=== PATIENT | female | born 1995 | race Caucasian/White ===

== ENCOUNTER 2019-09-10 17:13 | Outpatient (CLI) | payer OTHER, SELFPAY ==
--- NOTE | ~2019-09-10 | CT_ITS ---
EXAMINATION: CT sinus wo con DATE: 09/10/2019 19:05 INDICATION: Congestion. Chronic sinusitis. TECHNIQUE: Computed tomography (CT) of the paranasal sinuses was performed without contrast. Iterativ e reconstruction technique was employed. Exam dose: 277.13 mGy-cm total exam DLP. COMPARISON: None FINDINGS: There is rightward bowing of the nasal septum. The nasal turbinates are prominent, particularly the left inferior nasal turbinate, but otherwise but relatively symmetric in size. There is intralamellar cell of both middle nasal turbinates, more prom inent on the right. The ostiomeatal units are patent bilaterally. There is mild focal soft tissue thickening of some ethmoid air cells on the left. Otherwise the paran pam sinuses are normally developed and aerated, without soft tissue polyp or mucous retention cysts or air-fluid level. There is patchy opacification of the majority of predominantly lower left mastoid air cells. The righ t mastoid air cells are normally developed and aerated. Middle and inner ear apparatus appear unremar kable. IMPRESSION: Rightward bowing of nasal septum Interlamellar cell of both middle nasal turbinates Mild focal soft tissue thickening of the left ethmoid air cells Mild patchy opacification of predominately lower left mastoid air cells Reviewed, dictated and finalized at [facility]. Reviewed, dictated and finalized at [facility]. [facility] [employer]
== END 2019-09-10 17:14 | disposition home or self-care (01) ==
LOC: ANHIMG 17:22
PROVIDERS: PCP Family Medicine; Visit Provider Otolaryngology
DX: J32.9 Chronic sinusitis, unspecified (principal); J34.2 Deviated nasal septum
CPT/HCPCS: 70486

== ENCOUNTER 2020-07-05 17:32 | Emergency (ER) | payer OTHER, SELFPAY ==
[2020-07-05 17:52] VITALS: BP 126/76; PULSE 88; RESP 20; TEMP 36.4; O2SAT 100
--- NOTE | 2020-07-05 17:53 | ED.FEMALEGU ---
HPI - Female Genitourinary General Chief complaint: Urogenital-Female Stated complaint: uti Time Seen by Provider: 07/05/20 17:53 Source: patient and RN notes reviewed Mode of arrival: ambulatory Limitations: no limitations History of Present Illness HPI Narrative: 25 year old female who presents to [facility] with 3 day duration of urinary tract infection symptoms of burning with initially pressure in the perineal area on with symptoms of burning with urination,urgency and frequency, nausea, and pressure with urination starting Tuesday and continuing today. Patient states that she had 99.6F temperature last night with no fevers noted today. Patient denies any vaginal discharge or any itching. MD elicited complaint: dysuria and UTI Onset (ago): day(s) (3) Location of symptoms: perineum and urethra Severity: moderate Severity scale (1-10): 4 Vaginal discharge: none Vaginal bleeding: none Urinary symptoms: Dysuria and Urgency Exacerbating factors: urination Relieving factors: none Associated symptoms: fever (low grade of 99.6F) and nausea Treatment prior to arrival: none Sexual activity: Yes Patient : No Date of Last Menstrual Period: 06/05/20 Related Data Home Medications Medication Instructions Recorded Confirmed aripiprazole 15 mg DAILY 07/05/20 07/05/20 bupropion HCl 300 mg PO DAILY 07/05/20 07/05/20 norgestimate-ethinyl estradiol 1 tablet DAILY 07/05/20 07/05/20 [Sprintec (28)] sertraline 100 mg DAILY 07/05/20 07/05/20 Allergies Allergy/AdvReac Type Severity Reaction Status Date / Time erythromycin base Allergy Unknown hives Verified 04/07/16 09:05 Review of Systems Review of Systems: Narrative: CONSTITUTIONAL: reports 99.6F fever last night with chills, or sweats. EYES: Denies visual changes, redness, or discharge. ENT: Denies rhinorrhea, congestion, sore throat, or otalgia. CARDIOVASCULAR: Denies chest pain, palpitations, or edema. RESPIRATORY: Denies cough or dyspnea. GASTROINTESTINAL: Denies abdominal pain,positive for nausea, denies vomiting, or diarrhea. GENITOURINARY: Positive for dysuria or hematuria and perineal pressure. SKIN: Denies rash or itching. MUSCULOSKELETAL: Denies back pain, joint pain, or myalgia. NEUROLOGIC: Denies headache, numbness, or weakness. PSYCHIATRIC: Positive history of anxiety or depression. All systems reviewed & are unremarkable except as noted in HPI and below PMFSH Past Medical History Medical History (Updated 07/05/20 @ 18:22 by Aletha Jean Baptiste NP) Anxiety with depression Asthma OCD (obsessive compulsive disorder) Surgical History Surgical History (Updated 07/05/20 @ 18:22 by Aletha Jean Baptiste NP) Hx of tonsillectomy Family History Family History Other Diabetes mellitus Family history of allergic disorder Family history of cardiovascular disease Hypertension Social History Social History (Updated 07/05/20 @ 18:23 by Aletha Jean Baptiste NP) Smoking status: Never smoker Alcohol intake: current Substance use: never Living arrangements: with family Gender identity (if verbalized by the patient): Female Comments At time of signature, agree with nursing past medical, surgical, social and family history. There is no relevant family history pertinent to the presenting complaint Exam Narrative: Exam Narrative: GENERAL: Well-appearing, well-nourished, and in no acute distress. HEAD: Normocephalic, atraumatic. EYES: PERRLA and EOMI. ENT: Nares clear, no rhinorrhea or epistaxis. Mucous membranes moist. NECK: Supple.no lymphadenopathy CHEST: Clear to auscultation. No respiratory distress.SAO2 100% on room air. HEART: Regular rate and rhythm. No murmur heard. Normal peripheral pulses. ABDOMEN: Soft, nontender, nondistended, normal active bowel sounds.denies any constipation history. States burning with urination and pressure in perineal region, denies any abdominal pain or C
[2020-07-05 17:57] VITALS: BP 126/76; PULSE 88; RESP 20; TEMP 36.4; O2SAT 100
== END 2020-07-05 18:08 | disposition home or self-care (01) ==
PROVIDERS: Emergency Provider Registered Nurse; PCP Physician Assistant
DX: N39.0 Urinary tract infection, site not specified (principal); J45.909 Unspecified asthma, uncomplicated; F41.9 Anxiety disorder, unspecified; F32.9 Major depressive disorder, single episode, unspecified; F42.9 Obsessive-compulsive disorder, unspecified
CPT/HCPCS: 81003; 87086; 87088; 99213; G0463

== ENCOUNTER 2021-05-11 15:28 | Emergency (ER) | payer OTHER, SELFPAY ==
[2021-05-11 15:48] VITALS: BP 129/85; PULSE 99; RESP 18; TEMP 36.4; O2SAT 98
--- NOTE | 2021-05-11 15:51 | ED.URI ---
HPI - URI/Sore Throat General Chief Complaint: Upper Respiratory Infection Stated Complaint: Sore Throat,Headache,Fatigue,Congestion Time Seen by Provider: 05/11/21 16:10 Source: patient and RN notes reviewed Mode of arrival: ambulatory Limitations: no limitations History of Present Illness HPI Narrative: 26-year-old female presents concern for sore throat, headache, body aches, fatigue, general malaise. Reports symptoms started on Tuesday. Reports she has been vaccinated for Covid, she also had a negative strep test last week. 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 Reports she has been taking DayQuil with mild relief that wears off. She denies cough, shortness of breath, nausea, vomiting, diarrhea, loss of taste and smell. MD elicited complaint: sore throat Related Data Home Medications Medication Instructions Recorded Confirmed aripiprazole 15 mg DAILY 07/05/20 07/05/20 bupropion HCl 300 mg PO DAILY 07/05/20 07/05/20 norgestimate-ethinyl estradiol 1 tablet DAILY 07/05/20 07/05/20 [Sprintec (28)] sertraline 100 mg DAILY 07/05/20 07/05/20 Allergies Allergy/AdvReac Type Severity Reaction Status Date / Time erythromycin base Allergy Unknown hives Verified 04/07/16 09:05 Review of Systems Review of Systems: CONSTITUTIONAL: Reports malaise. Denies chills, sweats, or fever. EYES: Denies visual changes, redness, or discharge. ENT: Reports rhinorrhea, congestion, sore throat. Denies sinus pain, otalgia CARDIOVASCULAR: Denies chest pain, palpitations, or edema. RESPIRATORY: Denies cough or dyspnea. GASTROINTESTINAL: Denies abdominal pain, nausea, vomiting, diarrhea SKIN: Denies rash or itching. MUSCULOSKELETAL: Reports myalgia. NEUROLOGIC: Denies headache. All systems reviewed & are unremarkable except as noted in HPI and below PMFSH Past Medical History Medical History (Updated 05/11/21 @ 16:33 by Geeta Redmond NP) Anxiety with depression Asthma OCD (obsessive compulsive disorder) Surgical History Surgical History (Updated 07/05/20 @ 18:22 by Aletha Jean Baptiste NP) Hx of tonsillectomy Family History Family History Other Diabetes mellitus Family history of allergic disorder Family history of cardiovascular disease Hypertension Social History Social History (Updated 07/05/20 @ 18:23 by Aletha Jean Baptiste NP) Smoking status: Never smoker Alcohol intake: current Substance use: never Gender identity (if verbalized by the patient): Female Comments At time of signature, agree with nursing past medical, surgical, social and family history. There is no relevant family history pertinent to the presenting complaint Exam Narrative: GENERAL: Well-appearing, well-nourished, and in no acute distress. HEAD: Normocephalic EYES: PERRLA, conjunctivae clear ENT: Nares clear, clear discharge. Mucous membranes moist. TM pearly croft with sharp light reflex bilaterally; no tragal tenderness. Oropharynx not erythematous without lesions. Tonsils not enlarged and without exudate, no drooling, no hoarseness, no trismus, uvula midline. NECK: Supple. No lymphadenopathy CHEST: Clear to auscultation, breath sounds equal. No wheezing, rhonchi, rales, or stridor. No respiratory distress, speaks in full sentences. HEART: Regular rate and rhythm. No murmur heard. SKIN: Warm, dry, no rash. NEURO: Alert and oriented x3. PSYCH: Normal mood and affect Course Course Emergency Course: Patient is aware of diagnosis, understands and agrees to treatment plan. Anticipatory guidance given. Patient agrees to follow-up as directed and is aware of reasons to seek care at the emergency department. Portions of this record may have been created with voice recognition software Vital Signs Vital signs: Vital Signs Temperature 97.5 F L 05/11/21 15:48 Pulse Rate 99 05/11/21 15:48 Respiratory Rate 18 05/11/21 15:48 Blood Pressure 129/85 05/11/21 15:48 P
[2021-05-12 19:14] LABS: SARS-CoV-2 RNA PCR Negative
== END 2021-05-11 16:42 | disposition home or self-care (01) ==
PROVIDERS: Emergency Provider Nurse Practitioner; PCP Physician Assistant
DX: B34.9 Viral infection, unspecified (principal); Z20.822 Contact with and (suspected) exposure to COVID-19; J45.909 Unspecified asthma, uncomplicated; F41.9 Anxiety disorder, unspecified; F42.9 Obsessive-compulsive disorder, unspecified
CPT/HCPCS: 87081; 87426; 87804; 87880; 99213; C9803; G0463; U0003; U0005

== ENCOUNTER 2021-06-22 14:43 | Emergency (ER) | payer OTHER, SELFPAY ==
--- NOTE | 2021-06-22 15:03 | ED.FEMALEGU ---
HPI - Female Genitourinary General Chief complaint: Urogenital-Female Stated complaint: UTI Time Seen by Provider: 06/22/21 15:03 Source: patient, RN notes reviewed and old records reviewed Mode of arrival: ambulatory Limitations: no limitations History of Present Illness HPI Narrative: 26-year-old female presents to the [facility] with complaints of nausea, abnormal smell to her urine. Also complains of right lower quadrant pain wrapping around to her right flank area. No treatment prior to arrival. Has had nausea without vomiting. MD elicited complaint: UTI Related Data Home Medications Medication Instructions Recorded Confirmed bupropion HCl 300 mg PO DAILY 07/05/20 06/22/21 norgestimate-ethinyl estradiol 1 tablet DAILY 07/05/20 06/22/21 [Sprintec (28)] sertraline 100 mg DAILY 07/05/20 06/22/21 lamotrigine 100 mg PO DAILY 06/22/21 06/22/21 Allergies Allergy/AdvReac Type Severity Reaction Status Date / Time erythromycin base Allergy Mild hives Verified 06/22/21 15:05 Review of Systems Review of Systems: All systems reviewed & are unremarkable except as noted in HPI and below Constitutional: Constitutional: Reports no additional constitutional complaints Eyes: Eyes: Reports no additional eye complaints ENT: Reports system reviewed and no additional complaints, except as documented Cardiovascular: Cardiovascular: Reports no additional cardiovascular complaints Respiratory: Respiratory: Reports no additional respiratory complaints Gastrointestinal: Gastrointestinal: Reports abdominal pain and Reports nausea Genitourinary: Genitourinary: Reports as per HPI and Reports dysuria Musculoskeletal: Musculoskeletal: Reports no additional musculoskeletal complaints Integumentary/Breasts: Skin/Breast: Reports system reviewed and no additional complaints, except as docu Neurologic: Reports system reviewed and no additional complaints, except as documented Psychiatric: Psychiatric: Reports no additional psychiatric complaints Allergic/Immunologic: Allergic/Immunologic: Reports no additional allergic/immunologic complaints PMFSH Past Medical History Medical History Anxiety with depression Asthma OCD (obsessive compulsive disorder) Surgical History Surgical History Hx of tonsillectomy Family History Family History Other Diabetes mellitus Family history of allergic disorder Family history of cardiovascular disease Hypertension Social History Social History Smoking status: Never smoker Alcohol intake: current Substance use: never Gender identity (if verbalized by the patient): Female Comments At the time of my signature, I reviewed and agree with the nursing past medical, surgical, social, and family history. There is no relevant family history pertinent to the patient complaint. Exam Const: General: healthy appearing, no acute distress and alert Nutritional Appearance: well nourished and obese Orientation/consciousness: patient oriented x3 Limitations: no limitations HENMT: Head: normal to inspection Eyes: Conjunctivae: conjunctivae normal Pupils: Equal, round and reactive pupils present Neck: Neck: normal visual inspection, no lymphadenopathy and no meningeal signs Chest: Chest palpation & inspection: normal inspection of the chest Resp: Effort & Inspection: normal respiratory effort Cardio: Rate: regular rate GI: GI Palp: Yes Soft to palpation, Yes Tenderness to palpation present (GI) (Right lower, suprapubic) and Yes Rebound tenderness present (Suprapubic, right lower quadrant) Auscultation: normal bowel sounds : General: Yes no CVA tenderness Back/Spine/Pelvis: Back: no CVA tenderness Skin: General skin exam: normal color Rashes: no rashes Wounds: no wounds Neuro:
[2021-06-22 15:06] VITALS: BP 118/62; PULSE 100; RESP 18; TEMP 36.4; O2SAT 100
[2021-06-22 15:08] VITALS: BP 118/62; PULSE 100; RESP 18; TEMP 36.4; O2SAT 100
== END 2021-06-22 15:40 | disposition short-term general hospital (02) ==
PROVIDERS: Emergency Provider Nurse Practitioner; PCP Physician Assistant
DX: R10.31 Right lower quadrant pain (principal); J45.909 Unspecified asthma, uncomplicated; F41.9 Anxiety disorder, unspecified; F32.9 Major depressive disorder, single episode, unspecified; F42.9 Obsessive-compulsive disorder, unspecified
CPT/HCPCS: 81003; 99212; G0463

== ENCOUNTER 2021-06-22 15:57 | Emergency (ER) | payer OTHER, SELFPAY ==
--- NOTE | ~2021-06-22 | CT_ITS ---
EXAMINATION: CT abdomen pelvis wo con DATE: 06/22/2021 20:06 INDICATION: Right lower quadrant abdominal pain TECHNIQUE: Computed tomography (CT) of the abdomen and pelvis was performed without intravenous contr ast. Automated exposure control and iterative reconstruction technique were employed. The dose-length product was 1568.19 mGy-cm. COMPARISON: 10/17/2015 FINDINGS: Lung bases are clear. Heart size is normal. No pericardial or pleural effusion. Liver, gallbladder, s pleen, pancreas and bilateral adrenal glands are normal. 2 mm stones at the upper pole of the left ki dney and lower pole of the right kidney. Bilateral kidneys and ureters are otherwise unremarkable wit h no ureteral stones or hydronephrosis. Bowels including the appendix are normal. Bladder, uterus and bilateral adnexa are unremarkable. A few phleboliths in the pelvis. No free intraperitoneal gas or f luid. No pathologically enlarged abdominal or pelvic lymphadenopathy. Schmorl's node along the superi or endplate of L1. IMPRESSION: 1. Bilateral nonobstructing nephrolithiasis. 2. Normal appendix. No acute intra-abdominal/pelvic process. Reviewed, dictated and finalized at [facility]
[2021-06-22 16:31] VITALS: BP 132/82; PULSE 100; RESP 16; TEMP 36.1; O2SAT 100
[2021-06-22 16:51] LABS: Basophils Absolute Auto 0.1 K/mm3 (0.0-0.1); Basophils Percent Auto 0.4 % (0.2-1.2); Eosinophils Absolute Auto 0.2 K/mm3 (0-0.3); Eosinophils Percent Auto 1.4 % (0-4.4); Hematocrit 42.2 % (37.0-47.0); Hemoglobin 14.7 g/dL (12.0-15.0); Immature Granulocyte Absolute 0.06 K/mm3 (0.00-0.031); Immature Granulocyte Percent A 0.4 % (0-0.5); Lymphocytes Absolute Auto 3.13 K/mm3 (0.9-3.2); Lymphocytes Percent Auto 22.6 % (18.3-44.2); Mean Corpuscular HGB Conc 34.8 g/dl (32-36); Mean Corpuscular Hemoglobin 30.9 pg (26-34); Mean Corpuscular Volume 88.7 fl (80-100); Mean Platelet Volume 9.4 fl (7.4-10.4); Monocytes Absolute Auto 0.9 K/mm3 (0.1-0.6); Monocytes Percent Auto 6.7 % (2.6-8.5); Neutrophils Absolute Auto 9.5 K/mm3 (1.3-6.7); Neutrophils Percent Auto 68.5 % (45.5-73.1); Platelet Count Result 420 k/mm3 (150-375); Red Blood Count 4.76 M/mm3 (4.2-5.4); White Blood Count 13.8 K/mm3 (4.5-10.0)
[2021-06-22 17:02] LABS: Potassium 4.2 mmol/L (3.4-5.0)
[2021-06-22 17:09] LABS: Alanine Aminotransferase 24 U/L (4-35); Albumin Level 4.3 g/dL (3.5-5.1); Alkaline Phosphatase 88 U/L (38-126); Anion Gap 7 mmol/L (8-16); Aspartate Amino Transferase 25 U/L (14-36); Bilirubin,Total 1.1 mg/dL (0.2-1.3); Blood Urea Nitrogen 13 mg/dL (7-17); Calcium 9.6 mg/dL (8.4-10.2); Carbon Dioxide 25 mmol/L (22-30); Chloride 104 mmol/L (98-107); Estimated CRCL calculation 112 ml/min; Estimated Glomerular Filt Rate > 60; Glucose 93 mg/dL (65-110); Lipase 61 U/L (23-300); Sodium 136 mmol/L (137-145)
[2021-06-22 17:19] LABS: Add Urine Microscopic? YES; Appearance Urine Cloudy (Clear); Bacteria Urine Trace /hpf; Bilirubin Urine Negative (Negative); Blood Urine Negative (Negative); Color Urine Yellow (Yellow); Glucose Urine UA Negative (Negative); Ketones Urine Negative (Negative); Leukocyte Esterase Ur Negative LEU/UL (Negative); Mucus Urine Rare /lpf; Nitrate Urine Negative (Negative); Protein Urine Negative (Negative); RBC Urine 0-2 /hpf (0-2); Specific Grav Ur 1.013 (1.001-1.035); Squamous Epithelial Cell Urine Moderate /hpf (Few); Urobilinogen Urine Negative mg/dL (<2.0); WBC Urine 0-3 /hpf
[2021-06-22 19:06] VITALS: BP 128/78; PULSE 90; RESP 16; TEMP 36.9; O2SAT 97
[2021-06-22 21:49] VITALS: BP 119/85; PULSE 88; RESP 18; TEMP 37.1; O2SAT 100
--- NOTE | 2021-06-22 21:49 | ED.ABDPAIN ---
HPI - Abdominal Pain General Chief Complaint: Abdominal Pain Stated Complaint: RLQ pain with nausea, R/O appy Time Seen by Provider: 06/22/21 21:14 Source: patient Mode of arrival: ambulatory Limitations: no limitations History of Present Illness HPI narrative: Patient is a 26-year-old female complaining of abdominal pain, right lower quadrant, 6 out of 10, sharp accompanied by left flank pain that started 4 days ago. Patient states that she was at an urgent care earlier today and was told to go to the emergency room to get a CAT scan to rule out appendicitis. Related Data Home Medications Medication Instructions Recorded Confirmed bupropion HCl 300 mg PO DAILY 07/05/20 06/22/21 norgestimate-ethinyl estradiol 1 tablet DAILY 07/05/20 06/22/21 [Sprintec (28)] sertraline 100 mg DAILY 07/05/20 06/22/21 lamotrigine 100 mg PO DAILY 06/22/21 06/22/21 Allergies Allergy/AdvReac Type Severity Reaction Status Date / Time erythromycin base Allergy Mild hives Verified 06/22/21 21:54 Review of Systems Review of Systems: All systems reviewed & are unremarkable except as noted in HPI and below Constitutional: Constitutional: Denies body ache(s), Denies chills, Denies excessive sweating, Denies fatigue, Denies fever(s), Denies headache(s), Denies lethargy, Denies malaise, Denies weakness and Denies weight loss Eyes: Eyes: Denies blurry vision, Denies change in vision and Denies loss of vision ENT: Denies dizziness, Denies ear discharge, Denies headache(s), Denies lip swelling, Denies epistaxis, Denies nasal congestion, Denies neck pain, Denies throat swelling and Denies tongue swelling Cardiovascular: Cardiovascular: Denies chest pain, Denies chest pain at rest, Denies chest pain with activity, Denies diaphoresis, Denies rapid heart rate, Denies edema, Denies irregular heart rhythm, Denies lightheadedness, Denies palpitations, Denies dyspnea and Denies dyspnea on exertion Respiratory: Respiratory: Denies chest congestion, Denies cough, Denies hemoptysis, Denies dyspnea and Denies dyspnea on exertion Gastrointestinal: Gastrointestinal: Denies melena, Denies hematochezia, Denies diarrhea, Denies nausea, Denies vomiting and Denies hematemesis Musculoskeletal: Musculoskeletal: Denies abnormal gait, Denies deformity, Denies joint swelling, Denies limited range of motion, Denies neck pain and Denies numbness Neurologic: Denies Abnormal speech present, Denies abnormal gait, Denies confusion, Denies dizziness, Denies headache(s), Denies focal weakness, Denies loss of vision, Denies numbness, Denies Other visual disturbances, Denies Sensory deficit (Neuro) and Denies weakness Psychiatric: Psychiatric: Denies confusion, Denies depression, Denies auditory hallucinations, Denies homicidal ideation and Denies suicidal ideation Endocrine: Endocrine: Denies cold intolerance, Denies excessive sweating, Denies fatigue, Denies heat intolerance and Denies palpitations Hematologic/Lymphatic: Hematologic/Lymphatic: Denies easy bleeding and Denies easy bruising Allergic/Immunologic: Allergic/Immunologic: Denies lip swelling, Denies throat swelling and Denies tongue swelling PMFSH Past Medical History Medical History Anxiety with depression Asthma OCD (obsessive compulsive disorder) Surgical History Surgical History Hx of tonsillectomy Family History Family History Other Diabetes mellitus Family history of allergic disorder Family history of cardiovascular disease Hypertension Social History Social History Smoking status: Never smoker Alcohol intake: current Substance use: never Gender identity (if verbalized by the patient): Female Exam Const: General: cooperative, healthy appearing, comfortable, no acute d
[2021-06-22 23:02] VITALS: BP 126/81; PULSE 92; RESP 18; O2SAT 100
== END 2021-06-22 23:05 | disposition home or self-care (01) ==
PROVIDERS: Emergency Medicine; Emergency Provider Emergency Medicine; PCP Physician Assistant
DX: N20.0 Calculus of kidney (principal); R10.31 Right lower quadrant pain; F41.8 Other specified anxiety disorders; J45.909 Unspecified asthma, uncomplicated; F42.9 Obsessive-compulsive disorder, unspecified
CPT/HCPCS: 36415; 74176; 80053; 81001; 81003; 81025; 83690; 85025; 99284

== ENCOUNTER 2021-07-07 12:07 | Emergency (ER) | payer OTHER, SELFPAY ==
[2021-07-07 12:17] VITALS: BP 111/60; PULSE 94; RESP 20; TEMP 36.6; O2SAT 99
--- NOTE | 2021-07-07 12:17 | ED.LOWEXIN ---
HPI - Extremity Injury (Lower) General Chief Complaint: Extremity Injury, Lower Stated Complaint: Glass Rt Foot Source: patient and RN notes reviewed Limitations: no limitations History of Present Illness HPI Narrative: The patient, previously healthy with immunizations UTD, presents with foot foreign body. Patient states she was walking barefoot in the garage and this morning noted the onset of glass foreign body sensation in her heel -recalling she had broken [place] item there in the past. She went to work and walked on it; symptoms and request removal. No bleeding, redness, discharge; symptoms are mild worse with ambulation Related Data Home Medications Medication Instructions Recorded Confirmed bupropion HCl 300 mg PO DAILY 07/05/20 06/22/21 norgestimate-ethinyl estradiol 1 tablet DAILY 07/05/20 06/22/21 [Sprintec (28)] sertraline 100 mg DAILY 07/05/20 06/22/21 lamotrigine 100 mg PO DAILY 06/22/21 06/22/21 Allergies Allergy/AdvReac Type Severity Reaction Status Date / Time erythromycin base Allergy Mild hives Verified 06/22/21 21:54 Review of Systems Review of Systems: General/Constitutional: No weight loss,fever Eyes: N0: Redness,discharge Ears/Nose/Throat: No: Epistaxis,ear discharge Respiratory: Denies: Hemoptysis Gastrointestinal: No Vomiting, Bleeding-rectal Skin: No Lumps, eruption Neurologic: No Focal Weakness,Sz Hematologic: Denies: Petechiae/Purpura Psychiatric: No: Suicida ideationl All Other Systems: Reviewed and Negative [facility] Past Medical History Medical History Anxiety with depression Asthma OCD (obsessive compulsive disorder) Surgical History Surgical History Hx of tonsillectomy Family History Family History Other Diabetes mellitus Family history of allergic disorder Family history of cardiovascular disease Hypertension Social History Social History Smoking status: Never smoker Alcohol intake: current Substance use: never Gender identity (if verbalized by the patient): Female Exam Narrative: General Appearance: Well appearing, Conjunctiva clear Ears: External ear normal, Auditory canal normal Nose: Normal nose, Nares clear Mouth/Throat: Normal appearing, Normal lips,Neck: Supple Respiratory: Airway patent, No respiratory distress Musculoskeletal-foot: Normal strength , Tenderness heel, no swelling Skin: Small punctate with FB sensation on the heel otherwise warm, Dry, Normal color Neurological: A&O x3, Normal affect Course Vital Signs Vital signs: Vital Signs Temperature 97.9 F 07/07/21 12:17 Pulse Rate 94 07/07/21 12:17 Respiratory Rate 20 07/07/21 12:17 Blood Pressure 111/60 07/07/21 12:17 Pulse Oximetry 99 07/07/21 12:17 Temperature 97.9 F 07/07/21 12:17 Pulse Rate 94 07/07/21 12:17 Respiratory Rate 20 07/07/21 12:17 Blood Pressure 111/60 07/07/21 12:17 Pulse Oximetry 99 07/07/21 12:17 Procedures Foreign Body Removal Foreign Body #1: Foreign Body Removal Date: 07/07/21 Site: foot Description of foreign body: other (Glass) Sedation/Analgesia: other (Topic EMLA) Technique: manual removal, removal with forceps and incision made to facilitate removal Confirmed by:: direct visualization Complications: none Post-procedure exam: awake, alert Discharge Plan Discharge Clinical Impression: Foreign body in foot Qualifiers: Encounter type: initial encounter Laterality: left Qualified Code(s): S90.852A - Superficial foreign body, left foot, initial encounter Patient Disposition: Home, Self-Care Condition: Stable Instructions: Puncture Wound (ED) Prescriptions: New mupirocin 2 % ointment 1 applic TOPICAL TID Qty:
[2021-07-07] MEDS: LIDOCAINE/PRILOCAINE CREAM 2.5-2.5% TUBE 1 EACH TOPICAL (12:40)
== END 2021-07-07 14:10 | disposition home or self-care (01) ==
PROVIDERS: Emergency Provider Emergency Medicine; PCP Physician Assistant
DX: S90.852A Superficial foreign body, left foot, initial encounter (principal); W25.XXXA Contact with sharp glass, initial encounter; W45.8XXA Other foreign body or object entering through skin, initial encounter
CPT/HCPCS: 10120; 99213; G0463

== ENCOUNTER 2021-11-12 10:34 | Emergency (ER) | payer OTHER, SELFPAY ==
[2021-11-12 10:48] VITALS: BP 123/85; PULSE 91; RESP 18; TEMP 36; O2SAT 100
--- NOTE | 2021-11-12 10:50 | ED.URI ---
HPI - URI/Sore Throat General Chief Complaint: Upper Respiratory Infection Stated Complaint: fatigue,sorethroat Time Seen by Provider: 11/12/21 10:50 Source: patient Mode of arrival: ambulatory Limitations: no limitations History of Present Illness HPI Narrative: 26-year-old female with complaint of sore throat, fatigue, headaches, generalized weakness, swollen lymph nodes to bilateral armpits For 2 months. Has been seen at 2 urgent care visits and had negative strep and mono test. Did see her PCP who gave her an antibiotic but it did not change any of her symptoms. States she has taken antibiotics twice with no change to symptoms. Called her PCP today for appointment and was not able to see her. Patient thinks that she needs further testing for her symptoms. All systems reviewed and negative except as noted above. Related Data Home Medications Medication Instructions Recorded Confirmed bupropion HCl 300 mg PO DAILY 07/05/20 11/12/21 sertraline 100 mg DAILY 07/05/20 11/12/21 lamotrigine 100 mg PO DAILY 06/22/21 11/12/21 norethindrone ac-eth estradiol 1 tablet PO DAILY 11/12/21 11/12/21 [Microgestin 08/27 (21)] Allergies Allergy/AdvReac Type Severity Reaction Status Date / Time erythromycin base Allergy Mild hives Verified 11/12/21 11:01 Review of Systems Review of Systems: CONSTITUTIONAL: Denies fever, chills, or sweats. EYES: Denies visual changes, redness, or discharge. ENT: Denies rhinorrhea, congestion. Reports sore throat, lymph node swelling. CARDIOVASCULAR: Denies chest pain, palpitations, or edema. RESPIRATORY: Denies cough or dyspnea. GASTROINTESTINAL: Denies abdominal pain, nausea, vomiting, or diarrhea. GENITOURINARY: Denies dysuria or hematuria. SKIN: Denies rash or itching. MUSCULOSKELETAL: Denies back pain, joint pain, or myalgia. NEUROLOGIC: Denies headache, numbness, or weakness. PSYCHIATRIC: Denies anxiety or depression. All other systems reviewed are negative, except as documented in HPI. [facility] Past Medical History Medical History Anxiety with depression Asthma OCD (obsessive compulsive disorder) Surgical History Surgical History Hx of tonsillectomy Family History Family History Other Diabetes mellitus Family history of allergic disorder Family history of cardiovascular disease Hypertension Social History Social History Smoking status: Never smoker Alcohol intake: current Substance use: never Gender identity (if verbalized by the patient): Female Comments At time of signature, agree with nursing past medical, surgical, social and family history. There is no relevant family history pertinent to the presenting complaint. Exam Narrative: GENERAL: This is a well-nourished, well-developed patient, in no apparent distress. HEAD: normocephalic, atraumatic. EYES: PERRL. Sclera clear/white. Vision is grossly intact. EARS: External ears normal NOSE: External nose normal with no obvious nasal discharge, nares without redness, no rhinorrhea. THROAT: Mucous membranes moist, posterior pharynx clear. NECK: Neck supple, non-tender without lymphadenopathy, masses or thyromegaly. CARDIOVASCULAR: Regular rate and rhythm without murmurs, gallops, or rubs. RESPIRATORY: Clear to auscultation. Breath sounds equal bilaterally. No wheezes, rales, or rhonchi. SKIN: warm, Dry, intact with no suspicious lesions or rash, good texture and turgor. NEURO: awake, alert, and oriented to person, place and time. There were no obvious focal neurologic abnormalities. EXTREMITIES: Normal range of motion to all extremities. BACK: Nontender without deformity. No CVA tenderness. Course Course Level of Care: Express Care Visit Vital Signs Vital signs: Vital Signs Temperature
== END 2021-11-12 11:22 | disposition home or self-care (01) ==
PROVIDERS: Emergency Provider Nurse Practitioner Family; PCP Physician Assistant
DX: J02.9 Acute pharyngitis, unspecified (principal); R59.1 Generalized enlarged lymph nodes; J45.909 Unspecified asthma, uncomplicated; F41.9 Anxiety disorder, unspecified; F32.A Depression, unspecified; F42.9 Obsessive-compulsive disorder, unspecified
CPT/HCPCS: 99211; G0463

== ENCOUNTER → 2022-06-15 15:20 | Outpatient (CLI) | payer OTHER, SELFPAY ==
--- NOTE | ~2022-06-15 | XR_ITS ---
EXAMINATION: XR abdomen/kub 1V INDICATION: Gross hematuria TECHNIQUE: Supine views of the abdomen were obtained on 2 radiographs. COMPARISON: CT from today FINDINGS: A 3 mm stone is seen in the upper pole of the left kidney. The punctate right kidney stone described on CT is not definitely identified. The bowel gas pattern is normal. There are phleboliths of the pelvis. IMPRESSION: 1. Left nephrolithiasis. Reviewed, dictated and finalized at location B. K MAN IMPRESSION: 1. Left nephrolithiasis.
--- NOTE | ~2022-06-15 | CT_ITS ---
EXAMINATION: CT abdomen pelvis wo/w con DATE: 06/15/2022 16:16 INDICATION: Gross hematuria TECHNIQUE: Computed tomography (CT) of the abdomen and pelvis was performed without intravenous contr ast. CT of the abdomen and pelvis was then performed with a total of 130 mL Omnipaque 350 intravenous contrast using a double-bolus technique for simultaneous opacification of the renal parenchyma and r enal collecting system. The dose-length product (DLP) was 2453.97 mGy-cm. Automated exposure control and iterative reconstruction technique were employed. COMPARISON: 06/22/2021 FINDINGS: The lung bases are clear. The heart size is normal. The liver, spleen, pancreas, and adrena l glands are normal. The gallbladder is decompressed but normal in appearance. There is a 4 mm nonobs tructing stone of the left kidney upper pole. There is a 2 mm nonobstructing stone of the right mid k idney. No stones are present in the ureters or bladder. There is no hydronephrosis or hydroureter. No suspicious renal or urothelial lesion is identified. No pathologically enlarged abdominal or pelvic lymph nodes are identified. There is no free intraperitoneal gas or evidence of bowel obstruction. Th ere is mild lumbar spondylosis. IMPRESSION: 1. Bilateral nonobstructing nephrolithiasis. No CT correlate for the patient's symptoms. Reviewed, dictated and finalized at location B. RO[employer]
[2022-06-15 15:57] LABS: Estimated Glomerular Filt Rate > 60
== END ==
PROVIDERS: PCP Urology; Visit Provider Urology
DX: R31.0 Gross hematuria (principal); N20.0 Calculus of kidney
CPT/HCPCS: 74018; 74178; Q9967

== ENCOUNTER 2022-06-30 13:15 | Emergency (ER) | payer OTHER, SELFPAY ==
[2022-06-30 13:25] VITALS: BP 120/77; PULSE 87; RESP 18; TEMP 35.8; O2SAT 98
--- NOTE | 2022-06-30 13:54 | ED.URI ---
HPI - URI/Sore Throat General Chief Complaint: Upper Respiratory Infection Stated Complaint: sore throat, headache, body ache, fatigue Time Seen by Provider: 06/30/22 13:54 Source: patient Mode of arrival: ambulatory Limitations: no limitations History of Present Illness HPI Narrative: A 27-year-old female presents with complaint of fatigue, nasal congestion, body aches, decreased appetite, headache, sore throat starting this morning. 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 Denies chest pain and shortness of breath. No nausea vomiting diarrhea. Did not get flu vaccine. All systems reviewed and negative except as noted above. Related Data Home Medications Medication Instructions Recorded Confirmed bupropion HCl 300 mg 24 hr tablet, 300 mg PO DAILY 07/05/20 06/30/22 extended release sertraline 100 mg tablet 100 mg DAILY 07/05/20 06/30/22 lamotrigine 100 mg tablet 100 mg PO DAILY 06/22/21 06/30/22 Allergies Allergy/AdvReac Type Severity Reaction Status Date / Time erythromycin base AdvReac Mild hives Verified 06/30/22 13:21 Review of Systems Review of Systems: CONSTITUTIONAL: Denies fever, chills, or sweats. Reports fatigue. EYES: Denies visual changes, redness, or discharge. ENT: Reports rhinorrhea, congestion, sore throat. Denies otalgia. CARDIOVASCULAR: Denies chest pain, palpitations, or edema. RESPIRATORY: Denies cough or dyspnea. GASTROINTESTINAL: Denies abdominal pain, nausea, vomiting, or diarrhea. GENITOURINARY: Denies dysuria or hematuria. SKIN: Denies rash or itching. MUSCULOSKELETAL: Denies back pain, joint pain. Reports myalgia. NEUROLOGIC: Denies headache, numbness, or weakness. PSYCHIATRIC: Denies anxiety or depression. All other systems reviewed are negative, except as documented in HPI. [facility] Past Medical History Medical History Anxiety with depression Asthma OCD (obsessive compulsive disorder) Surgical History Surgical History Hx of tonsillectomy Family History Family History Other Diabetes mellitus Family history of allergic disorder Family history of cardiovascular disease Hypertension Social History Social History Smoking status: Never smoker Alcohol intake: current Substance use: never Gender identity (if verbalized by the patient): Female Comments At time of signature, agree with nursing past medical, surgical, social and family history. There is no relevant family history pertinent to the presenting complaint. Exam Narrative: GENERAL: This is a well-nourished, well-developed patient, in no apparent distress. HEAD: normocephalic, atraumatic. EYES: PERRL. Sclera clear/white. Vision is grossly intact. EARS: External ears normal, auditory canals clear and without drainage, TMs normal without perforation. Hearing grossly intact. NOSE: External nose normal with clear nasal drainage, erythema tenderness. THROAT: Mucous membranes moist, posterior pharynx clear. NECK: Neck supple, non-tender without lymphadenopathy, masses or thyromegaly. CARDIOVASCULAR: Regular rate and rhythm without murmurs, gallops, or rubs. RESPIRATORY: Clear to auscultation. Breath sounds equal bilaterally. No wheezes, rales, or rhonchi. SKIN: warm, Dry, intact with no suspicious lesions or rash, good texture and turgor. NEURO: awake, alert, and oriented to person, place and time. There were no obvious focal neurologic abnormalities. EXTREMITIES: No joint tenderness, effusion, or edema noted. Course Course Level of Care: Express Care Visit Vital Signs Vital signs: Vital Signs Temperature 35.8 C L 06/30/22 13:25 Pulse Rate 87 06/30/22 13:25 Respiratory Rate 18 06/30/22 13:25 Blood Pressure 120/77 06/30/22 13:25 Pulse Oximetry 98 06/30
== END 2022-06-30 14:00 | disposition home or self-care (01) ==
PROVIDERS: Emergency Provider Nurse Practitioner Family
DX: B34.9 Viral infection, unspecified (principal); J45.909 Unspecified asthma, uncomplicated; F41.8 Other specified anxiety disorders; F42.9 Obsessive-compulsive disorder, unspecified
CPT/HCPCS: 87804; 99212; G0463

== ENCOUNTER 2022-08-31 15:04 | Emergency (ER) | payer OTHER, SELFPAY ==
[2022-08-31 15:23] VITALS: BP 122/76; PULSE 111; RESP 20; TEMP 36.2; O2SAT 100
--- NOTE | 2022-08-31 15:46 | ED.GENADULT ---
HPI - General Adult General Chief complaint: Extremity Injury, Lower Stated complaint: toe pain Time Seen by Provider: 08/31/22 15:47 Source: patient, RN notes reviewed and old records reviewed Mode of arrival: ambulatory Limitations: no limitations History of Present Illness HPI narrative: 27-year-old female who presents to Express Care with complaints swelling pain to the nail bed the right 2nd toe which she noted Tuesday morning. Patient denies any known injury to the foot or toe just woke up with toe swollen and painful on Tuesday morning. Patient has redness and swelling around nail bed of right 2nd toe and painful to palpation, no drainage noted increased pain with ambulation. Patient reports that she has been taking Ibuprofen for her discomfort. MD complaint: right 2nd toe paronchyia Onset (ago): day(s) (4) Location: lower extremity (right 2nd toe) Severity: severe Severity scale (1-10): 7 Exacerbating factors: other (walking) Treatments prior to arrival: NSAID Related Data Home Medications Medication Instructions Recorded Confirmed bupropion HCl 300 mg 24 hr tablet, 300 mg PO DAILY 07/05/20 08/31/22 extended release lamotrigine 100 mg tablet 100 mg PO DAILY 06/22/21 08/31/22 aripiprazole 15 mg tablet 15 mg PO DAILY 08/31/22 08/31/22 duloxetine 30 mg capsule,delayed 30 mg PO DAILY 08/31/22 08/31/22 release Allergies Allergy/AdvReac Type Severity Reaction Status Date / Time erythromycin base AdvReac Mild hives Verified 08/31/22 15:43 Review of Systems Review of Systems: CONSTITUTIONAL: Denies fever, chills, or sweats. CARDIOVASCULAR: Denies chest pain, palpitations, or edema. RESPIRATORY: Denies cough or dyspnea. GASTROINTESTINAL: Denies abdominal pain, nausea, vomiting SKIN: Reports redness and swelling to right 2nd toe around nail bed. Denies purulent drainage, vesicles,or pain beyond proportion MUSCULOSKELETAL: Denies myalgia. NEUROLOGIC: Denies headache, numbness All systems reviewed & are unremarkable except as noted in HPI and below PMFSH Past Medical History Medical History Anxiety with depression Asthma OCD (obsessive compulsive disorder) Surgical History Surgical History Hx of tonsillectomy Family History Family History Other Diabetes mellitus Family history of allergic disorder Family history of cardiovascular disease Hypertension Social History Social History Smoking status: Never smoker Alcohol intake: current Substance use: never Living arrangements: with family Gender identity (if verbalized by the patient): Female Comments At time of signature, agree with nursing past medical, surgical, social and family history. There is no relevant family history pertinent to the presenting complaint Exam Narrative: GENERAL: Well-appearing, well-nourished, and in no acute distress. HEAD: Normocephalic, atraumatic. EYES: PERRLA and EOMI. ENT: Nares clear, no rhinorrhea or epistaxis. Mucous membranes moist.TM's normal with good light reflex, throat pink with no lesions, no tonsils present. NECK: Supple.no lymphadenopathy CHEST: Clear to auscultation. No respiratory distress.SAO2 100% on room air. HEART: Regular rate and rhythm. No murmur heard. Normal peripheral pulses. ABDOMEN: Soft, nontender, nondistended, normal active bowel sounds. EXTREMITIES: Normal range of motion. No edema. SKIN: Warm, dry. Erythema, induration, tenderness, warmth with pain to right 2nd toe around nail bed, increased pain with palpation, no drainage noted. NEURO: No focal deficits. Alert and oriented x3. Course Course Emergency Course: Patient is aware of diagnosis, understands and agrees to treatment plan. Anticipatory guidance given. Patient agrees to follow-up as directed and
== END 2022-08-31 16:15 | disposition home or self-care (01) ==
PROVIDERS: Emergency Provider Registered Nurse; PCP Family Medicine
DX: L03.031 Cellulitis of right toe (principal); J44.9 Chronic obstructive pulmonary disease, unspecified; F41.9 Anxiety disorder, unspecified; F32.A Depression, unspecified
CPT/HCPCS: 10060; 99213; G0463

== ENCOUNTER 2023-02-22 19:13 | Emergency (ER) | payer OTHER, SELFPAY ==
--- NOTE | ~2023-02-22 | XR_ITS ---
EXAM: XR foot RT min 3V DATE: 02/22/2023 19:30 HISTORY: rt foot pain X's 1month over 4th metatarsal/no trauma . COMPARISON: None available. FINDINGS: Normal mineralization. No fracture or dislocation. No lytic or blastic lesion. Joint space s are maintained. Plantar enthesopathy. No erosion or periosteal change. Soft tissues within normal l imits. IMPRESSION: No acute osseous finding in the right foot. Reviewed, dictated and finalized at location K.
[2023-02-22 19:21] VITALS: BP 127/79; PULSE 96; RESP 18; TEMP 36.8; O2SAT 100
[2023-02-22 19:23] VITALS: BP 127/79; PULSE 96; RESP 18; TEMP 36.8; O2SAT 100
--- NOTE | 2023-02-22 19:39 | ED.EXTPRO ---
HPI - Extremity Problem General Chief complaint: Extremity Problem,Nontraumatic Stated complaint: Rt Foot Pain Time Seen by Provider: 02/22/23 19:25 Source: patient Mode of arrival: ambulatory Limitations: no limitations History of Present Illness HPI Narrative: 28-year-old female presents with complaint of pain to dorsal aspect right foot for 1 month. Denies injury. States at the time that right foot pain started she had recently started trying to exercise with a new walking routine. States she only walked a few times before pain started. Patient ambulatory without limp wearing flip-flops. Has not seen her primary care physician for this problem. Not taking any [id number] medications to treat her pain. Patient requesting x-ray. All systems reviewed and negative except as noted above. Related Data Home Medications Medication Instructions Recorded Confirmed bupropion HCl 300 mg 24 hr tablet, 300 mg PO DAILY 07/05/20 02/22/23 extended release lamotrigine 100 mg tablet 100 mg PO DAILY 02/22/23 02/22/23 lurasidone 20 mg tablet 20 mg PO DAILY 02/22/23 02/22/23 Allergies Allergy/AdvReac Type Severity Reaction Status Date / Time erythromycin base AdvReac Mild hives Verified 02/22/23 19:14 Review of Systems Review of Systems: CONSTITUTIONAL: Denies fever, chills, or sweats. EYES: Denies visual changes, redness, or discharge. ENT: Denies rhinorrhea, congestion, sore throat, or otalgia. CARDIOVASCULAR: Denies chest pain, palpitations, or edema. RESPIRATORY: Denies cough or dyspnea. GASTROINTESTINAL: Denies abdominal pain, nausea, vomiting, or diarrhea. GENITOURINARY: Denies dysuria or hematuria. SKIN: Denies rash or itching. MUSCULOSKELETAL: Denies back pain, joint pain, or myalgia. Reports pain to dorsal aspect right foot. NEUROLOGIC: Denies headache, numbness, or weakness. PSYCHIATRIC: Denies anxiety or depression. All other systems reviewed are negative, except as documented in HPI. [facility] Past Medical History Medical History Anxiety with depression Asthma OCD (obsessive compulsive disorder) Surgical History Surgical History Hx of tonsillectomy Family History Family History Other Diabetes mellitus Family history of allergic disorder Family history of cardiovascular disease Hypertension Social History Social History Smoking status: Never smoker Alcohol intake: current Substance use: never Living arrangements: with family Gender identity (if verbalized by the patient): Female Comments At time of signature, agree with nursing past medical, surgical, social and family history. There is no relevant family history pertinent to the presenting complaint. Exam Narrative: GENERAL: This is a well-nourished, well-developed patient, in no apparent distress. HEAD: normocephalic, atraumatic. EYES: PERRL. Sclera clear/white. Vision is grossly intact. EARS: External ears normal NOSE: External nose normal NECK: Neck supple, non-tender without lymphadenopathy, masses or thyromegaly. CARDIOVASCULAR: Regular rate and rhythm without murmurs, gallops, or rubs. RESPIRATORY: Clear to auscultation. Breath sounds equal bilaterally. No wheezes, rales, or rhonchi. SKIN: warm, Dry, intact with no suspicious lesions or rash, good texture and turgor. NEURO: awake, alert, and oriented to person, place and time. There were no obvious focal neurologic abnormalities. EXTREMITIES: No joint tenderness, effusion, or edema noted. Tenderness on palpation to proximal aspect of right 4th metatarsal. No swelling or deformity noted. Normal range of motion. Course Course Level of Care: Express Care Visit Vital Signs Vital signs: Vital Signs Temperature 36.8 C 02/22/23
== END 2023-02-22 19:42 | disposition home or self-care (01) ==
PROVIDERS: Emergency Provider Nurse Practitioner Family; PCP Family Medicine
DX: M77.8 Other enthesopathies, not elsewhere classified (principal); J45.909 Unspecified asthma, uncomplicated; F41.9 Anxiety disorder, unspecified; F32.A Depression, unspecified
CPT/HCPCS: 73630; 99213; G0463

== ENCOUNTER 2023-05-16 14:52 | Outpatient (CLI) | payer OTHER, SELFPAY ==
[2023-05-16 15:46] LABS: Basophils Absolute Auto 0.1 K/mm3 (0.0-0.1); Basophils Percent Auto 0.6 % (0.2-1.2); Eosinophils Absolute Auto 0.4 K/mm3 (0-0.3); Eosinophils Percent Auto 3.2 % (0-4.4); Hematocrit 42.3 % (37.0-47.0); Hemoglobin 14.7 g/dL (12.0-15.0); Immature Granulocyte Absolute 0.17 K/mm3 (0.00-0.031); Immature Granulocyte Percent A 1.3 % (0-0.5); Lymphocytes Absolute Auto 2.72 K/mm3 (0.9-3.2); Lymphocytes Percent Auto 21.3 % (18.3-44.2); Mean Corpuscular HGB Conc 34.8 g/dl (32-36); Mean Corpuscular Hemoglobin 31.2 pg (26-34); Mean Corpuscular Volume 89.8 fl (80-100); Mean Platelet Volume 9.3 fl (7.4-10.4); Monocytes Absolute Auto 0.8 K/mm3 (0.1-0.6); Monocytes Percent Auto 6.3 % (2.6-8.5); Neutrophils Absolute Auto 8.6 K/mm3 (1.3-6.7); Neutrophils Percent Auto 67.3 % (45.5-73.1); Platelet Count Result 354 k/mm3 (150-375); Red Blood Count 4.71 M/mm3 (4.2-5.4); Red Cell Distribution Width 12.9 % (11.5-14.5); White Blood Count 12.8 K/mm3 (4.5-10.0)
[2023-05-16 16:03] LABS: Alanine Aminotransferase 33 U/L (6-35); Albumin Level 4.4 g/dL (3.5-5.1); Alkaline Phosphatase 85 U/L (38-126); Anion Gap 11 mmol/L (8-16); Aspartate Amino Transferase 30 U/L (14-36); Blood Urea Nitrogen 11 mg/dL (7-17); Calcium 9.1 mg/dL (8.4-10.2); Carbon Dioxide 18 mmol/L (22-30); Chloride 105 mmol/L (98-107); Estimated Glomerular Filt Rate > 60; Glucose 95 mg/dL (65-110); Potassium 3.8 mmol/L (3.4-5.0); Sodium 134 mmol/L (137-145)
[2023-05-16 17:22] LABS: Hepatitis B Surface Antigen Negative (Negative)
[2023-05-16 17:32] LABS: Rubella IgG Antibody > 110.0 IU/ML
[2023-05-16 17:55] LABS: HIV 1/2 Ab P24 Ag Result Negative (Negative)
[2023-05-17 13:24] LABS: Rapid Plasma Reagin Non-Reactive (NonReactive)
[2023-05-20 17:43] LABS: CMV IgG Antibody <0.60 U/mL (<0.60)
[2023-05-24 15:28] LABS: CF Result POSITIVE (NEGATIVE)
[2023-05-26 17:03] LABS: SMA 2.0 RISK VARIANT NOT DETECTED
[2023-06-03 15:29] LABS: SMA Results Received Yes
== END 2023-05-16 14:53 | disposition home or self-care (01) ==
LOC: ANHLAB 14:53
PROVIDERS: PCP Family Medicine; Visit Provider Obstetrics & Gynecology
DX: N91.2 Amenorrhea, unspecified (principal); N18.9 Chronic kidney disease, unspecified
CPT/HCPCS: 36415; 80053; 81220; 81329; 84702; 85025; 86592; 86644; 86703; 86747; 86762; 86787; 86850; 86900; 86901; 87086; 87340; G0432

== ENCOUNTER 2023-06-01 12:24 | Outpatient (CLI) | payer OTHER, SELFPAY | END 2023-06-01 12:25 | disposition home or self-care (01) | LOC: ANHLAB 12:26 | PROVIDERS: PCP Family Medicine; Visit Provider Obstetrics & Gynecology | DX: R30.9 Painful micturition, unspecified (principal) | CPT/HCPCS: 87086; 87088 ==

== ENCOUNTER 2023-06-04 12:24 | Outpatient (NON) | payer OTHER, SELFPAY ==
[2023-06-04 13:17] LABS: Total Volume 24 Hour Urine 2600 ml
[2023-06-04 13:20] LABS: Specific Gravity Ur 1.015
[2023-06-04 13:26] LABS: Creatinine 24 Hour Urine 1.9 gm/24 (0.8-1.8); Creatinine Urine 74.9 mg/dL; Total Protein Urine 24 Hr 312 mg/24hr (28-141); Total Protein Urine Random 12 mg/dL
== END 2023-06-04 12:25 | disposition home or self-care (01) ==
LOC: ANHLAB 12:25
PROVIDERS: PCP Family Medicine; Visit Provider Obstetrics & Gynecology
DX: N18.9 Chronic kidney disease, unspecified (principal)
CPT/HCPCS: 81050; 82570; 84156

== ENCOUNTER 2023-08-24 16:06 | Outpatient (CLI) | payer OTHER, SELFPAY ==
[2023-08-24 16:40] LABS: Appearance Urine Clear (Clear); Bilirubin Urine Negative (Negative); Blood Urine Negative (Negative); Color Urine Yellow (Yellow); Glucose Urine UA Negative (Negative); Ketones Urine Trace mg/dL (Negative); Leukocyte Esterase Ur Negative LEU/UL (NEGATIVE); Nitrate Urine Negative (Negative); Protein Urine Negative (Negative); Specific Grav Ur 1.025 (1.001-1.035)
[2023-08-24 16:42] LABS: Add Urine Microscopic? NO
== END 2023-08-24 16:07 | disposition home or self-care (01) ==
PROVIDERS: PCP Family Medicine
DX: N18.9 Chronic kidney disease, unspecified (principal)
CPT/HCPCS: 81003; 87086; 87088

== ENCOUNTER 2023-09-01 14:52 | Observation (INO) | payer OTHER, SELFPAY ==
[2023-09-01] VITALS (10 sets, daily range): BP systolic 104–124; BP diastolic 61–77; PULSE 87–106; BMI 43.2
--- NOTE | 2023-09-01 15:56 | LDADM ---
This patient, Radhika Beck, was admitted to [facility] on 09/01/23 at 14:52. Patient/family oriented to hospital policies and general routines including ID bracelet, bed and alarms, visiting hours, pain management, procedures, bathroom and other care routines, personal items, smoking policy, room service/diet and guest tray routines, infant security routines, and visiting hours. Patient/Family are encouraged to report perceived risks to care and to ask questions if they do not understand what they are told or what they should do. See OBIX for further documentation.
[2023-09-01 16:10] LABS: Alanine Aminotransferase 43 U/L (6-35); Albumin Level 3.8 g/dL (3.5-5.1); Alkaline Phosphatase 81 U/L (38-126); Anion Gap 10 mmol/L (8-16); Aspartate Amino Transferase 30 U/L (14-36); Bilirubin,Total 0.4 mg/dL (0.2-1.3); Blood Urea Nitrogen 9 mg/dL (7-17); Calcium 9.3 mg/dL (8.4-10.2); Carbon Dioxide 18 mmol/L (22-30); Chloride 106 mmol/L (98-107); Estimated Glomerular Filt Rate > 60; Glucose 106 mg/dL (65-110); Sodium 134 mmol/L (137-145)
[2023-09-01 16:18] LABS: Basophils Absolute Auto 0.1 K/mm3 (0.0-0.1); Basophils Percent Auto 0.3 % (0.2-1.2); Eosinophils Absolute Auto 0.2 K/mm3 (0-0.3); Eosinophils Percent Auto 1.3 % (0-4.4); Hematocrit 36.1 % (37.0-47.0); Hemoglobin 12.1 g/dL (12.0-15.0); Immature Granulocyte Absolute 0.18 K/mm3 (0.00-0.031); Immature Granulocyte Percent A 1.2 % (0-0.5); Lymphocytes Absolute Auto 2.59 K/mm3 (0.9-3.2); Lymphocytes Percent Auto 17.1 % (18.3-44.2); Mean Corpuscular HGB Conc 33.5 g/dl (32-36); Mean Corpuscular Hemoglobin 29.8 pg (26-34); Mean Corpuscular Volume 88.9 fl (80-100); Mean Platelet Volume 9.8 fl (7.4-10.4); Monocytes Percent Auto 6.5 % (2.6-8.5); Neutrophils Absolute Auto 11.2 K/mm3 (1.3-6.7); Neutrophils Percent Auto 73.6 % (45.5-73.1); Platelet Count Result 347 k/mm3 (150-375); Red Blood Count 4.06 M/mm3 (4.2-5.4); Red Cell Distribution Width 13.5 % (11.5-14.5); White Blood Count 15.2 K/mm3 (4.5-10.0)
--- NOTE | 2023-09-01 17:48 | PC.NURSE ---
[id number] Ramirez. reported FHR 140-150 per Doppler, reported patients, sigh and symptoms. Labs, Bp. Dr Ramirez ok with discharging pt.
--- NOTE | 2023-09-01 17:54 | PC.NURSE ---
1500 FHR 140-150 per Doppler
--- NOTE | 2023-09-05 11:40 | PM.OBTRLD ---
OB - Triage/Final Diagnosis Visit Information Reason for evaluation: decreased movement Comments/Additional reasons for admission: I have assessed the risk for this patient, Radhika Beck, and determined that she would benefit from observation care. Evaluation Laboratory results: Laboratory Tests 09/01/23 09/01/23 15:42 16:10 WBC 15.2 H RBC 4.06 L Hgb 12.1 Hct 36.1 L MCV 88.9 MCH 29.8 MCHC 33.5 RDW 13.5 Plt Count 347 MPV 9.8 Immature Gran % (Auto) 1.2 H Neut % (Auto) 73.6 H Lymph % (Auto) 17.1 L [place] % (Auto) 6.5 Eos % (Auto) 1.3 Baso % (Auto) 0.3 Lymph # (Auto) 2.59 [place] # (Auto) 1.0 H Eos # (Auto) 0.2 Baso # (Auto) 0.1 Abs Immat Gran (auto) 0.18 H Absolute Neuts (auto) 11.2 H Absolute Nucleated RBC 0.0 Nucleated RBC % 0.0 Sodium 134 L Potassium 4.0 Chloride 106 Carbon Dioxide 18 L Anion Gap 10 BUN 9 Creatinine 0.70 Estim Creat Clear Calc Not Reportable Estimated GFR > 60 Glucose 106 Calcium 9.3 Total Bilirubin 0.4 AST 30 ALT 43 H Alkaline Phosphatase 81 Total Protein 7.0 Albumin 3.8
== END 2023-09-01 17:10 | disposition home or self-care (01) ==
PROVIDERS: Admitting Provider Obstetrics & Gynecology; PCP Family Medicine; Visit Provider Obstetrics & Gynecology
DX: O36.8120 Decreased fetal movements, second trimester, not applicable or unspecified (principal); Z3A.21 21 weeks gestation of pregnancy
CPT/HCPCS: 36415; 80053; 85025; G0378; G0379

== ENCOUNTER 2023-10-17 14:45 | Outpatient (CLI) | payer OTHER, SELFPAY ==
[2023-10-17 15:42] LABS: Total Volume 24 Hour Urine 1100 ml
[2023-10-17 15:46] LABS: Creatinine 24 Hour Urine 1.4 gm/24 (0.8-1.8); Creatinine Urine 128.5 mg/dL; Total Protein Urine 24 Hr 143 mg/24hr (28-141); Total Protein Urine Random 13 mg/dL
[2023-10-17 16:57] LABS: Basophils Absolute Auto 0.1 K/mm3 (0.0-0.1); Basophils Percent Auto 0.4 % (0.2-1.2); Eosinophils Absolute Auto 0.2 K/mm3 (0-0.3); Eosinophils Percent Auto 1.2 % (0-4.4); Hematocrit 37.8 % (37.0-47.0); Hemoglobin 12.9 g/dL (12.0-15.0); Immature Granulocyte Absolute 0.14 K/mm3 (0.00-0.031); Lymphocytes Absolute Auto 2.37 K/mm3 (0.9-3.2); Lymphocytes Percent Auto 16.9 % (18.3-44.2); Mean Corpuscular HGB Conc 34.1 g/dl (32-36); Mean Corpuscular Hemoglobin 30.4 pg (26-34); Mean Corpuscular Volume 89.2 fl (80-100); Mean Platelet Volume 10.1 fl (7.4-10.4); Monocytes Absolute Auto 0.9 K/mm3 (0.1-0.6); Monocytes Percent Auto 6.1 % (2.6-8.5); Neutrophils Absolute Auto 10.4 K/mm3 (1.3-6.7); Neutrophils Percent Auto 74.4 % (45.5-73.1); Platelet Count Result 340 k/mm3 (150-375); Red Blood Count 4.24 M/mm3 (4.2-5.4); Red Cell Distribution Width 13.7 % (11.5-14.5)
[2023-10-17 17:05] LABS: Glucose 1 Hour PP 50gm Dose 124 mg/dL
[2023-10-17 17:06] LABS: Alanine Aminotransferase 42 U/L (6-35); Albumin Level 3.6 g/dL (3.5-5.1); Alkaline Phosphatase 101 U/L (38-126); Anion Gap 7 mmol/L (8-16); Aspartate Amino Transferase 31 U/L (14-36); Bilirubin,Total 0.5 mg/dL (0.2-1.3); Blood Urea Nitrogen 8 mg/dL (7-17); Calcium 9.3 mg/dL (8.4-10.2); Carbon Dioxide 20 mmol/L (22-30); Chloride 108 mmol/L (98-107); Estimated Glomerular Filt Rate > 60; Glucose 124 mg/dL (65-110); Potassium 3.9 mmol/L (3.4-5.0); Sodium 135 mmol/L (137-145)
[2023-10-17 17:47] LABS: HIV 1/2 Ab P24 Ag Result Negative (Negative)
== END 2023-10-17 14:46 | disposition home or self-care (01) ==
PROVIDERS: Student in an Organized Health Care Education/Training Program; PCP Family Medicine; Referring Provider Obstetrics & Gynecology
DX: N18.9 Chronic kidney disease, unspecified (principal); Z34.90 Encounter for supervision of normal pregnancy, unspecified, unspecified trimester; Z3A.00 Weeks of gestation of pregnancy not specified
CPT/HCPCS: 36415; 80053; 81050; 82570; 82947; 84156; 85025; 86703; 86747; G0432

== ENCOUNTER 2023-10-28 14:15 | Observation (INO) | payer OTHER, SELFPAY ==
[2023-10-28 15:00] VITALS: BP 114/60; PULSE 97
[2023-10-28 15:10] LABS: Appearance Urine Clear (Clear); Bacteria Urine 1+ /hpf; Bilirubin Urine Negative (Negative); Blood Urine Negative (Negative); Color Urine Yellow (Yellow); Glucose Urine UA Negative (Negative); Ketones Urine Negative (Negative); Leukocyte Esterase Ur Trace LEU/UL (Negative); Nitrate Urine Negative (Negative); Non Pathogenic Casts 0-2; Protein Urine Negative (Negative); RBC Urine 0-2 /hpf (0-2); Specific Grav Ur 1.017 (1.001-1.035); Squamous Epithelial Cell Urine Few /hpf (Few); Urobilinogen Urine 0.2 mg/dL (<2.0)
[2023-10-28 15:23] LABS: Add Urine Microscopic? YES
[2023-10-28 15:57] VITALS: BMI 44.2
--- NOTE | 2023-10-31 08:14 | P.PNOB_ITS ---
OB - Triage/Final Diagnosis Visit Information Reason for evaluation: threatened labor Comments/Additional reasons for admission: I have assessed the risk for this patient, Radhika Beck, and determined that she would benefit from observation care. Evaluation Laboratory results: Laboratory Tests 10/28/23 14:53 Urine Color Yellow Urine Appearance Clear Urine pH 6.0 Ur Specific Jeremiah 1.017 Urine Protein Negative Urine Glucose (UA) Negative Urine Ketones Negative Ur Blood (Man) Negative Urine Nitrate Negative Urine Bilirubin Negative Urine Urobilinogen 0.2 Leukocyte Esterase Rfl Trace H Urine RBC 0-2 Urine WBC 6-10 H Ur Squamous Epith Cells Few Urine Bacteria 1+ H Urine Casts 0-2
== END 2023-10-28 15:50 | disposition home or self-care (01) ==
PROVIDERS: Admitting Provider Obstetrics & Gynecology; PCP Family Medicine; Visit Provider Obstetrics & Gynecology
DX: O47.03 False labor before 37 completed weeks of gestation, third trimester (principal); Z3A.29 29 weeks gestation of pregnancy
CPT/HCPCS: 87086; G0378; G0379

== ENCOUNTER 2023-11-01 13:29 | Observation (INO) | payer OTHER, SELFPAY ==
[2023-11-01 13:47] VITALS: BP 121/76; PULSE 101; PULSE 107; O2SAT 97
[2023-11-01 13:48] VITALS: BMI 44.2
--- NOTE | 2023-11-01 13:48 | OBADM ---
This patient, Radhika Beck, admitted to the OB room OB 113 for observation due to being headbutted in the abdomen at her work. Patient/family oriented to hospital policies and general routines including ID bracelet, bed and alarms, visiting hours, pain management, procedures, bathroom and other care routines, personal items, smoking policy, room service/diet, and visiting hours. Patient/Family are encouraged to report perceived risks to care and to ask questions if they do not understand what they are told or what they should do.
[2023-11-01 13:52] VITALS: PULSE 102; O2SAT 98
--- NOTE | 2023-11-01 14:28 | PC.NURSE ---
Called and spoke with Dr. Ramirez. Informed of strip and complaints. MD gave discharge orders. Would like patient to call or return if cramping worsens, may take extra strength tylenol.
--- NOTE | 2023-11-02 09:43 | PM.OBTRLD ---
OB - Triage/Final Diagnosis Visit Information Reason for evaluation: threatened labor Comments/Additional reasons for admission: I have assessed the risk for this patient, Radhika Beck, and determined that she would benefit from observation care. Evaluation Vital signs: Vital Signs - 24 hr 11/01/23 13:48 11/01/23 13:47 11/01/23 13:52 Pulse Rate 101 H Blood Pressure 121/76 Pulse Oximetry 97 98 Oxygen Delivery Room Air
== END 2023-11-01 14:48 | disposition home or self-care (01) ==
PROVIDERS: Admitting Provider Obstetrics & Gynecology; PCP Family Medicine; Visit Provider Obstetrics & Gynecology
DX: O47.03 False labor before 37 completed weeks of gestation, third trimester (principal); Z3A.29 29 weeks gestation of pregnancy
CPT/HCPCS: 59025; G0378; G0379

== ENCOUNTER 2023-11-21 15:06 | Outpatient (CLI) | payer OTHER, SELFPAY ==
[2023-11-21 15:37] LABS: Alanine Aminotransferase 92 U/L (6-35); Albumin Level 3.6 g/dL (3.5-5.1); Alkaline Phosphatase 115 U/L (38-126); Anion Gap 8 mmol/L (4-12); Aspartate Amino Transferase 55 U/L (14-36); Bilirubin,Total 0.6 mg/dL (0.2-1.3); Blood Urea Nitrogen 8 mg/dL (7-17); Calcium 9.3 mg/dL (8.4-10.2); Carbon Dioxide 19 mmol/L (22-30); Chloride 107 mmol/L (98-107); Estimated Glomerular Filt Rate > 60; Glucose 105 mg/dL (65-110); Sodium 134 mmol/L (137-145)
== END 2023-11-21 15:07 | disposition home or self-care (01) ==
LOC: ANHLAB 15:08
PROVIDERS: PCP Family Medicine
DX: N28.9 Disorder of kidney and ureter, unspecified (principal)
CPT/HCPCS: 36415; 80053

== ENCOUNTER 2023-11-30 15:58 | Outpatient (CLI) | payer OTHER, SELFPAY ==
[2023-11-30 16:36] LABS: Basophils Absolute Auto 0.1 K/mm3 (0.0-0.1); Basophils Percent Auto 0.4 % (0.2-1.2); Eosinophils Absolute Auto 0.2 K/mm3 (0-0.3); Eosinophils Percent Auto 1.3 % (0-4.4); Hematocrit 37.8 % (37.0-47.0); Hemoglobin 12.7 g/dL (12.0-15.0); Immature Granulocyte Percent A 0.8 % (0-0.5); Lymphocytes Absolute Auto 2.44 K/mm3 (0.9-3.2); Lymphocytes Percent Auto 18.8 % (18.3-44.2); Mean Corpuscular HGB Conc 33.6 g/dl (32-36); Mean Corpuscular Volume 89.4 fl (80-100); Mean Platelet Volume 10.5 fl (7.4-10.4); Monocytes Absolute Auto 0.9 K/mm3 (0.1-0.6); Monocytes Percent Auto 7.1 % (2.6-8.5); Neutrophils Absolute Auto 9.3 K/mm3 (1.3-6.7); Neutrophils Percent Auto 71.6 % (45.5-73.1); Platelet Count Result 313 k/mm3 (150-375); Red Blood Count 4.23 M/mm3 (4.2-5.4); Red Cell Distribution Width 13.7 % (11.5-14.5)
[2023-11-30 16:48] LABS: Alanine Aminotransferase 114 U/L (6-35); Albumin Level 3.8 g/dL (3.5-5.1); Alkaline Phosphatase 146 U/L (38-126); Anion Gap 10 mmol/L (4-12); Aspartate Amino Transferase 62 U/L (14-36); Bilirubin,Total 0.6 mg/dL (0.2-1.3); Blood Urea Nitrogen 10 mg/dL (7-17); Calcium 9.7 mg/dL (8.4-10.2); Carbon Dioxide 18 mmol/L (22-30); Chloride 108 mmol/L (98-107); Estimated Glomerular Filt Rate > 60; Glucose 116 mg/dL (65-110); Potassium 3.9 mmol/L (3.4-5.0); Sodium 136 mmol/L (137-145)
[2023-11-30 17:44] LABS: Free T4 Free Thyroxine 0.71 ng/mL (0.78-2.19)
[2023-11-30 18:58] LABS: Hepatitis C Virus Antibody Negative (Negative)
[2023-12-02 05:04] LABS: Hepatitis A Antibody Total REACTIVE (NON-REACTIVE)
[2023-12-07 18:33] LABS: Chenodeoxycholic Acid 0.6 umol/L (< OR = 3.9); Cholic Acid 1.2 umol/L (< OR = 2.8); Deoxycholic Acid <0.5 umol/L (< OR = 2.3); Total Bile Acids 1.8 umol/L (< OR = 8.3)
== END 2023-11-30 15:59 | disposition home or self-care (01) ==
PROVIDERS: PCP Family Medicine; Referring Provider Obstetrics & Gynecology
DX: N28.9 Disorder of kidney and ureter, unspecified (principal); R74.8 Abnormal levels of other serum enzymes; Z20.828 Contact with and (suspected) exposure to other viral communicable diseases
CPT/HCPCS: 36415; 80053; 82542; 84439; 84443; 85025; 86708; 86747; 86803

== ENCOUNTER 2023-12-02 13:16 | Observation (INO) | payer OTHER, SELFPAY ==
--- NOTE | ~2023-12-02 | US_ITS ---
EXAMINATION: US right upper quadrant DATE: 12/02/2023 14:50 INDICATION: Right upper quadrant abdominal pain. TECHNIQUE: Multiple grayscale and Doppler ultrasound images of the abdomen were obtained. COMPARISON: CT abdomen and pelvis 06/15/2022 FINDINGS: The pancreas is obscured by bowel gas. The liver is normal without focal lesion. There is n ormal flow in main portal vein. The gallbladder is distended and contains sludge. No visible gallston es. No gallbladder wall thickening. There is no sonographic Sommer's sign. The common duct is normal and measures 4 mm. IMPRESSION: 1. Gallbladder sludge. Gallbladder distention may be secondary to fasting. No gallbladder wall thicke bret or sonographic Sommer sign to suggest acute cholecystitis. Reviewed, dictated and finalized at location A. IMPRESSION: 1. Gallbladder sludge. Gallbladder distention may be secondary to fasting. No g allbladder wall thickening or sonographic Sommer sign to suggest acute cholecys titis.
[2023-12-02 13:35] VITALS: BP 114/69; PULSE 93
[2023-12-02 13:45] VITALS: BP 115/74; PULSE 95
[2023-12-02 14:00] VITALS: BP 104/70; PULSE 92
[2023-12-02 14:15] VITALS: BP 110/69; PULSE 89
[2023-12-02 14:16] LABS: Basophils Absolute Auto 0.1 K/mm3 (0.0-0.1); Basophils Percent Auto 0.4 % (0.2-1.2); Eosinophils Absolute Auto 0.1 K/mm3 (0-0.3); Eosinophils Percent Auto 1.1 % (0-4.4); Hemoglobin 12.1 g/dL (12.0-15.0); Immature Granulocyte Absolute 0.11 K/mm3 (0.00-0.031); Immature Granulocyte Percent A 0.9 % (0-0.5); Lymphocytes Absolute Auto 2.13 K/mm3 (0.9-3.2); Lymphocytes Percent Auto 17.6 % (18.3-44.2); Mean Corpuscular HGB Conc 33.6 g/dl (32-36); Mean Corpuscular Volume 89.1 fl (80-100); Mean Platelet Volume 10.5 fl (7.4-10.4); Monocytes Absolute Auto 0.8 K/mm3 (0.1-0.6); Monocytes Percent Auto 6.5 % (2.6-8.5); Neutrophils Absolute Auto 8.9 K/mm3 (1.3-6.7); Neutrophils Percent Auto 73.5 % (45.5-73.1); Platelet Count Result 297 k/mm3 (150-375); Red Blood Count 4.04 M/mm3 (4.2-5.4); Red Cell Distribution Width 13.9 % (11.5-14.5); White Blood Count 12.1 K/mm3 (4.5-10.0)
[2023-12-02 14:17] LABS: Appearance Urine Clear (Clear); Bilirubin Urine Negative (Negative); Blood Urine Negative (Negative); Color Urine Yellow (Yellow); Glucose Urine UA Negative (Negative); Ketones Urine Negative (Negative); Leukocyte Esterase Ur Negative LEU/UL (Negative); Nitrate Urine Negative (Negative); Protein Urine Negative (Negative); Specific Grav Ur 1.014 (1.001-1.035); Urobilinogen Urine 0.2 mg/dL (<2.0)
[2023-12-02 14:22] LABS: Creatinine Urine 78.9 mg/dL; Total Protein Urine Random 17 mg/dL; Ur Ttl Prot Creatinine Ratio 0.22 mg/mg (0-0.20)
[2023-12-02 14:27] LABS: Add Urine Microscopic? NO
[2023-12-02 14:30] VITALS: BP 100/66; PULSE 86
[2023-12-02 14:30] LABS: Uric Acid 5.6 mg/dL (2.5-7.5)
[2023-12-02 14:31] LABS: Alanine Aminotransferase 110 U/L (6-35); Albumin Level 3.6 g/dL (3.5-5.1); Alkaline Phosphatase 149 U/L (38-126); Anion Gap 8 mmol/L (4-12); Aspartate Amino Transferase 67 U/L (14-36); Bilirubin,Total 0.7 mg/dL (0.2-1.3); Blood Urea Nitrogen 8 mg/dL (7-17); Calcium 9.9 mg/dL (8.4-10.2); Carbon Dioxide 16 mmol/L (22-30); Chloride 110 mmol/L (98-107); Estimated Glomerular Filt Rate > 60; Glucose 117 mg/dL (65-110); Potassium 3.9 mmol/L (3.4-5.0); Sodium 134 mmol/L (137-145)
[2023-12-02 14:41] VITALS: BP 114/69; PULSE 93
--- NOTE | 2023-12-02 14:45 | OBADM ---
This patient, Radhika Beck, admitted to the OB room [facility] for observation. Patient/family oriented to hospital policies and general routines including ID bracelet, bed and alarms, visiting hours, pain management, procedures, bathroom and other care routines, personal items, smoking policy, room service/diet, and visiting hours. Patient/Family are encouraged to report perceived risks to care and to ask questions if they do not understand what they are told or what they should do.
[2023-12-02] MEDS: oxyCODONE HCL (*CRX) 5 MG TAB IR PO (15:31)
[2023-12-02] MEDS: FAMOTIDINE 20 MG TABLET PO (15:32)
--- NOTE | 2023-12-02 15:33 | PC.NURSE ---
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 Patient states this pain has been happening for about a week now but today has been the worst pain, patient took Tylenol at home an hour ago, OB aware of this. OB aware that patient consults with M with elevated BMI, and stage 2 kidney disease. OB aware that patient had her labs drawn 11/29 by [facility] due to being exposed to fifth disease. OB aware of those labs results that showed elevated liver enzymes and Positive Hepatitis B. Orders to get a right upper quad ultrasound as well as labs and report back results. 1503: RN phoned Hailee Mathur to report lab and ultrasound results. OB stated she will come by the department in a couple minutes to talk with the patient. 1515: OB at bedside discussing pain control with patient as well as diet restrictions due to elevated liver enzymes. OB ordered to give patient ordered pain medication as well as Pepcid. Orders to reassess pain in 30 mins to an hour and discharge patient home if pain decreases.
--- NOTE | 2023-12-05 08:45 | P.PNOB_ITS ---
OB - Triage/Final Diagnosis Visit Information Date of evaluation: 12/02/23 Reason for evaluation: threatened labor and other (abdominal pain) Comments/Additional reasons for admission: I have assessed the risk for this patient, Radhika Beck, and determine d that she would benefit from observation care. Evaluation Laboratory results: Laboratory Tests 12/02/23 13:44 WBC 12.1 H RBC 4.04 L Hgb 12.1 Hct 36.0 L MCV 89.1 MCH 30.0 MCHC 33.6 RDW 13.9 Plt Count 297 MPV 10.5 H Immature Gran % (Auto) 0.9 H Neut % (Auto) 73.5 H Lymph % (Auto) 17.6 L [place] % (Auto) 6.5 Eos % (Auto) 1.1 Baso % (Auto) 0.4 Lymph # (Auto) 2.13 [place] # (Auto) 0.8 H Eos # (Auto) 0.1 Baso # (Auto) 0.1 Abs Immat Gran (auto) 0.11 H Absolute Neuts (auto) 8.9 H Absolute Nucleated RBC 0.000 Nucleated RBC % 0.0 Sodium 134 L Potassium 3.9 Chloride 110 H Carbon Dioxide 16 L Anion Gap 8 BUN 8 Creatinine 0.80 Estim Creat Clear Calc Not Reportable Estimated GFR > 60 Glucose 117 H Uric Acid 5.6 Calcium 9.9 Total Bilirubin 0.7 AST 67 H ALT 110 H Alkaline Phosphatase 149 H Total Protein 7.0 Albumin 3.6 Urine Color Yellow Urine Appearance Clear Urine pH 6.0 Ur Specific [place] 1.014 Urine Protein Negative Urine Glucose (UA) Negative Urine Ketones Negative Ur Blood (Man) Negative Urine Nitrate Negative Urine Bilirubin Negative Urine Urobilinogen 0.2 Leukocyte Esterase Rfl Negative U Random Total Protein 17 Urine Creatinine 78.9 Protein/Creat Ratio 2 0.22 H
== END 2023-12-02 16:46 | disposition home or self-care (01) ==
PROVIDERS: Admitting Provider Obstetrics & Gynecology; PCP Family Medicine; Visit Provider Student in an Organized Health Care Education/Training Program
DX: O47.03 False labor before 37 completed weeks of gestation, third trimester (principal); O26.893 Other specified pregnancy related conditions, third trimester; R10.9 Unspecified abdominal pain; Z3A.34 34 weeks gestation of pregnancy
CPT/HCPCS: 36415; 59025; 76705; 80053; 81003; 82570; 84156; 84550; 85025; A9270; G0378; G0379

== ENCOUNTER 2023-12-05 13:20 | Outpatient (CLI) | payer OTHER, SELFPAY ==
[2023-12-05 14:40] LABS: Total Protein Urine Random 20 mg/dL
[2023-12-05 14:43] LABS: Total Protein Urine 24 Hr 320 mg/24hr (28-141); Total Volume 24 Hour Urine 1600 ml
== END 2023-12-05 13:21 | disposition home or self-care (01) ==
LOC: ANHLAB 13:21
PROVIDERS: PCP Family Medicine; Visit Provider Obstetrics & Gynecology
DX: Z34.90 Encounter for supervision of normal pregnancy, unspecified, unspecified trimester (principal); Z3A.00 Weeks of gestation of pregnancy not specified
CPT/HCPCS: 81050; 84156

== ENCOUNTER 2023-12-05 15:23 | Observation (INO) | payer OTHER, SELFPAY ==
[2023-12-05 15:41] VITALS: BP 132/71; PULSE 105
[2023-12-05 15:46] VITALS: BP 114/72; PULSE 108
[2023-12-05 15:54] VITALS: BMI 44.9
--- NOTE | 2023-12-05 15:56 | LDADM ---
This patient, Radhika Beck, was admitted to OB Post 117 on 12/05/23 at 15:23. Plans for labor, pain management and were discussed with patient. Patient/family oriented to hospital policies and general routines including ID bracelet, bed and alarms, visiting hours, pain management, procedures, bathroom and other care routines, personal items, smoking policy, room service/diet and guest tray routines, infant security routines, and visiting hours. Patient/Family are encouraged to report perceived risks to care and to ask questions if they do not understand what they are told or what they should do. See OBIX for further documentation.
[2023-12-05 15:57] LABS: Basophils Absolute Auto 0.1 K/mm3 (0.0-0.1); Basophils Percent Auto 0.4 % (0.2-1.2); Eosinophils Absolute Auto 0.1 K/mm3 (0-0.3); Eosinophils Percent Auto 0.9 % (0-4.4); Hematocrit 37.7 % (37.0-47.0); Hemoglobin 12.7 g/dL (12.0-15.0); Immature Granulocyte Percent A 0.7 % (0-0.5); Lymphocytes Absolute Auto 2.36 K/mm3 (0.9-3.2); Lymphocytes Percent Auto 16.8 % (18.3-44.2); Mean Corpuscular HGB Conc 33.7 g/dl (32-36); Mean Corpuscular Hemoglobin 29.9 pg (26-34); Mean Corpuscular Volume 88.7 fl (80-100); Mean Platelet Volume 10.3 fl (7.4-10.4); Monocytes Percent Auto 7.1 % (2.6-8.5); Neutrophils Absolute Auto 10.4 K/mm3 (1.3-6.7); Neutrophils Percent Auto 74.1 % (45.5-73.1); Platelet Count Result 305 k/mm3 (150-375); Red Blood Count 4.25 M/mm3 (4.2-5.4); White Blood Count 14.1 K/mm3 (4.5-10.0)
[2023-12-05 16:00] VITALS: BP 119/72; PULSE 99
[2023-12-05 16:00] LABS: Appearance Urine Cloudy (Clear); Bacteria Urine 3+ /hpf; Bilirubin Urine 1+ (Negative); Blood Urine Negative (Negative); Color Urine Dark Yellow (Yellow); Glucose Urine UA Negative (Negative); Ketones Urine Trace mg/dL (Negative); Leukocyte Esterase Ur Trace LEU/UL (Negative); Nitrate Urine Negative (Negative); Non Pathogenic Casts 0-2; Protein Urine Trace mg/dL (Negative); RBC Urine 0-2 /hpf (0-2); Specific Grav Ur 1.024 (1.001-1.035); Squamous Epithelial Cell Urine Few /hpf (Few); pH Urine 6.5 (5.0-9.0)
[2023-12-05 16:05] LABS: Alanine Aminotransferase 122 U/L (6-35); Albumin Level 3.7 g/dL (3.5-5.1); Alkaline Phosphatase 157 U/L (38-126); Anion Gap 8 mmol/L (4-12); Aspartate Amino Transferase 74 U/L (14-36); Bilirubin,Total 0.6 mg/dL (0.2-1.3); Blood Urea Nitrogen 8 mg/dL (7-17); Calcium 9.2 mg/dL (8.4-10.2); Carbon Dioxide 17 mmol/L (22-30); Chloride 109 mmol/L (98-107); Estimated CRCL calculation 141 ml/min; Estimated Glomerular Filt Rate > 60; Glucose 128 mg/dL (65-110); Potassium 3.9 mmol/L (3.4-5.0); Sodium 134 mmol/L (137-145); Uric Acid 5.6 mg/dL (2.5-7.5)
[2023-12-05 16:06] LABS: Creatinine Urine 202.1 mg/dL; Total Protein Urine Random 14 mg/dL; Ur Ttl Prot Creatinine Ratio 0.07 mg/mg (0-0.20)
[2023-12-05 16:15] VITALS: BP 120/71; PULSE 102
[2023-12-05 16:20] LABS: Add Urine Microscopic? YES
--- NOTE | 2023-12-05 16:54 | PC.NURSE ---
1523: Patient presents to L&D unit stating [facility] sent her over to be evaluated for HELLP syndrome due to elevated liver enzymes in office and right upper quadrant pain as well as toby in office. Called Dr. Momin at 1527 to obtain orders. Verbal orders received for NST, PIH labs, serial BPs. 1619: RN reviewed patient's chart from previous L&D visit on 12/02/23. Patient was seen for same complaints and was found to have elevated liver enzymes due to having Hepatitis A. Patient was found to be very dehydrated today and given water to orally hydrate. Patient states her abdominal pain is intermittent and she has taken 500mg Tylenol this morning for the pain. Called Dr. Momin and reviewed [facility] lab results, category I tracing, notified of intermittent abdominal pain that is the same as the pain the patient was seen for on Friday 12/01. Notified MD of Hepatitis A results from 12/01. MD notified RN that she spoke with [facility] office regarding all of patient's lab results. Patient is to be seen in Dr. Ramirez's office tomorrow 12/05. Verbal orders received to discharge patient with education to eat a low fat diet and use warm baths and intermittent heating pad this evening for pain control. Patient may take a dose of Tylenol but should not take multiple doses due to elevated liver enzymes. Patient educated to call collections agent line tonight if all of these methods do not alleviate pain. Patient agrees with plan of care and has no questions at this time.
[2023-12-05 17:10] VITALS: BP 119/72; PULSE 99
--- NOTE | 2023-12-06 11:45 | PM.OBTRLD ---
OB - Triage/Final Diagnosis Visit Information Comments/Additional reasons for admission: I have assessed the risk for this patient, Radhika Beck, and determined that she would benefit from observation care. Evaluation Laboratory results: Laboratory Tests 12/05/23 15:43 WBC 14.1 H RBC 4.25 Hgb 12.7 Hct 37.7 MCV 88.7 MCH 29.9 MCHC 33.7 RDW 14.0 Plt Count 305 MPV 10.3 Immature Gran % (Auto) 0.7 H Neut % (Auto) 74.1 H Lymph % (Auto) 16.8 L [place] % (Auto) 7.1 Eos % (Auto) 0.9 Baso % (Auto) 0.4 Lymph # (Auto) 2.36 [place] # (Auto) 1.0 H Eos # (Auto) 0.1 Baso # (Auto) 0.1 Abs Immat Gran (auto) 0.10 H Absolute Neuts (auto) 10.4 H Absolute Nucleated RBC 0.000 Nucleated RBC % 0.0 Sodium 134 L Potassium 3.9 Chloride 109 H Carbon Dioxide 17 L Anion Gap 8 BUN 8 Creatinine 0.80 Estim Creat Clear Calc 141 Estimated GFR > 60 Glucose 128 H Uric Acid 5.6 Calcium 9.2 Total Bilirubin 0.6 AST 74 H ALT 122 H Alkaline Phosphatase 157 H Total Protein 7.0 Albumin 3.7 Urine Color Dark yellow Urine Appearance Cloudy H Urine pH 6.5 Ur Specific [place] 1.024 Urine Protein Trace Urine Glucose (UA) Negative Urine Ketones Trace H Ur Blood (Man) Negative Urine Nitrate Negative Urine Bilirubin 1+ H Urine Urobilinogen 1.0 Leukocyte Esterase Rfl Trace H Urine RBC 0-2 Urine WBC 6-10 H Ur Squamous Epith Cells Few Urine Bacteria 3+ H Urine Casts 0-2 U Random Total Protein 14 Urine Creatinine 202.1 Protein/Creat Ratio 2 0.07 Vital signs: Vital Signs - 24 hr 12/05/23 15:54 12/05/23 15:41 12/05/23 15:46 Pulse Rate 105 H 108 H Blood Pressure 132/71 114/72 Blood Pressure [Left Arm] Oxygen Delivery Room Air 12/05/23 16:00 12/05/23 16:15 12/05/23 17:10 Pulse Rate 99 102 H 99 Blood Pressure 119/72 120/71 Blood Pressure [Left Arm] 119/72 Oxygen Delivery Final Diagnosis (1) Abdominal pain affecting : Code(s): O26.899 - Other specified related conditions, unspecified trimester; R10.9 - Unspecified abdominal pain Status: Acute
== END 2023-12-05 16:52 | disposition home or self-care (01) ==
PROVIDERS: Admitting Provider Obstetrics & Gynecology; PCP Family Medicine; Visit Provider Obstetrics & Gynecology
DX: O26.893 Other specified pregnancy related conditions, third trimester (principal); R10.9 Unspecified abdominal pain; Z3A.34 34 weeks gestation of pregnancy
CPT/HCPCS: 36415; 59025; 80053; 81001; 81050; 82570; 84156; 84550; 85025; 87086; 87088; G0378; G0379

== ENCOUNTER 2023-12-12 18:28 | Outpatient (CLI) | payer OTHER, SELFPAY ==
[2023-12-12] VITALS (34 sets, daily range): BP systolic 115–120; BP diastolic 74–80; PULSE 82–105; TEMP 35.9; O2SAT 96–100; BMI 45.3
--- NOTE | 2023-12-12 18:28 | PC.NURSE ---
Pt arrives to unit with elevated blood pressures at home, nausea, migraine, and visual disturbances.
[2023-12-12 19:11] LABS: Basophils Absolute Auto 0.1 K/mm3 (0.0-0.1); Basophils Percent Auto 0.4 % (0.2-1.2); Eosinophils Absolute Auto 0.1 K/mm3 (0-0.3); Eosinophils Percent Auto 0.8 % (0-4.4); Hematocrit 37.8 % (37.0-47.0); Immature Granulocyte Percent A 0.7 % (0-0.5); Lymphocytes Absolute Auto 2.38 K/mm3 (0.9-3.2); Lymphocytes Percent Auto 17.8 % (18.3-44.2); Mean Corpuscular HGB Conc 34.4 g/dl (32-36); Mean Corpuscular Hemoglobin 30.4 pg (26-34); Mean Corpuscular Volume 88.5 fl (80-100); Mean Platelet Volume 10.7 fl (7.4-10.4); Monocytes Absolute Auto 0.8 K/mm3 (0.1-0.6); Monocytes Percent Auto 6.3 % (2.6-8.5); Neutrophils Absolute Auto 9.9 K/mm3 (1.3-6.7); Platelet Count Result 312 k/mm3 (150-375); Red Blood Count 4.27 M/mm3 (4.2-5.4); Red Cell Distribution Width 13.9 % (11.5-14.5); White Blood Count 13.4 K/mm3 (4.5-10.0)
[2023-12-12 19:17] LABS: Alanine Aminotransferase 72 U/L (6-35); Albumin Level 3.7 g/dL (3.5-5.1); Alkaline Phosphatase 153 U/L (38-126); Anion Gap 6 mmol/L (4-12); Aspartate Amino Transferase 46 U/L (14-36); Bilirubin,Total 0.6 mg/dL (0.2-1.3); Blood Urea Nitrogen 7 mg/dL (7-17); Calcium 9.6 mg/dL (8.4-10.2); Carbon Dioxide 22 mmol/L (22-30); Chloride 108 mmol/L (98-107); Estimated CRCL calculation 142 ml/min; Estimated Glomerular Filt Rate > 60; Glucose 129 mg/dL (65-110); Potassium 4.2 mmol/L (3.4-5.0); Sodium 136 mmol/L (137-145); Uric Acid 6.3 mg/dL (2.5-7.5)
[2023-12-12 19:19] LABS: Appearance Urine Clear (Clear); Bilirubin Urine Negative (Negative); Blood Urine Negative (Negative); Color Urine Yellow (Yellow); Glucose Urine UA Negative (Negative); Ketones Urine Negative (Negative); Leukocyte Esterase Ur Negative LEU/UL (Negative); Nitrate Urine Negative (Negative); Protein Urine Negative (Negative); Specific Grav Ur 1.009 (1.001-1.035); Urobilinogen Urine 0.2 mg/dL (<2.0); pH Urine 7.5 (5.0-9.0)
[2023-12-12 19:31] LABS: Creatinine Urine 61.4 mg/dL; Total Protein Urine Random 15 mg/dL; Ur Ttl Prot Creatinine Ratio 0.24 mg/mg (0-0.20)
[2023-12-12 19:33] LABS: Add Urine Microscopic? NO
--- NOTE | 2023-12-12 19:38 | PCDIET ---
Called Dr. Momin, update on pt, elevated blood pressures at home, nausea, migraine, visual disturbances, right upper quadrant pain, tracing, vital signs, and labs. Orders received to administer oxycodone 2.5 mg and monitor one hour and call with update after hour.
[2023-12-12] MEDS: oxyCODONE HCL (*CRX) 5 MG TAB IR 2.5 MG PO (20:05)
--- NOTE | 2023-12-12 21:06 | PC.NURSE ---
Called Dr. Momin, update on migraine 4 out of 10. Orders received to discharge pt with instructions to keep next scheduled appointment, when to return to the unit, and review blood pressure precautions. Dr. Momin to send oxycodone prescription to pharmacy.
--- NOTE | 2023-12-12 21:24 | PC.NURSE ---
Pt discharged with instructions to keep next scheduled appointment, when to return to the unit, and prescription sent to pharmacy, pt verbalizes understanding, no questions at this time.
== END 2023-12-12 21:24 | disposition home or self-care (01) ==
LOC: ANHOBOP 18:33 → ANHOBPP 18:34
PROVIDERS: Obstetrics & Gynecology; PCP Family Medicine; Visit Provider Obstetrics & Gynecology
DX: O26.899 Other specified pregnancy related conditions, unspecified trimester (principal); R10.9 Unspecified abdominal pain; O13.9 Gestational [pregnancy-induced] hypertension without significant proteinuria, unspecified trimester; Z3A.00 Weeks of gestation of pregnancy not specified
CPT/HCPCS: 36415; 59025; 80053; 81003; 82570; 84156; 84550; 85025; 99199; A9270

== ENCOUNTER 2023-12-22 09:27 | Outpatient (RCR) | payer OTHER, SELFPAY ==
[2023-12-15 16:17] LABS: Basophils Percent Auto 0.3 % (0.2-1.2); Eosinophils Absolute Auto 0.2 K/mm3 (0-0.3); Eosinophils Percent Auto 1.4 % (0-4.4); Hemoglobin 12.5 g/dL (12.0-15.0); Immature Granulocyte Percent A 0.8 % (0-0.5); Lymphocytes Percent Auto 19.8 % (18.3-44.2); Mean Corpuscular HGB Conc 33.8 g/dl (32-36); Mean Corpuscular Hemoglobin 30.1 pg (26-34); Mean Corpuscular Volume 89.2 fl (80-100); Mean Platelet Volume 10.8 fl (7.4-10.4); Monocytes Absolute Auto 0.8 K/mm3 (0.1-0.6); Monocytes Percent Auto 6.4 % (2.6-8.5); Neutrophils Absolute Auto 8.6 K/mm3 (1.3-6.7); Neutrophils Percent Auto 71.3 % (45.5-73.1); Platelet Count Result 292 k/mm3 (150-375); Red Blood Count 4.15 M/mm3 (4.2-5.4); Red Cell Distribution Width 13.6 % (11.5-14.5); White Blood Count 12.1 K/mm3 (4.5-10.0)
[2023-12-15 16:27] LABS: Alanine Aminotransferase 53 U/L (6-35); Albumin Level 3.5 g/dL (3.5-5.1); Alkaline Phosphatase 152 U/L (38-126); Anion Gap 8 mmol/L (4-12); Aspartate Amino Transferase 38 U/L (14-36); Bilirubin,Total 0.5 mg/dL (0.2-1.3); Blood Urea Nitrogen 11 mg/dL (7-17); Carbon Dioxide 17 mmol/L (22-30); Chloride 108 mmol/L (98-107); Estimated Glomerular Filt Rate > 60; Glucose 119 mg/dL (65-110); Potassium 4.1 mmol/L (3.4-5.0); Sodium 133 mmol/L (137-145)
[2023-12-15 16:29] LABS: Creatinine Urine 205.8 mg/dL; Total Protein Urine Random 9 mg/dL; Ur Ttl Prot Creatinine Ratio 0.04 mg/mg (0-0.20)
[2023-12-15 17:01] VITALS: BP 112/74; PULSE 88
[2023-12-16 16:47] LABS: Basophils Percent Auto 0.2 % (0.2-1.2); Eosinophils Absolute Auto 0.1 K/mm3 (0-0.3); Eosinophils Percent Auto 0.8 % (0-4.4); Hematocrit 32.5 % (37.0-47.0); Hemoglobin 10.7 g/dL (12.0-15.0); Immature Granulocyte Absolute 0.04 K/mm3 (0.00-0.031); Immature Granulocyte Percent A 0.4 % (0-0.5); Lymphocytes Absolute Auto 2.34 K/mm3 (0.9-3.2); Lymphocytes Percent Auto 24.5 % (18.3-44.2); Mean Corpuscular HGB Conc 32.9 g/dl (32-36); Mean Corpuscular Hemoglobin 29.6 pg (26-34); Mean Corpuscular Volume 89.8 fl (80-100); Monocytes Absolute Auto 0.7 K/mm3 (0.1-0.6); Monocytes Percent Auto 7.6 % (2.6-8.5); Neutrophils Absolute Auto 6.3 K/mm3 (1.3-6.7); Neutrophils Percent Auto 66.5 % (45.5-73.1); Platelet Count Result 373 k/mm3 (150-375); Red Blood Count 3.62 M/mm3 (4.2-5.4); Red Cell Distribution Width 13.7 % (11.5-14.5); White Blood Count 9.6 K/mm3 (4.5-10.0)
[2023-12-16 16:52] LABS: Creatinine Urine 50.2 mg/dL; Total Protein Urine Random 17 mg/dL; Ur Ttl Prot Creatinine Ratio 0.34 mg/mg (0-0.20)
[2023-12-16 16:59] LABS: Alanine Aminotransferase 65 U/L (6-35); Albumin Level 3.3 g/dL (3.5-5.1); Alkaline Phosphatase 141 U/L (38-126); Anion Gap 5 mmol/L (4-12); Aspartate Amino Transferase 40 U/L (14-36); Bilirubin,Total 0.3 mg/dL (0.2-1.3); Blood Urea Nitrogen 5 mg/dL (7-17); Carbon Dioxide 22 mmol/L (22-30); Chloride 109 mmol/L (98-107); Estimated Glomerular Filt Rate > 60; Glucose 98 mg/dL (65-110); Potassium 3.6 mmol/L (3.4-5.0); Sodium 136 mmol/L (137-145)
[2023-12-16 17:00] LABS: Appearance Urine Cloudy (Clear); Bacteria Urine 2+ /hpf; Bilirubin Urine Negative (Negative); Blood Urine Negative (Negative); Color Urine Yellow (Yellow); Glucose Urine UA Trace mg/dL (Negative); Ketones Urine Negative (Negative); Leukocyte Esterase Ur 3+ LEU/UL (Negative); Nitrate Urine Negative (Negative); Non Pathogenic Casts 0-2; Protein Urine Negative (Negative); RBC Urine 0-2 /hpf (0-2); Specific Grav Ur 1.009 (1.001-1.035); Squamous Epithelial Cell Urine Many /hpf (Few); Urobilinogen Urine 0.2 mg/dL (<2.0); WBC Urine 51-100 /hpf (0-3); pH Urine 7.5 (5.0-9.0)
[2023-12-16 17:01] LABS: Add Urine Microscopic? YES
--- NOTE | ~2023-12-22 | US_ITS ---
EXAMINATION: US OB follow up DATE: 12/22/2023 11:49 INDICATION: Gestational hypertension. Assess growth. TECHNIQUE: Real-time ultrasound of the pelvis was performed. The interpreting radiologist was not pre sent for the study. COMPARISON: None. FINDINGS: There is a single living fetus in vertex presentation. The placenta is posterior. Placenta does not appear low-lying although the cervix is not clearly visualized. heart rate is 141 beats per min [place] (bpm). The amniotic fluid index is 12.9 cm, which is normal (5th%-95%: 7.5-3 4.4 cm at 37 weeks estimated gestational age). The following biometric data were obtained: BPD: 9.0 cm -> 36 weeks 4 days Head circumference: 33.0 cm -> 37 weeks 4 days Abdominal circumference: 34.4 cm -> 38 weeks 2 days Femur length: 7 cm -> .337 weeks 4 days These measurements are concordant. Head circumference to abdominal circumference ratio: 0.96 (normal range 0.91-1.05). Estimated weight: 3317 g (+/-) 498 g or 7 lbs. 5 oz. (+/-) 1 lbs. 2 oz. IMPRESSION: 1. Single living fetus in vertex presentation with heart rate of 141 bpm. 2. Gestational age by ultrasound of 37 weeks 4 day(s) +/- 2 week(s) 4 day(s) with ultrasound estimate d date of delivery (JORDAN) of 01/08/2024. Estimated weight is 75th percentile by Hadlock criteria w hen 01/11/2024 is used as the JORDAN. Please correlate with clinical information or earlier ultrasounds fo r most accurate JORDAN. 3. Normal amniotic fluid index of 12.9 cm. Reviewed, dictated and finalized at location A. IMPRESSION: 1. Single living fetus in vertex presentation with heart rate of 141 bpm. 2. Gestational age by ultrasound of 37 weeks 4 day(s) +/- 2 week(s) 4 day(s) wi th ultrasound estimated date of delivery (JORDAN) of 01/08/2024. Estimated fede ght is 75th percentile by Hadlock criteria when 01/11/2024 is used as the JORDAN. Pl ease correlate with clinical information or earlier ultrasounds for most accura te JORDAN. 3. Normal amniotic fluid index of 12.9 cm.
[2023-12-22 10:26] LABS: Basophils Percent Auto 0.3 % (0.2-1.2); Eosinophils Absolute Auto 0.2 K/mm3 (0-0.3); Eosinophils Percent Auto 1.5 % (0-4.4); Hematocrit 39.2 % (37.0-47.0); Hemoglobin 13.3 g/dL (12.0-15.0); Immature Granulocyte Absolute 0.07 K/mm3 (0.00-0.031); Immature Granulocyte Percent A 0.6 % (0-0.5); Lymphocytes Absolute Auto 2.19 K/mm3 (0.9-3.2); Lymphocytes Percent Auto 17.7 % (18.3-44.2); Mean Corpuscular HGB Conc 33.9 g/dl (32-36); Mean Corpuscular Hemoglobin 30.1 pg (26-34); Mean Corpuscular Volume 88.7 fl (80-100); Mean Platelet Volume 11.1 fl (7.4-10.4); Monocytes Absolute Auto 0.8 K/mm3 (0.1-0.6); Monocytes Percent Auto 6.2 % (2.6-8.5); Neutrophils Absolute Auto 9.1 K/mm3 (1.3-6.7); Neutrophils Percent Auto 73.7 % (45.5-73.1); Platelet Count Result 300 k/mm3 (150-375); Red Blood Count 4.42 M/mm3 (4.2-5.4); Red Cell Distribution Width 14.1 % (11.5-14.5); White Blood Count 12.4 K/mm3 (4.5-10.0)
[2023-12-22 10:33] LABS: Appearance Urine Cloudy (Clear); Bacteria Urine 4+ /hpf; Bilirubin Urine Negative (Negative); Blood Urine Negative (Negative); Color Urine Yellow (Yellow); Glucose Urine UA Negative (Negative); Ketones Urine Negative (Negative); Leukocyte Esterase Ur 1+ LEU/UL (Negative); Nitrate Urine Negative (Negative); Non Pathogenic Casts 0-2; Protein Urine Negative (Negative); RBC Urine 0-2 /hpf (0-2); Specific Grav Ur 1.016 (1.001-1.035); Squamous Epithelial Cell Urine Few /hpf (Few); pH Urine 6.5 (5.0-9.0)
[2023-12-22 10:37] LABS: Add Urine Microscopic? YES
[2023-12-22 10:43] VITALS: BP 123/85; PULSE 95
[2023-12-22 10:53] LABS: Alanine Aminotransferase 49 U/L (6-35); Albumin Level 3.9 g/dL (3.5-5.1); Alkaline Phosphatase 150 U/L (38-126); Anion Gap 12 mmol/L (4-12); Aspartate Amino Transferase 44 U/L (14-36); Bilirubin,Total 0.6 mg/dL (0.2-1.3); Blood Urea Nitrogen 11 mg/dL (7-17); Calcium 9.2 mg/dL (8.4-10.2); Carbon Dioxide 12 mmol/L (22-30); Chloride 110 mmol/L (98-107); Estimated Glomerular Filt Rate > 60; Glucose 139 mg/dL (65-110); Potassium 4.1 mmol/L (3.4-5.0); Sodium 134 mmol/L (137-145); Uric Acid 6.6 mg/dL (2.5-7.5)
[2023-12-22 11:05] LABS: Creatinine Urine 117.2 mg/dL; Total Protein Urine Random 22 mg/dL; Ur Ttl Prot Creatinine Ratio 0.19 mg/mg (0-0.20)
== END 2024-01-23 08:20 | disposition home or self-care (01) ==
LOC: ANHOBOP 09:27
PROVIDERS: PCP Family Medicine; Visit Provider Obstetrics & Gynecology
DX: O09.93 Supervision of high risk pregnancy, unspecified, third trimester (principal); O13.3 Gestational [pregnancy-induced] hypertension without significant proteinuria, third trimester; N18.9 Chronic kidney disease, unspecified; Z3A.36 36 weeks gestation of pregnancy
CPT/HCPCS: 36415; 59025; 76816; 80053; 81001; 82570; 84156; 84550; 85025; 87086; 87088

== ENCOUNTER 2023-12-27 06:09 | Inpatient (IN) | payer OTHER, SELFPAY ==
[2023-12-27] VITALS (94 sets, daily range): BP systolic 67–196; BP diastolic 27–178; PULSE 74–160; RESP 16–21; TEMP 36.1–36.6; O2SAT 95–100; BMI 45.8
--- NOTE | 2023-12-27 06:48 | LDADM ---
This patient, Radhika Beck, was admitted to Labor/Delivery/Recovery 107 on 12/27/23 at 06:09. Plans for labor, pain management and were discussed with patient. Patient/family oriented to hospital policies and general routines including ID bracelet, bed and alarms, visiting hours, pain management, procedures, bathroom and other care routines, personal items, smoking policy, room service/diet and guest tray routines, infant security routines, and visiting hours. Patient/Family are encouraged to report perceived risks to care and to ask questions if they do not understand what they are told or what they should do. See OBIX for further documentation.
[2023-12-27 07:00] LABS: Basophils Absolute Auto 0.1 K/mm3 (0.0-0.1); Basophils Percent Auto 0.5 % (0.2-1.2); Eosinophils Absolute Auto 0.2 K/mm3 (0-0.3); Eosinophils Percent Auto 1.6 % (0-4.4); Hematocrit 38.7 % (37.0-47.0); Hemoglobin 13.2 g/dL (12.0-15.0); Immature Granulocyte Absolute 0.08 K/mm3 (0.00-0.031); Immature Granulocyte Percent A 0.6 % (0-0.5); Lymphocytes Percent Auto 19.4 % (18.3-44.2); Mean Corpuscular HGB Conc 34.1 g/dl (32-36); Mean Corpuscular Hemoglobin 30.6 pg (26-34); Mean Corpuscular Volume 89.8 fl (80-100); Mean Platelet Volume 10.7 fl (7.4-10.4); Monocytes Absolute Auto 0.8 K/mm3 (0.1-0.6); Monocytes Percent Auto 5.9 % (2.6-8.5); Neutrophils Absolute Auto 9.3 K/mm3 (1.3-6.7); Platelet Count Result 302 k/mm3 (150-375); Red Blood Count 4.31 M/mm3 (4.2-5.4); Red Cell Distribution Width 14.1 % (11.5-14.5); White Blood Count 12.9 K/mm3 (4.5-10.0)
[2023-12-27 07:10] LABS: Alanine Aminotransferase 33 U/L (6-35); Albumin Level 3.6 g/dL (3.5-5.1); Alkaline Phosphatase 148 U/L (38-126); Anion Gap 8 mmol/L (4-12); Aspartate Amino Transferase 31 U/L (14-36); Bilirubin,Total 0.6 mg/dL (0.2-1.3); Blood Urea Nitrogen 13 mg/dL (7-17); Calcium 9.2 mg/dL (8.4-10.2); Carbon Dioxide 17 mmol/L (22-30); Chloride 109 mmol/L (98-107); Estimated CRCL calculation 143 ml/min; Estimated Glomerular Filt Rate > 60; Glucose 129 mg/dL (65-110); Potassium 3.9 mmol/L (3.4-5.0); Sodium 134 mmol/L (137-145); Uric Acid 6.7 mg/dL (2.5-7.5)
[2023-12-27] MEDS: OXYTOCIN 30 UNITS/NS 500 ML 30 UNITS/500 ML BAG 6 UNITS IV CONT (07:19)
[2023-12-27] MEDS: LACTATED RINGERS 1,000 ML 125 ML IV CONT ×2 (07:20→11:42)
--- NOTE | 2023-12-27 10:38 | WPDANESEPP ---
Anes - Eval Pre Procedure Procedure: Labor Epidural Date/Time: 12/27/23 10:38 Surgeon: James Preop Diagnosis: Labor Pain Pre Op Diagnosis: IOL Patient Data Age: 28 Gender: F Height: 1.78 m Weight: 145 kg Last Vital Signs Temp 36.4 C 12/27/23 10:10 Pulse 99 12/27/23 09:16 BP 128/49 L 12/27/23 09:16 O2 Del Method Room Air 12/27/23 06:45 Allergies Allergy/AdvReac Type Severity Reaction Status Date / Time erythromycin base AdvReac Mild hives Verified 12/20/23 17:32 Home Medications Medication Instructions Recorded Confirmed Type bupropion HCl 300 mg 24 hr tablet, 300 mg PO DAILY 07/05/20 12/20/23 History extended release lamotrigine 100 mg tablet 100 mg PO DAILY 02/22/23 12/20/23 History sertraline 150 mg capsule 150 mg PO DAILY 02/28/23 12/20/23 History lurasidone 20 mg tablet 40 mg PO DAILY 06/24/23 12/20/23 History magnesium 200 mg tablet 250 mg PO DAILY 06/24/23 12/20/23 History vits no.126-ferrous fum 1 tablet PO DAILY 06/24/23 12/20/23 History 28 mg iron-folic acid 800 mcg tablet (Classic ) pyridoxine (vitamin B6) 200 mg 200 mg PO DAILY 06/24/23 12/20/23 History tablet aspirin 81 mg tablet,delayed 162 mg PO DAILY 09/13/23 12/20/23 History release (Adult Low Dose Aspirin) oxycodone 5 mg tablet 2.5 mg PO Q4H PRN pain #9 tabs 12/12/23 12/20/23 Rx nitrofurantoin 100 mg PO Q12H 7 days #14 caps 12/23/23 Rx monohydrate/macrocrystals 100 mg capsule (Macrobid) Laboratory Tests 12/27/23 12/27/23 06:20 06:20 WBC 12.9 H K/mm3 (4.5-10.0) RBC 4.31 M/mm3 (4.2-5.4) Hgb 13.2 g/dL (12.0-15.0) Hct 38.7 % (37.0-47.0) MCV 89.8 fl (80-100) MCH 30.6 pg (26-34) MCHC 34.1 g/dl (32-36) RDW 14.1 % (11.5-14.5) Plt Count 302 k/mm3 (150-375) MPV 10.7 H fl (7.4-10.4) Immature Gran % (Auto) 0.6 H % (0-0.5) Neut % (Auto) 72.0 % (45.5-73.1) Lymph % (Auto) 19.4 % (18.3-44.2) [place] % (Auto) 5.9 % (2.6-8.5) Eos % (Auto) 1.6 % (0-4.4) Baso % (Auto) 0.5 % (0.2-1.2) Lymph # (Auto) 2.50 K/mm3 (0.9-3.2) [place] # (Auto) 0.8 H K/mm3 (0.1-0.6) Eos # (Auto) 0.2 K/mm3 (0-0.3) Baso # (Auto) 0.1 K/mm3 (0.0-0.1) Abs Immat Gran (auto) 0.08 H K/mm3 (0.00-0.031) Absolute Neuts (auto) 9.3 H K/mm3 (1.3-6.7) Absolute Nucleated RBC 0.000 K/mm3 (0.0-0.012) Nucleated RBC % 0.0 % (0.0-0.2) Sodium 134 L mmol/L (137-145) Potassium 3.9 mmol/L (3.4-5.0) Chloride 109 H mmol/L (98-107) Carbon Dioxide 17 L mmol/L (22-30) Anion Gap 8 mmol/L (4-12) BUN 13 mg/dL (7-17) Creatinine 0.80 mg/dL (0.7-1.0) Estim Creat Clear Calc 143 ml/min Estimated GFR > 60 (59 - ) Glucose 129 H mg/dL (65-110) Uric Acid Cancelled 6.7 mg/dL (2.5-7.5) Calcium 9.2 mg/dL (8.4-10.2) Total Bilirubin 0.6 mg/dL (0.2-1.3) AST 31 U/L (14-36) ALT 33 U/L (6-35) Alkaline Phosphatase 148 H U/L (38-126) Total Protein 7.0 g/dL (6.3-8.2) Albumin 3.6 g/dL (3.5-5.1) RPR Pending Blood Type B Positive Antibody Screen Negative : gestational age (, JORDAN 01/11/24) Patient hx anesthesia problems: none Family hx anesthesia problems: none Results Review: All pre-operative results and documents have been reviewed as part of the pre-operative evaluation. 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
[2023-12-27 13:43] LABS: Rapid Plasma Reagin Non-Reactive (NonReactive)
[2023-12-27] MEDS: DINOPROSTONE 10 MG VAG INSERT VAGINAL (15:40)
[2023-12-27] MEDS: MAGNESIUM HYDROXIDE SUSP 30 ML UDC PO (18:25)
[2023-12-27] MEDS: HYDROcodone/acetaminophen (*CRX) 5-325 MG TABLET 1 TAB (18:28)
[2023-12-27] MEDS: ONDANSETRON INJ 4 MG/2 ML VIAL IV PUSH (21:08)
--- NOTE | 2023-12-27 21:26 | PM.IMHP ---
H&P: HPI History of Present Illness Date/Time: 12/27/23 21:26 28-year-old 1 female presents at 38 weeks gestation for induction of labor. She has chronic kidney disease which has been stable throughout the , though she has had mildly, persistent elevated transaminase levels and gallbladder with sludge but no evidence of cholecystitis. care otherwise has been without abnormality, and she has been comanaged with MFM. During her induction patient is been extremely uncomfortable with contractions, cervical change has been minimal from her 1cm admission exam. Also over the past period of time monitor strip as decrease in variability, without decelerations, therefore this was discussed and decision was made to proceed with delivery. 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 OCD (obsessive compulsive disorder) Surgical History Surgical History H/O eye surgery (~1997) History of gynecological procedure (01/09/20) mirena iud removal (unable to removed done in OR on 01/24/2020 History of gynecological procedure (02/05/15) mirena iud insertion Hx of tonsillectomy (~08/2012) [place] teeth removed Family History Family History Grandparent Heart disease paternal grandfather Hypertension paternal grandfather Diabetes mellitus Paternal Grandfather Other Family history of allergic disorder Family history of cardiovascular disease Social History Social History Smoking status: Never smoker Alcohol intake: never Substance use: never Substance use type: does not use Do You Feel Safe in your Home?: Yes Lack of Transportation: No Lack of Food: Never True Current Housing: I Have Housing Concerned About Future Housing: No Difficulty Paying Gas/Electric Bills: No Difficulty Paying for Meds: No Currently Unemployed: No Education: Master's Degree or Higher Difficulty w/ Childcare or Family Care: No Living arrangements: with family Additional living arrangements comments: 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/Education: 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 Gender identity (if verbalized by the patient): Female Sexual Orientation (if Verbalized by the Patient): Straight or Heterosexual Spiritual care concerns: No Meds Home Medications and Allergies Home Medications Medication Instructions Recorded Confirmed Type bupropion HCl 300 mg 24 hr tablet, 300 mg PO DAILY 07/05/20 12/20/23 History extended release lamotrigine 100 mg tablet 100 mg PO DAILY 02/22/23 12/20/23 History sertraline 150 mg capsule 150 mg PO DAILY 02/28/23 12/20/23 History lurasidone 20 mg tablet 40 mg PO DAILY 06/24/23 12/20/23 History magnesium 200 mg tablet 250 mg PO DAILY 06/24/23 12/20/23 History vits no.126-ferrous fum 1 tablet PO DAILY 06/24/23 12/20/23 History 28 mg iron-folic acid 800 mcg tablet (Classic ) pyridoxine (vitamin B6) 200 mg 200 mg PO DAILY 06/24/23 12/20/23 History tablet aspirin 81 mg tablet,delayed 162 mg PO DAILY 09/13/23 12/20/23 History release (Adult Low Dose Aspirin) oxycodone 5 mg tablet 2.5 mg PO Q4H PRN pain #9 tabs 12/12/23 12/20/23 Rx nitrofurantoin 100 mg PO Q12H 7 days #14 caps 12/23/23 Rx monohydrate/macrocrystals 100 mg capsule (Macrobid) Allergies Allergy/AdvReac Type Severity Reaction Status Date / Time erythromycin base AdvReac Mild hives Verified 12/20/23 17:32 Vital Signs Dee Dee
--- NOTE | 2023-12-27 21:33 | WPDHPUPDATE1 ---
History and Physical Update Update Date/Time: 12/27/23 21:33 History and Physical has been reviewed, including an updated exam of the patient. There are NO changes in the patient's condition. Risks, benefits, and alternatives have been discussed and questions answered. Patient agrees to proceed with procedure.
--- NOTE | 2023-12-27 22:22 | P.PNAN_ITS ---
Anes - Eval Final PreProcedure Day of Procedure 12/27/23 22:22 Patient weight: morbidly obese Heart: regular rate and rhythm Lungs: clear to auscultation Airway: Mallampati scale class II Neurological: alert and oriented ASA classification: III Emergent: yes Anesthetic plan: proceed Anesthesia type and monitoring: regional (use existing epid for c/s) epidural and standard monitoring Other findings: exam per CD Results Review: All pre-operative results and documents have been reviewed as part of the pre- operative evaluation. Informed Consent: The patient's anesthetic plan and its attendant risks and benefits were discussed with the patient/family/POA. Questions were solicited and answers provided to the satisfaction of the patient/family/POA.
--- NOTE | 2023-12-27 22:41 | W.PM.OBCSD ---
OB - Delivery Note Procedure Delivery date: 12/27/23 Pre-op diagnosis: Arrest of Dilation and Non-Reassuring Status Post-op Diagnosis: Same Procedure Performed: Primary Primary branch: low cervical, transverse Surgeon: Long Ramirez MD Anesthesia type: Epidural Description of Procedure/Findings: Patient prepped and draped in the usual this procedure. Pfannenstiel incision was made and carried down the fascia. Fascial incision was extended the length the skin incision and superiorly and inferiorly dissected away for rectus muscles. Peritoneum was readily entered were developed. Uterus scored in low transverse manner extended bilaterally the length lower segment. Vertex was delivered, suctioned nasal oropharynx rest baby was cord clamped cut placenta removed manually. Baby was passed off the operative field. Uterus was exteriorized cleared of membranes and clots and approximated using 0 Vicryl suture running interlocking manner with good approximation hemostasis noted. Correction this was 0 Monocryl. Uterus was turned the abdomen gutters cleared her C was things fluid and clots in the uterine incision was again inspected noted to be hemostatic. 0 Vicryl was then used to approximate the fascial incision from the left edge midline and there for the right edge the midline with good approximation noted. Subcutaneous tissue was approximated using 0 plain suture and wisam were then used to approximate skin edges. Patient was sent to recovery room in stable condition. Specimen: Yes ( Placenta) Estimated Blood Loss: 775 Drains: Yes ( [place]) Pathology: Yes Complications: No immediate complications Condition: Stable Disposition: PACU Baby Weeks of gestation at delivery: 38 Infant gender: Male Weight (pounds): 8 Weight (ounces): 1 presentation: vertex Placenta delivery description: Manual Removal Cord Vessel Description: 3 Vessels score one minute: 9 score five minutes: 9
[2023-12-27] MEDS: OXYTOCIN 30 UNITS/NS 500 ML 30 UNITS/500 ML BAG 125 UNITS IV CONT (23:39)
[2023-12-28] VITALS (22 sets, daily range): BP systolic 107–124; BP diastolic 50–79; PULSE 91–107; RESP 14–20; TEMP 36.1–37.2; O2SAT 97–99
[2023-12-28] MEDS: MORPHINE SULFATE INJ (*CRX) 10 MG/ML AMP 3 MG IV PUSH (00:17)
[2023-12-28] MEDS: DEXTROSE 5%/0.45% SOD CHL 1,000 ML 125 ML IV CONT (01:30)
[2023-12-28] MEDS: ACETAMINOPHEN 325 MG TABLET 650 MG PO ×3 (02:08→16:41)
[2023-12-28] MEDS: KETOROLAC 15 MG/ML VIAL (*BKC) IV PUSH ×3 (02:08→16:40)
[2023-12-28 05:42] LABS: Basophils Absolute Auto 0.1 K/mm3 (0.0-0.1); Basophils Percent Auto 0.3 % (0.2-1.2); Eosinophils Absolute Auto 0.1 K/mm3 (0-0.3); Eosinophils Percent Auto 0.4 % (0-4.4); Hematocrit 31.6 % (37.0-47.0); Hemoglobin 10.5 g/dL (12.0-15.0); Immature Granulocyte Absolute 0.11 K/mm3 (0.00-0.031); Immature Granulocyte Percent A 0.6 % (0-0.5); Lymphocytes Absolute Auto 1.87 K/mm3 (0.9-3.2); Lymphocytes Percent Auto 10.3 % (18.3-44.2); Mean Corpuscular HGB Conc 33.2 g/dl (32-36); Mean Corpuscular Hemoglobin 30.2 pg (26-34); Mean Corpuscular Volume 90.8 fl (80-100); Monocytes Absolute Auto 1.3 K/mm3 (0.1-0.6); Monocytes Percent Auto 7.1 % (2.6-8.5); Neutrophils Absolute Auto 14.7 K/mm3 (1.3-6.7); Neutrophils Percent Auto 81.3 % (45.5-73.1); Platelet Count Result 255 k/mm3 (150-375); Red Blood Count 3.48 M/mm3 (4.2-5.4); Red Cell Distribution Width 13.8 % (11.5-14.5); White Blood Count 18.1 K/mm3 (4.5-10.0)
[2023-12-28 05:56] LABS: Alanine Aminotransferase 27 U/L (6-35); Alkaline Phosphatase 121 U/L (38-126); Anion Gap 3 mmol/L (4-12); Aspartate Amino Transferase 39 U/L (14-36); Bilirubin,Total 0.8 mg/dL (0.2-1.3); Blood Urea Nitrogen 13 mg/dL (7-17); Calcium 8.5 mg/dL (8.4-10.2); Carbon Dioxide 20 mmol/L (22-30); Chloride 109 mmol/L (98-107); Estimated CRCL calculation 128 ml/min; Estimated Glomerular Filt Rate > 60; Glucose 115 mg/dL (65-110); Potassium 4.6 mmol/L (3.4-5.0); Sodium 132 mmol/L (137-145)
--- NOTE | 2023-12-28 07:18 | WPDANLDPN2 ---
Anes-Prog Note L&D Date/Time: 12/28/23 07:18 Comfortable throughout: labor and section Neuraxial method: epidural Epidural/Spinal procedure site: clean & non-tender Neuro status: Neuro function grossly intact. Cardiovascular status: normal Respiratory status: normal Airway patency: baseline Mental status: baseline Post-Op hydration status: normal Vital Signs: Last Vital Signs Temp 37.2 C 12/28/23 02:20 Pulse 102 H 12/28/23 02:20 Resp 20 12/28/23 02:20 BP 118/79 12/28/23 02:20 Pulse Ox 98 12/28/23 02:20 O2 Del Method Room Air 12/28/23 00:45 Pain score (VAS): 2/10 I/O: Intake & Output 12/27/23 12/27/23 12/28/23 15:59 23:59 07:59 Intake Total 545.8 600 Output Total 755 50 Balance 545.8 -755 550 Post-procedural complaints: none Patient feedback: Patient satisfied with anesthetic care.
--- NOTE | 2023-12-28 07:19 | WPDANLDNPN2 ---
Anes-Prog Note L&D-Neuraxial Date/Time: 12/28/23 07:19 Neuraxial medications: epidural PF morphine Opiod-related complaints: none Patient feedback: Patient satisfied with post-operative pain management.
--- NOTE | 2023-12-28 09:00 | PC.NURSE ---
Breast pump provided due to ineffective feeding. Instructions given on cleaning, care, usage, that there should be no pain, pumping schedule for milk production, collection, and storage of human milk. Patient was assessed for correct placement, flange size, to pump for comfort and nipple stretching/stimulation for adequate milk production every 3 hours.?Mother voiced understanding of the education shared along with mom/baby guide.
[2023-12-28] MEDS: HYDROcodone/acetaminophen (*CRX) 5-325 MG TABLET 1 TAB PO (10:07)
[2023-12-28] MEDS: DOCUSATE SODIUM 100 MG CAPSULE PO ×2 (10:08→16:41)
[2023-12-28] MEDS: SIMETHICONE 80 MG TAB.CHEW PO ×3 (10:08→19:25)
[2023-12-28] MEDS: MULTIVIT/MIN/PREN/FOL AC/IRON TABLET 1 TAB PO (10:08)
[2023-12-28] MEDS: SERTRALINE HCL 50 MG TABLET 150 MG PO (10:09)
[2023-12-28] MEDS: lamoTRIgine 100 MG TABLET PO (10:10)
[2023-12-28] MEDS: buPROPion HCL XL (24 HR) 150 MG TABCR 300 MG PO (10:10)
--- NOTE | 2023-12-28 16:13 | PC.NURSE ---
Addendum entered by Joann Donovan RN 12/28/23 16:20: Demonstrated paced bottle feeding for supplementation. Initially, infant was attempted to latch at the left breast after visualizing feeding cues. doesn't latch when placed at the breast. At times cries and pushes against the breast. Reset was done placing infant [id number] upright on mother's chest/breast. Once feeding cues were visualized, then there was one latch for a few sucks. No maintaining latch. stopped sucking and assessment found the nipple at the lips. We move towards pumping assessment and paced bottle feeding. Inpatient name written on the communication board. Mother voiced understanding of information and will call if there is a request for assistance. Original Note: [id number] Breast pump provided prior to this meeting due to ineffective . Instructions given on cleaning, that there should be no pain, pumping schedule for milk production, collection, and storage of human milk. Patient was assessed for correct placement, flange size (21mm), to pump for comfort and nipple stretching/stimulation for adequate milk production every 3 hours (8 times in 24 hours) 1-2 times at night. Mother is encouraged to record the pumping schedule on the feeding sheet.?Mother voiced understanding of the education shared along with mom/baby guide and the pump measurement, flange fit handout for additional resource information. Reported to the Primary RN.
[2023-12-29] MEDS: ACETAMINOPHEN 325 MG TABLET 650 MG PO ×3 (00:26→15:31)
[2023-12-29] MEDS: HYDROcodone/acetaminophen (*CRX) 5-325 MG TABLET 1 TAB PO ×3 (00:26→20:00)
[2023-12-29] MEDS: IBUPROFEN 600 MG TABLET PO ×3 (00:26→15:31)
[2023-12-29 00:30] VITALS: BP 125/76; PULSE 120; RESP 22; TEMP 37.3; O2SAT 99
[2023-12-29] MEDS: ZOLPIDEM TARTRATE (*CRX) 5 MG TABLET PO (00:59)
--- NOTE | 2023-12-29 01:29 | PC.NURSE ---
0030-pt crying, shaking, anxious states I need a break! I am hurting1 Medications were administered to pt at 2330. This nurse assess pts incision, assessed vs which were wnl. Pt wanting to sleep, infant taken to nursery. Ambien given to pt to aid with sleep. attempted to scan bracelet with two different computer however scanners were down on both. 0130 pt is sleeping in room in no apparent distress. Will continue to monitor.
--- NOTE | 2023-12-29 05:11 | PC.NURSE ---
Yelling hear at nurses station coming from pts sylvia, this nurse went to check on pt, pt in restroom on toilet FOB outside of door. pt was yelling at FOB, when I asked if there was a problem pt said no . Pt stating she is still in pain, pain med offered however pt declined at this time.
[2023-12-29] MEDS: MULTIVIT/MIN/PREN/FOL AC/IRON TABLET 1 TAB PO (06:56)
[2023-12-29] MEDS: DOCUSATE SODIUM 100 MG CAPSULE PO ×2 (06:57→17:10)
[2023-12-29] MEDS: SIMETHICONE 80 MG TAB.CHEW PO ×2 (06:57→15:31)
[2023-12-29 07:15] VITALS: BP 118/78; PULSE 99; RESP 16; TEMP 36.7; O2SAT 98
[2023-12-29] MEDS: SERTRALINE HCL 50 MG TABLET 150 MG PO (08:31)
[2023-12-29] MEDS: buPROPion HCL XL (24 HR) 150 MG TABCR 300 MG PO (08:32)
[2023-12-29] MEDS: lamoTRIgine 100 MG TABLET PO (08:32)
--- NOTE | 2023-12-29 14:08 | PC.NURSE ---
[id number] Purposefully rounded to assess for plan and possible changes. Mother shared she attempts to latch her infant with no success, then pumps to protect the milk supply and is supplementing with bottled formula. Resources provided for inpatient and outpatient services with the feeding sheet, mom/baby guide and name remains on the communication board. Mother voiced understanding of information and will call if there is a request for assistance.
--- NOTE | 2023-12-29 14:09 | PM.OBPNVD ---
OB - PN: Subj Subjective Date/time seen: 12/29/23 14:09 S: Diet, ambulation tolerated. Still with significant discomfort though overall doing well. O: VSS afebrile Abdomen: Positive bowel sounds soft no guarding or rebound. Incision: Dressing in place, dry. Labs: Noted A: Post operative/ day 2. P: Continue routine care. Likely home tomorrow. OB - PN: Obj Data Labs 12/28/23 05:37 12/28/23 05:37 OB - PN A/P Time Spent With Patient Time: Total time spent is greater than 50% in coordination of care (as documented) at patient's floor/unit and/or counseling patient:
[2023-12-29 20:00] VITALS: BP 103/52; PULSE 94; RESP 18; TEMP 36.8; O2SAT 100
[2023-12-30] MEDS: IBUPROFEN 600 MG TABLET PO ×2 (04:10→12:06)
[2023-12-30] MEDS: ACETAMINOPHEN 325 MG TABLET 650 MG PO ×2 (04:10→12:06)
[2023-12-30] MEDS: DOCUSATE SODIUM 100 MG CAPSULE PO (07:56)
[2023-12-30] MEDS: SERTRALINE HCL 50 MG TABLET 150 MG PO (07:56)
[2023-12-30] MEDS: buPROPion HCL XL (24 HR) 150 MG TABCR 300 MG PO (07:56)
[2023-12-30] MEDS: SIMETHICONE 80 MG TAB.CHEW PO ×2 (07:56→12:06)
[2023-12-30] MEDS: MULTIVIT/MIN/PREN/FOL AC/IRON TABLET 1 TAB PO (07:56)
[2023-12-30 08:55] VITALS: BP 133/71; PULSE 101; RESP 18; TEMP 36.8; O2SAT 99
--- NOTE | 2023-12-30 10:31 | PC.NURSE ---
[id number] Purposefully rounded to assess for services. Parents are on the couch with father of baby holding infant and mother smiling and relaxed. parent shared that latched better yesterday, was bottle fed in the nursery through the night with no pumping and this morning latched for 1-2 minutes two different times with no request for assistance, then parents bottle fed their infant. parent acknowledges education about calling for assistance, waking infant with massage touch, paced bottle feeding and consistency with effective milk removal. Discussed the difference between effective and non-effective with swallows. Father of baby shared infant latches to the nipple, holds it in the mouth and stops sucking, then is bottle fed. parent shared she is trying to pump, yet is not consistent with it yet. Reminded how to protect the milk supply is she chooses to breastfeed or bottle EBM. Parents are feeding appropriately for growth of infant and understands stimulating to eat if needed. Infant has had appropriate feedings in the last 24 hours meets the outcomes for weight, output, blood sugar and jaundice at this time. Reinforced understanding of milk production, transition of milk, signs of adequate intake, transition of stool, prevention/relief of engorgement, plugged ducts, mastitis, responsive watching for feeding cues, the different methods of stimulating infant to breastfeed 1-3 hours after the start of the last feeding, community resources with inpatient/outpatient services, and when to call a provider using the resource of the feeding sheet along with the mom and baby guide. Parents voiced understanding of the information shared, is confident to continue feeding their infant at home, denies any additional assistance or education at this time and parents encouraged to call for assistance with latching before they go home. Reported to the Primary RN.
--- NOTE | 2023-12-30 11:39 | PC.NURSE ---
[id number] Consult requested from the parents to assist with . is fully clothed and swaddled in the bassinet. Demonstrated to parents how to wake , check the diaper and stimulate for wakefulness and burps. Placed infant upright [id number] on parents chest/breast. Once infant demonstrated feeding cues, then infant was brought to the right breast using football positioning. Demonstrated to parents how to support breast with the teacup hold and U-hold, roll and stretch nipples and mother demonstrated understanding of hand expression after technique reviewed. Encouraged gentle touch as mother shared she had been squeezing too hard . Mother is able to express human milk in moderate drops. Encouraged pumping consistently to protect the milk supply at least 8 times in 24 hours or if infant doesn't latch and maintain. RN LC assisted parent with latching infant effectively to the right for 5 minutes, then the left, however; infant maintained the latch longer on the left for a total of 20 minutes. Instructed patients on how to listen and watch for swallowing. Paced bottle feeding demonstrated, instructions with a handout and discussion. Infant has had adequate feedings in the last 24 hours, however; most were completed by staff during the night. meets the outcomes for weight, output, blood sugar and jaundice at this time. Reinforced understanding of milk production, transition of milk, signs of adequate intake, transition of stool, prevention/relief of engorgement, plugged ducts, mastitis, responsive watching for feeding cues, the different methods of stimulating to breastfeed 1-3 hours after the start of the last feeding, community resources, outpatient services and when to call a provider using the resource of the feeding sheet along with the mom and baby guide. Mother voiced understanding of the information shared, is confident to continue feeding her at home, when to call for concerns and supplementing with formula until full milk is in and infant is with all the outcomes met. 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 Visiting family walked into the room and the consult was ended. Reported to the Primary RN that had latched, paced bottle fed and parents recommended to supplement until is meeting markers for weight, output, content, no jaundice fully .
--- NOTE | 2023-12-30 12:33 | PM.OBDSVD ---
DS: Admitting Diagnosis Discharge Date December 30, 2023 Admitting Diagnosis DS: Discharge Diagnosis Discharge Diagnosis (1) , delivered: Code(s): O80 - Encounter for full-term uncomplicated delivery Status: Acute OB - DS: Summary OB Procedures : None OB Procedures Intrapartum: OB Procedures: : None Peripartum Data Procedures: Procedures Operation Date: 12/27/23 21:20 Actual Procedure Side Surgeon p Section Not Applicable Long Ramirez MD Time Spent with Patient Time attestation: Total time spent providing and/or coordinating discharge services: DS: Data Data Completed and Pending Completed studies during hospitalization: Pending at discharge 12/27/23 22:48 Surgical [PTH] Routine Discharge Plan Discharge Discharging Clinician: Long Ramirez Patient Disposition: Home, Self-Care Activity: no straining, follow weight bearing status and pelvic rest Diet: as tolerated Patient Instructions: Antibiotic Form Stand Alone Forms: General Discharge Information Follow-up/Referrals: Long Ramirez MD [Physician] - 3 Weeks Discharge Medications: New hydrocodone-acetaminophen 5-325 mg Tablet 1 tablet PO Q3H PRN (Reason: Breakthrough Pain Rated 4-6) Qty: 20 0RF ibuprofen 600 mg Tablet 600 mg PO Q6H Qty: 30 0RF Continued bupropion HCl 300 mg tablet extended release 24 hr 300 mg PO DAILY lamotrigine 100 mg tablet 100 mg PO DAILY lurasidone 20 mg tablet 40 mg PO DAILY magnesium 200 mg tablet 250 mg PO DAILY Classic 28 mg iron- 800 mcg tablet 1 tablet PO DAILY pyridoxine (vitamin B6) 200 mg tablet 200 mg PO DAILY sertraline 150 mg capsule 150 mg PO DAILY nitrofurantoin monohyd/m-cryst [Macrobid] 100 mg capsule 100 mg PO Q12H 7 Days Qty: 14 0RF Rx Instructions: must administer with a meal/food Discontinued aspirin [Adult Low Dose Aspirin] 81 mg tablet,delayed release (DR/EC) 162 mg PO DAILY oxycodone 5 mg tablet 2.5 mg PO Q4H PRN (Reason: pain) Qty: 9 0RF Date of admission: 12/27/23 06:09 Primary Care Provider: Hyacinth,Alfredo Reina Admitting Provider: Long Ramirez Attending physician on admission: Long Ramirez Condition: Stable
[2023-12-30] MEDS: TETANUS,DIPHTHERIA,AC PERTUSSIS ADULT (0.5 ML) BOOSTRIX IM (13:14)
[2024-01-02 09:31] VITALS: BP 141/83; PULSE 99; RESP 18; TEMP 36.8; O2SAT 99
== END 2023-12-30 14:00 | disposition home or self-care (01) | DRG 788 ==
LOC: ANHLDR 06:12 → ANHOB2 12-28 01:06
PROVIDERS: Admitting Provider Obstetrics & Gynecology; PCP Family Medicine; Visit Provider Obstetrics & Gynecology
PROC: 10D00Z1 Extraction of Products of Conception, Low, Open Approach (ICD-10-PCS; CPT 59514; principal; 2023-12-27 21:20)
DX: O99.892 Other specified diseases and conditions complicating childbirth (principal); Z37.0 Single live birth; Z3A.37 37 weeks gestation of pregnancy; N18.9 Chronic kidney disease, unspecified; R74.01 Elevation of levels of liver transaminase levels; O99.62 Diseases of the digestive system complicating childbirth; K82.8 Other specified diseases of gallbladder; O36.8330 Maternal care for abnormalities of the fetal heart rate or rhythm, third trimester, not applicable or unspecified; O62.1 Secondary uterine inertia
CPT/HCPCS: 36415; 80053; 84550; 85025; 86592; 86850; 86900; 86901; 88307; 90715; A9270; J1885; J2270; J2274; J2405; J2590; J2795; J3010; J7120

== ENCOUNTER 2024-01-11 15:28 | Outpatient (CLI) | payer OTHER, SELFPAY ==
[2024-01-11 15:58] LABS: Basophils Absolute Auto 0.1 K/mm3 (0.0-0.1); Basophils Percent Auto 0.7 % (0.2-1.2); Eosinophils Absolute Auto 0.3 K/mm3 (0-0.3); Hematocrit 34.8 % (37.0-47.0); Hemoglobin 11.6 g/dL (12.0-15.0); Immature Granulocyte Absolute 0.06 K/mm3 (0.00-0.031); Immature Granulocyte Percent A 0.4 % (0-0.5); Lymphocytes Absolute Auto 1.99 K/mm3 (0.9-3.2); Mean Corpuscular HGB Conc 33.3 g/dl (32-36); Mean Corpuscular Hemoglobin 29.5 pg (26-34); Mean Corpuscular Volume 88.5 fl (80-100); Mean Platelet Volume 9.5 fl (7.4-10.4); Monocytes Absolute Auto 0.8 K/mm3 (0.1-0.6); Monocytes Percent Auto 5.6 % (2.6-8.5); Neutrophils Percent Auto 77.3 % (45.5-73.1); Platelet Count Result 474 k/mm3 (150-375); Red Blood Count 3.93 M/mm3 (4.2-5.4); Red Cell Distribution Width 12.8 % (11.5-14.5); White Blood Count 14.2 K/mm3 (4.5-10.0)
== END 2024-01-11 15:29 | disposition home or self-care (01) ==
LOC: ANHLAB 15:29
PROVIDERS: PCP Family Medicine; Visit Provider Obstetrics & Gynecology
DX: N93.9 Abnormal uterine and vaginal bleeding, unspecified (principal)
CPT/HCPCS: 36415; 85025

== ENCOUNTER 2024-01-12 12:52 | Outpatient (CLI) | payer OTHER, SELFPAY ==
--- NOTE | ~2024-01-12 | US_ITS ---
EXAMINATION: US pelvic complete w TV DATE: 01/12/2024 13:21 INDICATION: Abnormal uterine bleeding. Postoperative hemorrhage. Comparison:No prior studies for comparison. TECHNIQUE: Multiple transabdominal and endovaginal sonographic images of the pelvis performed. FINDINGS: The uterus measures 12.7 x 6.7 x 8.6 cm. There is a hypoechoic area along the anterior aspe ct of the uterus, likely corresponding to section location. The endometrial complex measures 11 mm. The right ovary is not visualized. The left ovary is unremarkable measuring 3.4 x 1.7 x 3.4 cm. There is no free fluid in the pelvis. There are no abnormal masses seen on either side. IMPRESSION: 1. Enlarged uterus consistent with post gravid state. Hypoechoic area noted along the anterior aspect of the uterus, consistent with section scar. Reviewed, dictated and finalized at location B. IMPRESSION: 1. Enlarged uterus consistent with post gravid state. Hypoechoic area noted luciano ng the anterior aspect of the uterus, consistent with section scar.
== END 2024-01-12 12:53 ==
LOC: MICIMG 12:52
PROVIDERS: PCP Obstetrics & Gynecology; Visit Provider Obstetrics & Gynecology
DX: N93.9 Abnormal uterine and vaginal bleeding, unspecified (principal)
CPT/HCPCS: 76830; 76856

== ENCOUNTER 2024-02-23 12:57 | Outpatient (CLI) | payer OTHER, SELFPAY ==
[2024-02-23 13:12] LABS: Basophils Absolute Auto 0.1 K/mm3 (0.0-0.1); Basophils Percent Auto 0.8 % (0.2-1.2); Eosinophils Absolute Auto 0.3 K/mm3 (0-0.3); Eosinophils Percent Auto 2.4 % (0-4.4); Hematocrit 38.9 % (37.0-47.0); Hemoglobin 12.3 g/dL (12.0-15.0); Immature Granulocyte Absolute 0.05 K/mm3 (0.00-0.031); Immature Granulocyte Percent A 0.4 % (0-0.5); Lymphocytes Absolute Auto 2.44 K/mm3 (0.9-3.2); Lymphocytes Percent Auto 21.7 % (18.3-44.2); Mean Corpuscular HGB Conc 31.6 g/dl (32-36); Mean Corpuscular Volume 85.5 fl (80-100); Mean Platelet Volume 9.6 fl (7.4-10.4); Monocytes Absolute Auto 0.7 K/mm3 (0.1-0.6); Neutrophils Absolute Auto 7.7 K/mm3 (1.3-6.7); Neutrophils Percent Auto 68.7 % (45.5-73.1); Platelet Count Result 388 k/mm3 (150-375); Red Blood Count 4.55 M/mm3 (4.2-5.4); Red Cell Distribution Width 12.9 % (11.5-14.5); White Blood Count 11.3 K/mm3 (4.5-10.0)
[2024-02-23 13:31] LABS: Alanine Aminotransferase 18 U/L (6-35); Albumin Level 4.6 g/dL (3.5-5.1); Alkaline Phosphatase 89 U/L (38-126); Anion Gap 12 mmol/L (4-12); Aspartate Amino Transferase 24 U/L (14-36); Bilirubin,Total 0.9 mg/dL (0.2-1.3); Blood Urea Nitrogen 17 mg/dL (7-17); Calcium 9.4 mg/dL (8.4-10.2); Carbon Dioxide 23 mmol/L (22-30); Chloride 103 mmol/L (98-107); Estimated Glomerular Filt Rate > 60; Glucose 106 mg/dL (65-110); Potassium 4.1 mmol/L (3.4-5.0); Sodium 138 mmol/L (137-145)
== END 2024-02-23 12:58 | disposition home or self-care (01) ==
LOC: ANHLAB 12:59
PROVIDERS: PCP Family Medicine; Visit Provider Obstetrics & Gynecology
DX: N61.0 Mastitis without abscess (principal)
CPT/HCPCS: 36415; 80053; 85025

== ENCOUNTER 2024-05-05 10:11 | Emergency (ER) | payer OTHER, SELFPAY ==
--- NOTE | 2024-05-05 10:14 | ED.URI ---
HPI - URI/Sore Throat General Chief Complaint: Upper Respiratory Infection Stated Complaint: Sore Throat Time Seen by Provider: 05/05/24 10:20 Source: patient, RN notes reviewed and old records reviewed Mode of arrival: ambulatory Limitations: no limitations History of Present Illness HPI Narrative: 29-year-old female presents to the [facility] with complaints of a sore throat Patient states she started with URI symptoms on Tuesday, 3 days ago. Symptoms got worse with fatigue, reporting a fever of 100.5 Has tried sble-[id number]-[id number] cold medicine. Verbalized Concerned for strep throat. Onset (ago): day(s) (3) Related Data Home Medications Medication Instructions Recorded Confirmed bupropion HCl 300 mg 24 hr tablet, 300 mg PO DAILY 07/05/20 05/05/24 extended release lamotrigine 100 mg tablet 100 mg PO DAILY 02/22/23 05/05/24 sertraline 150 mg capsule 150 mg PO DAILY 02/28/23 05/05/24 lurasidone 20 mg tablet 40 mg PO DAILY 06/24/23 05/05/24 Allergies Allergy/AdvReac Type Severity Reaction Status Date / Time vancomycin Allergy Intermediate Redness of Verified 05/05/24 10:20 Skin erythromycin base Allergy Mild hives Verified 05/05/24 10:20 Review of Systems Review of Systems: All systems reviewed & are unremarkable except as noted in HPI and below Constitutional: Constitutional: Reports as per HPI, Reports body ache(s), Reports fatigue and Reports fever(s) Eyes: Eyes: Reports no additional eye complaints ENT: Reports as per HPI and Reports sore throat Cardiovascular: Cardiovascular: Reports no additional cardiovascular complaints, Denies chest pain and Denies dyspnea Respiratory: Respiratory: Reports no additional respiratory complaints, Denies chest congestion, Denies cough and Denies dyspnea Gastrointestinal: Gastrointestinal: Reports no additional gastrointestinal complaints, Denies abdominal pain, Denies nausea and Denies vomiting Musculoskeletal: Musculoskeletal: Reports no additional musculoskeletal complaints Integumentary/Breasts: Skin/Breast: Reports system reviewed and no additional complaints, except as docu Neurologic: Reports system reviewed and no additional complaints, except as documented Psychiatric: Psychiatric: Reports no additional psychiatric complaints Allergic/Immunologic: Allergic/Immunologic: Reports no additional allergic/immunologic complaints PMFSH Past Medical History Medical History Anxiety with depression Asthma Chronic kidney disease stage 2 Depression Sunil-Danlos and osteogenesis imperfecta syndrome hypermoble OCD (obsessive compulsive disorder) Surgical History Surgical History Delivery by section (12/27/23) primary c/s Arrest of Dilation and Non-Reassuring Status H/O eye surgery (~1997) History of gynecological procedure (01/09/20) mirena iud removal (unable to removed done in OR on 01/24/2020 History of gynecological procedure (02/05/15) mirena iud insertion Hx of tonsillectomy (~08/2012) [place] teeth removed Family History Family History Grandparent Heart disease paternal grandfather Hypertension paternal grandfather Diabetes mellitus Paternal Grandfather Other Family history of allergic disorder Family history of cardiovascular disease Social History Social History Smoking status: Never smoker Second hand tobacco smoke exposure: No Alcohol intake: never Substance use: never Substance use type: does not use Do You Feel Safe in your Home?: Yes Lack of Transportation: No Lack of Food: Never True Current Housing: I Have Housing Concerned About Future Housing: No Difficulty Paying Gas/Electric Bills: No Difficulty Paying for Meds: No Currently Unemployed: No
[2024-05-05 10:20] VITALS: BP 125/70; PULSE 90; RESP 18; TEMP 37; O2SAT 99
[2024-05-05 10:21] VITALS: BP 125/70; PULSE 90; RESP 18; TEMP 37; O2SAT 99
[2024-05-07 14:28] LABS: EDSTREPNEGPOS1 Positive (Negative)
== END 2024-05-05 10:36 | disposition home or self-care (01) ==
PROVIDERS: Emergency Provider Nurse Practitioner; PCP Family Medicine
DX: J02.0 Streptococcal pharyngitis (principal); J45.909 Unspecified asthma, uncomplicated; N18.2 Chronic kidney disease, stage 2 (mild); F41.8 Other specified anxiety disorders; Q79.60 Ehlers-Danlos syndrome, unspecified; F42.9 Obsessive-compulsive disorder, unspecified
CPT/HCPCS: 87880; 99213; G0463

== ENCOUNTER 2024-10-23 16:03 | Emergency (ER) | payer OTHER, SELFPAY ==
--- NOTE | 2024-10-23 16:09 | ED_ITS ---
HPI - URI/Sore Throat General Chief Complaint: Upper Respiratory Infection Stated Complaint: Sore throat Time Seen by Provider: 10/23/24 16:10 Source: patient Mode of arrival: ambulatory Limitations: no limitations History of Present Illness HPI Narrative: Radhika is a 29-year-old female patient presenting to the clinic today with complaints of sore throat x1 day. She reports symptoms started yesterday. States the pain is worse with swallowing. Denies any known fever however she was 100.4? F in the clinic today. Denies any other URI symptoms. MD elicited complaint: sore throat Related Data Home Medications ?Medication ?Instructions ?Recorded ?Confirmed ?Last Taken ?Type bupropion HCl 300 mg 24 hr tablet, 300 mg PO DAILY 07/05/20 07/25/24 1 Day Ago History extended release ~12/18/23 lamotrigine 100 mg tablet 100 mg PO DAILY 02/22/23 07/25/24 1 Day Ago History ~12/18/23 sertraline 150 mg capsule 150 mg PO DAILY 02/28/23 07/25/24 1 Day Ago History ~12/18/23 lurasidone 20 mg tablet 40 mg PO DAILY 06/24/23 07/25/24 1 Day Ago History ~12/18/23 Allergies Allergy/AdvReac Type Severity Reaction Status Date / Time vancomycin Allergy Intermediate Redness of Verified 10/23/24 16:21 Skin erythromycin base Allergy Mild hives Verified 10/23/24 16:21 Review of Systems Review of Systems: Pertinent positives per HPI. Patient denies any fever, chills, rash, headache, visual changes, dizziness, cough, shortness of breath, chest pain, palpitations, nausea, vomiting, diarrhea, constipation, abdominal pain, or any urinary issues. 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 2 Asthma OCD (obsessive compulsive disorder) Anxiety with depression Surgical History Surgical History Delivery by section (12/27/23) primary c/s Arrest of Dilation and Non-Reassuring Status H/O eye surgery (~1997) History of gynecological procedure (02/05/15) mirena iud insertion History of gynecological procedure (01/09/20) mirena iud removal (unable to removed done in OR on 01/24/2020 [place] teeth removed Hx of tonsillectomy (~08/2012) Family History Family History Grandparent Heart disease paternal grandfather Hypertension paternal grandfather Diabetes mellitus Paternal Grandfather Other Family history of allergic disorder Family history of cardiovascular disease Social History Social History Smoking status: Never smoker Second hand tobacco smoke exposure: No Alcohol intake: never Substance use: never Substance use type: does not use Do You Feel Safe in your Home?: Yes Lack of Transportation: No Lack of Food: Never True Current Housing: I Have Housing Concerned About Future Housing: No Difficulty Paying Gas/Electric Bills: No Difficulty Paying for Meds: No Currently Unemployed: No Education: Master's Degree or Higher Difficulty w/ Childcare or Family Care: No Living arrangements: with family Additional living arrangements comments: 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 There is no relevant family history pertinent to the patient complaint. Exam Narrative: General: Well-developed, morbidly obese, in no apparent distress Head: Normocephalic, atraumatic Eyes: Pupils equally round and reactive to light bilaterally, EOM intact, sclera and conjunctive clear, no discharge, lids normal Ears: TMs intact and clear, ear canals clear, no drainage, grossly hearing normal. Nose: Nares patent, no discharge, no inflammation, no sinus tenderness. Mouth: Oral pharynx red without lesions or masses, good dentition, MMM. Tonsils surgically absent Neck: Supple, trachea midline, no enlargement of anterior or posterior cervical nodes, no thyroid masses or goiter palpable. Cardio: Regular rate and rhythm, s1 and s2 normal, no murmur appreciated. Resp: Clear to auscultation bilaterally, no rhonchi, rales, wheezing or rubs Course Course Emergency Course: Portions of this record may have been created with voice recognition software. Level of Care: Express Care Visit Vital Signs Vital signs: Vital signs reviewed MDM - URI/Sore Throat MDM Narrative Medical decision making narrative: At the time of visit patient is resting comfortably on the exam table. Patient appears to be nontoxic. Labs: Strep test was performed and positive in the clinic today. Plan: I suspect patient has strep pharyngitis. Prescription for amoxicillin was sent to the pharmacy. Patient is also requesting for fluconazole as she does get yeast infections when taking antibiotics. Supportive measures were discussed with the patient and they voiced understanding discharge instructions and agrees to treatment plan. Return precautions reviewed Differential Diagnosis Differential diagnosis: Likely upper respiratory infection, otitis media, sinusitis, viral infection, bronchitis, influenza, pharyngitis and other (COVID) Discharge Plan Discharge Clinical Impression: Acute streptococcal pharyngitis Patient Disposition: Home, Self-Care Condition: Stable Instructions: Antibiotic Form, Strep Throat (ED) Additional Instructions: Strep test was positive in the clinic today Take prescription medications only as prescribed-amoxicillin Change her toothbrush in 24 hours after initiation of the antibiotics Increase fluids and stay well hydrated Tylenol/motrin for pain/fever Flonase and OTC antihistamines as directed Vicks vapor rub to open sinuses Sinus rinses for congestion Cepacol spray, cough drops, throat lozenges, warm tea with honey/lemon, gargle salt water to soothe throat BRAT diet for diarrhea Clear liquids x 24 hours then advance as tolerated for nausea/vomiting Go to the ED if you develop a worsening in your condition- high fever not controlled by Tylenol or Motrin, dehydration, weakness, lethargy, shortness of breath, or chest pain. Follow up with your PCP in 3-5 days if symptoms persist. Patient Language: Estonian Prescriptions: New fluconazole 150 mg tablet 150 mg PO ONCE Qty: 2 0RF Rx Instructions: as a single dose. May repeat in 72 hours if needed. amoxicillin 875 mg tablet 875 mg PO Q12H 10 Days Qty: 20 0RF No Action bupropion HCl 300 mg tablet extended release 24 hr 300 mg PO DAILY lamotrigine 100 mg tablet 100 mg PO DAILY lurasidone 20 mg tablet 40 mg PO DAILY nystatin-triamcinolone 100,000-0.1 unit/gram-% ointment 1 applic topical BID Qty: 30 1RF sertraline 150 mg capsule 150 mg PO DAILY norethindrone (contraceptive) 0.35 mg tablet 0.35 mg PO DAILY Qty: 84 3RF fluconazole 150 mg tablet 150 mg PO DAILY Qty: 3 0RF Rx Instructions: take 1 dose every 48 hours for a total of 3 doses Follow-up/Referrals: Hyacinth,Alfredo Reina MD [Primary Care Provider] - Stand Alone Forms: Work/School Release IP Time of Disposition: 16:24 Quality NIHSS Nursing Documentation ED NIHSS nursing documentation: reviewed/agree
[2024-10-23 16:15] VITALS: BP 123/77; PULSE 87; RESP 17; TEMP 38; O2SAT 99
[2024-10-23 16:28] LABS: EDSTREPNEGPOS1 Positive (Negative)
--- OUTSIDE RECORDS SUMMARY | 2024-10-23 17:51 | XMS_ITS ---
Author Organization [facility] [place] Address [address] [place] [address] Care Team Providers Care [employer] Professional [employer] Name Role Phone Alfredo Claros MD Primary Care Provider Fred Pimentel Unavailable [phone] Allergies Allergen (clinical drug ingredient) Drug/Non Drug Allergy documented on EMR Reaction Allergy Type Onset Date Status erythromycin Erythromycin Base Unknown Drug Allergy 2023 Active vancomycin Vancomycin Unknown Drug Allergy Activ e Results Component Value Reference Range Notes UDT Reviewed date:10/10/2024 05:09:13 PM Interpretation: Performing Lab: Notes/Report: THC N 0 - 50 ng/ml Cocaine N 0 - 300 ng/ml Amphetamine N 0 - 1000 ng/ml Buprenorphine (BUP) N 0 - 10 ng/ml Secobarbital (Bar) N 0 - 300 ng/ml Oxazepam (BZO) N 0 - 300 ng/ml 9-devvfisvrm-8,0-crannrzh-5,3-diphenylpyrrolidine (JORDAN P) N 0 - 300 ng/ml Methamphetamine (MET) N 0 - 1000 ng/ml Methylenedioxymethamphetamine (MDMA) N 0 - 500 ng/ml Morphine (MOP 300/PIA1428) N 0 - 300 ng/ml Methadone (MTD) N 0 - 300 ng/ml Phencyclidine (PCP) N 0 - 25 ng/ml Nortriptyline (TCA) N 0 - 1000 ng/ml Oxycodone N 0 - 300 ng/ml x N 0 - 300 ng/ml REASON FOR VISIT f/u, Depression screening positive, UDT Visit, UDT done Medications Medication SIG (Take, Route, Frequency, Duration) Notes Start Date End Date Status Sertraline HCl 100 MG 2 tablet every morning Oral Once a day for 90 days rx on 10/10/24 Active LORazepam 0.5 MG 1 tablet Orally Once a day for 30 days As needed cancel previous rx on lorazepam 10/10/2024 Active Baby Aspirin 12/22/2023 Unknow n Sertraline HCl 100 MG Oral 12/22/2023 Unknown predniSONE 20 MG Oral 12/22/2023 Un known Lurasidone HCl 60 MG 1 tablet in the evening with food Orally Once a day for 90 days Active Lurasidone HCl 60 MG 1 tablet in the evening with food Orally Once a day for 90 days rx on 10/10/24 Active buPROPion HCl ER (XL) 300 MG 1 tablet in the morning Orally Once a day for 90 days total dose of 450 mg daily rx on 10/10/24 Active buPROPion HCl ER (XL) 150 MG 1 tablet in the morning Orally Once a day for 90 days total dose of 450 mg po qam rx on 10/10/24 Active lamoTRIgine 100 mg 1 tablet oral once a day for 90 days rx on 10/10/24 Active Social History Tobacco Use: Social History Observation Description Date Details (start date - stop date) Never Smoker NA - NA Sex Assigned At : Social History Observation Description Sex Assigned At Female Tobacco Control (Standard) Question Answer Notes Tobacco use: Nonsmoker Vital Signs Blood pressure systolic 113 mm Hg 10/11/19 25 Blood pressure diastolic 81 mm Hg 025 Heart Rate 91 /min 10/10/2024 Height 70.00 in 10/10/2024 Weight 295 lbs 10/10/2024 BMI 42.32 kg/m2 10/10/2024 Height-cm 177.80 cm 10/10/2024 Weight-kg 133.81 kg 10/10/2024 Encounters Encounter [facility] Date [facility] [address] [address] 10/10/2024 Fred Angulo Major depressive disorder, recurrent, in remission, unspecified F33.40 ; Obsessive-compulsive disorder, unspecified F42.9 and CORNELIO (generalized anxiety disorder) F41.1 Assessments Encounter Date Diagnosis (ICD Code) Assessment Notes Treatment Notes Treatment Clinical Notes Section Notes 10/10/2024 Major depressive disorder, recurrent, in remission, unspecified (ICD-10 - F33.40) 10/10/2024 Obsessive-compul sive disorder, unspecified (ICD-10 - F42.9) 10/10/2024 CORNELIO (generalized anxiety disorder) (ICD-10 - F41.1) 10/10/2024 Other Depression - Assessment: Patient reports overall improvement in depressive symptoms. - Plan: - Continue current medications: Sertraline 200 mg, Latuda 60 mg, Bupropion 450 mg, and Lamotrigine 100 mg. - Encourage patient to maintain a healthy lifestyle, including regular exercise and a balanced diet to support weight loss efforts. Anxiety - Assessment: Patient reports a decrease in anxiety symptoms, with occasional moments of anxiety. - Plan: - Continue current medication: Lorazepam 0.5 mg as needed. - Encourage patient to practice relaxation techniques and stress management strategies. Sleep disturbance - Assessment: Patient reports sleep disturbances due to the baby's sleep regression and ear infections, leading to tiredness and grumpiness. - Plan: - Encourage patient to establish a consistent sleep schedule and bedtime routine for the baby. - Monitor the baby's progress after receiving tubes for ear infections. Medication refills - Assessment: Patient requires medication refills. - Plan: - Refill Lamotrigine, Sertraline, and Bupropion through [facility]. - Refill Lorazepam at [facility]. Follow-up - Plan: - Schedule a follow-up appointment in 3 months to monitor the patient's progress and adjust medications as needed. - Encourage the patient to contact the clinic if there are any concerns or changes in symptoms before the next appointment. Plan Of Treatment Medication Medication Name Sig Start Date Stop Date Notes Sertraline HCl 100 MG 2 tablet every morning Oral Once a day for 90 days rx on 10/10/24 LORazepam 0.5 MG 1 tablet Orally Once a day for 30 days 10/10/2024 cancel previous rx o n lorazepam Lurasidone HCl 60 MG 1 tablet in the evening with food Orally Once a day for 90 days rx on 10/10/24 buPROPion HCl ER (XL) 300 MG 1 tablet in the morning Orally Once a day for 90 days rx on 10/10/24 buPROPion HCl ER (XL) 150 MG 1 tablet in the morning Orally Once a day for 90 days rx on 10/10/24 lamoTRIgine 100 mg 1 tablet oral once a day for 90 days rx on 10/10/24 Next Appt Details Follow Up: 3 Months, Reason: Provider Name:Fred Mcmillanam , 01/04/2025 01:00:00 PM, [address], [facility] [address], [place], [address], Progress Notes * CHARLIE HOLLINGSWORTH OB:1995 (29 yo F)Acc No.[id number]:10/10/2024 Patient: CHARLIE KINGSTON PADMINI Provider: Lupe ANGULO MD :1995 A ge:29 Y S ex:Female Date:10/10/2024 Address:[address] [place], [place] [id number] Pcp:Alfredo Claros MD Subjective: * Chief Complaints: * F /uDepression screening positiveUDT VisitUDT done * HPI: D epression Screening: The note is transcribed using speech recognition software. It is a reflection of a visit with the patient. It might have some inaccuracy, including medication names and transcribing errors, though efforts have been made to correct them. Chief Complaint: Overall improvement in mental health The patient reports overall improvement in her mental health. She states her depression has been 'pretty good' and her anxiety has improved compared to before, though she still experiences occasional anxious moments. Mental Health: The patient feels very grumpy, attributing this to fatigue from caring for her 9-month-old son. She reports some difficulty focusing at work due to exhaustion but feels she has been managing adequately. Family Situation: The patient's 9-month-old son is experiencing sleep regression and has had multiple ear infections, necessitating tubes. This has disrupted her sleep, contributing to her fatigue. She is working on improving her son's sleep habits and reports some progress over the past week. 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 Self-Care: The patient is working on exercising and improving her diet to lose weight. Medications: The patient continues to take her prescribed medications, including: - Zoloft 200 mg - Latuda 60 mg - Bupropion 450 mg - Lamotrigine 100 mg - Lorazepam 0.5 mg as needed She reports no longer taking lorazepam daily, only using it as needed, and has requested a refill. CORNELIO-7 (2018 Edition) F eeling nervous, anxious, or on edge S everal days N ot being able to stop or control worrying?Several days W orrying too much about different things S ever T rouble relaxing S ever B eing so restless that it is hard to sit still N ot at all B ecoming easily annoyed or irritable N early every day F eeling afraid as if something awful might happen N ot at all T otal CORNELIO-7 Score 7 I f you checked any problems, how difficult have they made it for you to do your work, take care of things at home, or get along with other people? N ot difficult at all I nterpretation of Total ( 5 to 9) Mild [place]-Suicide Severity Rating Scale: Suicide Risk (CSRS-screener) i n the past one month Have you wished you were or wished you could go to sleep and not wake up? N o i n the past one month Have you actually had any thoughts of killing yourself? N o H ave you ever done anything, started to do anything, or prepared to do anything to end your life? N o D epression screening: PHQ-9 L ittle interest or pleasure in doing things?Several days F eeling down, depressed, or hopeless N ot at all T rouble falling or staying asleep, or sleeping too much N ot at all F eeling tired or having little energy N early every day P oor appetite or overeating N ot at all F eeling bad about yourself or that you are a failure, or have let yourself or your family down S everal days T rouble concentrating on things, such as reading the newspaper or watching television M ore than half the days M oving or speaking so slowly that other people could have noticed; or the opposite, being so fidgety or restless that you have been moving around a lot more than usual N ot at all T houghts that you would be better off or of hurting yourself in some way N ot at all T otal Score 7 I nterpretation M ild Depression Intervention D epression Screening Findings P tej Aceves ollow-Up for Depression M ental health treatment assessment, Patient follow-up to return when and if necessary S uicide Risk Assessment Performed 0 10/10/2024 A dditional Evaluation for Depression P sychiatric interview and evaluation N lance of the standardized tool used for adult depression screening: P atient Health Questionnaire (PHQ-9) H istory of Presenting Problem: Pt was seen today and Urine drug screen was done. * ROS: P erformance Met: N ormal blood pressure reading documented, follow-up not required ( G8783). * Medical History: * Surgical History: * Hospitalization/Major Diagno stic Procedure: * Social History: T obacco Use: T obacco Control (Standard) T obacco use: N onsmoker M igrated Social History: M igrated Social History: Alcohol Intake: None 11/11/2023,Tobacco Years: Never smoker 11/11/2023. M iscellaneous: A dvance Care Planning A re you your own decision-maker Y es D o you have Power of [employer] for Health or Medical? N o * Medications: T akinglamoTRIgine 100 mg Tablet TAKE 1 TABLET DAILY Sertraline HCl 100 MG Tablet 2 tablet every morning Oral Once a day LORazepam 0.5 MG Tablet 1 tablet Orally Once a day buPROPion HCl ER (XL) 300 MG Tablet Extended Release 24 Hour 1 tablet in the morning Orally Once a day total dose of 450 mg dailyLurasidone HCl 60 MG Tablet 1 tablet in the evening with food Orally Once a day buPROPion HCl ER (XL) 150 MG Tablet Extended Release 24 Hour 1 tablet in the morning Orally Once a day total dose of 450 mg po qamTaking lamoTRIgine 100 mg Tablet TAKE 1 TABLET DAILY Taking Sertraline HCl 100 MG Tablet 2 tablet every morning Oral Once a day Taking LORazepam 0.5 MG Tablet 1 tablet Orally Once a day Taking buPROPion HCl ER (XL) 300 MG Tablet Extended Release 24 Hour 1 tablet in the morning Orally Once a day total dose of 450 mg dailyTaking Lurasidone HCl 60 MG Tablet 1 tablet in the evening with food Orally Once a day Taking buPROPion HCl ER (XL) 150 MG Tablet Extended Release 24 Hour 1 tablet in the morning Orally Once a day total dose of 450 mg po qamUnknownBaby Aspirin Sertraline HCl 100 MG Tablet Oral predniSONE 20 MG Tablet Oral Medication List reviewed and reconciled with the patientUnknown Baby Aspirin Unknown Sertraline HCl 100 MG Tablet Oral Unknown predniSONE 20 MG Tablet Oral Medication List reviewed and reconciled with the patient * Allergies: E rythromycin Base: Allergy - Onset Date 12/22/2023Vancomycinno[Allergies Verified] Objective: * Vitals: B P:113/81mm Hg, HR:91/min, Wt:295lbs, Wt-k.81 kg, Ht: 70.00 in, Ht-cm: 177.80 cm, BMI:42.32Index, Body Surface Area: 2.57. * Examination: G eneral Examination: M ental Status Examination: Patient reports feeling grumpy attributed to fatigue from childcare, specifically due to their child's sleep regression. Patient states depression is controlled and anxiety has improved, experiencing occasional moments of anxiety. Patient appears to be coping with current stressors related to childcare and work, noting tiredness affects work focus. Vital Signs: review the notes for vitals Additional Observations: Child has had multiple ear infections, requiring tubes, contributing to sleep issues. Patient is working on exercise and diet for weight loss. Assessment: * Assessment: 1. M ajor depressive disorder, recurrent, in remission, unspecified - F33.40 (Primary) ? 2 . O bsessive-compulsive disorder, unspecified - F42.9 3 . G AD (generalized anxiety disorder) - F41.1 Plan: * Treatment: 2. G AD (generalized anxiety disorder) Refill LORazepam Tablet, 0.5 MG, 1 tablet, Orally, Once a day As needed, 30 days, 30 Tablet, Refills 0, Notes to Pharmacist: cancel previous rx on lorazepam. 3. O thers Clinical Notes: Depression - Assessment: Patient reports overall improvement in depressive symptoms. - Plan: - Continue current medications: Sertraline 200 mg, Latuda 60 mg, Bupropion 450 mg, and Lamotrigine 100 mg. - Encourage patient to maintain a healthy lifestyle, including regular exercise and a balanced diet to support weight loss efforts. Anxiety - Assessment: Patient reports a decrease in anxiety symptoms, with occasional moments of anxiety. - Plan: - Continue current medication: Lorazepam 0.5 mg as needed. - Encourage patient to practice relaxation techniques and stress management strategies. Sleep disturbance - Assessment: Patient reports sleep disturbances due to the baby's sleep regression and ear infections, leading to tiredness and grumpiness. - Plan: - Encourage patient to establish a consistent sleep schedule and bedtime routine for the baby. - Monitor the baby's progress after receiving tubes for ear infections. Medication refills - Assessment: Patient requires medication refills. - Plan: - Refill Lamotrigine, Sertraline, and Bupropion through [facility]. - Refill Lorazepam at [facility]. Follow-up - Plan: - Schedule a follow-up appointment in 3 months to monitor the patient's progress and adjust medications as needed. - Encourage the patient to contact the clinic if there are any concerns or changes in symptoms before the next appointment. * Labs: * L ab: UDT (Collection Date & Time - 10/10/2024) Value Reference Range T HC N 0 - 50 ng/ml * C ocaine N 0 - 300 ng/ml * A mphetamine N 0 - 1000 ng/ml * B uprenorphine (BUP) N 0 - 10 ng/ml * S ecobarbital (Bar) N 0 - 300 ng/ml * O xazepam (BZO) N 0 - 300 ng/ml * 2 -ethylidene-1,0-umtfhvus-7,3-diphenylpyrrolidine (EDDP) N 0 - 300 ng/ml * M ethamphetamine (MET) N 0 - 1000 ng/ml * M ethylenedioxymethamphetamine (MDMA) N 0 - 500 ng/ml * M orphine (MOP 300/KBM1223) N 0 - 300 ng/ml * M ethadone (MTD) N 0 - 300 ng/ml * P hencyclidine (PCP) N 0 - 25 ng/ml * N ortriptyline (TCA) N 0 - 1000 ng/ml * O xycodone N 0 - 300 ng/ml * x N 0 - 300 ng/ml * Procedure Codes: G 8783 NORMAL BP READING DOC F/U NOT [id number] BEHAV ASSMT W/SCORE & DOCD/STAND [id number] DRUG TST PRSMV READ INSTRMNT ASSTD DIR OPT [id number] CLIN DEPRESSION SCREEN [id number] MOST RECENT SYSTOLIC BP < 140MM [id number] MOST RECENT DIASTOLIC BP < 90MM HG * Follow Up: 3 Months * Billing Information: * Visit Code: 71757 OFFICE OUTPATIENT VISIT 25 MINUTES DETAILED HISTORY AND EXAM/MODERATE MEDICAL DECISION MAKING. * Procedure Codes: G8783 NORMAL BP READING DOC F/U NOT RQR. 05965 BEHAV ASSMT W/SCORE & DOCD/STAND INSTRUMENT. 87493 DRUG TST PRSMV READ INSTRMNT ASSTD DIR OPT OBS. G8431 CLIN DEPRESSION SCREEN DOC. G8752 MOST RECENT SYSTOLIC BP < 140MM HG. G8754 MOST RECENT DIASTOLIC BP < 90MM HG. 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 Sign off status: Completed true * Provider: uLpe ANGULO MD Date: 10/10/2024 Generated for Neto lin/Madi/eTransmitting on: 10/23/2024 05:51 PM CDT History and Physical Notes * HPI (History of Present Illness) Category Sub-Category Detail Notes Category Not es History of Presenting Problem Pt was seen today and Urine drug screen was done Depression screening PHQ-9 Little inte rest or pleasure in doing things: Several days Feeling down, depressed, or hopeless: No t at all Trouble falling or staying asleep, or sl eeping too much: Not at all Feeling tired or having little energy: N early every day Poor appetite or overeating: Not at all Feeling bad about yourself o r that you are a failure, or have let yourself or your family down: Several days Trouble concentrating on thi ngs, such as reading the newspaper or watching television: More than half the days Moving or speaking so slowly that other people could have noticed; or the opposite, being so fidgety or restless that you have been moving around a lot more than usual: Not at all Thoughts that you would be b tabatha off or of hurting yourself in some way: Not at all Total Score: 7 Interpretation: Mild Depression Intervention Depression Screening Findings: P ositve Follow-Up for Depression: [facility] treatment assessment, Patient follow-up to return when and if necessary Suicide Risk Assessment Performed: 10/10 Additional Evaluation for Depression: Ps ychiatric interview and evaluation Name of the standardized too l used for adult depression screening:: Patient Health Questionnaire (PHQ-9) Depression Screening CORNELIO-7 (2018 Edition) Feelin g nervous, anxious, or on edge: Several days Not being able to stop or control worryi ng: Several days Worrying too much about different things : Several days Trouble relaxing: Several days Being so restless that it is hard to sit still: Not at all Becoming easily annoyed or irritable: Ne mandie every day Feeling afraid as if something awful wilberto ht happen: Not at all Total CORNELIO-7 Score: 7 If you checked any problems, how difficult have they made it for you to do your work, take care of things at home, or get along with other people?: Not difficult at all Interpretation of Total: (5 to 9) Mild [place]-Suicide Severity Rating Scale Suicide Risk (CSRS-screener) in the past one month Have you wished you were or wished you could go to sleep and not wake up?: No in the past one month Have y ou actually had any thoughts of killing yourself?: No Have you ever done anything, started to do anything, or prepared to do anything to end your life?: No Examination Category Sub-Category Detail Notes Category Not es General Examination Mental Status Examination: Patient reports feeling grumpy attributed to fatigue from childcare, specifically due to their child's sleep regression. Patient states depression is controlled and anxiety has improved, experiencing occasional moments of anxiety. Patient appears to be coping with current stressors related to childcare and work, noting tiredness affects work focus. Vital Signs: review the notes for vitals Additional Observations: Child has had multiple ear infections, requiring tubes, contributing to sleep issues. Patient is working on exercise and diet for weight loss.
--- OUTSIDE RECORDS SUMMARY | 2024-10-23 17:51 | XMS_ITS | Clinical Summary ---
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 Name Role Phone Unavailable Primary Care Provider Unavailabl e Allergies Active Allergy Reactions Criticality Noted Date Comments Erythromycin Hives 11/15/2023 Medications Medication Sig Dispensed Refills Start Date End Date Status albuterol HFA (PROVENTIL HFA) 108 (90 Base) MCG/ACT inhaler Inhale 2 puffs every 6 (six) hours if needed for wheezing Active buPROPion XL (FORFIVO XL) 450 MG 24 hr tablet Take 450 mg by mouth 1 (one) time each day Active lamoTRIgine (LaMICtal) 100 MG tablet Take 100 mg by mouth 1 (one) time each day Active Lurasidone HCl 60 MG tablet Take 60 mg by mouth 1 (one) time each day with breakfast Active magnesium oxide (MAG-OX) 400 mg tablet Take 400 mg by mouth 1 (one) time each day Active VIT-DSS-FE FUM-FA PO Take 1 tablet by mouth 1 (one) time each day Active pyridoxine (VITAMIN B-6) 25 MG tablet Take 25 mg by mouth 1 (one) time each day Active Sertraline HCl 200 MG capsule Take 400 mg by mouth 1 (one) time each day Active LORazepam (ATIVAN) 0.5 MG tablet Take 0.5 mg by mouth 1 (one) time each day Active Active Problems Problem Noted Date Diagnosed Date Mixed anxiety and depressive disorder 05/07/2024 Serum creatinine above reference range 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 Resolved Problems Problem Noted Date Diagnosed Date Resolved Date Obsessive-compulsive disorder 05/07/2024 07/09/2024 11/17/2023 07/09/2024 Chronic kidney disease, stage 2 (mild) 11/15/2023 05/07/2024 Fibromyalgia 11/15/2023 07/09/2024 Social History Tobacco Use Types Packs/Day Years Used Date Smoking Tobacco: Never Smokeless Tobacco: Never Tobacco Cessation:Counseling Given: Not Answered Alcohol Use Standard Drinks/Week Comments Not Currently 0 (1 standard drink = 0.6 oz pur e alcohol) Sex and Gender Information Value Date Recorded Sex Assigned at Not on file Gender Identity Not on file Sexual Orientation Not on file Last Filed Vital Signs Vital Sign Reading Time Taken Comments Blood Pressure 128/91 07/10/2024 3:48 PM [employer] Pulse 96 07/10/2024 3:48 PM [employer] Temperature - - Respiratory Rate - - Oxygen Saturation - - Inhaled Oxygen Concentration - - Weight 137 kg (302 lb) 07/10/2024 3:48 PM [employer] Height 177.8 cm (5' 10 ) 07/10/2024 3:48 PM [employer] Body Mass Index 43.33 07/10/2024 3:48 PM [employer] Plan of Treatment Upcoming Encounters Date Type Department Care Team (Late st Contact Info) Description 01/08/2025 12:40 PM CDT Office Visit [facility] [address], [address] [place], [place] [id number] Annia Perkins, SPR[employer]ER HAND [address] [address] Health Maintenance Due Date Last Done Comments Pneumococcal PPSV23 Highest Risk Adult (1 of 3 - PCV13) 2014 Influenza Vaccine (#1) 2024 0, 07/26/2019, 06/13/2018, Additional history exists
--- OUTSIDE RECORDS SUMMARY | 2024-10-23 17:51 | XMS_ITS | Encounter Summary ---
Author Organization [facility] Address [address] [place] [id number] Care Team Providers Care Embroidery Designer Name Role Phone Alfredo Claros MD Primary Care Provider Reason for Visit * Reason Onset Date Comments Problem 12/14/2021 Encounter Details Date Type Department Care Team (Late st Contact Info) Description 12/14/2021 MyChart Message Enc [facility] Family Medicine - [place] [address], [address] [place] [address] Alfredo Claros MD [address] [place], [place] [id number] Covid results Social History Tobacco Use Types Packs/Day Years Used Date Smoking Tobacco: Never Smokeless Tobacco: Never Alcohol Use Standard Drinks/Week Comments Not Currently 0 (1 standard drink = 0.6 oz pur e alcohol) Comments No Sex and Gender Information Value Date Recorded Sex Assigned at Not on file Legal Sex Female 1:29 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 No / Unsure 11/30/2021 10:18 AM CDT documented as of this encounter Progress Notes * Alfredo Claros MD - 12/14/2021 4:52 PM CDT Spoke to patient and Paxlovid called in after discussion * Karishma Chen MA - 12/14/2021 3:10 PM CDT Patient is calling back to see if Dr. Claros is going to prescribe her the viral medication? (+) COVID. See previous phone encounter from today. cb documented in this encounter Plan of Treatment Not on file documented as of this encounter Visit Diagnoses Not on filedocumented in this encounter Additional Health Concerns Infection Onset Date Last Indicated Resolved Time COVID-19 Rule Out 04/19/2023 04/19/2023 04/19/2023 3:55 PM CDT COVID-19 Rule Out 02/09/2024 02/09/2024 02/09/2024 3:54 PM CDT documented as of this encounter Care Teams Embroidery Designer Relationship Specialty Start Date End Date Alfredo Claros MD [address] [facility] [address] [address] PCP - General FAMILY PRACTICE 11/30/21 documented as of this encounter
--- OUTSIDE RECORDS SUMMARY | 2024-10-23 17:51 | XMS_ITS | Encounter Summary ---
Author Organization [facility] Address [address] [place] [id number] Care Team Providers Care Retail Loan Officer Name Role Phone Alfredo Claros MD Primary Care Provider Encounter Details Date Type Department Care Team (Late st Contact Info) Description 05/05/2022 Appwiz Message Enc [facility] Family Medicine [address], [address] [place] [phone] [employer], [facility] Provider lab results Social History Tobacco Use Types Packs/Day Years Used Date Smoking Tobacco: Never Smokeless Tobacco: Never Alcohol Use Standard Drinks/Week Comments Not Currently 0 (1 standard drink = 0.6 oz pur e alcohol) Comments No Sex and Gender Information Value Date Recorded Sex Assigned at Not on file 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 No / Unsure 04/30/2022 12:54 PM CDT documented as of this encounter Plan of Treatment Not on file documented as of this encounter Visit Diagnoses Not on filedocumented in this encounter Additional Health Concerns Infection Onset Date Last Indicated Resolved Time COVID-19 Rule Out 04/19/2023 04/19/2023 04/19/2023 3:55 PM CDT COVID-19 Rule Out 02/09/2024 02/09/2024 02/09/2024 3:54 PM CDT documented as of this encounter Care Teams Retail Loan Officer Relationship Specialty Start Date End Date Alfredo Claros MD [address] [place] [address] PCP - General FAMILY PRACTICE 11/30/21 documented as of this encounter
--- OUTSIDE RECORDS SUMMARY | 2024-10-23 17:51 | XMS_ITS | Clinical Summary ---
Author Organization [facility] Address [address] [place] [address] Care Team Providers Care Tdp Displays Analyst Name Role Phone Alfredo Claros MD Primary Care Provider Source Comments [facility],non-owned Affiliates and Associated Physician Practices is amultiple site organization consisting of ambulatory clinics and hospital sitesin [place], [place], [place] and [place]. This disclosure is being madepursuant to the Care Everywhere program and may not contain all information available regarding this patient. Last updated 18.[facility] Allergies Active Allergy Reactions Criticality Noted Date Comments Erythromycin Urticaria Medium 12/07/2023 Medications * Be aware that medications may not be up to date on this document. Alwaysverify current medications with the patient. Medication Sig Dispensed Refills Start Date End Date Status lamoTRIgine (LAMICTAL) 100 MG tablet Take 1 (one) tablet by mouth once daily Active LORazepam (ATIVAN) 1 MG tablet TAKE 1 TABLET BY MOUTH ONCE DAILY NEEDED FOR ANXIETY 08/19/2021 Active sertraline (ZOLOFT) 100 MG tablet 1.5 (one and one-half) tablets once daily 10/22/2021 Active buPROPion XL 24hr (WELLBUTRIN-XL) 300 MG tablet 10/22/2021 Active Vit-DSS-Fe Fum-FA ( vitamin with iron) tabletIndications: Take 1 (one) tablet by mouth once daily Reasons: Active aspirin EC (Ecotrin) 81 MG tabletIndications: Preeclampsia Take 2 (two) tablets by mouth once daily Reasons: Increased Blood Pressure and Edema During Active magnesium oxide (Mag-Ox) 400 MG tabletIndications: Restless Leg Syndrome Take 1 (one) tablet by mouth once daily Reasons: Restless Leg Syndrome Active pyridoxine (Vitamin B-6) 25 MG tablet Take 2 (two) tablets by mouth once daily Active albuterol HFA (Proventil; Ventolin; Proair) 108 (90 Base) MCG/ACT inhalerIndications :Asthma Inhale 2 (two) puffs by mouth every 6 hours as needed for Shortness of Breath, Wheezing or Cough Reasons: Asthma Active lurasidone (Latuda) 20 MG tablet Take 1 (one) tablet by mouth daily with food Active cyclobenzaprine (Flexeril) 10 MG tablet Take 1 (one) tablet by mouth 3 times daily as needed for Muscle Spasms 15 tablet 12/08/2023 Active lidocaine (Lidoderm) 5 % patch Apply 1 (one) patch to skin once daily Apply patch to most painful area and remove after 12 hours. May reapply a new patch 12 hours later. 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/2021 Overview (11/07/2022): Regulatory Import 11/06/22 Fibromyalgia syndrome (prima ry versus secondary due to chronic EDS related joint pain) 12/28/2021 Family History Medical History Relation Name Comments Other - Genetic Father clubbed feet/scoliosis Diabetes; unknown type Maternal Grandfather CAD (Coronary Artery Disease) Paternal Grandfather Diabetes; unknown type Paternal Grandfather Relation Name Status Comments Father clubbed feet/scoliosis Maternal Grandfather Paternal Grandfather Social History Tobacco Use Types Packs/Day Years Used Date Smoking Tobacco: Never Smokeless Tobacco: Never Tobacco Cessation:Counseling Given: Not Answered Alcohol Use Standard Drinks/Week Comments Not Currently 0 (1 standard drink = 0.6 oz pur e alcohol) AUDIT-C Answer Date Recorded Q1: How often do you have a drink containing alcohol? Never 12/07/2023 Q2: How many drinks containi ng alcohol do you have on a typical day when you are drinking? Patient does not drink Frequency of Binge Drinking Not on file 08/2023 Overall Financial Resource Strain (CARDIA) Answe r Date Recorded How hard is it for you to pa y for the very basics like food, housing, medical care, and heating? Not hard at all 12/07/2023 [facility] - Occupational Stress Questionnaire Answer Date Recorded Do you feel stress - tense, restless, nervous, or anxious, or unable to sleep at night because your mind is troubled all the time - these days? Not at all 12/07/2023 Hunger Vital Sign Answer Date Recorded Within the past 12 months, y ou worried that your food would run out before you got the money to buy more. Never true 12/07/19 24 Within the past 12 months, t he food you bought just didn't last and you didn't have money to get more. Never true 12/07/2023 PRAPARE - Transportation Answer Date Re corded In the past 12 months, has l ack of transportation kept you from medical appointments or from getting medications? No 08/2023 In the past 12 months, has l ack of transportation kept you from meetings, work, or from getting things needed for daily living? No 12/07/2023 Housing Stability Vital Sign Answer Christopher e Recorded In the last 12 months, was t here a time when you were not able to pay the mortgage or rent on time? Yes 12/07/2023 In the last 12 months, how many places have you lived? 1 12/07/2023 In the last 12 months, was t here a time when you did not have a steady place to sleep or slept in a fpc (including now)? No 12/07/2023 Sex and Gender Information Value Date Recorded Sex Assigned at Not on file Gender Identity Not on file Sexual Orientation Not on file Last Filed Vital Signs Vital Sign Reading Time Taken Comments Blood Pressure 123/80 12/26/2023 3:20 PM CDT Pulse 96 12/26/2023 3:20 PM CDT Temperature 36.7 C (98 F) 12/08/2023 11:50 AM CDT Respiratory Rate 20 12/21/2023 3:16 PM CDT Oxygen Saturation 99% 12/08/2023 11:50 AM CDT Inhaled Oxygen Concentration - - Weight 145 kg (319 lb 9.6 oz) 12/21/2023 3:16 PM CDT Height 175.3 cm (5' 9 ) 12/21/2023 3:16 PM CDT Body Mass Index 47.2 12/21/2023 3:16 PM CDT Plan of Treatment Health Maintenance Due Date Last Done Comments PAP SMEAR 1995 HIV SCREENING 2010 DTAP/TDAP/TD VACCINES (1 - Tdap) 2014 HEPATITIS B VACCINE (1 of 3 - 19+ 3-dose series) 2014 PNEUMOCOCCAL VACCINE (1 of 2 - PCV) 2014 COVID-19 VACCINE (4 - season) 2024 08/21/2021, 10/18/2020, 09/19/2020 INFLUENZA VACCINE (#1) 2024 , 06/17/2020, 07/26/2019, Additional history exists DEPRESSION SCREENING 08/08/2024 ZOSTER VACCINE (1 of 2) 2045 HEPATITIS C SCREENING Completed 12/07/2023 HIB VACCINE Aged Out No longer eligi ble based on patient's age to complete this topic HPV VACCINE Aged Out No longer eligi ble based on patient's age to complete this topic MENINGOCOCCAL (Group B) VACCINE SHARED DECISION-MAKING Aged Out No longer eligible based on patient's age to complete this topic MENINGOCOCCAL GROUPS A/C/Y/W VACCINE Aged Out No longer eligible based on patient's age to complete this topic Procedures Procedure Name Priority Date/Time Associated Diagnosis Comments HEPATITIS SCREEN ACUTE STAT 12/07/2023 8:49 PM CDT Supervision of high risk in third trimester (HCC) from Last 3 Months or Most Recently Relevant to Health Maintenance Results * HEPATITIS SCREEN ACUTE (12/07/2023 8:49 PM CDT) HAV Antibody IgM Non Reactive Non Reactive 12/07/2023 9:40 PM CDT [facility] HBsAg Non Reactive Non Reactive 12/07/2023 9:40 PM CDT [facility] HBc Antibody IgM Non Reactive Non Reactive 12/07/2023 9:40 PM CDT [facility] HCV Antibody Screen Non Reactive Non Reactive 12/07/2023 9:40 PM CDT [facility] Blood BLOOD SPECIMEN / Unknown Venipuncture / Unknown 12/07/2023 8:49 PM CDT 12/07/2023 8:54 PM CDT Narrative [facility] - 12/07/2023 9:40 PM CDT Non Reactive - Antibodies to Hepatitis C virus (HCV) were not detected, result does not exclude early acute HCV infection. Amanda Crawford MD LAB - CHEMISTRY [place] [facility] Organization Address City/State/ZIP Co de Phone Number [facility] [address] [place] [address] from Last 3 Months or Most Recently Relevant to Health Maintenance Advance Directives * Full Code (Latest Code Status on File) Date Activated Date Inactivated Comments 12/07/2023 8:47 PM 12/08/2023 3:11 PM Care Teams Tdp Displays Analyst Relationship Specialty Start Date End Date Alfredo Claros MD [address] [address] PCP - General Family Medicine 12/28/21
--- OUTSIDE RECORDS SUMMARY | 2024-10-23 17:51 | XMS_ITS | Referral Summary ---
Author Organization [facility] Address [address] [place] [address] Care Team Providers Care Solder Making Supervisor Name Role Phone Alfredo Claros MD Primary Care Provider [phone] Allergies Active Allergy Reactions Criticality Noted Date Comments Erythromycin Hives Reaction: HIVES, Erythromycin Base Hives Medium 02/22/2022 Medications tretinoin (RETIN-A) 0.1 % cream tretinoin 0.1 % topical cream Active sertraline 150 mg capsule Active rizatriptan (MAXALT) 10 mg tablet TAKE ONE TABLET BY MOUTH NEEDED FOR MIGRAINE, MAY REPEAT DOSE EVERY 2 HOURS FOR 2 DOSES. MAX 30 MG (3 TABS) IN 24 HOURS. 01/14/20 22 Active phentermine (ADIPEX-P) 37.5 mg tablet Take 37.5 mg by mouth daily before breakfast 01/12/20 22 Active phenazopyridine (PYRIDIUM) 200 mg tablet phenazopyridine 200 mg tablet TAKE 1 TABLET BY MOUTH THREE TIMES DAILY NEEDED FOR PAIN Active nystatin cream nystatin 100,000 unit/gram topical cream APPLY TO THE AFFECTED AREA(S) BY TOPICAL ROUTE 2 TIMES PER DAY for one week Active norethindrone ac-eth estradiol (LOESTRIN 08/27, , ORAL) Active norelgestromin-et hin.estradioL (Xulane) 150-35 mcg/24 hr Xulane 150 mcg-35 mcg/24 hr transdermal patch Active nitrofurantoin monohydrate (MACROBID) 100 mg capsule nitrofurantoin monohydrate/macroc rystals 100 mg capsule Active methocarbamoL (ROBAXIN) 500 mg tablet methocarbamol 500 mg tablet TAKE 2 TABLETS BY MOUTH 4 TIMES DAILY NEEDED FOR MUSCLE SPASM Active LORazepam (ATIVAN) 1 mg tablet lorazepam 1 mg tablet TAKE 1 TABLET BY MOUTH ONCE DAILY NEEDED FOR ANXIETY Active lamoTRIgine (LaMICtal) 100 mg tablet lamotrigine 100 mg tablet TAKE 1 TABLET BY MOUTH ONCE DAILY AT NIGHT AT BEDTIME Active ibuprofen (ADVIL,MOTRIN) 600 mg tablet ibuprofen 600 mg tablet Active fluticasone propionate (FLONASE) 50 mcg/actuation nasal spray fluticasone propionate 50 mcg/actuation nasal spray,suspension Active influenza quadrivalent [id number] (Fluzone Quad , PF,) 60 mcg (15 mcg x 4)/0.5 mL syringe Fluzone Quad (PF) 60 mcg (15 mcg x 4)/0.5 mL IM syringe Active cholecalciferol (VITAMIN D-3) 50,000 unit capsule Take 50,000 Units by mouth once a week 01/12/20 22 Active cetirizine (ZyrTEC) 10 mg tablet cetirizine 10 mg tablet Active buPROPion XL (WELLBUTRIN XL) 300 mg 24 hr tablet bupropion HCl XL 300 mg 24 hr tablet, extended release Active ARIPiprazole (ABILIFY) 15 mg tablet aripiprazole 15 mg tablet TAKE 1 TABLET BY MOUTH ONCE DAILY 04/16/20 11 Active amoxicillin (AMOXIL) suspension 250 mg/5 mL amoxicillin 250 mg/5 mL oral suspension Active albuterol HFA (PROVENTIL HFA,VENTOLIN HFA,PROAIR HFA) 90 mcg/actuation inhaler albuterol sulfate HFA 90 mcg/actuation aerosol inhaler Active sertraline (ZOLOFT) 100 mg tablet 03/31/20 23 Active topiramate (TOPAMAX) 25 mg tablet TAKE 1 TABLET BY MOUTH ONCE DAILY FOR 7 DAYS, THEN 2 TABLETS ONCE DAILY FOR 7 DAYS, THEN 3 TABLETS ONCE DAILY FOR 7 DAYS, THEN 4 TABLETS ONCE DAILY 12/30/19 23 Active ondansetron ODT (ZOFRAN-ODT) 8 mg disintegrating tablet 02/29/20 23 Active lurasidone (LATUDA) 40 mg tablet Take 1 tablet (40 mg total) by mouth daily 03/10/20 23 Active lurasidone (LATUDA) 20 mg tablet Take 1 tablet (20 mg total) by mouth daily 02/01/[address] (CYMBALTA) 30 mg capsule Take 1 capsule (30 mg total) by mouth daily 02/01/20 Active ALPRAZolam (XANAX) 0.25 mg tablet Take 1 tablet (0.25 mg total) by mouth nightly as needed for anxiety Active Active Problems Problem Noted Date Diagnosed Date Sunil-Danlos, 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 She is unable to access her lab report with her creatinine value. Most recent Cr was 1 on 06/22/2021. Counseling: Discussed that outcomes in women with CKD are primarily related to the degree of renal insufficiency, co-existence of hypertension and the presence of proteinuria rather than the underlying etiology. Generally, the degree of impairment is arbitrarily divided into three groups: mild (Cr <1.5 mg/dL), moderate (1.5-3 mg/dL) and severe (Cr >3.0 mg/dL). With mild renal dysfunction, is accompanied by increased renal plasma flow and GFR although with moderate and severe disease this response may be blunted. Importantly, CKD generally curtails normal -induced hypervolemia. Most women with CKD have mild impairment and their outcomes are generally good; however, even with preserved renal function and normotension, adverse outcomes are significantly increased and are directly related to the degree of renal insufficiency. Discussed the increased risk of maternal complications with moderate to severe renal disease, including a 30-50% risk of hypertensive disorders of , 20-40% risk of worsening maternal renal function, 10-20% risk of permanent renal damage. Furthermore, the risks are also significantly amplified, with 30-60% risk of delivery, 30-40% risk of -growth restriction and a 4-7% mortality rate. I emphasized that may accelerate chronic renal disease progression by increasing hyperfiltration to worsen nephrosclerosis and this is more likely in women with a serum creatinine >1.4 mg/dL. Recommendations: We discussed that patient should have nephrology evaluation prior to conception for further workup of CKD and possible treatment if indicated. Dr. Pineda has a specific interest in kidney disease in at [facility]; however, any nephrology evaluation would be appropriate. Please refer the patient at your earliest convenience. Once nephrology workup as been completed, the patient should proceed with conception should she be cleared by the kidney team. We would like to see her back in our office once the nephrology evaluation has been completed as well. PACO (obstructive sleep apnea) 04/05/2023 Overview (04/05/2023): We discussed her PACO. We would recommend following up with her physician to ensure she has the correct CPAP setting. Over time, sleep apnea lowers your blood- oxygen levels which can increase the risk of hypertension, obesity, depression, and heart failure. Women with under treated sleep apnea are more likely to develop gestational diabetes and preeclampsia. Studies have shown that women maybe at higher risk of complications as well. Class 3 severe obesity with body mass index (BMI) of 40.0 to 44.9 in adult 04/05/2023 Overview (04/06/2023): BMI: 44.91 Counseling Discussed with patient that obesity in is associated with increased risks including difficulty conceiving. Women with obesity are at increased risks of spontaneous , stillbirth, macrosomia and congenital anomalies. During the antepartum period they are at increased risk of cardiac dysfunction, proteinuria, sleep apnea, GDM, and preeclampsia. During labor, women with obesity are at a higher risk for delivery, failed trial of labor, endometritis, wound complications, and venous thrombosis. Discussed weight loss with patient including healthy diet options, exercise recommendations of at least 30 minutes 5x/week, and nutrition/melting supervisor options. Anxiety and depression 04/05/2023 Overview (04/06/2023): History: Pt is on zoloft, lamotrigine, wellbutrin, and latuda. Discussed with her psychiatrist that she is trying to conceive. Her psychiatrist is comfortable prescribing these medications during . Pt currently feels that her mental health is well-controlled. Counseling: We reviewed depression/anxiety and SSRI/SNRI use in . Generally, the risk of worsening depression or anxiety in is dependent on control prior to . Maternal depression has been associated with increased risk of and IUGR/SGA in some studies.Thus, regular follow-up with a mental health provider is recommended throughout her and . The risks of SSRI exposure have been explored by multiple studies, but the results from these studies are conflicting and limited by confounders. We discussed the weak association between SSRIs and defects and the possibility of deferring treatment in the first trimester. We also discussed a potential association between maternal use of SSRIs in late and the risk of persistent pulmonary hypertension of the (PPHN). We reviewed how studies indicated that there may be a small increase in the risk of PPHN among those who use SSRIs in late , however about 99% of women exposed to one of these medications in late will deliver an infant unaffected by PPHN. We reviewed the risk of abstinence syndrome but emphasized that this syndrome can be easily managed by the pediatricians, and no correction effects have ever been demonstrated. We discussed that the absolute risks of continuing SSRIs in are small but present and need to be weighed against the potential maternal benefits. Availability of alternative treatment like psychotherapy should also be taken into consideration. We discussed the management of anxiety/depression/bipolar disorder during , with an emphasis on optimizing maternal well being as untreated anxiety/depression can have devastating consequences. Lamictal overall has not been associated with increased risk of malformations, although some smaller studies may suggest increased risk of facial and palate clefting, especially when used in high doses or in polytherapy. Thus, the lowest effective dose used as monotherapy, if efficient, is recommended. However, metabolism of this medication increases during , and dosing adjustments may be needed. Lurasidone data in is limited. Antipsychotic use during the third trimester of has a risk for abnormal muscle movements (extrapyramidal symptoms [EPS]) and/or withdrawal symptoms in newborns following delivery. Recently, new data from the national registry for atypical antipsychotics found that lurasidone is likely not a major teratogen (2,293 women enrolled at the time of analysis, there were 134 in the lurasidone exposure group, 264 in the quetiapine exposure group, and 886 controls. The risk of major malformations was 2.19% in the lurasidone group, 1.85% in the quetiapine group, and 1.77% in the controls. Odds ratios comparing lurasidone and quetiapine with controls were 1.24 (95% confidence interval [CI] = 0.36-4.32) and 1.04 (95% CI = 0.38-2.85), respectively). While larger numbers of patients are needed for study, ACOG recommends that therapy during be individualized with shared decision making on continuing treatment in done with the patient on a case by case basis. Resolved Problems Problem Noted Date Diagnosed Date Resolved Date Asthma 04/05/2023 04/06/2023 Overview (04/06/2023): History - Has not used inhaler in 10 years - No hx of hospitalization Counseling Reviewed with patient that asthma is a common but potentially serious medical condition characterized by chronic airway inflammation. Fortunately, well- controlled asthma is associated with excellent outcomes. Severe and poorly- controlled asthma is associated with increased risks of prematurity, need for delivery, preeclampsia, growth restriction, and maternal morbidity and even mortality. Thus, the ultimate goal for is management of asthma exacerbations and management includes monitoring of lung function, avoiding or controlling asthma triggers, and medications to maintain normal pulmonary function. The effect of asthma on is variable with approximately 30% of patients with worse symptoms in . The remainder remained stable or improved. In patients with mild asthma, exacerbation rates are low (~10%) and approximately 2% of patients require hospitalization for an exacerbation. We discussed management of asthma in and recommend assessment with peak flow measurements at visits. Serial growth ultrasounds and testing may be considered for patients with moderate or severe symptoms in , as well as referral to a cnc maintenance technician and pulmonary function testing. Abdominal pain 02/22/2022 04/05/2023 Pain in pelvis 02/22/2022 04/05/2023 Cyst of ovary 02/22/2022 04/05/2023 Furuncle of vulva 02/22/2022 04/05/2023 Mechanical complication of i ntrauterine contraceptive device 02/22/2022 04/05/2023 Tinea cruris 02/22/2022 04/05/2023 Vaginal discharge 02/22/2022 04/05/2023 Vulvitis 02/22/2022 04/05/2023 Irregular periods 02/22/2022 04/05/2023 Hypersomnia 02/22/2022 04/05/2023 Assessment & Plan (02/22/2022 2:01 PM CDT): The patient presents with a long history of hypersomnia. Have recommended proceeding with a nocturnal polysomnogram with a split night protocol if necessary and no MSLT. He will follow-up with me in 3 months. Atypical chest pain 01/26/2017 04/05/20 23 Localized adiposity 04/05/2011 04/05/20 23 Abnormal weight gain 04/05/2011 023 Irregular menstrual cycle 04/05/2011 Social History Tobacco Use Types Packs/Day Years Used Date Smoking Tobacco: Never AUDIT-C Answer Date Recorded Q1: How often do you have a drink containing alc ohol? Monthly or less 02/22/2022 Q2: How many drinks containi ng alcohol do you have on a typical day when you are drinking? 1 or 2 02/22/2022 Q3: How often do you have si x or more drinks on one occasion? 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 [employer] Gender Identity Not on file Sexual Orientation Not on file Last Filed Vital Signs Vital Sign Reading Time Taken Comments Blood Pressure 121/78 04/06/2023 2:44 PM CDT Pulse 96 04/06/2023 2:44 PM CDT Temperature 36.9 C (98.5 F) 02/22/2022 1:31 PM CDT Respiratory Rate 18 02/22/2022 1:31 PM CDT Oxygen Saturation 98% 04/06/2023 2:44 PM CDT Inhaled Oxygen Concentration - - Weight 142 kg (313 lb) 04/06/2023 2:44 PM CDT Height 177.8 cm (5' 10 ) 04/06/2023 2:44 PM CDT Body Mass Index 44.91 04/06/2023 2:44 PM CDT Plan of Treatment Not on file Insurance [facility] [employer] [employer] Address: [address] [address] [place] [address] [facility] [employer] [facility] [employer] Address: [address] [address] [place] [address] [facility] [employer] [facility] [employer] Address: [address] [address] [place] [address] MASOUD [employer]LEGIANCE Care Teams Solder Making Supervisor Relationship Specialty Start Date End Date Alfredo Claros MD [address] [facility] [address] [place] [address] PCP - General Family Medicine 03/01/22
--- OUTSIDE RECORDS SUMMARY | 2024-10-23 17:51 | XMS_ITS | Encounter Summary ---
Author Organization [facility] Address [address] [place] [id number] Care Team Providers Care Acting Section Chief Name Role Phone Alfredo Claros MD Primary Care Provider Encounter Details Date Type Department Care Team (Late st Contact Info) Description 10/21/2022 [employer] Message Enc [facility] Family Medicine [address], [address] [place] [id number] [employer], [facility] Provider Prescription pickup Social History Tobacco Use Types Packs/Day Years Used Date Smoking Tobacco: Never Smokeless Tobacco: Never Alcohol Use Standard Drinks/Week Comments Not Currently 0 (1 standard drink = 0.6 oz pur e alcohol) Comments No Sex and Gender Information Value Date Recorded Sex Assigned at Not on file 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 Gender Identity Female 03/03/2022 6:04 AM CDT Sexual Orientation Straight 03/03/2022 6: 04 AM CDT documented as of this encounter Plan of Treatment Not on file documented as of this encounter Visit Diagnoses Not on filedocumented in this encounter Additional Health Concerns Infection Onset Date Last Indicated Resolved Time COVID-19 Rule Out 04/19/2023 04/19/2023 04/19/2023 3:55 PM CDT COVID-19 Rule Out 02/09/2024 02/09/2024 02/09/2024 3:54 PM CDT documented as of this encounter Care Teams Acting Section Chief Relationship Specialty Start Date End Date Alfredo Claros MD [address] [place] [address] PCP - General FAMILY PRACTICE 11/30/21 documented as of this encounter
--- OUTSIDE RECORDS SUMMARY | 2024-10-23 17:51 | XMS_ITS | Patient Health Record ---
Author Organization [facility] [employer] Address [address] [facility] [address] [place] [address] Care Team Providers Care Book Illustrator Name Role Phone Alfredo Claros MD Primary Care Provider Fred Pimentel Unavailable [phone] Madiha Steward Unavailable [phone] Migration, Provider Unavailable Unavailable Allergies Allergen (clinical drug ingredient) Drug/Non Drug Allergy documented on EMR Reaction Allergy Type Onset Date Status erythromycin Erythromycin Base Unknown Drug Allergy 2023 Active vancomycin Vancomycin Unknown Drug Allergy Activ e Results Component Value Reference Range Notes DRUG SCREEN, 14 DRUGS (DETEC TIMED), URINE Reviewed date:11/16/2023 12:00:00 AM Interpretation: Performing Lab: Notes/Report: note no uds UDT Reviewed date:10/10/2024 05:09:13 PM Interpretation: Performing Lab: Notes/Report: THC N 0 - 50 ng/ml Cocaine N 0 - 300 ng/ml Amphetamine N 0 - 1000 ng/ml Buprenorphine (BUP) N 0 - 10 ng/ml Secobarbital (Bar) N 0 - 300 ng/ml Oxazepam (BZO) N 0 - 300 ng/ml 5-vhclkhksse-5,3-ouuhxrgt-5,3-diphenylpyrrolidine (JORDAN P) N 0 - 300 ng/ml Methamphetamine (MET) N 0 - 1000 ng/ml Methylenedioxymethamphetamine (MDMA) N 0 - 500 ng/ml Morphine (MOP 300/[id number]) N 0 - 300 ng/ml Methadone (MTD) N 0 - 300 ng/ml Phencyclidine (PCP) N 0 - 25 ng/ml Nortriptyline (TCA) N 0 - 1000 ng/ml Oxycodone N 0 - 300 ng/ml x N 0 - 300 ng/ml UDT Reviewed date:07/11/2024 04:17:30 PM Interpretation: Performing Lab: Notes/Report: THC N 0 - 50 ng/ml Cocaine N 0 - 300 ng/ml Amphetamine N 0 - 1000 ng/ml Buprenorphine (BUP) N 0 - 10 ng/ml Secobarbital (Bar) N 0 - 300 ng/ml Oxazepam (BZO) P 0 - 300 ng/ml 5-idyfryuxia-1,8-xmfujbgq-7,3-diphenylpyrrolidine (JORDAN P) N 0 - 300 ng/ml Methamphetamine (MET) N 0 - 1000 ng/ml Methylenedioxymethamphetamine (MDMA) N 0 - 500 ng/ml Morphine (MOP 300/[id number]) N 0 - 300 ng/ml Methadone (MTD) N 0 - 300 ng/ml Phencyclidine (PCP) N 0 - 25 ng/ml Nortriptyline (TCA) N 0 - 1000 ng/ml Oxycodone N 0 - 300 ng/ml x N 0 - 300 ng/ml UDT Reviewed date:06/11/2024 04:48:18 PM Interpretation: Performing Lab: Notes/Report: THC N 0 - 50 ng/ml Cocaine N 0 - 300 ng/ml Amphetamine N 0 - 1000 ng/ml Buprenorphine (BUP) N 0 - 10 ng/ml Secobarbital (Bar) N 0 - 300 ng/ml Oxazepam (BZO) N 0 - 300 ng/ml 9-vhgkkjozxg-9,4-qwtbcyxs-9,3-diphenylpyrrolidine (JORDAN P) N 0 - 300 ng/ml Methamphetamine (MET) N 0 - 1000 ng/ml Methylenedioxymethamphetamine (MDMA) N 0 - 500 ng/ml Morphine (MOP 300/[id number]) N 0 - 300 ng/ml Methadone (MTD) N 0 - 300 ng/ml Phencyclidine (PCP) N 0 - 25 ng/ml Nortriptyline (TCA) N 0 - 1000 ng/ml Oxycodone N 0 - 300 ng/ml x N 0 - 300 ng/ml Reason For Referral No Information Medications Medication SIG (Take, Route, Frequency, Duration) Notes Start Date End Date Status Sertraline HCl 100 MG 2 tablet every morning Oral Once a day for 90 days rx on 10/10/24 Active LORazepam 0.5 MG 1 tablet Orally Once a day for 30 days As needed cancel previous rx on lorazepam 10/10/2024 Active Lurasidone HCl 60 MG 1 tablet [...] 450 mg daily rx on 10/10/24 Active Baby Aspirin 12/22/2023 Unknow n buPROPion HCl ER (XL) 150 MG 1 tablet in the morning Orally Once a day for 90 days total dose of 450 mg po qam rx on 10/10/24 Active Sertraline HCl 100 MG Oral 12/22/2023 Unknown lamoTRIgine 100 mg 1 tablet oral once a day for 90 days rx on 10/10/24 Active predniSONE 20 MG Oral 12/22/2023 Un known Social History Tobacco Use: Social History Observation Description Date Details (start date - stop date) Never Smoker NA - NA Sex Assigned At : Social History Observation Description Sex Assigned At Female Tobacco Control (Standard) Question Answer Notes Tobacco use: Nonsmoker Problems Problem Type SNOMED Code ICD Code Onset Dates Problem Status W/U Status Risk Notes Problem Recurrent major depression (40033904) Major depressive disorder, recurrent, in remission, unspecified (F33.40) Active confirmed Problem Obsessive-compul sive disorder (302093761) Obsessive-compu lsive disorder, unspecified (F42.9) Active confirmed Problem Generalized anxiety disorder (02998271) CORNELIO (generalized anxiety disorder) (F41.1) Active confirmed Problem Recurrent major depression in full remission (67869592) Major depression, recurrent, full remission (F33.42) Active confirmed Vital Signs Heart Rate 91 /min 10/10/2024 Height-cm 177.80 cm 10/10/2024 Blood pressure diastolic 81 mm Hg 10/10/2024 Weight-kg 133.81 kg 10/10/2024 Height 70.00 in 10/10/2024 Blood pressure systolic 113 mm Hg 10/10/2024 Weight 295 lbs 10/10/2024 BMI 42.32 kg/m2 10/10/2024 Encounters Encounter Location Date Provider Diagnosis [place] [id number] [facility] [address] [place] [address] 11/11/2023 Fred Hugo Fibromyalgia M79.7 ; Generalized anxiety disorder F41.1 ; Major depressive disorder, recurrent, in remission, unspecified F33.40 ; Obsessive-compulsive disorder, unspecified F42.9 ; Chronic kidney disease, stage 2 (mild) N18.2 and 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 [facility], [place] [address] [facility] [address] [facility] [address] [place] [address] 12/22/2023 Fred Hugo [place] [address] [facility] [address] [place] [address] 01/20/2024 Fred Hugo Major depressive disorder, recurrent, in remission, unspecified F33.40 and Obsessive-compulsive disorder, unspecified F42.[address] [address] 03/02/2024 Fred Hugo Major depressive disorder, recurrent, in remission, unspecified F33.40 ; Obsessive-compulsive disorder, unspecified F42.9 and Major depression, recurrent, full remission F33.42 [place] [address] [facility] [address] [address] 04/27/2024 Fred Hugo Major depressive disorder, recurrent, in remission, unspecified F33.40 ; Obsessive-compulsive disorder, unspecified F42.9 and CORNELIO (generalized anxiety disorder) F41.1 [place] [address] [facility] [address] [address] 05/11/2024 Fred Hugo Major depressive disorder, recurrent, in remission, unspecified F33.40 ; Obsessive-compulsive disorder, unspecified F42.9 and CORNELIO (generalized anxiety disorder) F41.1 [facility], [place] [address] [facility] [address] [address] 06/11/2024 Fred Hugo Major depressive disorder, recurrent, in remission, unspecified F33.40 ; Obsessive-compulsive disorder, unspecified F42.9 and CORNELIO (generalized anxiety disorder) F41.1 [facility], [place] [address] [facility] [address] [address] 07/11/2024 Fred Hugo Major depressive disorder, recurrent, in remission, unspecified F33.40 ; Obsessive-compulsive disorder, unspecified F42.9 and CORNELIO (generalized anxiety disorder) F41.1 [facility] [employer] [place] [address] [facility] [address] [address] 10/10/2024 Fred Arias Major depressive disorder, recurrent, in remission, unspecified F33.40 ; Obsessive-compulsive disorder, unspecified F42.9 and CORNELIO (generalized anxiety disorder) F41.1 [facility] [place] [address] [facility] [address] [address] 12/24/2023 Provider [facility] [address] [address] 12/25/2023 Provider Migration [facility] [address] [address] 10/04/2024 Fred Arias Major depressive disorder, recurrent, in remission, unspecified F33.40 Assessments Encounter Date Diagnosis (ICD Code) Assessment Notes Treatment Notes Treatment Clinical Notes Section Notes 01/20/2024 Major depressive disorder, recurrent, in remission, unspecified (ICD-10 - F33.40) Period - Assessment: Patient reports doing okay overall, with no significant difficulties in the period. - Plan: Continue to monitor and provide support as needed. Infant Care and Attachment - Assessment: Patient reports some difficulty with attachment, but no issues in taking care of the baby. - Plan: Encourage continued bonding and monitor for any changes in attachment or care. Sleep - Assessment: Patient reports sleeping as best as she can, given the circumstances. - Plan: Encourage good sleep hygiene and napping when possible. and Mastitis - Assessment: Patient is currently and taking clindamycin and doxycycline for mastitis. - Plan: Continue current medications and monitor for improvement in mastitis symptoms. Hypertension - Assessment: Patient is taking labetalol for hypertension. - Plan: Continue labetalol and monitor blood pressure. Pain Management - Assessment: Patient is taking ibuprofen and Tylenol for pain, previously took hydrocodone but stopped. - Plan: Continue current pain management regimen as needed. Psychiatric Medications - Assessment: Patient is taking lurasidone 40 mg, bupropion 300 mg, lamotrigine 100 mg once a day, and sertraline 150 mg. - Plan: - No changes to current medications as patient reports feeling okay. - Refill prescriptions as follows: - Sertraline 150 m-day supply to [facility] - Lamotrigine 100 m-day supply to [facility] - Other medications: Refill as appropriate through [facility] Follow-up - Plan: Schedule a follow-up appointment in 4-6 weeks to monitor progress and address any concerns. 01/20/2024 Obsessive-compu lsive disorder, unspecified (ICD-10 - F42.9) Period - Assessment: Patient reports doing okay overall, with no significant difficulties in the period. - Plan: Continue to monitor and provide support as needed. Care and Attachment - Assessment: Patient reports some difficulty with attachment, but no issues in taking care of the baby. - Plan: Encourage continued bonding and monitor for any changes in attachment or infant care. Sleep - Assessment: Patient reports sleeping as best as she can, given the circumstances. - Plan: Encourage good sleep hygiene and napping when possible. and Mastitis - Assessment: Patient is currently and taking clindamycin and doxycycline for mastitis. - Plan: Continue current medications and monitor for improvement in mastitis symptoms. Hypertension - Assessment: Patient is taking labetalol for hypertension. - Plan: Continue labetalol and monitor blood pressure. Pain Management - Assessment: Patient is taking ibuprofen and Tylenol for pain, previously took hydrocodone but stopped. - Plan: Continue current pain management regimen as needed. Psychiatric Medications - Assessment: Patient is taking lurasidone 40 mg, bupropion 300 mg, lamotrigine 100 mg once a day, and sertraline 150 mg. - Plan: - No changes to current medications as patient reports feeling okay. - Refill prescriptions as follows: - Sertraline 150 m-day supply to [facility] - Lamotrigine 100 m-day supply to [facility] - Other medications: Refill as appropriate through [facility] Follow-up - Plan: Schedule a follow-up appointment in 4-6 weeks to monitor progress and address any concerns. 03/02/2024 Major depressive disorder, recurrent, in remission, unspecified (ICD-10 - F33.40) Mastitis and Sepsis - Assessment: The patient experienced mastitis on February 08, which led to sepsis and hospitalization for two nights. She received IV antibiotics during her hospital stay and is currently on clindamycin. The patient is about to start levofloxacin after the identification of the specific bacterial strain. She reports still fighting the infection but is no longer hospitalized. - Plan: Continue the current antibiotic regimen as prescribed. Monitor the patient's progress and response to the antibiotics. Encourage the patient to report any worsening symptoms or new concerns. Depression - Assessment: The patient's depression is currently in full remission, with a PHQ-9 score of 3. She reports feeling well overall, with no significant mood swings or depressive symptoms. The patient mentions that caring for her baby might be helping her depression. - Plan: Continue the current medications, including lurasidone 40 mg daily and bupropion 300 mg daily. Reassess the patient's mental health status in two months or sooner if any concerns arise. Anxiety - Assessment: The patient reports manageable anxiety levels, with no recent panic attacks or excessive worries. She acknowledges occasional irritability and frustration, which she attributes to fatigue and her ongoing mastitis recovery. The patient mentioned one incident of feeling overwhelmed while caring for the baby but was able to manage it. - Plan: Continue sertraline 150 mg daily (1.5 tablets of 100 mg). Encourage the patient to utilize coping strategies and seek support from family and friends as needed. Reevaluate the patient's anxiety levels during the next visit or sooner if any concerns arise. Obsessive Thoughts - Assessment: The patient reports ongoing issues with obsessive thoughts related to masturbation. No other intrusive thoughts were mentioned. - Plan: Monitor the patient's obsessive thoughts during follow-up visits. Consider adjusting the treatment plan or referring the patient to therapy if the obsessive thoughts worsen or significantly impact her daily functioning. Follow-up - Plan: Schedule next appointment in two months, as agreed with the patient. - Plan: Ensure patient has sufficient medication supply until the next appointment. 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 Symptoms include anxiety, panic attacks, irritability, agitation, and low mood, especially at night. Patient's mood improves when playing with her baby. 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 - Plan: - Increase sertraline to 200 mg. - Add lorazepam 0.5 mg PRN for anxiety. - Schedule a follow-up appointment in two weeks to assess the effectiveness of the medication adjustments. Anxiety and Panic Attacks - Assessment: Patient experiences random episodes of anxiety, which are affecting her work and personal life. Lorazepam 0.5 mg PRN has been prescribed to help manage anxiety symptoms. Patient reports difficulty identifying triggers for anxiety episodes. - Plan: - Encourage the patient to continue engaging in activities that help alleviate anxiety, such as playing with her baby and watching TV to zone out and calm down. Obsessive-Compulsi ve Symptoms - Assessment: Patient reports a history of OCD symptoms, such as making weird mouth noises and sniffling, which have subsided. Patient mentioned these symptoms reappeared briefly before the onset of anxiety but have since stopped. - Plan: - Continue monitoring for any recurrence of OCD symptoms during follow-up appointments. Medication Management - Assessment: Patient is currently taking 150 mg bupropion, 40 mg lurasidone, and 100 mg lamotrigine. Patient has a history of adverse side effects with Rexulti and is unsure about Vraylar. - Plan: - Increase lurasidone to 60 mg (patient will split current 40 mg tablets). - Increase sertraline to 200 mg. - Add lorazepam 0.5 mg PRN for anxiety, replacing previous use of Xanax. - Monitor for any side effects or medication interactions during follow-up appointments. Follow-up and Prescription Refills - Plan: - Schedule a follow-up appointment in two weeks to assess the effectiveness of the medication adjustments and the patient's overall mental health. - Prescribe a 90-day supply of sertraline to be filled through [email or web address], as needed. - Ensure lorazepam prescription is sent to [facility]. - Discuss the importance of in-person appointments for better management of depression. 04/27/2024 Obsessive-compu lsive disorder, unspecified (ICD-10 - F42.9) Depression - Assessment: Patient reports onset of symptoms a couple of weeks ago, possibly triggered by stopping in early March. Symptoms include anxiety, panic attacks, irritability, agitation, and low mood, especially at night. Patient's mood improves when playing with her baby. 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 - Plan: - Increase sertraline to 200 mg. - Add lorazepam 0.5 mg PRN for anxiety. - Schedule a follow-up appointment in two weeks to assess the effectiveness of the medication adjustments. Anxiety and Panic Attacks - Assessment: Patient experiences random episodes of anxiety, which are affecting her work and personal life. Lorazepam 0.5 mg PRN has been prescribed to help manage anxiety symptoms. Patient reports difficulty identifying triggers for anxiety episodes. - Plan: - Encourage the patient to continue engaging in activities that help alleviate anxiety, such as playing with her baby and watching TV to zone out and calm down. Obsessive-Compulsi ve Symptoms - Assessment: Patient reports a history of OCD symptoms, such as making weird mouth noises and sniffling, which have subsided. Patient mentioned these symptoms reappeared briefly before the onset of anxiety but have since stopped. - Plan: - Continue monitoring for any recurrence of OCD symptoms during follow-up appointments. Medication Management - Assessment: Patient is currently taking 150 mg bupropion, 40 mg lurasidone, and 100 mg lamotrigine. Patient has a history of adverse side effects with Rexulti and is unsure about Vraylar. - Plan: - Increase lurasidone to 60 mg (patient will split current 40 mg tablets). - Increase sertraline to 200 mg. - Add lorazepam 0.5 mg PRN for anxiety, replacing previous use of Xanax. - Monitor for any side effects or medication interactions during follow-up appointments. Follow-up and Prescription Refills - Plan: - Schedule a follow-up appointment in two weeks to assess the effectiveness of the medication adjustments and the patient's overall mental health. - Prescribe a 90-day supply of sertraline to be filled through [email or web address], as needed. - Ensure lorazepam prescription is sent to [facility]. - Discuss the importance of in-person appointments for better management of depression. 05/11/2024 Major depressive disorder, recurrent, in remission, unspecified (ICD-10 - F33.40) Mood Improvement - Assessment: Patient reports a gradual improvement in mood over the past week. - Plan: - Continue current medications: Sertraline 200 mg, Lorazepam 60 mg, and PRN Lorazepam. - No need to adjust medication dosages at this time. Sleep and Appetite - Assessment: Sleep and appetite are fair. Patient has started exercising to lose baby weight, which seems to be helping. Patient reports losing 5 pounds in the last two weeks. - Plan: - Encourage continuation of exercise and healthy lifestyle habits. 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 Patient notes being a little crankier but handling things better overall. - Plan: - As mood improves, patient's tolerance for work-related stressors may increase. - Continue monitoring work-related stress and coping strategies. Anxiety and Crying Episodes - Assessment: Patient reports a decrease in anxiety attacks and crying episodes. Patient takes Lorazepam when feeling anxious at night to prevent worsening symptoms. - Plan: - Continue PRN Lorazepam for anxiety management as needed. Suicidal Ideation - Assessment: No current thoughts of self-harm, dying, or reported. - Plan: - Continue monitoring for any changes in mood or suicidal ideation. Medication Management - Assessment: Sertraline, Bupropion, and Lurasidone refills are sufficient for the next 1-3 months. Patient has approximately 3 months of Lurasidone (Latuda) remaining. - Plan: - No new prescriptions needed at this time. Follow-up - Plan: - Schedule a follow-up appointment in one month to reassess mood, anxiety, and overall well-being. - Monitor for any changes in symptoms or medication needs during the follow-up appointment. 06/11/2024 Major depressive disorder, recurrent, in remission, unspecified (ICD-10 - F33.40) Anxiety and Depression - Plan: - Increase bupropion dosage to 450 mg daily for a month to assess its effect on energy levels and mood. - Monitor for worsening irritability. - Continue lamotrigine 100 mg daily, sertraline 200 mg daily, and lurasidone for mood stabilization. Insomnia - Plan: - Change clonazepam to once a day, to be taken before bedtime to help with overall anxiety and sleep. Panic Attacks - Plan: - Change lorazepam to once a day to help manage anxiety. - Monitor for tiredness and adjust dosage as needed. - If anxiety decreases, consider switching back to as-needed use. Seasonal Depression - Plan: - Continue monitoring the patient's mood and response to the current medication regimen. - Consider alternative treatment options if symptoms worsen or do not improve. Medication Management - Plan: - Refill bupropion and lorazepam prescriptions. - Monitor the patient's response to the increased bupropion dosage and adjusted clonazepam and lorazepam schedules. - Reevaluate the medication regimen in a month or sooner if needed. Lifestyle Recommendations - Plan: - Advise patient to try taking a 40-minute nap when possible to combat fatigue. - Emphasize the importance of rest in managing symptoms, especially given work stress and childcare responsibilities. 07/11/2024 Major depressive disorder, recurrent, in remission, unspecified (ICD-10 - F33.40) Anxiety - Assessment: Patient reports improvement in anxiety levels with no recent panic or anxiety attacks. Anxiety is way better than before, though still present here and there . Current medication regimen appears effective. - Plan: - Continue current medications: Bupropion 450 mg, Lorazepam 0.5 mg once daily, Latuda 60 mg, and Zoloft 200 mg. - Consider future tapering of Lorazepam by reducing to half a tablet and monitoring for rebound effects. - Advised patient to cut Lorazepam tablet in half when ready to taper, rather than skipping days. Irritability and Agitation - Assessment: Patient reports a decrease in irritability and agitation, confirmed by her partner. - Plan: - Continue current medications as they seem effective in managing these symptoms. Sleep Disturbances - Assessment: Patient reports occasional sleep disturbances, mainly due to her baby's sleep schedule. They are working on establishing a sleep schedule for the baby, who is now sleeping in his own crib. - Plan: - Continue current medications as they do not seem to contribute to sleep disturbances. - Encourage patient to establish a consistent sleep schedule for her baby. Medication Refills and Follow-up - Assessment: Patient is due for refills on Sertraline, Lurasidone, and Bupropion. - Plan: - Refill medications as needed. - Send prescriptions to [facility], except for Lurasidone, which will be sent to patient's preferred pharmacy. - Schedule follow-up appointment in 3 months. - Inform patient about walk-in availability if unable to get an appointment and running out of medication. - Advise patient to call or walk in if any concerns arise before the scheduled appointment. 10/04/2024 Major depressive disorder, recurrent, in remission, unspecified (ICD-10 - F33.40) 10/10/2024 Major depressive disorder, recurrent, in remission, unspecified (ICD-10 - F33.40) 10/10/2024 Obsessive-compu lsive disorder, unspecified (ICD-10 - F42.9) 07/11/2024 Obsessive-compu lsive disorder, unspecified (ICD-10 - F42.9) Anxiety - Assessment: Patient reports improvement in anxiety levels with no recent panic or anxiety attacks. Anxiety is way better than before, though still present here and there . Current medication regimen appears effective. - Plan: - Continue current medications: Bupropion 450 mg, Lorazepam 0.5 mg once daily, Latuda 60 mg, and Zoloft 200 mg. - Consider future tapering of Lorazepam by reducing to half a tablet and monitoring for rebound effects. - Advised patient to cut Lorazepam tablet in half when ready to taper, rather than skipping days. Irritability and Agitation - Assessment: Patient reports a decrease in irritability and agitation, confirmed by her partner. - Plan: - Continue current medications as they seem effective in managing these symptoms. Sleep Disturbances - Assessment: Patient reports occasional sleep disturbances, mainly due to her baby's sleep schedule. They are working on establishing a sleep schedule for the baby, who is now sleeping in his own crib. - Plan: - Continue current medications as they do not seem to contribute to sleep disturbances. - Encourage patient to establish a consistent sleep schedule for her baby. Medication Refills and Follow-up - Assessment: Patient is due for refills on Sertraline, Lurasidone, and Bupropion. - Plan: - Refill medications as needed. - Send prescriptions to [facility], except for Lurasidone, which will be sent to patient's preferred pharmacy. - Schedule follow-up appointment in 3 months. - Inform patient about walk-in availability if unable to get an appointment and running out of medication. - Advise patient to call or walk in if any concerns arise before the scheduled appointment. 06/11/2024 Obsessive-compu lsive disorder, unspecified (ICD-10 - F42.9) Anxiety and Depression - Plan: - Increase bupropion dosage to 450 mg daily for a month to assess its effect on energy levels and mood. - Monitor for worsening irritability. - Continue lamotrigine 100 mg daily, sertraline 200 mg daily, and lurasidone for mood stabilization. Insomnia - Plan: - Change clonazepam to once a day, to be taken before bedtime to help with overall anxiety and sleep. Panic Attacks - Plan: - Change lorazepam to once a day to help manage anxiety. - Monitor for tiredness and adjust dosage as needed. - If anxiety decreases, consider switching back to as-needed use. Seasonal Depression - Plan: - Continue monitoring the patient's mood and response to the current medication regimen. - Consider alternative treatment options if symptoms worsen or do not improve. Medication Management - Plan: - Refill bupropion and lorazepam prescriptions. - Monitor the patient's response to the increased bupropion dosage and adjusted clonazepam and lorazepam schedules. - Reevaluate the medication regimen in a month or sooner if needed. Lifestyle Recommendations - Plan: - Advise patient to try taking a 40-minute nap when possible to combat fatigue. - Emphasize the importance of rest in managing symptoms, especially given work stress and childcare responsibilities. 05/11/2024 Obsessive-compu lsive disorder, unspecified (ICD-10 - F42.9) Mood Improvement - Assessment: Patient reports a gradual improvement in mood over the past week. - Plan: - Continue current medications: Sertraline 200 mg, Lorazepam 60 mg, and PRN Lorazepam. - No need to adjust medication dosages at this time. Sleep and Appetite - Assessment: Sleep and appetite are fair. Patient has started exercising to lose baby weight, which seems to be helping. Patient reports losing 5 pounds in the last two weeks. - Plan: - Encourage continuation of exercise and healthy lifestyle habits. 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 Patient notes being a little crankier but handling things better overall. - Plan: - As mood improves, patient's tolerance for work-related stressors may increase. - Continue monitoring work-related stress and coping strategies. Anxiety and Crying Episodes - Assessment: Patient reports a decrease in anxiety attacks and crying episodes. Patient takes Lorazepam when feeling anxious at night to prevent worsening symptoms. - Plan: - Continue PRN Lorazepam for anxiety management as needed. Suicidal Ideation - Assessment: No current thoughts of self-harm, dying, or reported. - Plan: - Continue monitoring for any changes in mood or suicidal ideation. Medication Management - Assessment: Sertraline, Bupropion, and Lurasidone refills are sufficient for the next 1-3 months. Patient has approximately 3 months of Lurasidone (Latuda) remaining. - Plan: - No new prescriptions needed at this time. Follow-up - Plan: - Schedule a follow-up appointment in one month to reassess mood, anxiety, and overall well-being. - Monitor for any changes in symptoms or medication needs during the follow-up appointment. 04/27/2024 CORNELIO (generalized anxiety disorder) (ICD-10 - F41.1) Depression - Assessment: Patient reports onset of symptoms a couple of weeks ago, possibly triggered by stopping in early March. Symptoms include anxiety, panic attacks, irritability, agitation, and low mood, especially at night. Patient's mood improves when playing with her baby. 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 - Plan: - Increase sertraline to 200 mg. - Add lorazepam 0.5 mg PRN for anxiety. - Schedule a follow-up appointment in two weeks to assess the effectiveness of the medication adjustments. Anxiety and Panic Attacks - Assessment: Patient experiences random episodes of anxiety, which are affecting her work and personal life. Lorazepam 0.5 mg PRN has been prescribed to help manage anxiety symptoms. Patient reports difficulty identifying triggers for anxiety episodes. - Plan: - Encourage the patient to continue engaging in activities that help alleviate anxiety, such as playing with her baby and watching TV to zone out and calm down. Obsessive-Compulsi ve Symptoms - Assessment: Patient reports a history of OCD symptoms, such as making weird mouth noises and sniffling, which have subsided. Patient mentioned these symptoms reappeared briefly before the onset of anxiety but have since stopped. - Plan: - Continue monitoring for any recurrence of OCD symptoms during follow-up appointments. Medication Management - Assessment: Patient is currently taking 150 mg bupropion, 40 mg lurasidone, and 100 mg lamotrigine. Patient has a history of adverse side effects with Rexulti and is unsure about Vraylar. - Plan: - Increase lurasidone to 60 mg (patient will split current 40 mg tablets). - Increase sertraline to 200 mg. - Add lorazepam 0.5 mg PRN for anxiety, replacing previous use of Xanax. - Monitor for any side effects or medication interactions during follow-up appointments. Follow-up and Prescription Refills - Plan: - Schedule a follow-up appointment in two weeks to assess the effectiveness of the medication adjustments and the patient's overall mental health. - Prescribe a 90-day supply of sertraline to be filled through [facility] or [facility], as needed. - Ensure lorazepam prescription is sent to [facility]. - Discuss the importance of in-person appointments for better management of depression. 03/02/2024 Obsessive-compu lsive disorder, unspecified (ICD-10 - F42.9) Mastitis and Sepsis - Assessment: The patient experienced mastitis on February 08, which led to sepsis and hospitalization for two nights. She received IV antibiotics during her hospital stay and is currently on clindamycin. The patient is about to start levofloxacin after the identification of the specific bacterial strain. She reports still fighting the infection but is no longer hospitalized. - Plan: Continue the current antibiotic regimen as prescribed. Monitor the patient's progress and response to the antibiotics. Encourage the patient to report any worsening symptoms or new concerns. Depression - Assessment: The patient's depression is currently in full remission, with a PHQ-9 score of 3. She reports feeling well overall, with no significant mood swings or depressive symptoms. The patient mentions that caring for her baby might be helping her depression. - Plan: Continue the current medications, including lurasidone 40 mg daily and bupropion 300 mg daily. Reassess the patient's mental health status in two months or sooner if any concerns arise. Anxiety - Assessment: The patient reports manageable anxiety levels, with no recent panic attacks or excessive worries. She acknowledges occasional irritability and frustration, which she attributes to fatigue and her ongoing mastitis recovery. The patient mentioned one incident of feeling overwhelmed while caring for the baby but was able to manage it. - Plan: Continue sertraline 150 mg daily (1.5 tablets of 100 mg). Encourage the patient to utilize coping strategies and seek support from family and friends as needed. Reevaluate the patient's anxiety levels during the next visit or sooner if any concerns arise. Obsessive Thoughts - Assessment: The patient reports ongoing issues with obsessive thoughts related to masturbation. No other intrusive thoughts were mentioned. - Plan: Monitor the patient's obsessive thoughts during follow-up visits. Consider adjusting the treatment plan or referring the patient to therapy if the obsessive thoughts worsen or significantly impact her daily functioning. Follow-up - Plan: Schedule next appointment in two months, as agreed with the patient. - Plan: Ensure patient has sufficient medication supply until the next appointment. 05/11/2024 CORNELIO (generalized anxiety disorder) (ICD-10 - F41.1) Mood Improvement - Assessment: Patient reports a gradual improvement in mood over the past week. - Plan: - Continue current medications: Sertraline 200 mg, Lorazepam 60 mg, and PRN Lorazepam. - No need to adjust medication dosages at this time. Sleep and Appetite - Assessment: Sleep and appetite are fair. Patient has started exercising to lose baby weight, which seems to be helping. Patient reports losing 5 pounds in the last two weeks. - Plan: - Encourage continuation of exercise and healthy lifestyle habits. 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 Patient notes being a little crankier but handling things better overall. - Plan: - As mood improves, patient's tolerance for work-related stressors may increase. - Continue monitoring work-related stress and coping strategies. Anxiety and Crying Episodes - Assessment: Patient reports a decrease in anxiety attacks and crying episodes. Patient takes Lorazepam when feeling anxious at night to prevent worsening symptoms. - Plan: - Continue PRN Lorazepam for anxiety management as needed. Suicidal Ideation - Assessment: No current thoughts of self-harm, dying, or reported. - Plan: - Continue monitoring for any changes in mood or suicidal ideation. Medication Management - Assessment: Sertraline, Bupropion, and Lurasidone refills are sufficient for the next 1-3 months. Patient has approximately 3 months of Lurasidone (Latuda) remaining. - Plan: - No new prescriptions needed at this time. Follow-up - Plan: - Schedule a follow-up appointment in one month to reassess mood, anxiety, and overall well-being. - Monitor for any changes in symptoms or medication needs during the follow-up appointment. 06/11/2024 CORNELIO (generalized anxiety disorder) (ICD-10 - F41.1) Anxiety and Depression - Plan: - Increase bupropion dosage to 450 mg daily for a month to assess its effect on energy levels and mood. - Monitor for worsening irritability. - Continue lamotrigine 100 mg daily, sertraline 200 mg daily, and lurasidone for mood stabilization. Insomnia - Plan: - Change clonazepam to once a day, to be taken before bedtime to help with overall anxiety and sleep. Panic Attacks - Plan: - Change lorazepam to once a day to help manage anxiety. - Monitor for tiredness and adjust dosage as needed. - If anxiety decreases, consider switching back to as-needed use. Seasonal Depression - Plan: - Continue monitoring the patient's mood and response to the current medication regimen. - Consider alternative treatment options if symptoms worsen or do not improve. Medication Management - Plan: - Refill bupropion and lorazepam prescriptions. - Monitor the patient's response to the increased bupropion dosage and adjusted clonazepam and lorazepam schedules. - Reevaluate the medication regimen in a month or sooner if needed. Lifestyle Recommendations - Plan: - Advise patient to try taking a 40-minute nap when possible to combat fatigue. - Emphasize the importance of rest in managing symptoms, especially given work stress and childcare responsibilities. 07/11/2024 CORNELIO (generalized anxiety disorder) (ICD-10 - F41.1) Anxiety - Assessment: Patient reports improvement in anxiety levels with no recent panic or anxiety attacks. Anxiety is way better than before, though still present here and there . Current medication regimen appears effective. - Plan: - Continue current medications: Bupropion 450 mg, Lorazepam 0.5 mg once daily, Latuda 60 mg, and Zoloft 200 mg. - Consider future tapering of Lorazepam by reducing to half a tablet and monitoring for rebound effects. - Advised patient to cut Lorazepam tablet in half when ready to taper, rather than skipping days. Irritability and Agitation - Assessment: Patient reports a decrease in irritability and agitation, confirmed by her partner. - Plan: - Continue current medications as they seem effective in managing these symptoms. Sleep Disturbances - Assessment: Patient reports occasional sleep disturbances, mainly due to her baby's sleep schedule. They are working on establishing a sleep schedule for the baby, who is now sleeping in his own crib. - Plan: - Continue current medications as they do not seem to contribute to sleep disturbances. - Encourage patient to establish a consistent sleep schedule for her baby. Medication Refills and Follow-up - Assessment: Patient is due for refills on Sertraline, Lurasidone, and Bupropion. - Plan: - Refill medications as needed. - Send prescriptions to [facility], except for Lurasidone, which will be sent to patient's preferred pharmacy. - Schedule follow-up appointment in 3 months. - Inform patient about walk-in availability if unable to get an appointment and running out of medication. - Advise patient to call or walk in if any concerns arise before the scheduled appointment. 10/10/2024 CORNELIO (generalized anxiety disorder) (ICD-10 - F41.1) 03/02/2024 Major depression, recurrent, full remission (ICD-10 - F33.42) Mastitis and Sepsis - Assessment: The patient experienced mastitis on February 08, which led to sepsis and hospitalization for two nights. She received IV antibiotics during her hospital stay and is currently on clindamycin. The patient is about to start levofloxacin after the identification of the specific bacterial strain. She reports still fighting the infection but is no longer hospitalized. - Plan: Continue the current antibiotic regimen as prescribed. Monitor the patient's progress and response to the antibiotics. Encourage the patient to report any worsening symptoms or new concerns. Depression - Assessment: The patient's depression is currently in full remission, with a PHQ-9 score of 3. She reports feeling well overall, with no significant mood swings or depressive symptoms. The patient mentions that caring for her baby might be helping her depression. - Plan: Continue the current medications, including lurasidone 40 mg daily and bupropion 300 mg daily. Reassess the patient's mental health status in two months or sooner if any concerns arise. Anxiety - Assessment: The patient reports manageable anxiety levels, with no recent panic attacks or excessive worries. She acknowledges occasional irritability and frustration, which she attributes to fatigue and her ongoing mastitis recovery. The patient mentioned one incident of feeling overwhelmed while caring for the baby but was able to manage it. - Plan: Continue sertraline 150 mg daily (1.5 tablets of 100 mg). Encourage the patient to utilize coping strategies and seek support from family and friends as needed. Reevaluate the patient's anxiety levels during the next visit or sooner if any concerns arise. Obsessive Thoughts - Assessment: The patient reports ongoing issues with obsessive thoughts related to masturbation. No other intrusive thoughts were mentioned. - Plan: Monitor the patient's obsessive thoughts during follow-up visits. Consider adjusting the treatment plan or referring the patient to therapy if the obsessive thoughts worsen or significantly impact her daily functioning. Follow-up - Plan: Schedule next appointment in two months, as agreed with the patient. - Plan: Ensure patient has sufficient medication supply until the next appointment. 10/10/2024 Other Depression - Assessment: Patient reports [...] through [facility]. - Refill Lorazepam at [facility]. Follow-up - Plan: - Schedule a follow-up appointment in 3 months to monitor the patient's progress and adjust medications as needed. - Encourage the patient to contact the clinic if there are any concerns or changes in symptoms before the next appointment. Plan Of Treatment Next Appt Details Provider Name:Fred Arias , 01/04/2025 01:00:00 PM, [address], [address], [place], [address], Insurance Providers Payer Name Payer Address Payer Phone Subscriber Number Group Number Insured Name Patient Relationship to Insured Coverage Start Date Coverage End Date [employer] Benef[employer] Plan Management Ppo [address] [place] [id number] CHARLIE BEATTY Self - patient is the insured Medical (General) History Medical History History ICD Code Problems: Chronic kidney disease stage 2 Fibromyalgia Generalized anxiety disorder Hypermobile Sunil-Danlos syndrome Obsessive-compulsive disorder Recurrent major depression in remission Severe recurrent major depression withou t psychotic features , Surgical History Surgery Date(Month/Year) Other 02/05/2013 Tonsilectomy/adenoids 02/05/2013 section december 2023 Hospitalization History Reason Date(Month/Year) of a child december 2023
--- OUTSIDE RECORDS SUMMARY | 2024-10-23 17:51 | XMS_ITS | Clinical Summary ---
Author Organization [facility] Address [address] [place] [id number] Care Team Providers Care Racetrack Steward Name Role Phone Alfredo Claros MD Primary Care Provider Allergies Active Allergy Reactions Criticality Noted Date Comments Erythromycin Hives Medium 05/09/2021 Reaction: HIVES, Vancomycin Itching,Redness Medium 02/09/2024 Abisai syndrome Medications lamoTRIgine 100 MG tablet Take 1 tablet (100 mg total) by mouth nightly at bedtime. Active buPROPion XL 300 MG 24 hr tablet Take 1 tablet (300 mg total) by mouth every morning. 10/22/2021 Active lurasidone (LATUDA) 40 MG Tab tablet Take 1 tablet (40 mg total) by mouth nightly at bedtime. Active Norethindrone, Contraceptive, 0.35 MG tablet Take 1 tablet by mouth daily. Active sertraline (ZOLOFT) 100 MG tablet Take 1.5 tablets (150 mg total) by mouth nightly at bedtime. Active Active Problems Problem Noted Date Diagnosed Date Hypertriglyceridemia 05/21/2024 Lipoprotein deficiency 05/21/2024 Dysmetabolic syndrome X 05/21/2024 Impaired fasting glucose 05/21/2024 Sepsis without acute organ d ysfunction, due to unspecified organism ([facility]) 02/14/2024 Mastitis 02/09/2024 Supervision of high risk pre gnancy in third trimester ([facility]) 12/07/2023 High serum creatinine 11/17/2023 COVID-19 virus infection 08/11/2023 Stage 2 chronic kidney disease 04/05/2023 Overview (05/04/2023): History: Patient was found to have reduced [...] specific interest in kidney disease in at [facility]; however, any nephrology evaluation would be appropriate. Please refer the patient at your earliest convenience. Once nephrology workup as been completed, the patient should proceed with conception should she be cleared by the kidney team. We would like to see her back in our office once the nephrology evaluation has been completed as well. PACO (obstructive sleep apnea) 04/05/2023 Overview (05/04/2023): We discussed her PACO. We would recommend following up with her physician to ensure she has the correct CPAP setting. Over time, sleep apnea lowers your blood-oxygen levels which can increase the risk of hypertension, obesity, depression, and heart failure. Women with under treated sleep apnea are more likely to develop gestational diabetes and preeclampsia. Studies have shown that women maybe at higher risk of complications as well. 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 We reviewed the risk of abstinence syndrome but emphasized that this syndrome can be easily managed by the pediatricians, and no superintendent container terminal effects have ever been demonstrated. We discussed [...] patient on a case by case basis. 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 Overview (02/28/2023): Regulatory Import 11/06/22 Fibromyalgia syndrome 12/28/2021 Positive HARVINDER (antinuclear antibody) 11/30/2021 Recent unexplained weight loss 11/30/2021 Morbid obesity with BMI of 40.0-44.9, adult 04/2 12/2021 Arthralgia, unspecified joint 11/30/2021 Vitamin D deficiency 11/30/2021 Irregular menstrual cycle 04/05/2011 Resolved Problems Problem Noted Date Diagnosed Date Resolved Date state, incidental ([facility]) 11/17/2023 02/14/2024 Encounters Date Type Department Care Team Description 08/27/2024 11:20 AM SALES AND MERCHANDISING ASSOCIATE Office Visit [facility] Family Medicine - [place] [id number] [place] [address] Hyacinth, Alfredo Tyler MD Follow Up (Blood in stool, painful when using the restroom. Bright red/Onset: 1 month ago, left then came back. /Stools are hard. Mom is no longer . /Pt drinks water. Maybe soda once a day ) 08/27/2024 Travel from Last 3 Months Immunizations Name Administration Dates Next Due Dtap (Generic) 10/16/1999, 6,1995,05/27,1995 Fluzone 6 Months+ Quad (0.5 mL Prefilled Syringe) 07/26/2019 HPV4 (Gardasil) 01/05/2008,08/03/2007,05/26/2007 Hepatitis A (Generic) 01/05/2008,05/26/2007 Hepatitis B (Generic Peds) 01/23/1996,,1995,05/27 Hib (Generic) 04/25/1996 Influenza Peds (Generic) 06/17/2020,06/13/2018 Influenza Virus, Split 6-35 Mo 03/26/2016 MMR 10/16/1999,04/25/1996 Menactra 09/27/2011,05/26/2007 Meningococcal B 03/26/2016 Opv 1995,1995 Polio Ipv (Generic) 10/16/1999,07/20/1996 Tdap (Boostrix) 03/26/2016,03/05/2005 Family History Medical History Relation Comments Diabetes Maternal Grandfather Heart Disease Paternal Grandfather Relation Status Comments Maternal Grandfather Paternal Grandfather Social History Tobacco Use Types Packs/Day Years Used Date Smoking Tobacco: Never Passive Smoke Exposure: Past Smokeless Tobacco: Never Tobacco Cessation:Counseling Given: No Alcohol Use Standard Drinks/Week Comments Yes 0 (1 standard drink = 0.6 oz pur e alcohol) B1300 Health Literacy Answer Date Recor ded How often do you need to hav e someone help you when you read instructions, pamphlets, or other written material from your doctor or pharmacy? Never 02/09/2024 [facility] Utilities Answer Date Recorded In the past 12 months has e [facility], [employer], or water [employer] threatened to shut off services in your home? No 02/09/2024 Humiliation, Afraid, Rape, and Kick questionnair e Answer Date Recorded Within the last year, have y ou been afraid of your partner or ex-partner? No 02/09/2024 Within the last year, have y ou been humiliated or emotionally abused in other ways by your partner or ex-partner? No Within the last year, have y ou been kicked, hit, slapped, or otherwise physically hurt by your partner or ex-partner? No 02/09/2024 Within the last year, have y ou been raped or forced to have any kind of sexual activity by your partner or ex-partner? No 02/09/2024 Social Connection and Isolat ion Panel [NHANES] Answer Date Recorded In a typical week, how many times do you talk on the phone with family, friends, or neighbors? More than three times a week 02/09/2024 How often do you get togethe r with friends or relatives? Once a week 02/09/2024 How often do you attend chur ch or mosque services? Never 02/09/2024 Do you belong to any clubs o r organizations such as oriental orthodox groups, unions, fraternal or athletic groups, or school groups? No 02/09/2024 How often do you attend meet ings of the clubs or organizations you belong to? Never 02/09/2024 Are you , , di vorced, , never , or living with a partner? 02/09/2024 AUDIT-C Answer Date Recorded Q1: How often do you have a drink containing alc ohol? 2-4 times a month 02/09/2024 Q2: How many drinks containi ng alcohol do you have on a typical day when you are drinking? 1 or 2 02/09/2024 Q3: How often do you have si x or more drinks on one occasion? Never 02/09/2024 Overall Financial Resource Strain (CARDIA) Answe r Date Recorded How hard is it for you to pa y for the very basics like food, housing, medical care, and heating? Not hard at all 02/09/2024 PHQ-2 Answer Date Recorded Patient Health Questionnaire-2 Score 0 08/27/2024 [facility] - Occupational Stress Questionnaire Answer Date Recorded Do you feel stress - tense, restless, nervous, or anxious, or unable to sleep at night because your mind is troubled all the time - these days? Not at all 02/09/2024 Exercise Vital Sign Answer Date Recorde d On average, how many days pe r week do you engage in moderate to strenuous exercise (like a brisk walk)? 1 day 02/09/2024 On average, how many minutes do you engage in exercise at this level? 30 min 02/09/2024 Hunger Vital Sign Answer Date Recorded Within the past 12 months, y ou worried that your food would run out before you got the money to buy more. Never true 02/09/20 24 Within the past 12 months, t he food you bought just didn't last and you didn't have money to get more. Never true 02/09/2024 PRAPARE - Transportation Answer Date Re corded In the past 12 months, has l ack of transportation kept you from medical appointments or from getting medications? No 11/2023 In the past 12 months, has l ack of transportation kept you from meetings, work, or from getting things needed for daily living? No 02/09/2024 Housing Stability Vital Sign Answer Christopher e Recorded In the last 12 months, was t here a time when you were not able to pay the mortgage or rent on time? No 02/09/2024 In the past 12 months, how m any times have you moved where you were living? 0 02/09/2024 At any time in the past 12 m [facility], were you homeless or living in a skilled nursing (including now)? No 02/09/2024 Comments No Sex and Gender Information Value Date Recorded Sex Assigned at Not on file Legal Sex Female 1:29 PM SALES AND MERCHANDISING ASSOCIATE Gender Identity Female 03/03/2022 6:04 AM CDT Sexual Orientation Straight 03/03/2022 6: 04 AM CDT Last Filed Vital Signs Vital Sign Reading Time Taken Comments Blood Pressure 118/74 08/27/2024 11:34 AM SALES AND MERCHANDISING ASSOCIATE Pulse 99 08/27/2024 11:34 AM SALES AND MERCHANDISING ASSOCIATE Temperature 36.8 C (98.2 F) 08/27/2024 11:34 AM SALES AND MERCHANDISING ASSOCIATE Respiratory Rate 18 08/27/2024 11:34 AM SALES AND MERCHANDISING ASSOCIATE Oxygen Saturation 99% 08/27/2024 11:34 AM SALES AND MERCHANDISING ASSOCIATE Inhaled Oxygen Concentration - - Weight 137.9 kg (304 lb) 08/27/2024 11:34 AM SALES AND MERCHANDISING ASSOCIATE Height 177.8 cm (5' 10 ) 08/27/2024 11:34 AM SALES AND MERCHANDISING ASSOCIATE Body Mass Index 43.62 08/27/2024 11:34 AM SALES AND MERCHANDISING ASSOCIATE Plan of Treatment Health Maintenance Due Date Last Done Comments Cervical Cancer Screening Pap Smear (Age 21 to 29) Every 3 Years 1995 Cervical Cancer Screening 1995 Pneumococcal Vaccine: Pediatrics (0 to 5 Years) and At-Risk Patients (6 to 64 Years) (1 of 2 - PCV) 2001 Annual Physical 12/30/2023 12/29/2022 COVID-19 Vaccine (2023- season) 2024 08/21/2021, 10/18/2020, 09/19/2020 DTaP, Tdap and Td Vaccines (9 - Td or Tdap) 12/29/2033 12/30/2023, 03/26/2016, 03/05/2005, Additional history exists Hepatitis B Vaccines Completed 01/23/1996, 1995, 1995, Additional history exists HPV Vaccines Completed 01/05/2008, 07/09, 05/26/2007 Meningococcal Vaccine Completed 03/26/2016 , 09/27/2011, 05/26/2007 Hepatitis C Completed 12/07/2023, 11/30/2023 Influenza Adult Completed 06/22/2024, 08/08, 06/17/2020, Additional history exists PHQ-2 (Physician Recluse) Completed 08/27/2024 Meningococcal B Vaccine Aged Out No l onger eligible based on patient's age to complete this topic RSV Immunizations Under 20 Months Aged Out No longer eligible based on patient's age to complete this topic Procedures Procedure Name Priority Date/Time Associated Diagnosis Comments HEP C SCANNED ORDERS Routine 11/30/2023 from Last 3 Months or Most Recently Relevant to Health Maintenance Results * HEP C SCANNED ORDERS (11/30/2023) [facility] Scanned SCANNING Final Resu lt HS ONBASE from Last 3 Months or Most Recently Relevant to Health [place] [address] [employer] Advance Directives * Full Code (Latest Code Status on File) Date Activated Date Inactivated Comments 02/09/2024 6:50 PM 02/11/2024 1:21 PM Care Teams Racetrack Steward Relationship Specialty Start Date End Date Alfredo Claros MD [address] [place] [address] PCP - General FAMILY PRACTICE 11/30/21
--- OUTSIDE RECORDS SUMMARY | 2024-10-23 17:51 | XMS_ITS | Encounter Summary ---
Author Organization [facility] Address [address] [place] [address] Care Team Providers Care Benefit Director Name Role Phone Alfredo Claros MD Primary Care Provider Encounter Details Date Type Department Care Team (Late st Contact Info) Description 05/10/2022 [place] Risk Solutionst Message Enc [facility] Family Medicine - [place] [address], [address] [place] [address] Alfredo Claros MD [address] [place], [place] [phone] Finished antibiotics Social History Tobacco Use Types Packs/Day Years Used Date Smoking Tobacco: Never Smokeless Tobacco: Never Alcohol Use Standard Drinks/Week Comments Not Currently 0 (1 standard drink = 0.6 oz pur e alcohol) Comments No Sex and Gender Information Value Date Recorded Sex Assigned at Not on file Legal Sex Female 1:29 PM VOCATIONAL REHABILITATION COUNSELOR Gender Identity Female 03/03/2022 6:04 AM CDT [...] documented as of this encounter Care Teams Benefit Director Relationship Specialty Start Date End Date Alfredo Claros MD [address] [address] PCP - General FAMILY PRACTICE 11/30/21 documented as of this encounter
--- OUTSIDE RECORDS SUMMARY | 2024-10-23 17:51 | XMS_ITS | Clinical Summary ---
Author Organization [facility] Address [address] [place] [address] Care Team Providers Care Journalism Instructor Name Role Phone Alfredo Claros MD Primary Care Provider [phone] Allergies Active Allergy Reactions Criticality Noted Date [...] 50 mcg/actuation nasal spray,suspension Active influenza quadrivalent [id number] (Fluzone Quad , PF,) 60 mcg (15 [...] specific interest in kidney disease in at [facility]; however, any nephrology evaluation would be [...] of at least 30 minutes 5x/week, and nutrition/naval special warfare medic options. Anxiety and depression 04/05/2023 Overview (04/06/2023): [...] easily managed by the pediatricians, and no residential effects have ever been demonstrated. We discussed [...] , as well as referral to a industrial hire sales assistant and pulmonary function testing. Abdominal pain 02/22/2022 [...] gain 04/05/2011 023 Irregular menstrual cycle 04/05/2011 Medical History Medical History Date Comments Asthma Asthma Hx Other Medical Back Pain Hx Other Medical wisdom teeth de c 2011 Hx Other Medical eyes 1998 Family History Medical History Relation Name Comments Diabetes type II Other Family hist ory of Diabetes mellitus type 2; Kidney disease Other Family histor y of Kidney problems; Mental illness Other Family histor y of Mental illness; Relation Name Status Comments Other Social History Tobacco Use Types Packs/Day Years [...] on file Legal Sex Female 7:17 PM MANAGER NET Gender Identity Not on file Sexual Orientation Not on file Obstetrics History Para Term AB IAB SAB Ectopic Multiple Livin g Live Births 0 0 0 0 0 0 0 0 0 0 0 Last Filed Vital Signs Vital Sign Reading [...] 04/06/2023 2:44 PM CDT Plan of Treatment Health Maintenance Due Date Last Done Comments Cervical Cancer Screening 1995 Depression Screening 1995 Hepatitis C Screening 1995 Varicella Vaccines (1 of 2 - 13+ 2-dose series) 01/16/2008 Regular Well Visit/Exam 18-64 2013 Covid-19 Vaccine ( season) 2024 08/21/2021, 10/18/2020, 09/19/2020 Influenza Vaccine (#1) 2024 , 06/17/2020, 07/26/2019, Additional history exists DTaP/Tdap/Td Vaccine (8 - Td or Tdap) 03/26/2026 03/26/2016, 03/05/2005, 10/16/1999, Additional history exists Hepatitis B Screening Completed 01/23/1996 , 1995, 1995, Additional history exists HPV Vaccines Completed 01/05/2008, 07/09, 05/26/2007 Pneumococcal vaccine <65 Aged Out No longer eligible based on patient's age to complete this topic Insurance [facility]PP[facility] Address: [address] [address] [place] [address] [facility]/PPO Address: [address] [place] [address] [facility] H[facility]/PPO Address: [address] [place] [address] [employer] ALLEGIANCE Care Teams Journalism Instructor Relationship Specialty Start Date End Date Alfredo Claros MD [address] [address] PCP - General Family Medicine 03/01/22
--- OUTSIDE RECORDS SUMMARY | 2024-10-23 17:51 | XMS_ITS ---
Author Organization [facility] [place] Address [address] [place] [address] Care Team Providers Care Electrical Installation Supervisor Name Role Phone Alfredo Claros MD Primary Care Provider Fred Pimentel Unavailable [phone] Allergies Allergen (clinical drug ingredient) Drug/Non Drug Allergy documented on EMR Reaction Allergy Type Onset Date Status erythromycin Erythromycin Base Unknown Drug Allergy 2023 Active vancomycin Vancomycin Unknown Drug Allergy Activ e Results Component Value Reference Range Notes UDT Reviewed date:07/11/2024 04:17:30 PM Interpretation: Performing Lab: Notes/Report: THC N 0 - 50 ng/ml Cocaine N 0 - 300 ng/ml Amphetamine N 0 - 1000 ng/ml Buprenorphine (BUP) N 0 - 10 ng/ml Secobarbital (Bar) N 0 - 300 ng/ml Oxazepam (BZO) P 0 - 300 ng/ml 2-tytjkvwtfs-4,3-uiibpjhe-4,3-diphenylpyrrolidine (JORDAN P) N 0 - 300 ng/ml Methamphetamine (MET) N 0 - 1000 ng/ml Methylenedioxymethamphetamine (MDMA) N 0 - 500 ng/ml Morphine (MOP 300/[id number]) N 0 - 300 ng/ml Methadone (MTD) N 0 - 300 ng/ml Phencyclidine (PCP) N 0 - 25 ng/ml Nortriptyline (TCA) N 0 - 1000 ng/ml Oxycodone N 0 - 300 ng/ml x N 0 - 300 ng/ml REASON FOR VISIT 1 Follow up, MIPS PHQ less than 5 Positive with f/u doc, Depression screening positive, UDT Visit, UDT done Medications Medication SIG (Take, Route, Frequency, Duration) Notes Start Date End Date Status Lurasidone HCl 60 MG 1 tablet in the sarina bret with food Orally Once a day for 90 days Active predniSONE 20 MG Oral 12/22/2023 Un known Sertraline HCl 100 MG Oral 12/22/2023 Unknown Sertraline HCl 100 MG 2 tablet every mor bret Oral Once a day for 90 days Active LORazepam 0.5 MG 1 tablet Orally Once a day for 30 days 07/11/2024 Active buPROPion HCl ER (XL) 150 MG 1 tablet in the morning Orally Once a day for 90 days total dose of 450 mg po qam Active Baby Aspirin 12/22/2023 Unknow n lamoTRIgine 100 mg TAKE 1 TABLET DAILY Active buPROPion HCl ER (XL) 300 MG 1 tablet in the morning Orally Once a day for 90 days total dose of 450 mg daily Active Social History Tobacco Use: Social History Observation Description Date Details (start date - stop date) Never Smoker NA - NA Sex Assigned At : Social History Observation Description Sex Assigned At Female Tobacco Control (Standard) Question Answer Notes Tobacco use: Nonsmoker Vital Signs Blood pressure systolic 110 mm Hg 07/11/20 24 Blood pressure diastolic 74 mm Hg 024 Heart Rate 93 /min 07/11/2024 Height 70.00 in 07/11/2024 Height-cm 177.80 cm 07/11/2024 Encounters Encounter Location Date Provider Diagnosis [facility] [employer] [facility] [address] [address] 07/11/2024 Fred Angulo Major depressive disorder, recurrent, in remission, unspecified F33.40 ; Obsessive-compulsive disorder, unspecified F42.9 and CORNELIO (generalized anxiety disorder) F41.1 Assessments Encounter Date Diagnosis (ICD Code) Assessment Notes Treatment Notes Treatment Clinical Notes Section Notes 07/11/2024 Major depressive disorder, recurrent, in remission, [...] any concerns arise before the scheduled appointment. 07/11/2024 Obsessive-compu lsive disorder, unspecified (ICD-10 - [...] any concerns arise before the scheduled appointment. 07/11/2024 CORNELIO (generalized anxiety disorder) (ICD-10 - [...] any concerns arise before the scheduled appointment. Plan Of Treatment Medication Medication Name Sig Start Date Stop Date Notes Lurasidone HCl 60 MG 1 tablet in the sarina bret with food Orally Once a day for 90 days Sertraline HCl 100 MG 2 tablet every mor bret Oral Once a day for 90 days LORazepam 0.5 MG 1 tablet Orally Once a day for 30 days 07/11/2024 buPROPion HCl ER (XL) 150 MG 1 tablet in the morning Orally Once a day for 90 days buPROPion HCl ER (XL) 300 MG 1 tablet in the morning Orally Once a day for 90 days Next Appt Details Provider Name:Fred Rojas Hugo , 01/04/2025 01:00:00 PM, [address], [facility] [address], [place], [address], Progress Notes * CHARLIE HOLLINGSWORTHROXI OB:1995 (29 yo F)Acc No.[id number]:07/11/2024 Patient: CHARLIE KINGSTON Provider: Lupe ANGULO MD :1995 A ge:29 Y S ex:Female Date:07/11/2024 Address:[address] [place] [address] Pcp:Alfredo Claros MD Subjective: * Chief Complaints: * 1 Follow upMIPS PHQ less than 5 Positive with f/u docDepression screening positiveUDT VisitUDT done * HPI: D epression Screening: The note is transcribed using speech recognition software. It is a reflection of a visit with the patient. It might have some inaccuracy, including medication names and transcribing errors, though efforts have been made to correct them. Chief Complaint: Follow-up for anxiety management and medication review The patient reports an improvement in their overall condition, with anxiety being more stable than before. 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 The patient's work environment has improved, with co-worker issues being resolved. At home, the patient is dealing with their baby's sleep disturbances and working on establishing a sleep schedule. The baby is now sleeping in their own crib, but there are still separation issues to work through. The patient's anxiety is still present but has significantly improved, with no panic or anxiety attacks reported. Irritability and agitation are still present but have improved according to the patient's partner. Mental Health: The patient's anxiety has stabilized and improved significantly. No panic or anxiety attacks have been reported. Irritability and agitation are still present but have shown improvement, as noted by the patient's partner. 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 The patient is considering reducing the lorazepam dosage in the future and has discussed a tapering plan with the provider, including the option to cut the tablet in half. The patient expresses hesitation about reducing the dosage while dealing with a new student at work. Sleep: Sleep has been satisfactory, except for disturbances caused by the baby. The baby is now sleeping in their own crib, but separation issues persist. Work Environment: The patient reports improvement in their work environment, with previous co- worker issues being resolved. 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 CORNELIO-7 (2018 Edition) F eeling nervous, anxious, or on edge?More than half the days, N ot being able to stop or control worrying S everal days,?Worrying too much about different things M ore than hafl the days, T rouble relaxing N ot at all, B eing so restless that it is hard to sit still N ot at all, B ecoming easily annoyed or irritable M ore than half the days, F eeling afraid as if something awful might happen N ot at all, I f you checked any problems, how difficult have they made it for you to do your work, take care of things at home, or get along with other people? S omewhat difficult. C [place]-Suicide Severity Rating Scale: Suicide Risk (CSRS-screener) i n the past one month Have you wished you were or wished you could go to sleep and not wake up? N o, i n the past one month Have you actually had any thoughts of killing yourself? N o, H ave you ever done anything, started to do anything, or prepared to do anything to end your life? N o. D epression screening: PHQ-9 L ittle interest or pleasure in doing things M ore than half the days, F eeling down, depressed, or hopeless S everal days, T rouble falling or staying asleep, or sleeping too much S everal days, F eeling tired or having little energy M ore than half the days, P oor appetite or overeating N ot at all, F eeling bad about yourself or that you are a failure, or have let yourself or your family down N early every day, T rouble concentrating on things, such as reading the newspaper or watching television?More than half the days, M oving or speaking so slowly that other people could have noticed; or the opposite, being so fidgety or restless that you have been moving around a lot more than usual N ot at all, T houghts that you would be better off or of hurting yourself in some way N ot at all, T otal Score 1 1, I nterpretation M oderate Depression. I ntervention D epression Screening Findings P ositve, F ollow-Up for Depression M ental health treatment assessment, Patient follow-up to return when and if necessary, S uicide Risk Assessment Performed , A dditional Evaluation for Depression P sychiatric interview and evaluation, N lance of the standardized tool used for adult depression screening:?Patient Health Questionnaire (PHQ-9). H istory of Presenting Problem: Pt was seen today and Urine drug screen was done. * Medical History: * Surgical History: * Hospitalization/Major Diagno stic Procedure: * Social History: T obacco Use: T obacco Control (Standard) T obacco use: N onsmoker. M igrated Social History: M igrated Social History: Alcohol Intake: None 11/11/2023,Tobacco Years: Never smoker 11/11/2023. M iscellaneous: A dvance Care Planning A re you your own decision-maker Y es, D o you have Power of Credit Control Assistant for Health or Medical? N o. * Medications: T akinglamoTRIgine 100 mg Tablet TAKE 1 TABLET DAILY Sertraline HCl 100 MG Tablet 2 tablet every morning Oral Once a day LORazepam 0.5 MG Tablet 1 tablet Orally Once a day Lurasidone HCl 60 MG Tablet 1 tablet in the evening with food Orally Once a day buPROPion HCl ER (XL) 300 MG Tablet Extended Release 24 Hour 1 tablet in the morning Orally Once a day total dose of 450 mg dailybuPROPion HCl ER (XL) 150 MG Tablet Extended Release 24 Hour 1 tablet in the morning Orally Once a day total dose of 450 mg po qamTaking lamoTRIgine 100 mg Tablet TAKE 1 TABLET DAILY Taking Sertraline HCl 100 MG Tablet 2 tablet every morning Oral Once a day Taking LORazepam 0.5 MG Tablet 1 tablet Orally Once a day Taking Lurasidone HCl 60 MG Tablet 1 tablet in the evening with food Orally Once a day Taking buPROPion HCl ER (XL) 300 MG Tablet Extended Release 24 Hour 1 tablet in the morning Orally Once a day total dose of 450 mg dailyTaking buPROPion HCl ER (XL) 150 MG Tablet Extended Release 24 Hour 1 tablet in the morning Orally Once a day total dose of 450 mg po qamDiscontinuedbuPROPion HCl ER (XL) 300 mg Tablet Extended Release 24 Hour TAKE 1 TABLET DAILY EVERY MORNING Clindamycin HCl 300 MG Capsule TAKE 1 CAPSULE BY MOUTH EVERY 8 HOURS FOR 7 DAYS Oral Discontinued buPROPion HCl ER (XL) 300 mg Tablet Extended Release 24 Hour TAKE 1 TABLET DAILY EVERY MORNING Discontinued Clindamycin HCl 300 MG Capsule TAKE 1 CAPSULE BY MOUTH EVERY 8 HOURS FOR 7 DAYS Oral UnknownBaby Aspirin Sertraline HCl 100 MG Tablet Oral predniSONE 20 MG Tablet Oral Medication List reviewed and reconciled with the patientUnknown Baby Aspirin Unknown Sertraline HCl 100 MG Tablet Oral Unknown predniSONE 20 MG Tablet Oral Medication List reviewed and reconciled with the patient * Allergies: E rythromycin Base: Allergy - Onset Date 12/22/2023Vancomycinno[Allergies Verified] Objective: * Vitals: B P:110/74mm Hg, HR:93/min, Ht: 70.00 in, Ht-cm: 177.80 cm. * Examination: G eneral Examination: M ental Status Examination: Patient reports overall improvement in mood and anxiety levels. No current episodes of panic or anxiety attacks. Reports ongoing but improved irritability and agitation. Patient appears stable and managing work stress well. Sleep is reported as fine, aside from child-related disturbances. Vital Signs: review the notes for vitals Physical Examination: review the notes for physical examination Diagnostic Test Results and Labs: review the notes for diagnostic test results and labs. Assessment: * Assessment: 1. M ajor depressive disorder, recurrent, in remission, unspecified - F33.40 (Primary) ? 2 . O bsessive-compulsive disorder, unspecified - F42.9 3 . G AD (generalized anxiety disorder) - F41.1 Anxiety - Assessment: Patient reports improvement in [...] any concerns arise before the scheduled appointment. Plan: * Treatment: 2. G AD (generalized anxiety disorder) Refill LORazepam Tablet, 0.5 MG, 1 tablet, Orally, Once a day, 30 days, 30 Tablet, Refills 2. ? * Labs: * L ab: UDT (Collection Date & Time - 07/11/2024) Value Reference Range T HC N 0 - 50 ng/ml * C ocaine N 0 - 300 ng/ml * A mphetamine N 0 - 1000 ng/ml * B uprenorphine (BUP) N 0 - 10 ng/ml * S ecobarbital (Bar) N 0 - 300 ng/ml * O xazepam (BZO) P 0 - 300 ng/ml * 2 -ethylidene-1,9-umnxfvjt-3,3-diphenylpyrrolidine (EDDP) N 0 - 300 ng/ml * M ethamphetamine (MET) N 0 - 1000 ng/ml * M ethylenedioxymethamphetamine (MDMA) N 0 - 500 ng/ml * M orphine (MOP 300/[id number]) N 0 - 300 ng/ml * M ethadone (MTD) N 0 - 300 ng/ml * P hencyclidine (PCP) N 0 - 25 ng/ml * P ropoxyphene (PPX) N 0 - 300 ng/ml * N ortriptyline (TCA) N 0 - 1000 ng/ml * O xycodone N 0 - 300 ng/ml * Procedure Codes: 8 0306 DRUG TST PRSMV READ INSTRMNT ASSTD DIR OPT [id number] BEHAV ASSMT W/SCORE & DOCD/STAND [id number] VISIT COMPLEXITY INHERENT TO ONGOING CARE RELATED TO A PATIENT'S SINGLE, SERIOUS CONDITION OR A COMPLEX CONDITION * Billing Information: * Visit Code: 52591 OFFICE OUTPATIENT VISIT 25 MINUTES DETAILED HISTORY AND EXAM/MODERATE MEDICAL DECISION MAKING. * Procedure Codes: 46227 DRUG TST PRSMV READ INSTRMNT ASSTD DIR OPT OBS. 86866 BEHAV ASSMT W/SCORE & DOCD/STAND INSTRUMENT. G2211 VISIT COMPLEXITY INHERENT TO ONGOING CARE RELATED TO A PATIENT'S SINGLE, SERIOUS CONDITION OR A COMPLEX CONDITION. 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 Sign off status: Completed true * Provider: Lupe ANGULO MD Date: 1 09/11/2023 Generated for Neto lin/Madi/Jimy on: 0 10/23/2024 05:51 PM CDT History and Physical Notes * HPI (History of Present Illness) Category Sub-Category Detail Notes Category Not es History of Presenting Problem Pt was seen today and Urine drug screen was done Depression screening PHQ-9 Little inte rest or pleasure in doing things: More than half the days Feeling down, depressed, or hopeless: Se veral days Trouble falling or staying asleep, or sl eeping too much: Several days Feeling tired or having little energy: M ore than half the days Poor appetite or overeating: Not at all Feeling bad about yourself o r that you are a failure, or have let yourself or your family down: Nearly every day Trouble concentrating on thi ngs, such as [...] some way: Not at all Total Score: 11 Interpretation: Moderate Depression Intervention Depression Screening Findings: P ositve Follow-Up for Depression: [facility] treatment assessment, Patient follow-up to return when and if necessary Suicide Risk Assessment Performed: Additional Evaluation for De pression: Psychiatric interview and evaluation Name of the standardized too l used for adult depression screening:: Patient Health Questionnaire (PHQ-9) Depression Screening CORNELIO-7 (2018 Edition) Feelin g nervous, anxious, or on edge: More than half the days Not being able to stop or control worryi ng: Several days Worrying too much about different things : More than hafl the days Trouble relaxing: Not at all Being so restless that it is hard to sit still: Not at all Becoming easily annoyed or irritable: Mo re than half the days Feeling afraid as if something awful wilberto ht happen: Not at all If you checked any problems, how difficult have they made it for you to do your work, take care of things at home, or get along with other people?: Somewhat difficult [place]-Suicide Severity Rating Scale Suicide Risk (CSRS-screener) in [...] General Examination Mental Status Examination: Patient reports overall improvement in mood and anxiety levels. No current episodes of panic or anxiety attacks. Reports ongoing but improved irritability and agitation. Patient appears stable and managing work stress well. Sleep is reported as fine, aside from child-related disturbances. Vital Signs: review the notes for vitals Physical Examination: review the notes for physical examination Diagnostic Test Results and Labs: review the notes for diagnostic test results and labs
--- OUTSIDE RECORDS SUMMARY | 2024-10-23 17:51 | XMS_ITS ---
Author Organization [facility] [employer] [facility] Address [facility] [facility] [address] [place] [address] Care Team Providers Care Inspector Materials And Processes Name Role Phone Alfredo Claros MD Primary Care Provider Fred Pimentel Unavailable [phone] REASON FOR VISIT Refill Medications Medication SIG (Take, Route, Frequency, Duration) Notes Start Date End Date Status buPROPion HCl ER (XL) 150 MG 1 tablet in the morning Orally Once a day for 30 days total dose of 450 mg po qam Active Social History Sex Assigned At : Social History Observation Description Sex Assigned At Female Encounters Encounter Location Date Provider [facility] [place] [id number] [facility] [address] [facility] [address] [place] [address] 10/04/2024 Fred Arias Major depressive disorder, recurrent, in remission, unspecified F33.40 Assessments Encounter Date Diagnosis (ICD Code) Assessment Notes Treatment Notes Treatment Clinical Notes Section Notes 10/04/2024 Major depressive disorder, recurrent, in remission, unspecified (ICD-10 - F33.40) Plan Of Treatment Medication Medication Name Sig Start Date Stop Date Notes buPROPion HCl ER (XL) 150 MG 1 tablet in the morning Orally Once a day for 30 days Next Appt Details Provider Name:Fred Arias , 01/04/2025 01:00:00 PM, [address], [address], [address], Progress Notes * CHARLIE HOLLINGSWORTH OB:1995 (29 yo F)Acc No.[id number]:10/04/2024 Patient: CHARLIE KINGSTON :1995 A ge:29 Y S ex:Female Address:[address] [place] [address] * Refills Refill buPROPion HCl ER (XL) Tablet Extended Release 24 Hour, 150 MG, Orally, 30, 1 tablet in the morning, Once a day, 30 days, Refills=0 * true * Date: Generated for Neto lin/Madi/Cintiaitting on: 0 10/23/2024 05:50 PM CDT
--- OUTSIDE RECORDS SUMMARY | 2024-10-23 17:51 | XMS_ITS | Encounter Summary ---
Author Organization [facility] Address [address] [place] [address] Care Team Providers Care Pilot Submersible Name Role Phone Alfredo Claros MD Primary Care Provider Encounter Details Date Type Department Care Team (Late st Contact Info) Description 03/01/2022 MyChart Message Enc [facility] Family [facility] - [place] [address], [address] [place] [id number] Alfredo Claros MD [address] [place], [place] [id number] Swollen lymph nodes/fatigue/ general unwell feeling Social History Tobacco Use Types Packs/Day Years Used Date Smoking Tobacco: Never Smokeless Tobacco: Never Alcohol Use Standard Drinks/Week Comments Not Currently 0 (1 standard drink = 0.6 oz pur e alcohol) Comments No Sex and Gender Information Value Date Recorded Sex Assigned at Not on file 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 No / Unsure 03/02/2022 7:29 AM CDT documented as of this encounter Plan of Treatment Not on file documented as of this encounter Visit Diagnoses Not on filedocumented in this encounter Additional Health Concerns Infection Onset Date Last Indicated Resolved Time COVID-19 Rule Out 04/19/2023 04/19/2023 04/19/2023 3:55 PM CDT COVID-19 Rule Out 02/09/2024 02/09/2024 02/09/2024 3:54 PM CDT documented as of this encounter Care Teams Pilot Submersible Relationship Specialty Start Date End Date Alfredo Claros MD [address] [address] PCP - General FAMILY PRACTICE 11/30/21 documented as of this encounter
== END 2024-10-23 16:37 | disposition home or self-care (01) ==
PROVIDERS: Emergency Provider Nurse Practitioner Family; PCP Family Medicine
DX: J02.0 Streptococcal pharyngitis (principal); N18.2 Chronic kidney disease, stage 2 (mild); J45.909 Unspecified asthma, uncomplicated; F41.9 Anxiety disorder, unspecified; F32.A Depression, unspecified; F42.9 Obsessive-compulsive disorder, unspecified; Q79.60 Ehlers-Danlos syndrome, unspecified; Q78.0 Osteogenesis imperfecta
CPT/HCPCS: 87880; 99213; G0463

== ENCOUNTER 2025-02-12 09:21 | Outpatient (CLI) | payer OTHER, SELFPAY ==
--- OUTSIDE RECORDS SUMMARY | 2025-02-12 09:26 | XMS_ITS | Encounter Summary ---
Author Organization [facility] Address [address] [place] [address] Care Team Providers Care Roof Truss Detailer Name Role Phone Alfredo Claros MD Primary Care Provider Encounter Details Date Type Department Care Team (Late st Contact Info) Description 10/21/2022 Reveal Data Message Enc [facility] Family Medicine [address], [address] [place] [phone] [place], [facility] Provider Prescription pickup Social History Tobacco Use Types Packs/Day Years Used Date Smoking Tobacco: Never Smokeless Tobacco: Never Alcohol Use Standard Drinks/Week Comments Not Currently 0 (1 standard drink = 0.6 oz pur e alcohol) Comments No Sex and Gender Information Value Date Recorded Sex Assigned at Female 11/26/2024 8:38 AM CDT 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
--- OUTSIDE RECORDS SUMMARY | 2025-02-12 09:26 | XMS_ITS | Encounter Summary ---
Author Organization [facility] Address [address] [place] [address] Care Team Providers Care Environmental Coordinator Name Role Phone Alfredo Claros MD Primary Care Provider Encounter Details Date Type Department Care Team (Late st Contact Info) Description 05/05/2022 Gist Message Enc [facility] Family Medicine [address], [address] [place] [phone] [place], [facility] Provider lab results Social History Tobacco Use Types Packs/Day Years Used Date Smoking Tobacco: Never Smokeless Tobacco: Never Alcohol Use Standard Drinks/Week Comments Not Currently 0 (1 standard drink = 0.6 oz pur e alcohol) Comments No Sex and Gender Information Value Date Recorded Sex Assigned at Female 11/26/2024 8:38 AM CDT 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
--- OUTSIDE RECORDS SUMMARY | 2025-02-12 09:26 | XMS_ITS | Encounter Summary ---
Author Organization [facility] Address [address] [place] [address] Care Team Providers Care Amphibious Operations Officer Name Role Phone Alfredo Claros MD Primary Care Provider Encounter Details Date Type Department Care Team (Late st Contact Info) Description 05/10/2022 Railpodt Message Enc [facility] Family Medicine - [place] [address], [address] [place] [address] Alfredo Claros MD [address] [place], [place] [phone] Finished antibiotics Social History Tobacco Use Types Packs/Day Years Used Date Smoking Tobacco: Never Smokeless Tobacco: Never Alcohol Use Standard Drinks/Week Comments Not Currently 0 (1 standard drink = 0.6 oz pur e alcohol) Comments No Sex and Gender Information Value Date Recorded Sex Assigned at Female 11/26/2024 8:38 AM CDT 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
--- OUTSIDE RECORDS SUMMARY | 2025-02-12 09:27 | XMS_ITS | Encounter Summary ---
Author Organization [facility] Address [address] [place] [address] Care Team Providers Care Junior Database Administrator Name Role Phone Alfredo Claros MD Primary Care Provider Encounter Details Date Type Department Care Team (Late st Contact Info) Description 01/17/2025 Results Follow-Up [facility] Family Medicine - [place] [address], [address] [place] [phone] Alfredo Claros MD [address] [facility] [address] [place], [place] [phone] US ABD LIMITED Social History Tobacco Use Types Packs/Day Years Used Date Smoking Tobacco: Never Passive Smoke Exposure: Past Smokeless Tobacco: Never Alcohol Use Standard Drinks/Week Comments Yes 0 (1 standard drink = 0.6 oz pur e alcohol) B1300 Health Literacy Answer Date Recor ded How often do you need to hav e someone help you when you read instructions, pamphlets, or other written material from your doctor or pharmacy? Never 02/09/2024 [facility] Utilities Answer Date Recorded In the past 12 months has th e electric, gas, oil, or water company threatened to shut off services in your [...] often do you attend chur ch or sabianism services? Never 02/09/2024 Do you belong to any clubs o r organizations such as rastafari groups, unions, fraternal or athletic groups, or [...] Date Recorded Patient Health Questionnaire-2 Score 0 01/18/2025 [facility] - [...] any time in the past 12 m [facility], were you homeless or living in a snf (including now)? 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 Answer Date of Assessment Author Status No 02/09/2024 6:55 PM CDT Tate An RN Active * Do you have serious difficulty walking or climbing stairs? Answer Date of Assessment Author Status No 02/09/2024 6:55 PM Tate Moreno RN Active * Do you have difficulty dressing or bathing? Answer Date of Assessment Author Status No 02/09/2024 6:55 PM Tate Moreno RN Active * Because of a physical, mental, or emotional condition, do you have difficulty doing errands alone such as visiting a doctor's office or shopping? Answer Date of Assessment Author Status No 02/09/2024 6:55 PM Tate Moreno RN Active * Over the past 2 weeks, how often have you been bothered by any of the following problems? Question Answer Date of Assessment Author Status Little interest or pleasure in doing things Not at all 01/18/2025 2:08 PM Gabi Grande RN Ac tive Feeling down, depressed, or hopeless Not at all 01/18/2025 2:08 PM Gabi Grande RN Active Patient Health Questionnaire-2 Score 0 01/18/2025 2:08 PM Gabi Grande RN Active documented as of this encounter Mental Status * Because of a physical, mental, or emotional condition, do you have serious difficulty concentrating, remembering, or making decisions? Answer Entry Date Author Status No 02/09/2024 6:55 PM Tate Moreno RN Active documented in this encounter Plan of Treatment Not on file documented as of this encounter Visit Diagnoses Not on filedocumented in this encounter Additional Health Concerns Assessment Noted Time PHQ-9 Depression Total Score: 0 08/27/19 11:35 AM OPTICAL ENGINEERING MANAGER documented as of this encounter Care Teams Junior Database Administrator Relationship Specialty Start Date End Date Alfredo Claros MD [address] [place] [address] PCP - General FAMILY PRACTICE 11/30/21 documented as of this encounter
--- OUTSIDE RECORDS SUMMARY | 2025-02-12 09:27 | XMS_ITS | Encounter Summary ---
Author Organization [facility] Address [address] [place] [address] Care Team Providers Care Database Administrator Name Role Phone Alfredo Claros MD Primary Care Provider Encounter Details Date Type Department Care Team (Late st Contact Info) Description 03/01/2022 MyChart Message Enc [facility] Family Medicine - [place] [address] [facility], [address] [place] [phone] Alfredo Claros MD [address] [place], [place] [phone] Swollen lymph nodes/fatigue/ general unwell feeling Social History Tobacco Use Types Packs/Day Years Used Date Smoking Tobacco: Never Smokeless Tobacco: Never Alcohol Use Standard Drinks/Week Comments Not Currently 0 (1 standard drink = 0.6 oz pur e alcohol) Comments No Sex and Gender Information Value Date Recorded Sex Assigned at Female 11/26/2024 8:38 AM CDT 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
--- OUTSIDE RECORDS SUMMARY | 2025-02-12 09:27 | XMS_ITS | Patient Health Record ---
Author Organization [facility] Address [address] [facility] [address] [place] [address] Care Team Providers Care Business Intelligence Engineer Name Role Phone Alfredo Claros MD Primary Care Provider Fred Pimentel Unavailable [phone] Allergies Allergen (clinical drug ingredient) Drug/Non Drug Allergy documented on EMR Reaction Allergy Type Onset Date Status erythromycin Erythromycin Base Unknown Drug Allergy 2023 Active vancomycin Vancomycin Unknown Drug Allergy Activ e Results Component Value Reference Range Notes Benzodiazepines Reviewed date:01/11/2025 02:10:02 PM Interpretation: Performing Lab:[address] [place] [address], [address] [place] [address], Director - [id number] Notes/Report: An exception occurred while processing this report and so it has incomplete data. Please contact [employer] Support for assistance. Not Medicated Consistent Not Medicated Consistent Not Medicated Consistent Not Medicated Consistent Not Medicated Consistent Medicated Consistent Not Medicated Consistent Not Medicated Consistent Not Medicated Consistent Not Medicated Consistent 7-Aminoclonazepam NEGATIVE 20.0 ng/mL Temazepam NEGATIVE 40.0 ng/mL Oxazepam NEGATIVE 40.0 ng/mL Midazolam NEGATIVE 40.0 ng/mL Lorazepam 265.4 40.0 ng/mL Nordiazepam NEGATIVE 40.0 ng/mL Diazepam NEGATIVE 40.0 ng/mL Clonazepam NEGATIVE 20.0 ng/mL Hydroxyalprazolam NEGATIVE 20.0 ng/mL Alprazolam NEGATIVE 20.0 ng/mL PDF Report [email or web address] [email or web address] Validity Testing Reviewed date:01/11/2025 02:10:02 PM Interpretation: Performing Lab: Notes/Report: Not Medicated Consistent Not Medicated Consistent Not Medicated Consistent Not Medicated Consistent Specific [place] 1.023 1.003 - 1.030 pH 5.7 3.0 - 10.9 Oxidants -20 200 g/mL Creatinine 251.3 20.0 - 300.0 mg/dL UDT Reviewed date:01/04/2025 01:09:44 PM Interpretation: Performing Lab: Notes/Report: THC N 0 - 50 ng/ml Cocaine N 0 - 300 ng/ml Amphetamine N 0 - 1000 ng/ml Buprenorphine (BUP) N 0 - 10 ng/ml Secobarbital (Bar) N 0 - 300 ng/ml Oxazepam (BZO) P 0 - 300 ng/ml 6-wldsyzvvrh-6,6-skrxxfbh-3, 3-diphenylpyr rolidine (EDDP) N 0 - 300 ng/ml Methamphetamine (MET) N 0 - 1000 ng/ml Methylenedioxymethamphetamine (MDMA) N 0 - 500 ng/ml Morphine (MOP 300/CDB1172) N 0 - 300 ng/ml Methadone (MTD) [...] Oxazepam (BZO) N 0 - 300 ng/ml 8-jzyayrylol-6,1-xqlutqpz-4, 3-diphenylpyr rolidine (EDDP) N 0 - 300 ng/ml Methamphetamine (MET) N 0 - 1000 ng/ml Methylenedioxymethamphetamine (MDMA) N 0 - 500 ng/ml Morphine (MOP 300/BQC2236) N 0 - 300 ng/ml Methadone (MTD) N 0 - 300 ng/ml Phencyclidine (PCP) N 0 - 25 ng/ml Nortriptyline (TCA) N 0 - 1000 ng/ml Oxycodone N 0 - 300 ng/ml x N 0 - 300 ng/ml UDT Reviewed date:10/10/2024 05:09:13 PM Interpretation: Performing Lab: Notes/Report: THC N 0 - 50 ng/ml Cocaine N 0 - 300 ng/ml Amphetamine N 0 - 1000 ng/ml Buprenorphine (BUP) N 0 - 10 ng/ml Secobarbital (Bar) N 0 - 300 ng/ml Oxazepam (BZO) N 0 - 300 ng/ml 0-jlwupsnydb-2,2-zersdkih-2, 3-diphenylpyr rolidine (EDDP) N 0 - 300 ng/ml Methamphetamine (MET) N 0 - 1000 ng/ml Methylenedioxymethamphetamine (MDMA) N 0 - 500 ng/ml Morphine (MOP 300/APW6883) N 0 - 300 ng/ml Methadone (MTD) [...] Oxazepam (BZO) P 0 - 300 ng/ml 4-jptgftbqho-2,8-ckgfaucj-8, 3-diphenylpyr rolidine (EDDP) N 0 - 300 ng/ml Methamphetamine (MET) N 0 - 1000 ng/ml Methylenedioxymethamphetamine (MDMA) N 0 - 500 ng/ml Morphine (MOP 300/REH6288) N 0 - 300 ng/ml Methadone (MTD) [...] the evening with food Orally Once a day; Duration: 90 days Active buPROPion HCl ER (XL) 300 MG 1 tablet in the morning Orally Once a day; Duration: 90 days total dose of 450 mg daily rx on 10/10/24 Active Lurasidone HCl 60 MG 1 tablet in the evening with food Orally Once a day; Duration: 90 days rx on 10/10/24 Active LORazepam 0.5 MG 1 tablet Orally Once a day; Duration: 30 days As needed cancel previous rx on lorazepam 01/04/2025 Active Sertraline HCl 100 MG 2 tablet every morning Oral Once a day; Duration: 90 days rx on 10/10/24 Active Baby Aspirin 12/22/2023 Unknow n Zepbound 5 MG/0.5ML INJECT 1 SYRINGE SUBCUTANEOUSLY ONCE A WEEK Subcutaneous; Duration: 28 Days Active lamoTRIgine 100 mg 1 tablet oral once a day; Duration: 90 days rx on 10/10/24 Active buPROPion HCl ER (XL) 150 MG 1 tablet in the morning Orally Once a day; Duration: 90 days total dose of 450 mg po qam rx on 10/10/24 Active predniSONE 20 MG Oral 12/22/2023 Un known Sertraline HCl 100 MG Oral 12/22/2023 Unknown Social History Tobacco Use: Social History Observation Description Date Details (start date - stop date) Never Smoker NA - NA Sex Assigned At : Social History Observation Description Sex Assigned At Female Tobacco Control (Standard) Question Answer Notes Tobacco use: Nonsmoker Problems Problem Type SNOMED Code ICD Code Onset Dates Problem Status W/U Status Risk Notes Problem Generalized anxiety disorder (27265180) Generalized anxiety disorder (F41.1) Active confirmed Problem Obsessive-compul sive disorder (071456446) Obsessive-compu lsive disorder, unspecified (F42.9) Active confirmed Problem Generalized anxiety disorder (54633982) CORNELIO (generalized anxiety disorder) (F41.1) Active confirmed Problem Recurrent major depression (13350238) Depression, major, recurrent, in remission (F33.40) Active confirmed Problem Recurrent major depression in full remission (39090705) Major depression, recurrent, full remission (F33.42) Active confirmed Vital Signs Heart Rate 90 /min 01/04/2025 Height-cm 177.80 cm 01/04/2025 Blood pressure diastolic 75 mm Hg 01/04/2025 Weight-kg 123.38 kg 01/04/2025 Height 70.00 in 01/04/2025 Blood pressure systolic 118 mm Hg 01/04/2025 Weight 272 lbs 01/04/2025 BMI 39.02 kg/m2 01/04/2025 Encounters Encounter Location Date Provider Diagnosis [address] [address] 03/02/2024 Fred Hugo Major depressive disorder, recurrent, in remission, unspecified F33.40 ; Obsessive-compulsive disorder, unspecified F42.9 and Major depression, recurrent, full remission F33.[address] [address] 04/27/2024 Fred Hugo Major depressive disorder, recurrent, in remission, unspecified F33.40 ; Obsessive-compulsive disorder, unspecified F42.9 and CORNELIO (generalized anxiety disorder) F41.[address] [address] 05/11/2024 Fred Hugo Major depressive disorder, recurrent, in remission, unspecified F33.40 ; Obsessive-compulsive disorder, unspecified F42.9 and CORNELIO (generalized anxiety disorder) F41.[address] [address] 06/11/2024 Fred Hugo Major depressive disorder, recurrent, in remission, unspecified F33.40 ; Obsessive-compulsive disorder, unspecified F42.9 and CORNELIO (generalized anxiety disorder) F41.[address] [address] 07/11/2024 Fred Hugo Major depressive disorder, recurrent, in remission, unspecified F33.40 ; Obsessive-compulsive disorder, unspecified F42.9 and CORNELIO (generalized anxiety disorder) F41.[address] [address] 10/10/2024 Fred Hugo Major depressive disorder, recurrent, in remission, unspecified F33.40 ; Obsessive-compulsive disorder, unspecified F42.9 and CORNELIO (generalized anxiety disorder) F41.[address] [address] 01/04/2025 Fred Hugo Depression, major, recurrent, in remission F33.40 ; Obsessive-compulsive disorder, unspecified F42.9 ; Encounter for screening for cardiovascular disorders Z13.6 ; CORNELIO (generalized anxiety disorder) F41.1 ; Negative depression screening Z13.31 ; Generalized anxiety disorder F41.1 and Abnormal weight loss R63.4 [facility] [address] [place] [address] 10/04/2024 Fred Arias Major depressive disorder, recurrent, in remission, unspecified F33.40 Assessments Encounter Date Diagnosis (ICD Code) Assessment Notes Treatment Notes Treatment Clinical Notes Section Notes 03/02/2024 Major depressive disorder, recurrent, in remission, [...] sufficient medication supply until the next appointment. 04/27/2024 Major depressive disorder, recurrent, in remission, [...] TV to zone out and calm down. Obsessive-Compuls job Symptoms - Assessment: Patient reports a history [...] supply of sertraline to be filled through [facility] or [facility], as needed. - Ensure lorazepam prescription is sent to [facility]. - Discuss the importance of in-person appointments for better management of depression. 04/27/2024 Obsessive-compuls job disorder, unspecified (ICD-10 - F42.9) Depression - [...] TV to zone out and calm down. Obsessive-Compuls job Symptoms - Assessment: Patient reports a history [...] supply of sertraline to be filled through [facility] or [facility], as needed. - Ensure lorazepam prescription is sent to [facility]. 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 Current medication regimen appears effective. - Plan: [...] recurrent, in remission, unspecified (ICD-10 - F33.40) 01/04/2025 Obsessive-compuls job disorder, unspecified (ICD-10 - F42.9) 01/04/2025 Depression, major, recurrent, in remission (ICD-10 - F33.40) 10/10/2024 Obsessive-compuls job disorder, unspecified (ICD-10 - F42.9) 01/04/2025 Encounter for screening for cardiovascular disorders (ICD-10 - Z13.6) 07/11/2024 Obsessive-compuls job disorder, unspecified (ICD-10 - F42.9) Anxiety - Assessment: Patient reports improvement in anxiety levels with no recent panic or anxiety attacks. Anxiety is way better than before, though still present here and there. Current medication regimen appears effective. - Plan: [...] concerns arise before the scheduled appointment. 06/11/2024 Obsessive-compuls job disorder, unspecified (ICD-10 - F42.9) Anxiety and [...] given work stress and childcare responsibilities. 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 Obsessive-Compuls job Symptoms - Assessment: Patient reports a history [...] supply of sertraline to be filled through [facility] or [facility], as needed. - Ensure lorazepam prescription is sent to [facility]. - Discuss the importance of in-person appointments for better management of depression. 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 Current medication regimen appears effective. - Plan: [...] medications as needed. - Send prescriptions to [facility], except for Lurasidone, which will be sent to patient's preferred pharmacy. - Schedule follow-up appointment in 3 months. - Inform patient about walk-in availability if unable to get an appointment and running out of medication. - Advise patient to call or walk in if any concerns arise before the scheduled appointment. 10/10/2024 CORNELIO (generalized anxiety disorder) (ICD-10 - F41.1) 01/04/2025 CORNELIO (generalized anxiety disorder) (ICD-10 - F41.1) 01/04/2025 Negative depression screening (ICD-10 - Z13.31) 03/02/2024 Major depression, recurrent, full remission (ICD-10 [...] sufficient medication supply until the next appointment. 01/04/2025 Generalized anxiety disorder (ICD-10 - F41.1) Patient reports increased irritability mainly related to work stress. Anxiety flare-ups occur occasionally, particularly during stressful periods. - Continue Sertraline 100 mg, 2 tablets daily. - Continue Duloxetine 60 mg daily. - Continue Lamotrigine 100 mg once a day. - Continue Lorazepam 0.5 mg, 1 tablet once a day as needed. 01/04/2025 Abnormal weight loss (ICD-10 - R63.4) Patient reports losing approximately 20 lbs since starting a new medication. Engaging in regular exercise. - Continue monitoring weight and exercise routine. Patient experienced severe abdominal pain, suspecting pancreatitis or gallbladder attack. Pending blood test order to investigate further. - Monitor symptoms and proceed with blood test if severe pain recurs. 10/10/2024 Other Depression - Assessment: Patient reports [...] through [facility]. - Refill Lorazepam at [facility]. Follow-up - Plan: - Schedule a follow-up appointment in 3 months to monitor the patient's progress and adjust medications as needed. - Encourage the patient to contact the clinic if there are any concerns or changes in symptoms before the next appointment. Plan Of Treatment Next Appt Details Provider Name:Fred Arias , 04/05/2025 04:45:00 PM, [address] [address] [facility] [address], [place], [address], Insurance Providers Payer Name Payer Address Payer Phone Subscriber Number Group Number Insured Name Patient Relationship to Insured Coverage Start Date Coverage End Date [facility] Benefit Plan Management Ppo [address] [place] [address] [id number] CHARLIE BEATTY Self - patient is the [...]
--- OUTSIDE RECORDS SUMMARY | 2025-02-12 09:27 | XMS_ITS | Encounter Summary ---
Author Organization [facility] Address [address] [place] [address] Care Team Providers Care Cattle Driver Name Role Phone Alfredo Claros MD Primary Care Provider Reason for Visit * Reason Onset Date Comments Problem 12/14/2021 Encounter Details Date Type Department Care Team (Late st Contact Info) Description 12/14/2021 MyChart Message Enc [facility] Family Medicine - [place] [address] [place] [address] Alfredo Claros MD [address] [place], [place] [phone] Covid results Social History Tobacco Use Types Packs/Day Years Used Date Smoking Tobacco: Never Smokeless Tobacco: Never Alcohol Use Standard Drinks/Week Comments Not Currently 0 (1 standard drink = 0.6 oz pur e alcohol) Comments No Sex and Gender Information Value Date Recorded Sex Assigned at Female 11/26/2024 8:38 AM CDT 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
--- OUTSIDE RECORDS SUMMARY | 2025-02-12 09:27 | XMS_ITS | Encounter Summary ---
Author Organization [facility] Address [address] [place] [address] Care Team Providers Care Engraver Machine Name Role Phone Alfredo Claros MD Primary Care Provider Encounter Details Date Type Department Care Team (Late st Contact Info) Description 01/09/2025 Small Demonst Message Enc [facility] Family Medicine - Fred [address], [address] [place] [address] Alfredo Claros MD [address] [place], [place] [phone] Abdominal pain Social History Tobacco Use Types Packs/Day Years [...] often do you attend chur ch or hoahaoism services? Never 02/09/2024 Do you belong to any clubs o r organizations such as sikh groups, unions, fraternal or athletic groups, or [...] Date Recorded Patient Health Questionnaire-2 Score 0 11/26/2024 [facility] - Occupational Stress [...] any time in the past 12 m [facility], were you homeless or living in a m[facility]p (including now)? 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 Answer Date of Assessment Author Status No 02/09/2024 6:55 PM Tate Moreno, MARIKA Active * Because of a physical, mental, or emotional condition, do you have difficulty doing errands alone such as visiting a doctor's office or shopping? Answer Date of Assessment Author Status No 02/09/2024 6:55 PM Tate Moreno RN Active documented as of this encounter Mental Status * Because of a physical, mental, or emotional condition, do you have serious difficulty concentrating, remembering, or making decisions? Answer Entry Date Author Status No 02/09/2024 6:55 PM Taet Moreno RN Active documented in this encounter Plan of Treatment Not on file documented as of this encounter Visit Diagnoses Not on filedocumented in this encounter Additional Health Concerns Assessment Noted Time PHQ-9 Depression Total Score: 0 08/27/19 11:35 AM PRENATAL GENETIC COUNSELOR documented as of this encounter Care Teams Engraver Machine Relationship Specialty Start Date End Date Alfredo Claros MD [address] [address] PCP - General FAMILY PRACTICE 11/30/21 documented as of this encounter
--- OUTSIDE RECORDS SUMMARY | 2025-02-12 09:27 | XMS_ITS | Clinical Summary ---
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 Anxiety and depression 04/05/2023 Overview (04/06/2023): [...] easily managed by the pediatricians, and no fpc effects have ever been demonstrated. We discussed [...] , as well as referral to a financial aid and pulmonary function testing. 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 Gender Identity Not on file Sexual Orientation [...] 2:44 PM CDT Height 177.8 cm (5' 10) 04/06/2023 2:44 PM CDT Body Mass Index 44.91 04/06/2023 2:44 PM CDT Plan of Treatment Health Maintenance Due Date Last Done Comments Cervical Cancer Screening 1995 Depression Screening 1995 Hepatitis C Screening 1995 Varicella Vaccines (1 of 2 - 13+ 2-dose series) 01/16/2008 Regular Well Visit/Exam 18-64 2013 Covid-19 Vaccine ( season) 2024 08/21/2021, 10/18/2020, 09/19/2020 Influenza Vaccine (#1) 2025 , 06/17/2020, 07/26/2019, Additional history exists DTaP/Tdap/Td Vaccine (8 - Td or Tdap) 03/26/2026 03/26/2016, 03/05/2005, 10/16/1999, Additional history exists Hepatitis B Screening Completed 01/23/1996 , 1995, 1995, Additional history exists HPV Vaccines Completed 01/05/2008, 07/09, 05/26/2007 Pneumococcal vaccine <65 Aged Out No longer eligible based on patient's age to complete this topic Insurance [facility] CHO[facility] PLUS [facility] PLUS [facility] CHO[facility] PLUS CIGNA ALLEGIANCE Care Teams Yarn Dry Room Worker Relationship Specialty Start Date End Date Alfredo Claros MD [address] [address] PCP - General Family Medicine 03/01/22
--- OUTSIDE RECORDS SUMMARY | 2025-02-12 09:27 | XMS_ITS | Clinical Summary ---
Author Organization [facility] Address [address] [address] Care Team Providers Care Building Code Administrator Name Role Phone Alfredo Claros MD Primary Care Provider Source Comments [facility],non-owned Affiliates and Associated Physician Practices is amultiple site organization consisting of ambulatory clinics and hospital sitesin [place], [place], [place] and [place]. This disclosure is being madepursuant to the Care Everywhere program and may not contain all information available regarding this patient. Last updated 18.[facility] Allergies Active Allergy Reactions Criticality Noted Date Comments Erythromycin Urticaria Medium 12/07/2023 Medications * Be aware that medications may not be up to date on this document. Alwaysverify current medications with the patient. lamoTRIgine (LAMICTAL) 100 MG tablet Take 1 (one) tablet by mouth once daily Active LORazepam (ATIVAN) 1 MG tablet TAKE 1 TABLET BY MOUTH ONCE DAILY NEEDED FOR ANXIETY 2 Active sertraline (ZOLOFT) 100 MG tablet 1.5 (one and one-half) tablets once daily 2 Active buPROPion XL 24hr (WELLBUTRIN-XL) 300 MG tablet 2 Active Vit-DSS-Fe Fum-FA ( vitamin with iron) tabletIndicatio ns: Take 1 (one) tablet by mouth once daily Reasons: Active aspirin EC (Ecotrin) 81 MG tabletIndicatio ns:Preeclampsia Take 2 (two) tablets by mouth once daily Reasons: Increased Blood Pressure and Edema During Active magnesium oxide (Mag-Ox) 400 MG tabletIndicatio ns:Restless Leg Syndrome Take 1 (one) tablet by mouth once daily Reasons: Restless Leg Syndrome Active pyridoxine (Vitamin B-6) 25 MG tablet Take 2 (two) tablets by mouth once daily Active albuterol HFA (Proventil; Ventolin; Proair) 108 (90 Base) MCG/ACT inhalerIndicati ons:Asthma Inhale 2 (two) puffs by mouth every 6 hours as needed for Shortness of Breath, Wheezing or Cough Reasons: Asthma Active lurasidone (Latuda) 20 MG tablet Take 1 (one) tablet by mouth daily with food Active cyclobenzaprine (Flexeril) 10 MG tablet Take 1 (one) tablet by mouth 3 times daily as needed for Muscle Spasms 15 tablet 4 Active lidocaine (Lidoderm) 5 % patch Apply 1 (one) patch to skin once daily Apply patch to most painful area and remove after 12 hours. May reapply a new patch 12 hours later. 6 patch 4 Active nitrofurantoin monohyd macro crystals (Macrobid) 100 MG capsule Take 1 (one) capsule by mouth every 12 hours 14 capsule 4 Active Additional Information Patient not taking.Reported on 12/21/2023 Active Problems Problem Noted Date Diagnosed Date Supervision of high risk in [facility] 12/07/2023 Obesity 10/05/2023 Sunil-Danlos syndrome, sarah gn [...] and heating? Not hard at all 12/07/2023 [facility] - Occupational Stress [...] place to sleep or slept in a retirement (including now)? No 12/07/2023 Comments No Sex and Gender Information Value Date Recorded Sex Assigned at Not on file Legal Sex Female 12:31 PM CDT Gender Identity Not on file Sexual Orientation [...] 3:16 PM CDT Height 175.3 cm (5' 9) 12/21/2023 3:16 PM CDT Body Mass Index 47.2 12/21/2023 3:16 PM CDT Plan of Treatment Health Maintenance Due Date Last Done Comments HIV SCREENING 2010 DTAP/TDAP/TD VACCINES (1 - Tdap) 2014 HEPATITIS B VACCINE (1 of 3 - 19+ 3-dose series) 2014 PAP SMEAR 01/16/2016 COVID-19 VACCINE ( season) 2024 08/21/2021, 10/18/2020, 09/19/2020 DEPRESSION SCREENING 08/08/2024 INFLUENZA VACCINE (#1) 2025 2, 06/17/2020, 07/26/2019, Additional history exists ZOSTER VACCINE (1 of 2) 2045 HEPATITIS [...] on patient's age to complete this topic PNEUMOCOCCAL VACCINE Aged Out No long er eligible based on patient's age to complete this topic Procedures Procedure Name Priority Date/Time Associated Diagnosis Comments HEPATITIS SCREEN ACUTE STAT 12/07/2023 8:49 PM CDT Supervision of high risk in third trimester from Last 3 Months or Most Recently Relevant to Health Maintenance Results * HEPATITIS SCREEN ACUTE (12/07/2023 8:49 PM CDT) HAV Antibody IgM Non Reactive Non Reactive 12/07/2023 9:40 PM CDT [facility] HBsAg Non Reactive Non Reactive 12/07/2023 9:40 PM CDT [facility] HBc Antibody IgM Non Reactive Non Reactive 12/07/2023 9:40 PM CDT [facility] HCV Antibody Screen Non Reactive Non Reactive 12/07/2023 9:40 PM CDT [facility] Blood BLOOD SPECIMEN / Unknown Venipuncture / Unknown 12/07/2023 8:49 PM CDT 12/07/2023 8:54 PM CDT Narrative [facility] - 12/07/2023 9:40 PM CDT Non Reactive - Antibodies to Hepatitis C virus (HCV) were not detected, result does not exclude early acute HCV infection. us Amanda Crawford MD LAB - CHEMISTRY ORDERABLES Ange maza Result [facility] [address] [place], [place] [id number] from Last 3 Months or Most Recently Relevant to Health Maintenance Insurance [employer] * Guarantor: RADHIKA BECK Account Type Relation to Patient Date of Phone Billing Address Personal/Family [address] [place] [address] [employer] SELF PAY NO INSURANCE Member Subscriber Plan / Payer (Ef fective for All Dates) Name:Radhika Beck Member ID:Not on file Relation to Subscriber:Not on file Name:RADHIKA BECK Subscriber ID:Not on file Address: [address] [place] [address] Payer ID:Not on file Group ID:Not on file Type:Self Pay Address: [place], [place] * Guarantor: RADHIKA BECK Account Type Relation to Patient Date of Phone Billing Address Personal/Family [address] [place] [address] [employer] SELF PAY NO INSURANCE Member Subscriber Plan / Payer (Ef fective for All Dates) Name:Radhika Beck Member ID:Not on file Relation to Subscriber:Not on file Name:RADHIKA BECK Subscriber ID:Not on file Address: [address] [place] [address] Payer ID:Not on file Group ID:Not on file Type:Self Pay Address: [place], [place] * Guarantor: RADHIKA BECK Account Type Relation to Patient Date of Phone Billing Address Personal/Family [address] [place] [address] [employer] SELF PAY NO INSURANCE Member Subscriber Plan / Payer (Ef fective for All Dates) Name:Radhika Beck Member ID:Not on file Relation to Subscriber:Not on file Name:RADHIKA BECK Subscriber ID:Not on file Address: [address] [place] [address] Payer ID:Not on file Group ID:Not on file Type:Self Pay Address: [place], [place] Advance Directives * Full Code (Latest Code Status on File) Date Activated Date Inactivated Comments 12/07/2023 8:47 PM 12/08/2023 3:11 PM Care Teams Building Code Administrator Relationship Specialty Start Date End Date Alfredo Claros MD [address] [place], [place] [phone] PCP - General Family Medicine 12/28/21
--- OUTSIDE RECORDS SUMMARY | 2025-02-12 09:27 | XMS_ITS | Clinical Summary ---
Author Organization [facility] Address [address] [place] [id number] Care Team Providers Care Parts Delivery Driver Name Role Phone Alfredo Claros MD [...] (300 mg total) by mouth every morning. 10/23/19 22 Active lurasidone (LATUDA) 40 MG Tab tablet Take 1 tablet (40 mg total) by mouth nightly at bedtime. Active Norethindrone , Contraceptive , 0.35 MG tablet Take 1 tablet by mouth daily. Active sertraline (ZOLOFT) 100 MG tablet Take 1.5 tablets (150 mg total) by mouth nightly at bedtime. Active LORazepam (ATIVAN) 0.5 MG tablet daily. 10/11/19 25 Active Lidocaine HCl (LIDOCAINE 1.5%/NIFEDIPI NE 0.3% COMPOUNDED OINT)Indicati ons:Anal fissure APPLY EXTERNALLY 2 TIMES A DAY AND NEEDED AFTER BOWEL MOVEMENT 3 oz 6 11/27/19 25 Active Nitroglycerin 0.4 % OintmentIndic ations:Anal fissure Place 1 inch rectally 2 (two) times daily as needed. 30 g 3 11/27/19 25 Active ZEPBOUND 5 MG/0.5ML injectionIndi cations:Morbi d obesity with BMI of 40.0-44.9, adult ([facility]) INJECT 1 SYRINGE SUBCUTANEOUSLY ONCE A WEEK 4 mL 01/23/20 25 Active tirzepatide (ZEPBOUND) 5 MG/0.5ML injectionIndi cations:Weigh t Loss Inject 5 mg into the skin once a week. 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 We discussed [...] Morbid obesity with BMI of 40.0-44.9, adult 11/07 Arthralgia, unspecified joint 11/30/2021 Vitamin D deficiency 11/30/2021 Irregular menstrual cycle 04/05/2011 Resolved Problems Problem Noted Date Diagnosed Date Resolved Date state, incidental (HHS/HCC) 11/17/2023 02/14/2024 Encounters Date Type Department Care Team Description 01/29/2025 MyChart Message Enc [facility] Family Medicine [place] [address], [address] [place] [address] Alfredo Claros MD General Surgeon 01/29/2025 Results Follow-Up [facility] [address] [phone] Fabrizio Cam MD MO HEPATOBILIARY SCAN W/GB EJECTION FRACTION 01/28/2025 7:44 AM CDT - 01/28/2025 11:59 PM CDT Hospital Encounter [facility] Nuclear Medicine [address] [place] [address] Fabrizio Cam MD Discharge Disposition: Home or Self Care (Routine Discharge) 01/28/2025 Travel 01/18/2025 2:00 PM CDT Office Visit [facility] [address] [address] [place] [address] Alfredo Claros MD Kim, Peter S, MD New Patient (Rectal sx) 01/18/2025 Travel 01/17/2025 11:35 AM CDT - 01/17/2025 11:59 PM CDT Hospital Encounter [facility] Ultrasound [address] [place] [address] Alfredo Claros MD Discharge Disposition: Home or Self Care (Routine Discharge) 01/17/2025 Results Follow-Up [facility] [address], [address] [place] [address] Alfredo Claros MD ABD LIMITED 01/17/2025 Travel 01/10/2025 Orders Only [facility] [address], [address] [place] [phone] Alfredo Claros MD 01/09/2025 MyChart Message Enc [facility] [address], [address] [place] [phone] Alfredo Claros MD Abdominal pain 01/08/2025 Scan [facility] SRVCS Scanned, [facility] 01/07/2025 8:32 AM CDT - 01/07/2025 11:59 PM CDT Hospital Encounter [facility] Laboratory [address] [place] [address] Annia Perkins APNP Discharge Disposition: Home or Self Care (Routine Discharge) 01/07/2025 8:30 AM CDT - 01/07/2025 8:31 AM CDT Hospital Encounter [facility] Laboratory [address] [place] [address] Alfredo Claros MD Discharge Disposition: Home or Self Care (Routine Discharge) 01/07/2025 Orders Only [facility] Laboratory [address] [place] [address] Annia Perkins APNP 01/07/2025 Travel 12/27/2024 Orders Only [facility] [address], [address] [place] [phone] Alfredo Claros MD 12/27/2024 Telephone [facility] [address], [address] [place] [phone] Alfredo Claros MD Question; Problem 11/26/2024 8:40 AM CDT Office Visit [place] [address], [address] [place] [phone] Alfredo Claros MD Rectal Problem (Pain in anal area hurting to walk per patient Feels like razor blades. For one week. ) 11/26/2024 7:24 AM CDT - 11/26/2024 11:59 PM CDT Hospital Encounter [facility] [address] [place] [address] Alfredo Claros MD Discharge Disposition: Home or Self Care (Routine Discharge) 11/26/2024 Travel from Last 3 Months Immunizations Immunization Administration Dates Next Due Dtap (Generic) 10/16/1999, [...] Medical History Relation Comments Diabetes Maternal Grandfather Hypertension Maternal Grandfather Mental Health Mother Diabetes Paternal Grandfather Early Paternal Grandfather Covid Heart Disease Paternal Grandfather Hypertension Paternal Grandfather Stroke Paternal Grandfather Relation Status Comments Maternal Grandfather Alive Mother Alive Paternal Grandfather Alive Social History Tobacco Use Types Packs/Day Years [...] from your doctor or pharmacy? Never 02/09/2024 [facility] [employer] Answer Date Recorded In the past 12 months has th e [employer], gas, oil, or water [employer] threatened to shut off services in your [...] often do you attend chur ch or jew services? Never 02/09/2024 Do you belong to any clubs o r organizations such as worship groups, unions, fraternal or athletic groups, or [...] Recorded Patient Health Questionnaire-2 Score 0 01/18/2025 [facility] - Occupational Stress Questionnaire Answer Date Recorded [...] any time in the past 12 m [facility], were you homeless or living in a custodial (including now)? 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 Gender Identity Female 03/03/2022 6:04 AM CDT Sexual Orientation Straight 03/03/2022 6: 04 AM CDT Last Filed Vital Signs Vital Sign Reading Time Taken Comments Blood Pressure 110/70 01/18/2025 2:08 PM CDT Pulse 90 01/18/2025 2:08 PM CDT Temperature 36.9 C (98.5 F) 01/18/2025 2:08 PM CDT Respiratory Rate 18 01/18/2025 2:08 PM CDT Oxygen Saturation 99% 01/18/2025 2:08 PM CDT Inhaled Oxygen Concentration - - Weight 121.7 kg (268 lb 3.2 oz) 01/18/2025 2:08 PM CDT Height 177.8 cm (5' 10) 01/18/2025 2:08 PM CDT Body Mass Index 38.48 01/18/2025 2:08 PM CDT Plan of Treatment Health Maintenance Due Date Last Done Comments Cervical Cancer Screening Pap Smear (Age 30 to 64) Every 3 Years 1995 Pneumococcal Vaccine: Pediatrics (0 to 5 Years) and At-Risk Patients (6 to 49 Years) (1 of 2 - PCV) 2014 Annual Physical 12/30/2023 12/29/2022 COVID-19 Vaccine ( season) 2024 08/21/2021, 10/18/2020, 09/19/2020 Cervical Cancer Screening Pap with HPV Testing (Age 30 to 64) Every 5 Years 2025 Cervical Cancer Screening with HPV 2025 DTaP, Tdap and Td Vaccines (9 - Td or Tdap) 12/29/2033 12/30/2023, 03/26/2016, 03/05/2005, Additional history exists Hepatitis B Vaccines Completed 01/23/1996, 1995, 1995, Additional history exists HPV Vaccines Completed 01/05/2008, 07/09, 05/26/2007 Meningococcal Vaccine Completed 03/26/2016 , 09/27/2011, 05/26/2007 Hepatitis C Completed 12/07/2023, 11/30/2023 PHQ-2 (Physician [place]) Completed 01/18/2025 Meningococcal B Vaccine Aged Out No l onger eligible based on patient's age to complete this topic RSV Immunizations Under 20 Months Aged Out No longer eligible based on patient's age to complete this topic Procedures Procedure Name Priority Date/Time Associated Diagnosis Comments NM HEPATOBILIARY SCAN W/GB EJECTION FRACTION Routine 01/28/2025 11:20 AM CDT RUQ pain Biliary colic US ABD LIMITED [place] 01/17/2025 12:33 PM CDT Right upper quadrant abdominal pain URINALYSIS MICRO ONLY Routine 01/07/2025 8:51 AM CDT HC URINALYSIS AUTO W/O MICRO Routine 01/07/2025 8:51 AM CDT Chronic kidney disease, stage II (mild) ALBUMIN URINE RANDOM W/CREATININE Routine 01/07/2025 8:51 AM CDT Chronic kidney disease, stage II (mild) RENAL FUNCTION PANEL Routine 01/07/2025 8:36 AM CDT Chronic kidney disease, stage II (mild) CBC W/DIFF AUTOMATED Routine 01/07/2025 8:36 AM CDT Chronic kidney disease, stage II (mild) LIPASE Routine 01/07/2025 8:36 AM CDT Left upper quadrant abdominal pain ALBUMIN URINE RANDOM W/CREATININE Routine 11/26/2024 7:34 AM CDT Stage 2 chronic kidney disease HEMOGLOBIN, GLYCOSYLATED Routine 11/26/2024 7:34 AM CDT Impaired fasting glucose Dysmetabolic syndrome X BASIC METABOLIC PANEL Routine 11/26/2024 7:34 AM CDT Impaired fasting glucose Dysmetabolic syndrome X Stage 2 chronic kidney disease HEP C SCANNED ORDERS Routine 11/30/2023 from Last 3 Months or Most Recently Relevant to Health Maintenance Results * NM HEPATOBILIARY SCAN W/GB EJECTION FRACTION (01/28/2025 11:20 AM CDT) Anatomical Region Laterality Modality Abdomen Nuclear Medicine 01/28/2025 12:4 5 PM CDT Impressions 01/28/2025 1:55 PM CDT IMPRESSION: 1. Normal contractile response of the gallbladder to a fat-containing liquid meal. 2. Normal biliary imaging study. The attending radiologist has reviewed the image(s) and agrees with the content of this report. Ordered By: FABRIZIO CAM Interpreted By: Rock Sanchez MD, 01/28/2025 12:45 PM Narrative 01/28/2025 1:[address] [facility] [address] [place] [address] EXAMINATION: HEPATOBILIARY SCINTIGRAPHY (WITH GALLBLADDER EJECTION FRACTION) DATE OF STUDY: 01/28/2025 8:03 AM RADIOPHARMACEUTICAL: 5.0 mCi Tc-99m mebrofenin i.v. and 240 mL Ensure p.o. HISTORY: 30-year-old woman with postprandial right upper quadrant pain after fatty meals and fever. The most recently obtained serum total bilirubin was 0.2 mg/dL on February 11, 2024. Prior nuclear medicine studies used for comparison: none Other radiographic comparisons: Right upper quadrant ultrasound 01/17/2025 FINDINGS: Following intravenous administration of tracer, sequential abdominal images were obtained. There is prompt, uniform accumulation of the tracer by the liver. There is normal filling of the intrahepatic ducts, common bile duct and gallbladder. There is minimal activity in the proximal small bowel by 60 minutes. In order to evaluate the contractile response of the gallbladder to a fat- containing meal, the patient was given Ensure to drink, starting approximately 60 minutes after the administration of the radiopharmaceutical. Sequential imaging was continued for 60 minutes after the start of the liquid meal. There is prompt progressive biliary to bowel transit, effectively ruling out the presence of a significant common bile duct obstruction. These images demonstrate good contraction of the gallbladder. The calculated gallbladder ejection fraction is 71%. In normal subjects, the lower limit of normal gallbladder ejection fraction for Ensure is 33% Procedure Note Ariela Jones MD - 01/28/2025 [facility] [address] [address] [facility] [address] [place] [id number] EXAMINATION: HEPATOBILIARY SCINTIGRAPHY (WITH GALLBLADDER EJECTIONFRACTION) DATE OF STUDY: 01/28/2025 8:03 AM RADIOPHARMACEUTICAL: 5.0 mCi Tc-99m mebrofenin i.v. and 240 mL Ensurep.o. HISTORY: 30-year-old woman with postprandial right upper quadrant painafter fatty meals and fever. The most recently obtained serum totalbilirubin was 0.2 mg/dL on February 11, 2024. Prior nuclear medicine studies used for comparison: none Other radiographic comparisons: Right upper quadrant ultrasound01/17/2025 FINDINGS: Following intravenous administration of tracer, sequentialabdominal images were obtained. There is prompt, uniform accumulation ofthe tracer by the liver. There is normal filling of the intrahepaticducts, common bile duct and gallbladder. There is minimal activity in theproximal small bowel by 60 minutes. In order to evaluate the contractile response of the gallbladder to afat- containing meal, the patient was given Ensure to drink, startingapproximately 60 minutes after the administration of theradiopharmaceutical. Sequential imaging was continued for 60 minutesafter the start of the liquid meal. There is prompt progressive biliaryto bowel transit, effectively ruling out the presence of a significantcommon bile duct obstruction. These images demonstrate good contraction ofthe gallbladder. The calculated gallbladder ejection fraction is 71%. In normal subjects, the lower limit of normal gallbladder ejectionfraction for Ensure is 33% IMPRESSION: 1. Normal contractile response of the gallbladder to a fat-containingliquid meal. 2. Normal biliary imaging study. The attending radiologist has reviewed the image(s) and agrees with thecontent of this report. Ordered By: FABRIZIO CAM Interpreted By: Rock Sanchez MD, 01/28/2025 12:45 PM us Fabrizio Cam MD NUC MED Final Result * US ABD LIMITED (01/17/2025 12:33 PM CDT) Anatomical Region Laterality Modality Abdomen Ultrasound 01/17/2025 1:28 PM CDT Impressions 01/17/2025 1:35 PM CDT =====IMPRESSION:===== 1. Possible subtle sludge or debris in the gallbladder lumen. No discrete stone seen. No gallbladder wall thickening or adjacent fluid noted. Technologist reports probe tenderness during scanning however. This is also noted in the region of pancreas. Ordered By: ALFREDO CLAROS Interpreted By: Merrill Maria MD, 01/17/2025 1:28 PM Narrative 01/17/2025 1:[address] [facility] [address] [facility] [place] [address] EXAMINATION: Limited Abdomen Ultrasound: RUQ EXAM DATE/TIME: 01/17/2025 12:00 PM REASON FOR EXAM: abdominal pain COMPARISON: 11/01/2022 TECHNIQUE: An ultrasound examination of the RUQ was performed FINDINGS: Pancreas: Partially visualized with normal echogenicity. Technologist notes. Tenderness while scanning over this area. Liver: Normal echogenicity in its viewed portions. The liver is enlarged measuring greater than 21 cm in craniocaudal extent this is similar prior study. Portal vein: Spectral analysis reveals normal hepatopetal flow. Inferior vena cava: Normal in its viewed portions. Gallbladder: Subtle internal echoes are seen. Minimal sludge or debris is possible. These are within the lumen of the gallbladder and not dependent. No definite stones are seen. Positive probe tenderness is noted by technologist. Common bile duct: 0.2 centimeters Right kidney: 10.3 cm X 3.3 cm X 4.9 cm.. Normal echogenicity. No hydronephrosis Other findings: No ascites. Procedure Note Merrill Maria MD - 01/17/2025 [facility] [address] [place] [address] EXAMINATION: Limited Abdomen Ultrasound: RUQ EXAM DATE/TIME: 01/17/2025 12:00 PM REASON FOR EXAM: abdominal pain COMPARISON: 11/01/2022 TECHNIQUE: An ultrasound examination of the RUQ was performed FINDINGS: Pancreas: Partially visualized with normal echogenicity. Technologistnotes. Tenderness while scanning over this area. Liver: Normal echogenicity in its viewed portions. The liver is enlargedmeasuring greater than 21 cm in craniocaudal extent this is similar priorstudy. Portal vein: Spectral analysis reveals normal hepatopetal flow. Inferior vena cava: Normal in its viewed portions. Gallbladder: Subtle internal echoes are seen. Minimal sludge or debris ispossible. These are within the lumen of the gallbladder and not dependent.No definite stones are seen. Positive probe tenderness is noted bytechnologist. Common bile duct: 0.2 centimeters Right kidney: 10.3 cm X 3.3 cm X 4.9 cm.. Normal echogenicity. Nohydronephrosis Other findings: No ascites. =====IMPRESSION:===== 1. Possible subtle sludge or debris in the gallbladder lumen. No discretestone seen. No gallbladder wall thickening or adjacent fluid noted.Technologist reports probe tenderness during scanning however. This isalso noted in the region of pancreas. Ordered By: ALFREDO CLAROS Interpreted By: Merrill Maria MD, 01/17/2025 1:28 PM us Alfredo Claros MD ULTRASOUND Final R esult * (ABNORMAL) URINALYSIS (01/07/2025 8:51 AM CDT) COLOR (U) YELLOW 01/07/2025 9:40 AM CDT [facility] TRANSPARENCY CLEAR 01/07/2025 9:40 AM CDT [facility] SPECIFIC GRAVITY (U) >1.030(H) 1.000 - 1.030 01/07/2025 9:40 AM CDT [facility] U PH 5.5 5.0 - 9.0 01/07/2025 9:40 AM CDT [facility] LEUKOCYTES (U) NEGATIVE NEGATIVE 01/07/2025 9:40 AM CDT [facility] NITRITES NEGATIVE NEGATIVE 01/07/2025 9:40 AM CDT [facility] PROTEIN RANDOM (U) TRACE(A) NEGATIVE 01/07/2025 9:40 AM CDT [facility] GLUCOSE (U) NEGATIVE NEGATIVE 01/07/2025 9:40 AM T [facility] KETONES MG/DL (U) NEGATIVE NEGATIVE 01/07/2025 9:40 AM T [facility] BILIRUBIN (U) 1+(A) NEGATIVE 01/07/2025 9:40 AM T [facility] BLOOD (U) 3+(A) NEGATIVE 01/07/2025 9:40 AM T [facility] URINE SPECIMEN OBTAINED BY CLEAN CATCH PROCEDURE / Unknown 01/07/2025 8:51 AM CDT us Annia ASHFORD URINE ORDERABLES Final Result [facility] [address] [place] [address], [place] [phone] * URINALYSIS MICRO ONLY (01/07/2025 8:51 AM CDT) WBC/HPF NONE SEEN 0 - 5 /HPF 01/07/2025 9:40 AM CDT [facility] RBC/HPF 5-10 0 - 5 /HPF 01/07/2025 9:40 AM CDT [facility] EPI/HPF MODERATE /HPF 01/07/2025 9:40 AM CDT [facility] 01/07/2025 8:51 AM CDT us Annia Perkins APNP URINE ORDERABLES Final Result Performing Organization Address [facility] Co de Phone Number [facility] [address] [place] [id number], [place] [phone] * (ABNORMAL) MICROALBUMIN CREATININE RATIO (MICROALBUMIN/ALBUMIN) (01/07/2025 8:51 AM CDT) Only the most recent of2 resultswithin the time period is included. CREATININE (U) 290.7(H) 28 - 217 MG/DL 01/07/2025 9:32 AM CDT [facility] MICROALBUMIN (U) 1.3 <2.0 mg/dL 01/07/2025 9:32 AM CDT [facility] ALBUMIN/CREAT RATIO 4.5 <30.0 MG/G 01/07/2025 9:32 AM CDT [facility] URINE SPECIMEN / Unknown 01/07/2025 8:51 AM CDT Annia Perkins APNP URINE ORDERABLES Final Result Performing Organization Address [facility] Co de Phone Number [facility] [address] [place] [address], [place] [phone] * (ABNORMAL) RENAL FUNCTION PANEL (01/07/2025 8:36 AM CDT) [facility] GLUCOSE 88 70 - 99 MG/DL 01/07/2025 9:23 AM [facility] BUN 18 7 - 18 MG/DL 01/07/2025 9:23 AM [facility] CREATININE S/P/B 1.23(H) 0.55 - 1.02 MG/DL 01/07/2025 9:23 AM [facility] SODIUM S/P/B 138 136 - 145 MMOL/L 01/07/2025 9:23 AM [facility] POTASSIUM S/P/B 4.1 3.5 - 5.1 MMOL/L 01/07/2025 9:23 AM [facility] CHLORIDE S/P/B 104 100 - 108 MMOL/L 01/07/2025 9:23 AM [facility] CO2 22.1 21 - 32 MMOL/L 01/07/2025 9:23 AM [facility] CALCIUM S/P/B 9.1 8.5 - 10.1 MG/DL 01/07/2025 9:23 AM [facility] ALBUMIN S/P/B 3.8 3.4 - 5.0 G/DL 01/07/2025 9:23 AM [facility] PHOSPHORUS 3.7 2.5 - 4.9 MG/DL 01/07/2025 9:23 AM [facility] ANION GAP 11.9 5 - 15 MMOL/L 01/07/2025 9:23 AM [facility] BUN CREATININE RATIO 14.6 6 - 26 01/07/2025 9:23 AM [facility] GFR ESTIMATE 61(L) >90 ML/MIN/1.7 3 M2 01/07/2025 9:23 AM CDT [facility] Comment: NOTE: eGFR is not calculated for patients <18 years of age. This is an estimated GFR calculation using the new CKD EPI creatinine equation without race and so does not require a correction factor for race. This estimated GFR should not be used for calculating drug doses. 01/07/2025 8:36 AM CDT Annia ASHFORD LABORATORY Final Result [facility] [address] [place] [address], * (ABNORMAL) CBC W/DIFF AUTOMATED (01/07/2025 8:36 AM CDT) WBC 8.57 4.4 - 11.0 x10'3/uL 01/07/2025 8:51 AM CDT [facility] RBC 5.12(H) 4.50 - 5.10 x10'6/uL 01/07/2025 8:51 AM CDT [facility] HGB 14.6 12.3 - 15.3 G/DL 01/07/2025 8:51 AM CDT [facility] HCT 42.2 35.9 - 44.6 % 01/07/2025 8:51 AM CDT [facility] MCV 82.4 80.0 - 96.0 FL 01/07/2025 8:51 AM CDT [facility] MCH 28.5 25.3 - 30.9 PG 01/07/2025 8:51 AM CDT [facility] MCHC 34.6(H) 31.0 - 34.1 G/DL 01/07/2025 8:51 AM CDT [facility] RDW 13.7 12.4 - 15.1 % 01/07/2025 8:51 AM CDT [facility] PLT 342 151 - 353 x10'3/uL 01/07/2025 8:51 AM T [facility] MPV 9.6 9.6 - 12.0 FL 01/07/2025 8:51 AM CDT [facility] RBC MORPHOLOGY NORMAL 01/07/2025 8:51 AM T [facility] PLT MORPH. NORMAL 01/07/2025 8:51 AM T [facility] WBC MORPHOLOGY NORMAL 01/07/2025 8:51 AM T [facility] LYMPHOCYTES % 20.9 15.8 - 45.0 % 01/07/2025 8:51 AM T [facility] NEUTROPHILS % 64.5 42.1 - 71.9 % 01/07/2025 8:51 AM T [facility] MONOCYTES % 6.4 5.7 - 12.5 % 01/07/2025 8:51 AM T [facility] EOSINOPHILS 7.4(H) 0.0 - 5.6 % 01/07/2025 8:51 AM T [facility] BASOPHILS 0.4 0.0 - 1.3 % 01/07/2025 8:51 AM T [facility] ABS. NEUTROPHILS 5.54 1.40 - 6.00 x10'3/uL 01/07/2025 8:51 AM T [facility] IMMATURE GRANS % 0.4 0.0 - 0.5 % 01/07/2025 8:51 AM [facility] ABS. LYMPHOCYTES 1.79 0.80 - 4.70 x10'3/uL 01/07/2025 8:51 AM T [facility] 01/07/2025 8:36 AM CDT Annia ASHFORD LABORATORY Final Result [facility] [address] [place] [address], [place] [phone] * LIPASE (01/07/2025 8:36 AM CDT) LIPASE 41 16 - 77 UNITS/L 01/07/2025 9:13 AM CDT [facility] 01/07/2025 8:36 AM CDT Alfredo Claros MD LABORATORY Final R esult Performing Organization Address [facility]/ZIP Co de Phone Number [facility] [address] [place] [address], [place] [phone] * HEMOGLOBIN, GLYCOSYLATED (11/26/2024 7:34 AM CDT) HGB A1C 5.3 <5.7 % 11/26/2024 9:02 AM CDT [facility] Comment: INCREASED RISK OF DIABETES <5.7% NON-DIABETES 5.7-6.4% INCREASED RISK FOR FUTURE DIABETES > OR = 6.5 CONSISTENT WITH DIABETES STANDARDS OF MEDICAL CARE IN DIABETES-2010 DIABETES CARE, 33(SUPP 1): S1-S61,2010 ESTIMATED AVG GLUCOSE 105 mg/dL 11/26/2024 9:02 AM CDT [facility] 11/26/2024 7:34 AM CDT Alfredo Claros MD LABORATORY Final R esult Performing Organization Address City/[facility]/ZIP Co de Phone Number [facility] [address] [place] [address], [place] [phone] * (ABNORMAL) BASIC METABOLIC PANEL (11/26/2024 7:34 AM T) [facility] GLUCOSE 97 70 - 99 MG/DL 11/26/2024 9:04 AM [facility] BUN 19(H) 7 - 18 MG/DL 11/26/2024 9:04 AM [facility] CREATININE S/P/B 1.09(H) 0.55 - 1.02 MG/DL 11/26/2024 9:04 AM [facility] SODIUM S/P/B 138 136 - 145 MMOL/L 11/26/2024 9:04 AM [facility] POTASSIUM S/P/B 4.0 3.5 - 5.1 MMOL/L 11/26/2024 9:04 AM [facility] CHLORIDE S/P/B 103 100 - 108 MMOL/L 11/26/2024 9:04 AM [facility] CO2 23.6 21 - 32 MMOL/L 11/26/2024 9:04 AM [facility] CALCIUM S/P/B 9.4 8.5 - 10.1 MG/DL 11/26/2024 9:04 AM [facility] ANION GAP 11.4 5 - 15 MMOL/L 11/26/2024 9:04 AM [facility] BUN CREATININE RATIO 17.4 6 - 26 11/26/2024 9:04 AM [facility] GFR ESTIMATE 71(L) >90 ML/MIN/1.7 3 M2 11/26/2024 9:04 AM [facility] Comment: NOTE: eGFR is not calculated for patients <18 years of age. This is an estimated GFR calculation using the new CKD EPI creatinine equation without race and so does not require a correction factor for race. This estimated GFR should not be used for calculating drug doses. 11/26/2024 7:34 AM CDT us Alfredo Claros MD LABORATORY Final R esult [facility] [address] [place] [address], [place] [phone] * HEP C SCANNED ORDERS (11/30/2023) us [facility] Scanned SCANNING Final Resu lt [facility] from Last 3 Months or Most Recently Relevant to Health Maintenance Insurance CIG Advance Directives * Full Code (Latest Code Status on File) Date Activated Date Inactivated Comments 02/09/2024 6:50 PM 02/11/2024 1:21 PM Care Teams Parts Delivery Driver Relationship Specialty Start Date End Date Alfredo Claros MD [address] [place] [address] PCP - General FAMILY PRACTICE 11/30/21
--- OUTSIDE RECORDS SUMMARY | 2025-02-12 09:27 | XMS_ITS | Clinical Summary ---
Author Organization [facility] Address [address] [place] [address] Phone Care Team Providers Care Tapper Helper Name Role Phone Unavailable Primary Care Provider Unavailabl e Allergies Active Allergy Reactions Criticality Noted Date Comments Erythromycin Hives 11/15/2023 Medications albuterol HFA (PROVENTIL HFA) 108 (90 Base) [...] (one) time each day with breakfast Active VIT-DSS-FE FUM-FA PO Take 1 tablet by mouth 1 (one) time each day Active Sertraline HCl 200 MG capsule Take 400 mg by mouth 1 (one) time each day Active LORazepam (ATIVAN) 0.5 MG tablet Take 0.5 mg by mouth 1 (one) time each day Active Tirzepatide-Seven ght Management (Zepbound) 5 MG/0.5ML solution auto-injector Inject under the skin per week Active Active Problems Problem Noted Date Diagnosed Date Diarrhea 01/08/2025 Mixed anxiety and depressive disorder 05/07/2024 Serum creatinine above reference range Chronic kidney disease stage 2 11/15/2023 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 Resolved Problems Problem Noted Date Diagnosed Date Resolved Date Obsessive-compulsive disorder 05/07/2024 07/09/2024 11/17/2023 07/09/2024 Fibromyalgia 11/15/2023 07/09/2024 Encounters Date Type Department Care Team Description 01/08/2025 12:40 PM CDT Office Visit [facility] [address], [address] [place] [address] Annia Perkins NP Chronic kidney disease stage 2 (Primary Dx); Obesity associated disorder; Hypermobile Sunil-Danlos syndrome; Diarrhea from Last 3 Months Social History Tobacco Use Types Packs/Day Years Used Date Smoking Tobacco: Never Smokeless Tobacco: Never Tobacco Cessation:Counseling Given: Not Answered Alcohol Use Standard Drinks/Week Comments Not Currently 0 (1 standard drink = 0.6 oz pur e alcohol) Comments Unknown Sex and Gender Information Value Date Recorded Sex Assigned at Not on file Legal Sex Female 1:40 PM MDT Gender Identity Not on file Sexual Orientation Not on file Last Filed Vital Signs Vital Sign Reading Time Taken Comments Blood Pressure 112/84 01/08/2025 12:37 PM CDT Pulse 95 01/08/2025 12:37 PM CDT Temperature - - Respiratory Rate - - Oxygen Saturation - - Inhaled Oxygen Concentration - - Weight 122 kg (270 lb) 01/08/2025 12:37 PM CDT Height 177.8 cm (5' 10) 01/08/2025 12:37 PM CDT Body Mass Index 38.74 01/08/2025 12:37 PM CDT Plan of Treatment Upcoming Encounters Date Type Department Care Team (Late st Contact Info) Description 07/09/2025 3:40 PM ENVIRONMENTAL COMPLIANCE MANAGER Office Visit [facility] [address], [address] [place], [place] [phone] Annia Perkins NP [address] [address] Health Maintenance Due Date Last Done Comments Pneumococcal PPSV23 Highest Risk Adult (1 of 3 - PCV13) 2014 Influenza Vaccine (#1) 2025 0, 07/26/2019, 06/13/2018, Additional history exists Insurance [facility]
--- OUTSIDE RECORDS SUMMARY | 2025-02-12 09:27 | XMS_ITS | Referral Summary ---
Author Organization [facility] Address [address] [place] [address] Care Team Providers Care Research Compliance Specialist Name Role Phone Alfredo Claros MD Primary Care Provider +1- [phone] Allergies Active Allergy Reactions Criticality Noted Date [...] 50 mcg/actuation nasal spray,suspension Active influenza quadrivalent [id number] (Fluzone Quad , PF,) 60 mcg (15 [...] specific interest in kidney disease in at [facility]; however, any nephrology evaluation would be [...] of at least 30 minutes 5x/week, and nutrition/black top roller options. Anxiety and depression 04/05/2023 Overview (04/06/2023): [...] , as well as referral to a patient admitting representative and pulmonary function testing. 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 Gender Identity Not on file Sexual Orientation [...] Plan of Treatment Not on file Insurance [facility] CHOICE PLUS [facility] HMO/PPO Address: [address] [address] [place] [address] [facility] CHOICE PLUS [facility] HMO/PPO Address: [address] [address] [place] [address] [facility] CHOICE PLUS [facility] HMO/PPO Address: [address] [address] [place] [address] [employer] Care Teams Research Compliance Specialist Relationship Specialty Start Date End Date Alfredo Claros MD [address] [facility] [address] [place] [address] PCP - General Family Medicine 03/01/22
[2025-02-12 10:00] LABS: Anion Gap 10 mmol/L (4-12); Blood Urea Nitrogen 14 mg/dL (7-17); Calcium 9.5 mg/dL (8.4-10.2); Carbon Dioxide 21 mmol/L (22-30); Chloride 109 mmol/L (98-107); Estimated Glomerular Filt Rate 57; Glucose 90 mg/dL (65-110); Potassium 4.4 mmol/L (3.4-5.0); Sodium 140 mmol/L (137-145)
[2025-02-12 10:01] LABS: Alanine Aminotransferase 13 U/L (6-35); Albumin Level 4.4 g/dL (3.5-5.1); Alkaline Phosphatase 71 U/L (38-126); Amylase 54 U/L (30-110); Aspartate Amino Transferase 20 U/L (14-36); Bilirubin,Total 0.6 mg/dL (0.2-1.3); Lipase 134 U/L (23-300); Total Protein 8.1 g/dL (6.3-8.2)
[2025-02-12 10:13] LABS: INR 1.1; Prothrombin Time 14.4 Seconds (11.1-14.7)
[2025-02-12 10:14] LABS: Partial Thromboplastin Time 33.4 Seconds (22.3-36.8)
== END 2025-02-12 09:22 | disposition home or self-care (01) ==
PROVIDERS: Anesthesiology; PCP Family Medicine; Visit Provider Surgery
DX: K81.1 Chronic cholecystitis (principal); N18.9 Chronic kidney disease, unspecified; Z01.818 Encounter for other preprocedural examination
CPT/HCPCS: 36415; 80048; 80076; 82150; 83690; 85610; 85730

== ENCOUNTER 2025-02-22 00:43 | Day surgery (SDC) | payer OTHER, SELFPAY ==
[2025-02-07 13:23] VITALS: BMI 37.3
--- NOTE | 2025-02-07 13:31 | PC.NURSE ---
Report to the Outpatient Waiting Room, entrance under the green pavilion located off [facility], at time _1000_ on date _[id number]_. Planned Procedure Time: _1200_.? Time changes happen often and if your time is changed the preop area will call you the afternoon before. - You and your visitor will be asked to self-screen and do not enter if you have any COVID symptoms. Please call surgeon if you need to reschedule. - A mask is optional within the hospital at this time. Patients may have clear liquids (water, carbonated beverages, clear teas, apple juice) until 3 hours prior to surgery with a maximum of 20 ounces. - No food from midnight until time of surgery and no smoking, or chewing tobacco (or any form of nicotine). No chewing gum, candy or mints. Take only the following medications with a SIP of water on the morning of surgery: ___Bupropion, Lamotrigine, and Lurasidone____ DO NOT STOP ANY OF YOUR OTHER PRESCRIPTION MEDICATIONS PRIOR TO SURGERY EXCEPT THE FOLLOWING Hold all vitamins and supplements for 3 days per anesthesiologist. Medications to discontinue per physician Date to take last dose Please no make-up, nail djiboutian, hairspray, perfume, deodorant, or body powder the day of surgery.? No jewelry (including any body piercings) or valuables the day of surgery, leave them at home.? Please take a shower or bath the night before, or the morning of, surgery with an antibacterial soap.? Wear comfortable, loose fitting clothing.? - Jewelry must be removed prior to entering the operating room.? Rings and piercings that are not removed may be cut off. - The hospital will not accept responsibility for valuables.? - Please leave all valuables, including medications, at home the day of surgery. If you are going home after surgery, a licensed set key driver must drive you home.? - NO public transportation without another adult if you receive anesthesia. - We recommend that an adult stay with you for 24 hours following discharge. - We also recommend that you do not drive, make important decision, drink alcoholic beverages, or take any drugs that were not prescribed by your health care provider for at least 24 hours after your discharge time. Follow any additional instructions given to you from your surgeon. Telephone instructions given to __Courtney___and asked if any additional questions and then verbalized understanding. Patient advised to call surgeon office or pre surgery nurse liaison [phone] if any additional questions.
[2025-02-22] VITALS (8 sets, daily range): BP systolic 95–139; BP diastolic 64–84; PULSE 72–104; RESP 16–20; TEMP 36.1–36.6; O2SAT 94–100
--- OUTSIDE RECORDS SUMMARY | 2025-02-22 00:45 | XMS_ITS | Encounter Summary ---
Author Organization [facility] Address [address] [place] [address] Care Team Providers Care Cash Poster Name Role Phone Alfredo Claros MD Primary Care Provider Encounter Details Date Type Department Care Team (Late st Contact Info) Description 10/21/2022 Loginza Message Enc [facility] Family Medicine [address], [address] [place] [phone] [place], [facility] Provider Prescription pickup Social History Tobacco Use Types Packs/Day Years Used Date Smoking Tobacco: Never Smokeless Tobacco: Never Alcohol Use Standard Drinks/Week Comments Not Currently 0 (1 standard drink = 0.6 oz pur e alcohol) Comments No Sex and Gender Information Value Date Recorded Sex Assigned at Female 11/26/2024 8:38 AM CDT Legal 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
--- OUTSIDE RECORDS SUMMARY | 2025-02-22 00:45 | XMS_ITS | Encounter Summary ---
Author Organization [facility] Address [address] [place] [address] Care Team Providers Care Executive Consultant Name Role Phone Alfredo Claros MD Primary Care Provider Encounter Details Date Type Department Care Team (Late st Contact Info) Description 05/10/[address] [facility] Family Medicine - [place] [address], [address] [place] [address] Alfredo Claros MD [address] [facility] [address] [place], [place] [phone] Finished antibiotics Social History Tobacco Use Types Packs/Day Years Used Date Smoking Tobacco: Never Smokeless Tobacco: Never Alcohol Use Standard Drinks/Week Comments Not Currently 0 (1 standard drink = 0.6 oz pur e alcohol) Comments No Sex and Gender Information Value Date Recorded Sex Assigned at Female 11/26/2024 8:38 AM CDT Legal Sex Female 1:29 PM CASTING TRUCKER Gender Identity Female 03/03/2022 6:04 AM CDT [...] documented as of this encounter Care Teams Executive Consultant Relationship Specialty Start Date End Date Alfredo Claros MD [address] [address] PCP - General FAMILY PRACTICE 11/30/21 documented as of this encounter
--- OUTSIDE RECORDS SUMMARY | 2025-02-22 00:45 | XMS_ITS | Encounter Summary ---
Author Organization [facility] Address [address] [place] [address] Care Team Providers Care Shoe Repairer Apprentice Name Role Phone Alfredo Claros MD Primary Care Provider Encounter Details Date Type Department Care Team (Late st Contact Info) Description 05/05/2022 Savored Message Enc [facility] Family Medicine [address], [address] [place] [phone] [place], [facility] Provider lab results Social History Tobacco Use Types Packs/Day Years Used Date Smoking Tobacco: Never Smokeless Tobacco: Never Alcohol Use Standard Drinks/Week Comments Not Currently 0 (1 standard drink = 0.6 oz pur e alcohol) Comments No Sex and Gender Information Value Date Recorded Sex Assigned at Female 11/26/2024 8:38 AM CDT Legal Sex Female 1:29 PM TIRE STRIPPER Gender Identity Female 03/03/2022 6:04 AM CDT [...] documented as of this encounter Care Teams Shoe Repairer Apprentice Relationship Specialty Start Date End Date Alfredo Claros MD [address] [phone] PCP - General FAMILY PRACTICE 11/30/21 documented as of this encounter
--- OUTSIDE RECORDS SUMMARY | 2025-02-22 00:46 | XMS_ITS | Clinical Summary ---
Author Organization [facility] Address [address] [place] [address] Care Team Providers Care Dean Of Instruction Name Role Phone Alfredo Claros MD Primary Care Provider +1- [phone] Allergies Active Allergy Reactions Criticality Noted Date [...] 50 mcg/actuation nasal spray,suspension Active influenza quadrivalent [id number] (Fluzone Quad , PF,) 60 mcg (15 [...] specific interest in kidney disease in at [facility]; however, any nephrology evaluation would [...] of at least 30 minutes 5x/week, and nutrition/barrel washer options. Anxiety and depression 04/05/2023 Overview (04/06/2023): [...] easily managed by the pediatricians, and no halfway effects have ever been demonstrated. We discussed [...] , as well as referral to a crowd controller and pulmonary function testing. 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 Gender Identity Not on file Sexual Orientation [...] patient's age to complete this topic Insurance [facility] CHOICE PLUS [facility] HMO/PPO Address: [address] [address] [place] [address] [facility] CHOICE PLUS [facility] HMO/PPO Address: [address] [place] [address] [facility] CHOICE PLUS [facility] HMO/PPO Address: [address] [place] [address] [employer] Care Teams Dean Of Instruction Relationship Specialty Start Date End Date Alfredo Claros MD [address] [address] PCP - General Family Medicine 03/01/22
--- OUTSIDE RECORDS SUMMARY | 2025-02-22 00:46 | XMS_ITS | Encounter Summary ---
Author Organization [facility] Address [address] [place] [address] Care Team Providers Care Telecommunication Operator Name Role Phone Alfredo Claros MD Primary Care Provider Encounter Details Date Type Department Care Team (Late st Contact Info) Description 01/17/2025 Results Follow-Up [facility] Family Medicine - [place] [address] [facility], [address] [place] [phone] Alfredo Claros MD [address] [facility] [address] [place], [place] [phone] [place] ABD LIMITED Social History Tobacco Use [...] from your doctor or pharmacy? Never 02/09/2024 [facility] Utilities Answer Date Recorded In [...] often do you attend chur ch or synagogue services? Never 02/09/2024 Do you belong to any clubs o r organizations such as samaritan groups, unions, fraternal or athletic groups, or [...] Recorded Patient Health Questionnaire-2 Score 0 01/18/2025 [facility] - [...] any time in the past 12 m [facility], were you homeless or living in a half-way (including now)? No 02/09/2024 Comments No Sex and Gender Information Value Date Recorded Sex Assigned at Female 11/26/2024 8:38 AM CDT Legal Sex Female 1:29 PM PASTING MACHINE OFFBEARER Gender Identity Female 03/03/2022 6:04 AM CDT [...] Depression Total Score: 0 08/27/19 11:35 AM PASTING MACHINE OFFBEARER documented as of this encounter Care Teams Telecommunication Operator Relationship Specialty Start Date End Date Alfredo Claros MD [address] [place] [address] PCP - General FAMILY PRACTICE 11/30/21 documented as of this encounter
--- OUTSIDE RECORDS SUMMARY | 2025-02-22 00:46 | XMS_ITS | Clinical Summary ---
Author Organization [facility] Address [address] [place] [address] Phone Care Team Providers Care Logging Tractor Operator Swamp Name Role Phone Unavailable Primary Care Provider [...] Description 01/08/2025 12:40 PM CDT Office Visit [facility] [address], [address] [place] [address] Annia Perkins NP Chronic kidney disease stage [...] st Contact Info) Description 07/09/2025 3:40 PM TITLE CLERK AUTOMOBILE Office Visit [facility] [address], [address] [place], [place] [phone] Annia Perkins NP [address] [address] Health Maintenance Due Date Last Done Comments Pneumococcal PPSV23 Highest Risk Adult (1 of 3 - PCV13) 2014 Influenza Vaccine (#1) 2025 0, 07/26/2019, 06/13/2018, Additional history exists Insurance [facility]
--- OUTSIDE RECORDS SUMMARY | 2025-02-22 00:46 | XMS_ITS | Referral Summary ---
Author Organization [facility] Address [address] [place] [address] Care Team Providers Care District Operations Manager Name Role Phone Alfredo Claros MD Primary Care Provider +1- [phone] Allergies Active Allergy Reactions Criticality Noted Date [...] 50 mcg/actuation nasal spray,suspension Active influenza quadrivalent 9894-5560 (Fluzone Quad , PF,) 60 mcg (15 [...] specific interest in kidney disease in at [facility]; however, any nephrology evaluation would [...] of at least 30 minutes 5x/week, and nutrition/registered nurse cardiovascular icu options. Anxiety and depression 04/05/2023 Overview (04/06/2023): [...] easily managed by the pediatricians, and no fci effects have ever been demonstrated. We discussed [...] , as well as referral to a form maker plaster and pulmonary function testing. 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
--- OUTSIDE RECORDS SUMMARY | 2025-02-22 00:46 | XMS_ITS | Clinical Summary ---
Author Organization [facility] Address [address] [place] [address] Care Team Providers Care Equipment Operator Warehouse Name Role Phone Alfredo Claros MD Primary Care Provider Allergies Active Allergy Reactions Criticality Noted Date Comments Erythromycin Hives Medium 05/09/2021 Reaction: HIVES, Vancomycin Itching,Redness Medium 02/09/2024 Abisai syndrome Medications lamoTRIgine 100 MG tablet Take 1 tablet (100 mg total) by mouth nightly at bedtime. Active buPROPion XL 300 MG 24 hr tablet Take 1 tablet (300 mg total) by mouth every morning. 2 Active lurasidone (LATUDA) 40 MG Tab tablet Take 1 tablet (40 mg total) by mouth nightly at bedtime. Active Norethindrone, Contraceptive, 0.35 MG tablet Take 1 tablet by mouth daily. Active sertraline (ZOLOFT) 100 MG tablet Take 1.5 tablets (150 mg total) by mouth nightly at bedtime. Active LORazepam (ATIVAN) 0.5 MG tablet daily. 5 Active Lidocaine HCl (LIDOCAINE 1.5%/NIFEDIPIN E 0.3% COMPOUNDED OINT)Indicatio ns:Anal fissure APPLY EXTERNALLY 2 TIMES A DAY AND NEEDED AFTER BOWEL MOVEMENT 3 oz 6 5 Active Nitroglycerin 0.4 % OintmentIndica tions:Anal fissure Place 1 inch rectally 2 (two) times daily as needed. 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 We discussed [...] Encounters Date Type Department Care Team Description 02/07/2025 [facility] HEALTH INFO SRVCS Scanned, Doc Med Group 01/29/2025 Ciplex Message Enc [facility] Family Medicine [address], [address] [place] [address] Alfredo Claros MD General Surgeon 01/29/2025 Results Follow-Up [facility] [place] [address] [place] [address] Fabrizio Cam MD NM HEPATOBILIARY SCAN W/GB EJECTION FRACTION 01/28/2025 7:44 AM CDT - 01/28/2025 11:59 PM CDT Hospital Encounter [facility] Nuclear Medicine [address] [place] [address] Fabrizio Cam MD Discharge Disposition: Home or Self Care (Routine Discharge) 01/28/2025 Travel 01/18/2025 2:00 PM CDT Office Visit [facility] [place] [address] [place] [address] Alfredo Claros MD Kim, Peter S, MD New Patient (Rectal sx) 01/18/2025 Travel 01/17/2025 11:35 AM CDT - 01/17/2025 11:59 PM CDT Hospital Encounter [facility] Ultrasound [address] [place] [address] Alfredo Claros MD Discharge Disposition: Home or Self Care (Routine Discharge) 01/17/2025 Results Follow-Up [place] [id number] [facility], [address] [place] [phone] Alfredo Claros MD [facility] 01/17/2025 Travel 01/10/2025 Orders Only [place] [address] [facility], [address] [place] [phone] Alfredo Claros MD 01/09/2025 MyChart Message Enc [place] [id number] [facility], [address] [place] [phone] Alfredo Claros MD Abdominal pain 01/08/2025 Scan HEALTH INFO SRVCS Scanned, Doc Med Group 01/07/2025 8:32 AM CDT - 01/07/2025 11:59 PM CDT Hospital Encounter [facility] Laboratory [address] [place] [address] Annia Perkins APNP Discharge Disposition: Home or Self Care (Routine Discharge) 01/07/2025 8:30 AM CDT - 01/07/2025 8:31 AM CDT Hospital Encounter [facility] Laboratory [address] [place] [address] Alfredo Claros MD Discharge Disposition: Home or Self Care (Routine Discharge) 01/07/2025 Orders Only [facility] [address] [place] [address] Annia Perkins APNP 01/07/2025 Travel 12/27/2024 Orders Only [facility] [address], [address] [place] [phone] Alfredo Claros MD 12/27/2024 Telephone [facility] [address], [address] [place] [phone] Alfredo Claros MD Question; Problem 11/26/2024 8:40 AM CDT Office Visit [facility] [address], [address] [place] [phone] Alfredo Claros MD Rectal Problem (Pain in anal area hurting to walk per patient Feels like razor blades. For one week. ) 11/26/2024 7:24 AM CDT - 11/26/2024 11:59 PM CDT Hospital Encounter [facility] [address] [place] [address] Alfredo Claros MD Discharge Disposition: Home or [...] from your doctor or pharmacy? Never 02/09/2024 [employer] Utilities Answer Date Recorded In the past 12 months has [facility] [employer], gas, oil, or water [employer] threatened to shut off services in your [...] often do you attend chur ch or jain services? Never 02/09/2024 Do you belong to [...] Recorded Patient Health Questionnaire-2 Score 0 01/18/2025 [facility] - Occupational Stress Questionnaire Answer [...] any time in the past 12 [facility], were you homeless or living in a detention (including now)? 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 Gender Identity Female 03/03/2022 6:04 AM CDT [...] Hepatitis C Completed 12/07/2023, 11/30/2023 PHQ-2 (Physician [place]) Completed 01/18/2025 Meningococcal B Vaccine Aged Out [...] 12:45 PM Narrative 01/28/2025 1:55 PM CDT [facility] [address] [place] [address] EXAMINATION: HEPATOBILIARY SCINTIGRAPHY (WITH GALLBLADDER EJECTION FRACTION) [...] Procedure Note Ariela Jones MD - 01/28/2025 [facility] [address] [place] [id number] EXAMINATION: HEPATOBILIARY SCINTIGRAPHY (WITH GALLBLADDER EJECTIONFRACTION) DATE [...] 1:28 PM Narrative 01/17/2025 1:35 [place] [address] EXAMINATION: Limited Abdomen Ultrasound: RUQ EXAM DATE/TIME: [...] Procedure Note Merrill Maria MD - 01/17/2025 [facility] [address] [place] [address] EXAMINATION: Limited Abdomen Ultrasound: RUQ EXAM DATE/TIME: [...] COLOR (U) YELLOW 01/07/2025 9:40 AM CDT [facility] TRANSPARENCY CLEAR 01/07/2025 9:40 AM CDT [facility] SPECIFIC GRAVITY (U) >1.030(H) 1.000 - 1.030 01/07/2025 9:40 AM CDT [facility] U PH 5.5 5.0 - 9.0 01/07/2025 9:40 AM CDT [facility] LEUKOCYTES (U) NEGATIVE NEGATIVE 01/07/2025 9:40 AM CDT [facility] NITRITES NEGATIVE NEGATIVE 01/07/2025 9:40 AM CDT [facility] PROTEIN RANDOM (U) TRACE(A) NEGATIVE 01/07/2025 9:40 AM CDT [facility] GLUCOSE (U) NEGATIVE NEGATIVE 01/07/2025 9:40 AM T [facility] KETONES MG/DL (U) NEGATIVE NEGATIVE 01/07/2025 9:40 AM CDT [facility] BILIRUBIN (U) 1+(A) NEGATIVE 01/07/2025 9:40 AM T [facility] BLOOD (U) 3+(A) NEGATIVE 01/07/2025 9:40 AM T [facility] URINE SPECIMEN OBTAINED BY CLEAN CATCH PROCEDURE / Unknown 01/07/2025 8:51 AM CDT us Annia ASHFORD URINE ORDERABLES Final Result [facility] [address] [place] [address], [place] [phone] * URINALYSIS MICRO ONLY (01/07/2025 8:51 AM CDT) WBC/HPF NONE SEEN 0 - 5 /HPF 01/07/2025 9:40 AM CDT [facility] RBC/HPF 5-10 0 - 5 /HPF 01/07/2025 9:40 AM CDT [facility] EPI/HPF MODERATE /HPF 01/07/2025 9:40 AM CDT [facility] 01/07/2025 8:51 AM CDT us Annia Perkins APNP URINE ORDERABLES Final Result Performing Organization Address City/[facility]/ZIP Co de Phone Number [facility] [address] [place] [address], [place] [phone] * (ABNORMAL) MICROALBUMIN CREATININE RATIO (MICROALBUMIN/ALBUMIN) (01/07/2025 8:51 AM CDT) Only the most recent of2 resultswithin the time period is included. CREATININE (U) 290.7(H) 28 - 217 MG/DL 01/07/2025 9:32 AM CDT [facility] MICROALBUMIN (U) 1.3 <2.0 mg/dL 01/07/2025 9:32 AM CDT [facility] ALBUMIN/CREAT RATIO 4.5 <30.0 MG/G 01/07/2025 9:32 AM CDT [facility] URINE SPECIMEN / Unknown 01/07/2025 8:51 AM CDT us Annia Ahuja Perkins APNP URINE ORDERABLES Final Result Performing Organization Address City/[facility]/ZIP Co de Phone Number [facility] [address] [place] [address], [place] [phone] * (ABNORMAL) RENAL FUNCTION PANEL (01/07/2025 8:36 AM CDT) GLUCOSE 88 70 - 99 MG/DL 01/07/2025 9:23 AM [facility] BUN 18 7 - 18 MG/DL 01/07/2025 9:23 AM [facility] CREATININE S/P/B 1.23(H) 0.55 - 1.02 MG/DL 01/07/2025 9:23 AM [facility] SODIUM S/P/B 138 136 - 145 MMOL/L 01/07/2025 9:23 AM [facility] POTASSIUM S/P/B 4.1 3.5 - 5.1 MMOL/L 01/07/2025 9:23 AM [facility] CHLORIDE S/P/B 104 100 - 108 MMOL/L 01/07/2025 9:23 AM [facility] CO2 22.1 21 - 32 MMOL/L 01/07/2025 9:23 AM [facility] CALCIUM S/P/B 9.1 8.5 - 10.1 MG/DL 01/07/2025 9:23 AM [facility] ALBUMIN S/P/B 3.8 3.4 - 5.0 G/DL 01/07/2025 9:23 AM [facility] PHOSPHORUS 3.7 2.5 - 4.9 MG/DL 01/07/2025 9:23 AM [facility] ANION GAP 11.9 5 - 15 MMOL/L 01/07/2025 9:23 AM [facility] BUN CREATININE RATIO 14.6 6 - 26 01/07/2025 9:23 AM [facility] GFR ESTIMATE 61(L) >90 ML/MIN/1.7 3 M2 01/07/2025 9:23 AM [facility] Comment: NOTE: eGFR is not calculated for patients <18 years of age. This is an estimated GFR calculation using the new CKD EPI creatinine equation without race and so does not require a correction factor for race. This estimated GFR should not be used for calculating drug doses. 01/07/2025 8:36 AM CDT Annia ASHFORD LABORATORY Final Result [facility] [address] [facility] [place] [address], * (ABNORMAL) CBC W/DIFF AUTOMATED (01/07/2025 8:36 AM CDT) WBC 8.57 4.4 - 11.0 x10'3/uL 01/07/2025 8:51 AM CDT [facility] RBC 5.12(H) 4.50 - 5.10 x10'6/uL 01/07/2025 8:51 AM CDT [facility] HGB 14.6 12.3 - 15.3 G/DL 01/07/2025 8:51 AM CDT [facility] HCT 42.2 35.9 - 44.6 % 01/07/2025 8:51 AM CDT [facility] MCV 82.4 80.0 - 96.0 FL 01/07/2025 8:51 AM CDT [facility] MCH 28.5 25.3 - 30.9 PG 01/07/2025 8:51 AM CDT [facility] MCHC 34.6(H) 31.0 - 34.1 G/DL 01/07/2025 8:51 AM CDT [facility] RDW 13.7 12.4 - 15.1 % 01/07/2025 8:51 AM CDT [facility] PLT 342 151 - 353 x10'3/uL 01/07/2025 8:51 AM CDT [facility] MPV 9.6 9.6 - 12.0 FL 01/07/2025 8:51 AM CDT [facility] RBC MORPHOLOGY NORMAL 01/07/2025 8:51 AM CDT [facility] PLT MORPH. NORMAL 01/07/2025 8:51 AM CDT [facility] WBC MORPHOLOGY NORMAL 01/07/2025 8:51 AM CDT [facility] LYMPHOCYTES % 20.9 15.8 - 45.0 % 01/07/2025 8:51 AM CDT [facility] NEUTROPHILS % 64.5 42.1 - 71.9 % 01/07/2025 8:51 AM CDT [facility] MONOCYTES % 6.4 5.7 - 12.5 % 01/07/2025 8:51 AM CDT [facility] EOSINOPHILS 7.4(H) 0.0 - 5.6 % 01/07/2025 8:51 AM CDT [facility] BASOPHILS 0.4 0.0 - 1.3 % 01/07/2025 8:51 AM CDT [facility] ABS. NEUTROPHILS 5.54 1.40 - 6.00 x10'3/uL 01/07/2025 8:51 AM CDT [facility] IMMATURE GRANS % 0.4 0.0 - 0.5 % 01/07/2025 8:51 AM CDT [facility] ABS. LYMPHOCYTES 1.79 0.80 - 4.70 x10'3/uL 01/07/2025 8:51 AM CDT [facility] 01/07/2025 8:36 AM CDT Annia ASHFORD LABORATORY Final Result [facility] [address] [place] [address], [place] [phone] * LIPASE (01/07/2025 8:36 AM CDT) LIPASE 41 16 - 77 UNITS/L 01/07/2025 9:13 AM CDT [facility] 01/07/2025 8:36 AM CDT Alfredo Claros MD LABORATORY Final R esult Performing Organization Address City/[facility] Co de Phone Number [facility] [address] [place] [address], [place] [phone] * HEMOGLOBIN, GLYCOSYLATED (11/26/2024 7:34 AM CDT) HGB A1C 5.3 <5.7 % 11/26/2024 9:02 AM CDT [facility] Comment: INCREASED RISK OF DIABETES <5.7% NON-DIABETES 5.7-6.4% INCREASED RISK FOR FUTURE DIABETES > OR = 6.5 CONSISTENT WITH DIABETES STANDARDS OF MEDICAL CARE IN DIABETES-2010 DIABETES CARE, 33(SUPP 1): S1-S61,2010 ESTIMATED AVG GLUCOSE 105 mg/dL 11/26/2024 9:02 AM CDT [facility] 11/26/2024 7:34 AM CDT Alfredo Claros MD LABORATORY Final R esult Performing Organization Address City/[facility]/ZIP Co de Phone Number [facility] [address] [place] [address], [place] [phone] * (ABNORMAL) BASIC METABOLIC PANEL (11/26/2024 7:34 AM CDT) GLUCOSE 97 70 - 99 MG/DL 11/26/2024 9:04 AM [facility] BUN 19(H) 7 - 18 MG/DL 11/26/2024 9:04 AM [facility] CREATININE S/P/B 1.09(H) 0.55 - 1.02 MG/DL 11/26/2024 9:04 AM [facility] SODIUM S/P/B 138 136 - 145 MMOL/L 11/26/2024 9:04 AM [facility] POTASSIUM S/P/B 4.0 3.5 - 5.1 MMOL/L 11/26/2024 9:04 AM [facility] CHLORIDE S/P/B 103 100 - 108 MMOL/L 11/26/2024 9:04 AM [facility] CO2 23.6 21 - 32 MMOL/L 11/26/2024 9:04 AM [facility] CALCIUM S/P/B 9.4 8.5 - 10.1 MG/DL 11/26/2024 9:04 AM [facility] ANION GAP 11.4 5 - 15 MMOL/L 11/26/2024 9:04 AM [facility] BUN CREATININE RATIO 17.4 6 - 26 11/26/2024 9:04 AM [facility] GFR ESTIMATE 71(L) >90 ML/MIN/1.7 3 M2 11/26/2024 9:04 AM [facility] Comment: NOTE: eGFR is not calculated for patients <18 years of age. This is an estimated GFR calculation using the new CKD EPI creatinine equation without race and so does not require a correction factor for race. This estimated GFR should not be used for calculating drug doses. 11/26/2024 7:34 AM CDT Alfredo Claros MD LABORATORY Final R esult [facility] [address] [place] [address], * HEP C SCANNED ORDERS (11/30/2023) us Doc Med Group Scanned SCANNING Final Resu lt [facility] ONBASE from Last 3 Months or Most Recently Relevant to Health Maintenance Insurance [facility] Advance Directives * Full Code (Latest Code Status on File) Date Activated Date Inactivated Comments 02/09/2024 6:50 PM 02/11/2024 1:21 PM Care Teams Equipment Operator Warehouse Relationship Specialty Start Date End Date Alfredo Claros MD [address] [address] PCP - General FAMILY PRACTICE 11/30/21
--- OUTSIDE RECORDS SUMMARY | 2025-02-22 00:46 | XMS_ITS | Clinical Summary ---
Author Organization [facility] Address [address] [place] [address] Care Team Providers Care Cafe Operator Name Role Phone Alfredo Claros MD Primary Care Provider Source Comments [facility],non-owned Affiliates and Associated Physician Practices is amultiple site organization consisting of ambulatory clinics and hospital sitesin [place], [place], [place] and [place]. This disclosure is being madepursuant to the Care Everywhere program and may not contain all information available regarding this patient. Last updated 18.[facility] Allergies Active Allergy Reactions Criticality Noted Date [...] Diagnosed Date [facility] 12/07/2023 Obesity 10/05/2023 Sunil-Danlos syndrome, sarah [...] and heating? Not hard at all 12/07/2023 [facility] [facility] ional Health - Occupational Stress [...] place to sleep or slept in a [facility] (including now)? No 12/07/2023 Comments No Sex [...] 19+ 3-dose series) 2014 PAP SMEAR 01/16/2016 HPV VACCINE (1 - 3-dose SCDM series) 2022 COVID-19 VACCINE ( season) 2024 08/21/2021, 10/18/2020, 09/19/2020 DEPRESSION SCREENING 08/08/2024 INFLUENZA VACCINE (#1) 2025 , 06/17/2020, 07/26/2019, Additional history exists ZOSTER VACCINE [...] Reactive Non Reactive 12/07/2023 9:40 PM CDT [facility] HBsAg Non Reactive Non Reactive 12/07/2023 9:40 PM CDT [facility] HBc Antibody IgM Non Reactive Non Reactive 12/07/2023 9:40 PM CDT [facility] HCV Antibody Screen Non Reactive Non Reactive 12/07/2023 9:40 PM CDT [facility] Blood BLOOD SPECIMEN / Unknown Venipuncture / Unknown 12/07/2023 8:49 PM CDT 12/07/2023 8:54 PM CDT Narrative [facility] - 12/07/2023 9:40 PM CDT Non Reactive - Antibodies to Hepatitis C virus (HCV) were not detected, result does not exclude early acute HCV infection. us Amanda Crawford MD LAB - CHEMISTRY ORDERABLES Ange maza Result [facility] [address] [place], [place] [phone] from Last 3 Months or Most Recently Relevant to Health Maintenance Insurance [employer] * Guarantor: RADHIKA BECK Account Type Relation to Patient Date of Phone Billing Address Personal/Family [address] [place] [address] [employer] SELF PAY NO INSURANCE Member Subscriber Plan / Payer (Ef fective for All Dates) Name:Radhika Beck Member ID:Not on file Relation to Subscriber:Not on file Name:RADHIKA BECK Subscriber ID:Not on file Address: [address] [place] [address] Payer ID:Not on file Group ID:Not on file Type:Self Pay Address: [place], [place] * Guarantor: RADHIKA BECK Account Type Relation to Patient Date of Phone Billing Address Personal/Family [address] [place] [address] [employer] SELF PAY NO INSURANCE Member Subscriber Plan / Payer (Ef fective for All Dates) Name:Radhika Beck Member ID:Not on file Relation to Subscriber:Not on file Name:RADHIKA BECK Subscriber ID:Not on file Address: [address] [place] [address] Payer ID:Not on file Group ID:Not on file Type:Self Pay Address: [place], [place] * Guarantor: RADHIKA BECK Account Type Relation to Patient Date of Phone Billing Address Personal/Family [address] [place] [address] [employer] SELF PAY NO INSURANCE Member Subscriber Plan / Payer (Ef fective for All Dates) Name:Radhika Beck Member ID:Not on file Relation to Subscriber:Not on file Name:RADHIKA BECK Subscriber ID:Not on file Address: [address] [place] [address] Payer ID:Not on file Group ID:Not on file Type:Self Pay Address: [place], [place] Advance Directives * Full Code (Latest Code Status on File) Date Activated Date Inactivated Comments 12/07/2023 8:47 PM 12/08/2023 3:11 PM Care Teams Cafe Operator Relationship Specialty Start Date End Date Alfredo Claros MD [address] [facility] [address] [place], [place] [phone] PCP - General Family Medicine 12/28/21
--- OUTSIDE RECORDS SUMMARY | 2025-02-22 00:46 | XMS_ITS | Encounter Summary ---
Author Organization [facility] Address [address] [place] [address] Care Team Providers Care Engine Room Helper Name Role Phone Alfredo Claros MD Primary Care Provider Encounter Details Date Type Department Care Team (Late st Contact Info) Description 03/01/2022 MyChart Message Enc [facility] Family Medicine - [place] [address] [place] [phone] Alfredo Claros MD [address] [place], [place] [phone] Swollen lymph nodes/fatigue/ general unwell feeling Social History Tobacco Use Types Packs/Day Years Used Date Smoking Tobacco: Never Smokeless Tobacco: Never Alcohol Use Standard Drinks/Week Comments Not Currently 0 (1 standard drink = 0.6 oz pur e alcohol) Comments No Sex and Gender Information Value Date Recorded Sex Assigned at Female 11/26/2024 8:38 AM CDT 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
--- OUTSIDE RECORDS SUMMARY | 2025-02-22 00:46 | XMS_ITS | Patient Health Record ---
Author Organization [facility] Address [address] [facility] [address] [place] [address] Care Team Providers Care Foot Roentgenologist Name Role Phone Alfredo Claros MD Primary Care Provider Fred Pimentel Unavailable [phone] Allergies Allergen (clinical drug ingredient) Drug/Non Drug Allergy documented on EMR Reaction Allergy Type Onset Date Status erythromycin Erythromycin Base Unknown Drug Allergy 2023 Active vancomycin Vancomycin Unknown Drug Allergy Activ e Results Component Value Reference Range Notes Benzodiazepines Reviewed date:01/11/2025 02:10:02 PM Interpretation: Performing Lab:[address] [place] [address], [address] [place] [address], Director - [id number] Notes/Report: An exception occurred while processing this report and so it has incomplete data. Please contact [employer] for assistance. Not Medicated Consistent Not [...] Not Medicated Consistent Not Medicated Consistent Specific [place] 1.023 1.003 - 1.030 pH 5.7 3.0 [...] Oxazepam (BZO) P 0 - 300 ng/ml 7-hvmjjdkeot-0,4-vzzwyixy-1, 3-diphenylpyr rolidine (EDDP) N 0 - 300 ng/ml Methamphetamine (MET) N 0 - 1000 ng/ml Methylenedioxymethamphetamine (MDMA) N 0 - 500 ng/ml Morphine (MOP 300/BZQ3804) N 0 - 300 ng/ml Methadone (MTD) [...] Oxazepam (BZO) N 0 - 300 ng/ml 5-mehxswitjb-6,1-tuvynnka-5, 3-diphenylpyr rolidine (EDDP) N 0 - 300 ng/ml Methamphetamine (MET) N 0 - 1000 ng/ml Methylenedioxymethamphetamine (MDMA) N 0 - 500 ng/ml Morphine (MOP 300/MWT4619) N 0 - 300 ng/ml Methadone (MTD) [...] Oxazepam (BZO) P 0 - 300 ng/ml 1-lblmxmqplx-2,5-gvoyvdjk-9, 3-diphenylpyr rolidine (EDDP) N 0 - 300 ng/ml Methamphetamine (MET) N 0 - 1000 ng/ml Methylenedioxymethamphetamine (MDMA) N 0 - 500 ng/ml Morphine (MOP 300/ZCP4659) N 0 - 300 ng/ml Methadone (MTD) [...] Oxazepam (BZO) N 0 - 300 ng/ml 3-wmzjzleiav-9,1-whorsdxs-4, 3-diphenylpyr rolidine (EDDP) N 0 - 300 ng/ml Methamphetamine (MET) N 0 - 1000 ng/ml Methylenedioxymethamphetamine (MDMA) N 0 - 500 ng/ml Morphine (MOP 300/[id number]) N 0 - 300 ng/ml Methadone (MTD) [...] Status Risk Notes Problem Generalized anxiety disorder (41397737) Generalized anxiety disorder (F41.1) Active confirmed Problem Obsessive-compul sive disorder (143116933) Obsessive-compu lsive disorder, unspecified (F42.9) Active confirmed Problem Generalized anxiety disorder (43573954) CORNELIO (generalized anxiety disorder) (F41.1) Active confirmed Problem Recurrent major depression (15121263) Depression, major, recurrent, in remission (F33.40) Active confirmed Problem Recurrent major depression in full remission (32955559) Major depression, recurrent, full remission (F33.42) Active confirmed Vital Signs Heart Rate 90 /min 01/04/2025 Height-cm 177.80 cm 01/04/2025 Blood pressure diastolic 75 mm Hg 01/04/2025 Weight-kg 123.38 kg 01/04/2025 Height 70.00 in 01/04/2025 Blood pressure systolic 118 mm Hg 01/04/2025 Weight 272 lbs 01/04/2025 BMI 39.02 kg/m2 01/04/2025 Encounters Encounter Location Date Provider Diagnosis [address] [address] 03/02/2024 Fred Hugo Major depressive disorder, recurrent, in remission, unspecified F33.40 ; Obsessive-compulsive disorder, unspecified F42.9 and Major depression, recurrent, full remission F33.[address] [address] 04/27/2024 Fred Hugo Major depressive disorder, recurrent, in remission, unspecified F33.40 ; Obsessive-compulsive disorder, unspecified F42.9 and CORNELIO (generalized anxiety disorder) F41.[address] [address] 05/11/2024 Fred Hugo Major depressive disorder, recurrent, in remission, unspecified F33.40 ; Obsessive-compulsive disorder, unspecified F42.9 and CORNELIO (generalized anxiety disorder) F41.[address] [address] 06/11/2024 Fred Hugo Major depressive disorder, recurrent, in remission, unspecified F33.40 ; Obsessive-compulsive disorder, unspecified F42.9 and CORNELIO (generalized anxiety disorder) F41.[address] [address] 07/11/2024 Fred Hugo Major depressive disorder, recurrent, in remission, unspecified F33.40 ; Obsessive-compulsive disorder, unspecified F42.9 and CORNELIO (generalized anxiety disorder) F41.[address] [address] 10/10/2024 Fred Hugo Major depressive disorder, recurrent, in remission, unspecified F33.40 ; Obsessive-compulsive disorder, unspecified F42.9 and CORNELIO (generalized anxiety disorder) F41.[address] [address] 01/04/2025 Fred Hugo Depression, major, recurrent, in remission F33.40 ; Obsessive-compulsive disorder, unspecified F42.9 ; Encounter for screening for cardiovascular disorders Z13.6 ; CORNELIO (generalized anxiety disorder) F41.1 ; Negative depression screening Z13.31 ; Generalized anxiety disorder F41.1 and Abnormal weight loss R63.4 [facility] Particle Code [address] [place] [address] 10/04/2024 Fred Arias Major depressive disorder, recurrent, [...] - Ensure lorazepam prescription is sent to [facility]. 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 10/04/2024 Major depressive disorder, recurrent, in remission, unspecified (ICD-10 - F33.40) 10/10/2024 Major depressive disorder, recurrent, in remission, unspecified (ICD-10 - F33.40) 07/11/2024 Major depressive disorder, recurrent, in remission, [...] any concerns arise before the scheduled appointment. 01/04/2025 Obsessive-compuls job disorder, unspecified (ICD-10 - F42.9) 01/04/2025 Depression, major, recurrent, in remission (ICD-10 - F33.40) 06/11/2024 Major depressive disorder, recurrent, in remission, [...] especially given work stress and childcare responsibilities. 06/11/2024 Obsessive-compuls job disorder, unspecified (ICD-10 - [...] especially given work stress and childcare responsibilities. 01/04/2025 Encounter for screening for cardiovascular disorders [...] concerns arise before the scheduled appointment. 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 - Ensure lorazepam prescription is sent to [facility]. 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 10/10/2024 CORNELIO (generalized anxiety disorder) (ICD-10 - F41.1) 07/11/2024 CORNELIO (generalized anxiety disorder) (ICD-10 - [...] any concerns arise before the scheduled appointment. 01/04/2025 CORNELIO (generalized anxiety disorder) (ICD-10 - F41.1) 06/11/2024 CORNELIO (generalized anxiety disorder) (ICD-10 - [...] especially given work stress and childcare responsibilities. 01/04/2025 Negative depression screening (ICD-10 - Z13.31) [...] through [facility]. - Refill Lorazepam at [facility]. Follow-up - Plan: - Schedule a follow-up appointment in 3 months to monitor the patient's progress and adjust medications as needed. - Encourage the patient to contact the clinic if there are any concerns or changes in symptoms before the next appointment. Plan Of Treatment Next Appt Details Provider Name:Fred Arias , 04/05/2025 04:45:00 PM, [address], [place], [address], Insurance Providers Payer Name Payer Address Payer Phone Subscriber Number Group Number Insured Name Patient Relationship to Insured Coverage Start Date Coverage End Date [facility] Benefit Plan Management Ppo [address] [place] [address] [id number] CHARLIE BEATTY Self - patient is the [...]
--- OUTSIDE RECORDS SUMMARY | 2025-02-22 00:46 | XMS_ITS | Encounter Summary ---
Author Organization [facility] Address [address] [place] [address] Care Team Providers Care Bias Binding Cutter Name Role Phone Alfredo Claros MD Primary Care Provider Encounter Details Date Type Department Care Team (Late st Contact Info) Description 01/09/2025 Lett Message Enc [facility] Family Medicine - [place] [address] [place] [address] Alfredo Claros MD [address] [place], [place] [phone] Abdominal pain Social History Tobacco Use Types [...] from your doctor or pharmacy? Never 02/09/2024 [facility] Utilities Answer Date Recorded In the [...] often do you attend chur ch or rastafari services? Never 02/09/2024 Do you belong to any clubs o r organizations such as taoism groups, unions, fraternal or athletic groups, or [...] Recorded Patient Health Questionnaire-2 Score 0 11/26/2024 [facility] Occupat ional Health - Occupational Stress [...] any time in the past 12 [facility], were you homeless or living in a intermediate (including now)? 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
--- OUTSIDE RECORDS SUMMARY | 2025-02-22 00:46 | XMS_ITS | Encounter Summary ---
Author Organization [facility] Address [address] [place] [address] Care Team Providers Care Out Of Town Collection Clerk Name Role Phone Alfredo Claros MD Primary Care Provider Reason for Visit * Reason Onset Date Comments Problem 12/14/2021 Encounter Details Date Type Department Care Team (Late st Contact Info) Description 12/14/2021 MyChart Message Enc [facility] Medical Group Family Medicine - [place] [address] [place] [address] Alfredo Claros MD [address] [place], [place] [phone] Covid results Social History Tobacco Use Types Packs/Day Years Used Date Smoking Tobacco: Never Smokeless Tobacco: Never Alcohol Use Standard Drinks/Week Comments Not Currently 0 (1 standard drink = 0.6 oz pur e alcohol) Comments No Sex and Gender Information Value Date Recorded Sex Assigned at Female 11/26/2024 8:38 AM CDT 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
[2025-02-22] MEDS: KETOROLAC 15 MG/ML VIAL (*BKC) IV PUSH (11:00)
[2025-02-22] MEDS: LACTATED RINGERS 1,000 ML 30 ML IV CONT ×2 (11:00→14:16)
[2025-02-22] MEDS: ACETAMINOPHEN 500 MG TABLET 1000 MG PO (11:00)
--- NOTE | 2025-02-22 11:57 | P.PNAN_ITS ---
Anes - Initial Pre Proc Eval Procedure: Operation Date: 02/22/25 12:00 Proposed Procedures p Laparoscopic Cholecystectomy - Scotty El MD Date/Time: 02/22/25 11:57 Surgeon: Scotty El MD Pre Op Diagnosis: chronic cholecystitis Patient Data Age: 30 Gender: F Height: 1.78 m Weight: 118.3 kg Last Vital Signs Temp 36.6 C 02/22/25 11:00 Pulse 72 02/22/25 11:00 Resp 16 02/22/25 11:00 BP 111/80 02/22/25 11:00 Pulse Ox 100 02/22/25 11:00 O2 Del Method Room Air 02/22/25 11:00 Allergies Allergy/AdvReac Type Severity Reaction Status Date / Time vancomycin Allergy Intermediate Redness of Verified 02/22/25 11:15 Skin erythromycin base Allergy Mild hives Verified 02/22/25 11:15 Home Medications ?Medication ?Instructions ?Recorded ?Confirmed ?Type bupropion HCl 300 mg 24 hr tablet, 300 mg PO DAILY 07/05/20 02/22/25 History extended release lamotrigine 100 mg tablet 100 mg PO DAILY 02/22/23 02/07/25 History lurasidone 20 mg tablet 40 mg PO DAILY 06/24/23 02/07/25 History tirzepatide (weight loss) 5 mg/0.5 5 mg subcut WEEKLY 01/07/25 02/22/25 History mL subcutaneous pen injector (Zepbound) sertraline 100 mg tablet 200 mg PO HS 02/07/25 02/07/25 History Patient hx anesthesia problems: none Family hx anesthesia problems: none Results Review: All pre-operative results and documents have been reviewed as part of the pre- operative evaluation. COUNT INCLUDES THE [facility] Past Medical History Medical History Depression Usnil-Danlos and osteogenesis imperfecta syndrome hypermoble Chronic kidney disease stage 2 Asthma OCD (obsessive compulsive disorder) Anxiety with depression Surgical History Surgical History Delivery by section (12/27/23) primary c/s Arrest of Dilation and Non-Reassuring Status H/O eye surgery (~1997) History of gynecological procedure (02/05/15) mirena iud insertion History of gynecological procedure (01/09/20) mirena iud removal (unable to removed done in OR on 01/24/2020 [place] teeth removed Hx of tonsillectomy (~08/2012) Family History Family History Grandparent Heart disease paternal grandfather Hypertension paternal grandfather Diabetes mellitus Paternal Grandfather Other Family history of allergic disorder Family history of cardiovascular disease Social History Social History Smoking status: Never smoker Second hand tobacco smoke exposure: No Alcohol intake: never Substance use: never Substance use type: does not use Do You Feel Safe in your Home?: Yes Lack of Transportation: No Lack of Food: Never True Current Housing: I Have Housing Concerned About Future Housing: No Difficulty Paying Gas/Electric Bills: No Difficulty Paying for Meds: No Currently Unemployed: No Education: Master's Degree or Higher Difficulty w/ Childcare or Family Care: No Living arrangements: with family Additional living arrangements comments: 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/Education: 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 Gender identity (if verbalized by the patient): Female Sexual Orientation (if Verbalized by the Patient): Straight or Heterosexual Spiritual care concerns: No Anes - Eval Final PreProcedure Day of Procedure 02/22/25 11:57 Patient weight: obese Heart: regular rate and rhythm Lungs: clear to auscultation Airway: Mallampati scale class II Neurological: alert and oriented Last oral intake: >/= 8 hours ASA classification: III Emergent: no Anesthetic plan: proceed Anesthesia type and monitoring: general ETT and standard monitoring Results Review: All pre-operative results and documents have been reviewed as part of the pre- operative evaluation. Informed Consent: The patient's anesthetic plan and its attendant risks and benefits were discussed with the patient/family/POA. Questions were solicited and answers provided to the satisfaction of the patient/family/POA.
--- NOTE | 2025-02-22 12:46 | WPDHPUPDATE1 ---
History and Physical Update Update Date/Time: 02/22/25 12:46 History and Physical has been reviewed, including an updated exam of the patient. There are NO changes in the patient's condition. Risks, benefits, and alternatives have been discussed and questions answered. Patient agrees to proceed with procedure.
[2025-02-22] MEDS: ceFAZolin 2 GM in SODIUM CHLORIDE 0.9% IV 50 ML 100 ML IVPB (13:01)
[2025-02-22] MEDS: BUPIVACAINE/EPINEPHRINE 0.5% 50 ML VIAL 30 ML INFILTRATE (13:37)
[2025-02-22] MEDS: fentaNYL CITRATE INJ (*CRX) 100 MCG/2 ML VIAL 25 MCG IV PUSH ×8 (14:21→14:59)
--- NOTE | 2025-02-22 14:24 | S_PTH ---
PATIENT: Radhika Beck LOC: [facility] U#:[id number] AGE/SX: 30/F ROOM: RE02/22/[address]: Scotty El MD : 1995 BED: DIS: 02/22/2025 SPEC #: [id number] RECD: 02/25/25 08:11 STATUS: NEEL REQ #: [id number] MARCIN: 02/22/25 14:[address]: Scotty El DEPT: [facility] Surgical RECD BY: Emmanuelle Hunter ENTERED: 02/25/25 08:11 SP TYPE: Surgical OTHR DR: Alfredo ClarosMD Tissues: A - Gallbladder Procedures: Hematoxylin and Eosin Stain Gross and Microscopic Level 3
--- NOTE | 2025-02-22 15:15 | W.PM.PROC2 ---
Procedure Note - Detailed Date of Procedure 02/22/25 Pre-op Diagnosis chronic cholecystitis Post-op Diagnosis Same Procedure Performed Laparoscopic cholecystectomy Surgeon Scotty El MD Medical Administrative Alondra Ruth [facility] Anesthesia General and Local Indications Patient has had postprandial right upper quadrant abdominal pain associated with nausea and vomiting for quite some time. She had an ultrasound during this showed sludge in her gallbladder. This was at an outside facility. She has a strong family history of gallbladder disease. She is taken to surgery now for cholecystectomy Findings Mild to moderate chronic inflammation, no stones noted, fatty liver, no biliary ductal dilatation. Description of Procedure Patient was taken to surgery and induced into general anesthesia. The abdomen is prepped and draped. Trocars were placed in the usual fashion using Clover optical trocars and a 5 mm camera. The gallbladder was decompressed with a laparoscopic aspirator. A Vicryl endoloop was used to close the cholecystotomy. Gallbladder was then retracted anterosuperiorly. Traction was placed on the infundibulum and dissection was carried out in the cholecystohepatic triangle. The cystic duct and cystic artery were dissected out clearly. The gallbladder was dissected off the liver at its lower 3rd. Critical view was achieved. We then securely clipped and divided the cystic duct and cystic artery. The gallbladder was then dissected free of its remaining attachments to the liver. Once it was free, it was placed in an Endo-Catch bag and was retrieved through the 10 11 epigastric trocar site. We then replaced the epigastric trocar and reviewed the right upper quadrant. All looked good with no evidence of bleeding or bile leak. We then evacuated CO2 and removed the trocar sleeves. Skin wounds were closed with subcuticular 4-0 Monocryl skin suture. The wounds were dressed with Exofin surgical adhesive. Patient was awakened and taken to recovery in good condition. Sponge needle counts were correct x2. Estimated Blood Loss -5 Drains No Packing No Pathology Yes (Gallbladder) Complications None Condition Stable Disposition PACU [facility] Billing Surgery - Charge Forward: Surgery Billing (Laparoscopic cholecystectomy)
[2025-02-22] MEDS: oxyCODONE HCL (*CRX) 5 MG TAB IR PO (15:42)
== END 2025-02-22 16:07 | disposition home or self-care (01) ==
PROVIDERS: PCP Family Medicine; Visit Provider Surgery
PROC: 0FT44ZZ Resection of Gallbladder, Percutaneous Endoscopic Approach (ICD-10-PCS; CPT 47562; principal; 2025-02-22 12:00)
DX: K81.1 Chronic cholecystitis (principal); E66.9 Obesity, unspecified; Z68.37 Body mass index [BMI] 37.0-37.9, adult
CPT/HCPCS: 47562; 88304; J0690; A9270; J1100; J1885; J2250; J2405; J2704; J3010; J7120

== ENCOUNTER 2025-03-16 13:50 | Emergency (ER) | payer OTHER, SELFPAY ==
--- OUTSIDE RECORDS SUMMARY | 2025-03-16 13:52 | XMS_ITS | Encounter Summary ---
Author Organization [facility] Address [address] [place] [address] Care Team Providers Care Fare Collector Name Role Phone Alfredo Claros MD Primary Care Provider Encounter Details Date Type Department Care Team (Late st Contact Info) Description 05/05/2022 Zo[place]u Message Enc [facility] Medical Group Family Medicine [address], [address] [place] [phone] [place] Provider lab results Social History Tobacco Use Types Packs/Day Years Used Date Smoking Tobacco: Never Smokeless Tobacco: Never Alcohol Use Standard Drinks/Week Comments Not Currently 0 (1 standard drink = 0.6 oz pur e alcohol) Comments No Sex and Gender Information Value Date Recorded Sex Assigned at Female 11/26/2024 8:38 AM CDT 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
--- OUTSIDE RECORDS SUMMARY | 2025-03-16 13:52 | XMS_ITS | Encounter Summary ---
Author Organization [facility] Address [address] [place] [address] Care Team Providers Care Nursing Resident Name Role Phone Alfredo Claros MD Primary Care Provider Encounter Details Date Type Department Care Team (Late st Contact Info) Description 05/10/2022 [place] Message Enc [facility] Medical Group Family Medicine - [place] [address] [place] [address] Alfredo Claros MD [address] [place], [place] [phone] Finished antibiotics Social History Tobacco Use Types Packs/Day Years Used Date Smoking Tobacco: Never Smokeless Tobacco: Never Alcohol Use Standard Drinks/Week Comments Not Currently 0 (1 standard drink = 0.6 oz pur e alcohol) Comments No Sex and Gender Information Value Date Recorded Sex Assigned at Female 11/26/2024 8:38 AM CDT 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
--- OUTSIDE RECORDS SUMMARY | 2025-03-16 13:52 | XMS_ITS | Clinical Summary ---
Author Organization [facility] the [facility] Address [address] [place] [address] Care Team Providers Care Cnc Operator Name Role Phone Alfredo Claros MD Primary Care Provider [phone] Allergies Active Allergy Reactions Criticality Noted Date [...] 50 mcg/actuation nasal spray,suspension Active influenza quadrivalent 5470-1165 (Fluzone Quad , PF,) 60 mcg (15 [...] specific interest in kidney disease in at [facility] [place]; however, any nephrology evaluation would be appropriate. [...] of at least 30 minutes 5x/week, and nutrition/care program resident options. Anxiety and depression 04/05/2023 Overview (04/06/2023): [...] easily managed by the pediatricians, and no prison effects have ever been demonstrated. We discussed [...] , as well as referral to a rehabilitation tech and pulmonary function testing. 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 Gender Identity Not on file Sexual [...] patient's age to complete this topic Insurance [facility] Address: [address] [address] [place] [address] [facility] Address: [address] [place] [address] [facility]O Address: [address] [place] [address] [employer] Care Teams Cnc Operator Relationship Specialty Start Date End Date Alfredo Claros MD [address] [address] PCP - General Family Medicine 03/01/22
--- OUTSIDE RECORDS SUMMARY | 2025-03-16 13:52 | XMS_ITS | Patient Health Record ---
Author Organization [facility] [employer] [facility] Address [address] [place] [address] Care Team Providers Care Edge Cutter Name Role Phone Alfredo Claros MD Primary Care Provider Fred Pimentel Unavailable [phone] Allergies Allergen (clinical drug ingredient) Drug/Non Drug Allergy documented on EMR Reaction Allergy Type Onset Date Status erythromycin Erythromycin Base Unknown Drug Allergy 2023 Active vancomycin Vancomycin Unknown Drug Allergy Activ e Results Component Value Reference Range Notes Validity Testing Reviewed date:01/11/2025 02:10:02 PM Interpretation: Performing Lab: Notes/Report: Not Medicated Consistent Not Medicated Consistent Not Medicated Consistent Not Medicated Consistent Specific [place] 1.023 1.003 - 1.030 pH 5.7 3.0 - 10.9 Oxidants -20 200 g/mL Creatinine 251.3 20.0 - 300.0 mg/dL Benzodiazepines Reviewed date:01/11/2025 02:10:02 PM Interpretation: Performing Lab:[address] [place] [address], [address] [place] [address], Director - [phone] Notes/Report: An exception occurred while processing this report and so it has incomplete data. Please contact [employer] for assistance. Not Medicated Consistent Not [...] NEGATIVE 20.0 ng/mL PDF Report [email or web address] UDT Reviewed date:06/11/2024 04:48:18 PM Interpretation: Performing Lab: Notes/Report: THC N 0 - 50 ng/ml Cocaine N 0 - 300 ng/ml Amphetamine N 0 - 1000 ng/ml Buprenorphine (BUP) N 0 - 10 ng/ml Secobarbital (Bar) N 0 - 300 ng/ml Oxazepam (BZO) N 0 - 300 ng/ml 4-rlfjnnibtw-9,0-knitdety-7, 3-diphenylpyr rolidine (EDDP) N 0 - 300 ng/ml Methamphetamine (MET) N 0 - 1000 ng/ml Methylenedioxymethamphetamine (MDMA) N 0 - 500 ng/ml Morphine (MOP 300/[id number]) N 0 - 300 ng/ml Methadone (MTD) [...] Oxazepam (BZO) P 0 - 300 ng/ml 4-nykrfheycd-1,8-wfbuqwhc-8, 3-diphenylpyr rolidine (EDDP) N 0 - 300 ng/ml Methamphetamine (MET) N 0 - 1000 ng/ml Methylenedioxymethamphetamine (MDMA) N 0 - 500 ng/ml Morphine (MOP 300/[id number]) N 0 - 300 ng/ml Methadone (MTD) N 0 - 300 ng/ml Phencyclidine (PCP) N 0 - 25 ng/ml Nortriptyline (TCA) N 0 - 1000 ng/ml Oxycodone N 0 - 300 ng/ml x N 0 - 300 ng/ml UDT Reviewed date:01/04/2025 01:09:44 PM Interpretation: Performing Lab: Notes/Report: THC N 0 - 50 ng/ml Cocaine N 0 - 300 ng/ml Amphetamine N 0 - 1000 ng/ml Buprenorphine (BUP) N 0 - 10 ng/ml Secobarbital (Bar) N 0 - 300 ng/ml Oxazepam (BZO) P 0 - 300 ng/ml 4-xregbtoxva-2,1-jbhtwnij-3, 3-diphenylpyr rolidine (EDDP) N 0 - 300 ng/ml Methamphetamine (MET) N 0 - 1000 ng/ml Methylenedioxymethamphetamine (MDMA) N 0 - 500 ng/ml Morphine (MOP 300/[id number]) N 0 - 300 ng/ml Methadone (MTD) [...] Oxazepam (BZO) N 0 - 300 ng/ml 8-gjellwqozt-7,5-jtntbsmx-9, 3-diphenylpyr rolidine (EDDP) N 0 - 300 ng/ml Methamphetamine (MET) N 0 - 1000 ng/ml Methylenedioxymethamphetamine (MDMA) N 0 - 500 ng/ml Morphine (MOP 300/[id number]) N 0 - 300 ng/ml Methadone (MTD) [...] Status Risk Notes Problem Generalized anxiety disorder (70735406) Generalized anxiety disorder (F41.1) Active confirmed Problem Obsessive-compul sive disorder (582446995) Obsessive-compu lsive disorder, unspecified (F42.9) Active confirmed Problem Generalized anxiety disorder (12017684) CORNELIO (generalized anxiety disorder) (F41.1) Active confirmed Problem Recurrent major depression (13925866) Depression, major, recurrent, in remission (F33.40) Active confirmed Problem Recurrent major depression in full remission (88232938) Major depression, recurrent, full remission (F33.42) Active confirmed Vital Signs Heart Rate 90 /min 01/04/2025 Blood pressure diastolic 75 mm Hg 01/04/2025 Height-cm 177.80 cm 01/04/2025 Weight-kg 123.38 kg 01/04/2025 Height 70.00 in 01/04/2025 Blood pressure systolic 118 mm Hg 01/04/2025 Weight 272 lbs 01/04/2025 BMI 39.02 kg/m2 01/04/2025 Encounters Encounter Location Date Provider Diagnosis [address] [address] 04/27/2024 Fred Hugo Major depressive disorder, recurrent, in remission, unspecified F33.40 ; Obsessive-compulsive disorder, unspecified F42.9 and CORNELIO (generalized anxiety disorder) F41.[address] [address] 05/11/2024 Fred Hugo Major depressive disorder, recurrent, in remission, unspecified F33.40 ; Obsessive-compulsive disorder, unspecified F42.9 and CORNELIO (generalized anxiety disorder) F41.[address] [address] 06/11/2024 Fred Hugo Major depressive disorder, recurrent, in remission, unspecified F33.40 ; Obsessive-compulsive disorder, unspecified F42.9 and CORNELIO (generalized anxiety disorder) F41.[address] [address] 07/11/2024 Fred Hugo Major depressive disorder, recurrent, in remission, unspecified F33.40 ; Obsessive-compulsive disorder, unspecified F42.9 and CORNELIO (generalized anxiety disorder) F41.[address] [address] 10/10/2024 Fred Hugo Major depressive disorder, recurrent, in remission, unspecified F33.40 ; Obsessive-compulsive disorder, unspecified F42.9 and CORNELIO (generalized anxiety disorder) F41.[address] [address] 01/04/2025 Fred Hugo Depression, major, recurrent, in remission F33.40 ; Obsessive-compulsive disorder, unspecified F42.9 ; Encounter for screening for cardiovascular disorders Z13.6 ; CORNELIO (generalized anxiety disorder) F41.1 ; Negative depression screening Z13.31 ; Generalized anxiety disorder F41.1 and Abnormal weight loss R63.[address] [address] 10/04/2024 Fred Arias Major depressive disorder, recurrent, in remission, unspecified F33.40 Assessments Encounter Date Diagnosis (ICD Code) Assessment Notes Treatment Notes Treatment Clinical Notes Section Notes 01/04/2025 Obsessive-compuls job disorder, unspecified (ICD-10 - F42.9) 01/04/2025 Depression, major, recurrent, in remission (ICD-10 - F33.40) 10/10/2024 Major depressive disorder, recurrent, in remission, unspecified (ICD-10 - F33.40) 10/04/2024 Major depressive disorder, recurrent, in remission, [...] concerns arise before the scheduled appointment. 06/11/2024 Major depressive disorder, recurrent, in [...] symptoms, especially given work stress and childcare responsibilitie s. 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 04/27/2024 Major depressive disorder, recurrent, in [...] TV to zone out and calm down. Obsessive-Compu lsive Symptoms - Assessment: Patient reports a history [...] supply of sertraline to be filled through [facility] or [facility], as needed. - Ensure lorazepam prescription is sent to [facility]. - Discuss the importance of in-person appointments [...] TV to zone out and calm down. Obsessive-Compu lsive Symptoms - Assessment: Patient reports a history [...] supply of sertraline to be filled through [facility] or [facility], as needed. - Ensure lorazepam prescription is sent to [facility]. - Discuss the importance of in-person appointments for better management of depression. 04/27/2024 CORNELIO (generalized anxiety disorder) (ICD-10 - [...] TV to zone out and calm down. Obsessive-Compu lsive Symptoms - Assessment: Patient reports a history [...] supply of sertraline to be filled through [facility] or [facility], as needed. - Ensure lorazepam prescription is sent to [facility]. - Discuss the importance of in-person appointments for better management of depression. 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 06/11/2024 Obsessive-compuls job disorder, unspecified (ICD-10 [...] symptoms, especially given work stress and childcare responsibilitie s. 07/11/2024 Obsessive-compuls job disorder, unspecified (ICD-10 - [...] job disorder, unspecified (ICD-10 - F42.9) 01/04/2025 CORNELIO (generalized anxiety disorder) (ICD-10 - F41.1) 10/10/2024 CORNELIO (generalized anxiety disorder) (ICD-10 - [...] concerns arise before the scheduled appointment. 06/11/2024 CORNELIO (generalized anxiety disorder) (ICD-10 [...] symptoms, especially given work stress and childcare responsibilitie s. 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 01/04/2025 Negative depression screening (ICD-10 - Z13.31) 01/04/2025 Generalized anxiety disorder (ICD-10 - F41.1) [...] through [facility]. - Refill Lorazepam at [facility]. Follow-up - Plan: - Schedule a follow-up appointment in 3 months to monitor the patient's progress and adjust medications as needed. - Encourage the patient to contact the clinic if there are any concerns or changes in symptoms before the next appointment. Plan Of Treatment Next Appt Details Provider Name:Fred Rojas Hugo , 04/05/2025 04:45:00 PM, [address], [facility] [address], [place], [address], Insurance Providers Payer Name Payer Address Payer Phone Subscriber Number Group Number Insured Name Patient Relationship to Insured Coverage Start Date Coverage End Date [employer] - [facility] Benefit Plan Management Ppo [address] JUSTINA MARTE [phone] [id number] CHARLIE BEATTY Self - patient is the [...]
--- OUTSIDE RECORDS SUMMARY | 2025-03-16 13:52 | XMS_ITS | Encounter Summary ---
Author Organization [facility] Address [address] [place] [address] Care Team Providers Care Repair Mechanic Name Role Phone Alfredo Claros MD Primary Care Provider Encounter Details Date Type Department Care Team (Latest Contact Info) Description 03/07/2025 Scan HEALTH INFO SRVCS Scanned, Doc Med Group Social History Tobacco Use Types Packs/Day Years [...] from your doctor or pharmacy? Never 02/09/2024 [facility] Utilities Answer Date Recorded In the past 12 months has e [employer]und [employer], gas, oil, or water [employer] threatened to shut off services in your [...] 02/09/2024 How often do you attend chur or jehovah's witness services? Never 02/09/2024 Do you belong to any clubs o r organizations such as adventism groups, unions, fraternal or athletic groups, or [...] Patient Health Questionnaire-2 Score 0 01/18/2025 [facility] ional [facility] - [...] any time in the past 12 m [facility], were you homeless or living in a care home (including now)? No 02/09/2024 Comments No Sex and Gender Information Value Date Recorded Sex Assigned at Female 11/26/2024 8:38 AM CDT Legal Sex Female 1:29 PM RESIDENT SURGEON Gender Identity Female 03/03/2022 6:04 AM CDT Sexual Orientation Straight 03/03/2022 6: 04 AM CDT documented as of this encounter Functional Status * Are you deaf or do you have serious difficulty hearing Answer Date of Assessment Author Status No 02/09/2024 6:55 PM CDT Tate An, MARIKA Active * Are you blind or do you have serious difficulty seeing, even when wearing glasses? Answer Date of Assessment Author Status No 02/09/2024 6:55 PM CDT Tate An, RN Active * Do you have serious difficulty walking or climbing stairs? Answer Date of Assessment Author Status No 02/09/2024 6:55 PM CDT Tate An, RN Active * Do you have difficulty dressing or bathing? Answer Date of Assessment Author Status No 02/09/2024 6:55 PM CDT Tate An, RN Active * Because of a physical, [...] Depression Total Score: 0 08/27/19 11:35 AM RESIDENT SURGEON documented as of this encounter Care Teams Repair Mechanic Relationship Specialty Start Date End Date Alfredo Claros MD [address] [address] PCP - General FAMILY PRACTICE 11/30/21 documented as of this encounter
--- OUTSIDE RECORDS SUMMARY | 2025-03-16 13:52 | XMS_ITS | Encounter Summary ---
Author Organization [facility] Address [address] [place] [address] Care Team Providers Care Orthotics Prosthetics Technician Name Role Phone Alfredo Claros MD Primary Care Provider Encounter Details Date Type Department Care Team (Late st Contact Info) Description 01/09/2025 [place] Message Enc [facility] Family Medicine - [place] [address] [facility] [address] [place] [address] Alfredo Claros MD [address] [place], [place] [phone] Abdominal pain Social History Tobacco Use Types [...] from your doctor or pharmacy? Never 02/09/2024 [facility] Utilities Answer Date Recorded In the [...] often do you attend chur ch or yazidi services? Never 02/09/2024 Do you belong to any clubs o r organizations such as zoroastrianism groups, unions, fraternal or athletic groups, or [...] Recorded Patient Health Questionnaire-2 Score 0 11/26/2024 [facility] Occupat ional Health - Occupational [...] any time in the past 12 m [facility], were you homeless or living in a senior care (including now)? No 02/09/2024 Comments No Sex and Gender Information Value Date Recorded Sex Assigned at Female 11/26/2024 8:38 AM CDT Legal Sex Female 1:29 PM BACK PADDER Gender Identity Female 03/03/2022 6:04 AM CDT [...] Depression Total Score: 0 08/27/19 11:35 AM BACK PADDER documented as of this encounter Care Teams Orthotics Prosthetics Technician Relationship Specialty Start Date End Date Alfredo Claros MD [address] [address] PCP - General FAMILY PRACTICE 11/30/21 documented as of this encounter
--- OUTSIDE RECORDS SUMMARY | 2025-03-16 13:52 | XMS_ITS | Encounter Summary ---
Author Organization [facility] Address [address] [place] [address] Care Team Providers Care Structural Steel Detailer Name Role Phone Alfredo Claros MD Primary Care Provider Reason for Visit * Reason Onset Date Comments Problem 12/14/2021 Encounter Details Date Type Department Care Team (Late st Contact Info) Description 12/14/2021 MyChart Message Enc [facility] Family Medicine - [place] [address] [place] [address] Alfredo Claros MD [address] [place], [place] [phone] Covid results Social History Tobacco Use Types Packs/Day Years Used Date Smoking Tobacco: Never Smokeless Tobacco: Never Alcohol Use Standard Drinks/Week Comments Not Currently 0 (1 standard drink = 0.6 oz pur e alcohol) Comments No Sex and Gender Information Value Date Recorded Sex Assigned at Female 11/26/2024 8:38 AM CDT Legal Sex Female 1:29 PM SOFTWARE CLERK Gender Identity Female 03/03/2022 6:04 AM CDT [...] documented as of this encounter Care Teams Structural Steel Detailer Relationship Specialty Start Date End Date Alfredo Claros MD [address] [place] [address] PCP - General FAMILY PRACTICE 11/30/21 documented as of this encounter
--- OUTSIDE RECORDS SUMMARY | 2025-03-16 13:52 | XMS_ITS | Clinical Summary ---
Author Organization [facility] [employer] Address [address] [place] [address] Care Team Providers Care Hydraulic Barker Operator Name Role Phone Alfredo Claros MD Primary Care Provider Source Comments [facility] and Associated Physician Practices is amultiple site organization consisting of ambulatory clinics and hospital sitesin [place], [place], [place] and [place]. This disclosure is being madepursuant to the Care Everywhere program and may not contain all information available regarding this patient. Last updated 18.[facility] [employer] Allergies Active Allergy Reactions Criticality Noted Date [...] Date Supervision of high risk in [facility] 12/07/2023 Obesity 10/05/2023 Sunil-Danlos syndrome, sarah [...] and heating? Not hard at all 12/07/2023 [facility] Occupat ional Health - Occupational Stress [...] place to sleep or slept in a mcc (including now)? No 12/07/2023 Comments No Sex [...] Reactive Non Reactive 12/07/2023 9:40 PM CDT [facility] HBsAg Non Reactive Non Reactive 12/07/2023 9:40 PM CDT [facility] HBc Antibody IgM Non Reactive Non Reactive 12/07/2023 9:40 PM CDT [facility] HCV Antibody Screen Non Reactive Non Reactive 12/07/2023 9:40 PM CDT [facility] Blood BLOOD SPECIMEN / Unknown Venipuncture / Unknown 12/07/2023 8:49 PM CDT 12/07/2023 8:54 PM CDT Narrative [facility] - 12/07/2023 9:40 PM CDT Non Reactive - Antibodies to Hepatitis C virus (HCV) were not detected, result does not exclude early acute HCV infection. us Amanda Crawford MD LAB - CHEMISTRY ORDERABLES [employer] Result [facility] [address] [place], [place] [phone] from Last 3 Months or Most Recently Relevant to Health Maintenance Insurance [facility] SELF PAY NO INSURANCE Member Subscriber Plan / Payer (Ef fective for All Dates) Name:Radhika Beck Member ID:Not on file Relation to Subscriber:Not on file Name:RADHIKA BECK Subscriber ID:Not on file (Home) Address: [address] [place] [address] Payer ID:Not on file Group ID:Not on file Type:Self Pay Address: [place], [place] * Guarantor: RADHIKA BECK Account Type Relation to Patient Date of Phone Billing Address Personal/Family [address] [place] [address] [employer] SELF PAY NO INSURANCE Member Subscriber Plan / Payer (Ef fective for All Dates) Name:Radhika Beck Member ID:Not on file Relation to Subscriber:Not on file Name:RADHIKA BECK Subscriber ID:Not on file Address: [address] [place] [address] Payer ID:Not on file Group ID:Not on file Type:Self Pay Address: [place], [place] * Guarantor: RADHIKA BECK Account Type Relation to Patient Date of Phone Billing Address Personal/Family [address] [place] [address] [employer] SELF PAY NO INSURANCE Member Subscriber Plan / Payer (Ef fective for All Dates) Name:Radhika Beck N Member ID:Not on file Relation to Subscriber:Not on file Name:RADHIKA BECK Subscriber ID:Not on file Address: [address] [place] [address] Payer ID:Not on file Group ID:Not on file Type:Self Pay Address: [place], [place] * Guarantor: RADHIKA BECK Account Type Relation to Patient Date of Phone Billing Address Personal/Family [address] [place] [address] [employer]IG[employer] SELF PAY NO INSURANCE Member Subscriber Plan / Payer (Ef fective for All Dates) Name:Radhika Beck Member ID:Not on file Relation to Subscriber:Not on file Name:RADHIKA BECK Subscriber ID:Not on file Address: [address] [place] [address] Payer ID:Not on file Group ID:Not on file Type:Self Pay Address: [place], [place] * Guarantor: RADHIKA BECK Account Type Relation to Patient Date of Phone Billing Address Personal/Family [address] [place] [address] Advance Directives * Full Code (Latest Code Status on File) Date Activated Date Inactivated Comments 12/07/2023 8:47 PM 12/08/2023 3:11 PM Care Teams Hydraulic Barker Operator Relationship Specialty Start Date End Date Alfredo Claros MD [address] [place], [place] [phone] PCP - General Family Medicine 12/28/21
--- OUTSIDE RECORDS SUMMARY | 2025-03-16 13:52 | XMS_ITS | Encounter Summary ---
Author Organization [facility] Address [address] [place] [address] Care Team Providers Care Abrasive Worker Name Role Phone Alfredo Claros MD Primary Care Provider Encounter Details Date Type Department Care Team (Late st Contact Info) Description 10/21/2022 [employer] Message Enc [facility] Family Medicine [address], [address] [place] [address] [place] Provider Prescription pickup Social History Tobacco Use Types Packs/Day Years Used Date Smoking Tobacco: Never Smokeless Tobacco: Never Alcohol Use Standard Drinks/Week Comments Not Currently 0 (1 standard drink = 0.6 oz pur e alcohol) Comments No Sex and Gender Information Value Date Recorded Sex Assigned at Female 11/26/2024 8:38 AM CDT Legal Sex Female 1:29 PM EXTERNAL AUDITOR Gender Identity Female 03/03/2022 6:04 AM CDT [...] documented as of this encounter Care Teams Abrasive Worker Relationship Specialty Start Date End Date Alfredo Claros MD [address] [address] PCP - General FAMILY PRACTICE 11/30/21 documented as of this encounter
--- OUTSIDE RECORDS SUMMARY | 2025-03-16 13:52 | XMS_ITS | Encounter Summary ---
Author Organization [facility] Address [address] [place] [address] Care Team Providers Care Photographs Curator Name Role Phone Alfredo Claros MD Primary Care Provider Encounter Details Date Type Department Care Team (Late st Contact Info) Description 03/01/2022 MyChart Message Enc [facility] Family Medicine - [place] [address] [facility] [address] [facility] [address] [place] [address] Alfredo Claros MD [address] [place], [place] [phone] Swollen lymph nodes/fatigue/ general unwell feeling Social History Tobacco Use Types Packs/Day Years Used Date Smoking Tobacco: Never Smokeless Tobacco: Never Alcohol Use Standard Drinks/Week Comments Not Currently 0 (1 standard drink = 0.6 oz pur e alcohol) Comments No Sex and Gender Information Value Date Recorded Sex Assigned at Female 11/26/2024 8:38 AM CDT Legal Sex Female 1:29 PM DIRECTOR DATABASE Gender Identity Female 03/03/2022 6:04 AM CDT [...] documented as of this encounter Care Teams Photographs Curator Relationship Specialty Start Date End Date Alfredo Claros MD [address] [place] [address] PCP - General FAMILY PRACTICE 11/30/21 documented as of this encounter
--- OUTSIDE RECORDS SUMMARY | 2025-03-16 13:52 | XMS_ITS | Clinical Summary ---
Author Organization [facility] Address [address] [place] [address] Care Team Providers Care Field Underwriter Name Role Phone Alfredo Claros MD Primary Care Provider Allergies Active Allergy Reactions Criticality Noted Date Comments Erythromycin Hives Medium 05/09/2021 Reaction: HIVES, Vancomycin Itching,Redness Medium 02/09/2024 Abisai syndrome Medications lamoTRIgine 100 MG tablet Take 1 tablet (100 mg total) by mouth nightly at bedtime. Active buPROPion XL 300 MG 24 hr tablet Take 1 tablet (300 mg total) by mouth every morning. 022 Active lurasidone (LATUDA) 40 MG Tab tablet Take 1 tablet (40 mg total) by mouth nightly at bedtime. Active Norethindrone , Contraceptive , 0.35 MG tablet Take 1 tablet by mouth daily. Active sertraline (ZOLOFT) 100 MG tablet Take 1.5 tablets (150 mg total) by mouth nightly at bedtime. Active LORazepam (ATIVAN) 0.5 MG tablet daily. 025 Active Lidocaine HCl (LIDOCAINE 1.5%/NIFEDIPI NE 0.3% COMPOUNDED OINT)Indicati ons:Anal fissure APPLY EXTERNALLY 2 TIMES A DAY AND NEEDED AFTER BOWEL MOVEMENT 3 oz 6 025 Active Nitroglycerin 0.4 % OintmentIndic ations:Anal fissure Place 1 inch rectally 2 (two) times daily as needed. 30 g 3 025 Active tirzepatide (ZEPBOUND) 5 MG/0.5ML injectionIndi cations:Weigh t Loss Inject 5 mg into the skin once a week. Indications: Weight Loss 6 mL 1 025 Active ZEPBOUND 5 MG/0.5ML injectionIndi cations:Morbi d obesity with BMI of 40.0-44.9, adult ([facility] INJECT 1 SYRINGE SUBCUTANEOUSLY ONCE A WEEK 4 mL 025 2024 Discontinued ZEPBOUND 5 MG/0.5ML injectionIndi cations:Morbi d obesity with BMI of 40.0-44.9, adult ([facility]) INJECT 1 SYRINGE SUBCUTANEOUSLY ONCE A WEEK 4 mL 025 2024 Discontinued tirzepatide (ZEPBOUND) 5 MG/0.5ML injectionIndi cations:Weigh t Loss Inject 5 mg into the skin once a week. 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 We discussed [...] Encounters Date Type Department Care Team Description 03/07/2025 Scan [facility] SRV[facility] Scanned, [facility] 02/22/2025 Scan [facility] SRVCS Scanned, [facility] Procedure (SCAN) 02/07/2025 Scan [facility] INFO SRVCS Scanned, [facility] 01/29/2025 MyChart Message Enc [facility] Medicine - [place] [address], [address] [place] [phone] Alfredo Claros MD General Surgeon 01/29/2025 Results Follow-Up [facility] [place] [address] [place] [address] Fabrizio Cam MD NM HEPATOBILIARY SCAN W/GB EJECTION FRACTION 01/28/2025 7:44 AM CDT - 01/28/2025 11:59 PM CDT Hospital Encounter [facility] Nuclear Medicine [address] [place] [address] Fabrizio Cam MD Discharge Disposition: Home or Self Care (Routine Discharge) 01/28/2025 Travel 01/18/2025 2:00 PM CDT Office Visit [facility] [place] [id number] [place] [phone] Alfredo Claros MD Kim, Peter S, MD New Patient (Rectal sx) 01/18/2025 Travel 01/17/2025 11:35 AM CDT - 01/17/2025 11:59 PM CDT Hospital Encounter [facility] Ultrasound [address] [place] [address] Alfredo Claros MD Discharge Disposition: Home or Self Care (Routine Discharge) 01/17/2025 Results Follow-Up [facility] [place] [address], [address] [place] [phone] Alfredo Claros MD [facility] 01/17/2025 Travel 01/10/2025 Orders Only [facility] [place] [address], [address] [place] [phone] Alfredo Claros MD 01/09/2025 MyChart Message Enc [facility] [address], [address] [place] [phone] Alfredo Claros MD Abdominal pain 01/08/2025 Scan HEALTH INFO SRVCS Scanned, [facility] 01/07/2025 8:32 AM CDT - 01/07/2025 11:59 PM CDT Hospital Encounter [facility] Laboratory [address] [place] [address] Annia Perkins APNP Discharge Disposition: Home or Self Care (Routine Discharge) 01/07/2025 8:30 AM CDT - 01/07/2025 8:31 AM CDT Hospital Encounter [facility] [address] [place] [address] Alfredo Claros MD Discharge Disposition: Home or Self Care (Routine Discharge) 01/07/2025 Orders Only [facility] [address] [place] [address] Annia Perkins APNP 01/07/2025 Travel 12/27/2024 Orders Only [facility] [address], [address] [place] [phone] Alfredo Claros MD 12/27/2024 Telephone [facility] [address], [address] [place] [phone] Alfredo Claros MD Question; Problem from Last 3 Months Immunizations Immunization Administration [...] from your doctor or pharmacy? Never 02/09/2024 [facility] Utilities Answer Date Recorded In the past 12 months has e [employer], gas, oil, or water Disability Care Givers threatened to shut off services in your [...] often do you attend chur ch or lutheran services? Never 02/09/2024 Do you belong to any clubs o r organizations such as anabaptist groups, unions, fraternal or athletic groups, or [...] Recorded Patient Health Questionnaire-2 Score 0 01/18/[address] [facility] Questionnaire Answer Date Recorded [...] time in the past 12 m [facility], were you homeless or living in a [facility]p (including now)? 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 Gender Identity Female 03/03/2022 6:04 AM [...] Hepatitis C Completed 12/07/2023, 11/30/2023 PHQ-2 (Physician [place]) Completed 01/18/2025 Meningococcal B Vaccine Aged Out No l onger eligible based on patient's age to complete this topic RSV Immunizations Under 20 Months Aged Out No longer eligible based on patient's age to complete this topic Procedures Procedure Name Priority Date/Time Associated Diagnosis Comments PROCEDURE GENERIC (SCAN ORDER) 02/22/2025 NM HEPATOBILIARY SCAN W/GB EJECTION FRACTION Routine [...] AM CDT Left upper quadrant abdominal pain HEP C SCANNED ORDERS Routine 11/30/2023 from Last 3 Months or Most Recently Relevant to Health Maintenance Results * PROCEDURE GENERIC (SCAN ORDER) (02/22/2025) 02/22/2025 us [facility] Scanned SCANNING Final Resu lt * NM HEPATOBILIARY SCAN W/GB EJECTION FRACTION [...] PM Narrative 01/28/2025 1:[address] [facility] [address] [place] [address] EXAMINATION: HEPATOBILIARY SCINTIGRAPHY (WITH GALLBLADDER EJECTION FRACTION) [...] Note Ariela Jones MD - 01/28/2025 [facility] [address] [facility] [address] [place] [phone] EXAMINATION: HEPATOBILIARY SCINTIGRAPHY (WITH GALLBLADDER EJECTIONFRACTION) DATE [...] 1:28 PM Narrative 01/17/2025 1:35 PM CDT [place] [id number] [place] [address] EXAMINATION: Limited Abdomen Ultrasound: RUQ EXAM DATE/TIME: [...] Note Merrill Maria MD - 01/17/2025 [facility] [address] [place] [address] EXAMINATION: Limited Abdomen Ultrasound: RUQ EXAM DATE/TIME: [...] COLOR (U) YELLOW 01/07/2025 9:40 AM CDT [facility] TRANSPARENCY CLEAR 01/07/2025 9:40 AM CDT [facility] SPECIFIC GRAVITY (U) >1.030(H) 1.000 - 1.030 01/07/2025 9:40 AM CDT [facility] U PH 5.5 5.0 - 9.0 01/07/2025 9:40 AM CDT [facility] LEUKOCYTES (U) NEGATIVE NEGATIVE 01/07/2025 9:40 AM CDT [facility] NITRITES NEGATIVE NEGATIVE 01/07/2025 9:40 AM CDT [facility] PROTEIN RANDOM (U) TRACE(A) NEGATIVE 01/07/2025 9:40 AM CDT [facility] GLUCOSE (U) NEGATIVE NEGATIVE 01/07/2025 9:40 AM CDT [facility] KETONES MG/DL (U) NEGATIVE NEGATIVE 01/07/2025 9:40 AM CDT [facility] BILIRUBIN (U) 1+(A) NEGATIVE 01/07/2025 9:40 AM CDT [facility] BLOOD (U) 3+(A) NEGATIVE 01/07/2025 9:40 AM T [facility] URINE SPECIMEN OBTAINED BY CLEAN CATCH PROCEDURE / Unknown 01/07/2025 8:51 AM CDT us Annia ASHFORD URINE ORDERABLES Final Result [facility] [address] [place] [address], [place] [phone] * URINALYSIS MICRO ONLY (01/07/2025 8:51 AM CDT) WBC/HPF NONE SEEN 0 - 5 /HPF 01/07/2025 9:40 AM CDT [facility] RBC/HPF 5-10 0 - 5 /HPF 01/07/2025 9:40 AM CDT [facility] EPI/HPF MODERATE /HPF 01/07/2025 9:40 AM CDT [facility] 01/07/2025 8:51 AM CDT us Annia Perkins APNP URINE ORDERABLES Final Result Performing Organization Address City/[facility]/ZIP Co de Phone Number [facility] [address] [place] [address], [place] [phone] * (ABNORMAL) MICROALBUMIN CREATININE RATIO (MICROALBUMIN/ALBUMIN) (01/07/2025 8:51 AM CDT) CREATININE (U) 290.7(H) 28 - 217 MG/DL 01/07/2025 9:32 AM CDT [facility] MICROALBUMIN (U) 1.3 <2.0 mg/dL 01/07/2025 9:32 AM CDT [facility] ALBUMIN/CREAT RATIO 4.5 <30.0 MG/G 01/07/2025 9:32 AM CDT [facility] URINE SPECIMEN / Unknown 01/07/2025 8:51 AM CDT us Annia Ahuja Gregorio APNP URINE ORDERABLES Final Result [facility] [address] [place] [address], [place] [phone] * (ABNORMAL) RENAL FUNCTION PANEL (01/07/2025 8:36 AM CDT) GLUCOSE 88 70 - 99 MG/DL 01/07/2025 9:23 AM [facility] BUN 18 7 - 18 MG/DL 01/07/2025 9:23 AM [facility] CREATININE S/P/B 1.23(H) 0.55 - 1.02 MG/DL 01/07/2025 9:23 AM [facility] SODIUM S/P/B 138 136 - 145 MMOL/L 01/07/2025 9:23 AM [facility] POTASSIUM S/P/B 4.1 3.5 - 5.1 MMOL/L 01/07/2025 9:23 AM [facility] CHLORIDE S/P/B 104 100 - 108 MMOL/L 01/07/2025 9:23 AM [facility] CO2 22.1 21 - 32 MMOL/L 01/07/2025 9:23 AM [facility] CALCIUM S/P/B 9.1 8.5 - 10.1 MG/DL 01/07/2025 9:23 AM [facility] ALBUMIN S/P/B 3.8 3.4 - 5.0 G/DL 01/07/2025 9:23 AM [facility] PHOSPHORUS 3.7 2.5 - 4.9 MG/DL 01/07/2025 9:23 AM [facility] ANION GAP 11.9 5 - 15 MMOL/L 01/07/2025 9:23 AM [facility] BUN CREATININE RATIO 14.6 6 - 26 01/07/2025 9:23 AM [facility] GFR ESTIMATE 61(L) >90 ML/MIN/1.7 3 M2 01/07/2025 9:23 AM [facility] Comment: NOTE: eGFR is not calculated for patients <18 years of age. This is an estimated GFR calculation using the new CKD EPI creatinine equation without race and so does not require a correction factor for race. This estimated GFR should not be used for calculating drug doses. 01/07/2025 8:36 AM CDT us Annia Leigha [facility] Final Result [facility] [address] [place] [address], * (ABNORMAL) CBC W/DIFF AUTOMATED (01/07/2025 8:36 AM CDT) WBC 8.57 4.4 - 11.0 x10'3/uL 01/07/2025 8:51 AM CDT [facility] RBC 5.12(H) 4.50 - 5.10 x10'6/uL 01/07/2025 8:51 AM CDT [facility] HGB 14.6 12.3 - 15.3 G/DL 01/07/2025 8:51 AM CDT [facility] HCT 42.2 35.9 - 44.6 % 01/07/2025 8:51 AM CDT [facility] MCV 82.4 80.0 - 96.0 FL 01/07/2025 8:51 AM CDT [facility] MCH 28.5 25.3 - 30.9 PG 01/07/2025 8:51 AM CDT [facility] MCHC 34.6(H) 31.0 - 34.1 G/DL 01/07/2025 8:51 AM CDT [facility] RDW 13.7 12.4 - 15.1 % 01/07/2025 8:51 AM CDT [facility] PLT 342 151 - 353 x10'3/uL 01/07/2025 8:51 AM CDT [facility] MPV 9.6 9.6 - 12.0 FL 01/07/2025 8:51 AM CDT [facility] RBC MORPHOLOGY NORMAL 01/07/2025 8:51 AM CDT [facility] PLT MORPH. NORMAL 01/07/2025 8:51 AM CDT [facility] WBC MORPHOLOGY NORMAL 01/07/2025 8:51 AM CDT [facility] LYMPHOCYTES % 20.9 15.8 - 45.0 % 01/07/2025 8:51 AM CDT [facility] NEUTROPHILS % 64.5 42.1 - 71.9 % 01/07/2025 8:51 AM CDT [facility] MONOCYTES % 6.4 5.7 - 12.5 % 01/07/2025 8:51 AM CDT [facility] EOSINOPHILS 7.4(H) 0.0 - 5.6 % 01/07/2025 8:51 AM CDT [facility] BASOPHILS 0.4 0.0 - 1.3 % 01/07/2025 8:51 AM CDT [facility] ABS. NEUTROPHILS 5.54 1.40 - 6.00 x10'3/uL 01/07/2025 8:51 AM CDT [facility] IMMATURE GRANS % 0.4 0.0 - 0.5 % 01/07/2025 8:51 AM CDT [facility] ABS. LYMPHOCYTES 1.79 0.80 - 4.70 x10'3/uL 01/07/2025 8:51 AM CDT [facility] 01/07/2025 8:36 AM CDT us Annia ASHFORD LABORAT[facility] Final Result [facility] [address] [place] [address], [place] [phone] * LIPASE (01/07/2025 8:36 AM CDT) LIPASE 41 16 - 77 UNITS/L 01/07/2025 9:13 AM CDT [facility] 01/07/2025 8:36 AM CDT us Alfredo Claros MD LABORATORY Final R esult Performing Organization Address City/[facility] Co de Phone Number [facility] [address] [place] [address], [place] [phone] * HEP C SCANNED ORDERS (11/30/2023) us [facility] Scanned SCANNING Final Resu lt [facility] from Last 3 Months or Most Recently Relevant to Health Maintenance Insurance [employer] Advance Directives * Full Code (Latest Code Status on File) Date Activated Date Inactivated Comments 02/09/2024 6:50 PM 02/11/2024 1:21 PM Care Teams Field Underwriter Relationship Specialty Start Date End Date Alfredo Claros MD [address] [address] PCP - General FAMILY PRACTICE 11/30/21
--- OUTSIDE RECORDS SUMMARY | 2025-03-16 13:52 | XMS_ITS | Encounter Summary ---
Author Organization [facility] Address [address] [place] [address] Care Team Providers Care Concrete Layer Name Role Phone Alfredo Claros MD Primary Care Provider Encounter Details Date Type Department Care Team (Late st Contact Info) Description 01/17/2025 Results Follow-Up [facility] Family Medicine - [place] [address], [address] [place] [phone] Alrfedo Claros MD [address] [facility] [address] [place], [place] [id number] [place] ABD LIMITED Social History Tobacco Use [...] from your doctor or pharmacy? Never 02/09/2024 [facility] Utilities Answer Date Recorded In the past [...] often do you attend chur ch or christian services? Never 02/09/2024 Do you belong to any clubs o r organizations such as sabianism groups, unions, fraternal or athletic groups, or [...] 0 01/18/2025 [facility] - Occup[facility] [...] any time in the past 12 m [facility], were you homeless or living in a group home (including now)? 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
--- OUTSIDE RECORDS SUMMARY | 2025-03-16 13:53 | XMS_ITS | Clinical Summary ---
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
[2025-03-16 14:04] VITALS: BP 90/53; PULSE 74; RESP 18; TEMP 37; O2SAT 100
--- NOTE | 2025-03-16 14:12 | ED_ITS ---
HPI - URI/Sore Throat General Chief Complaint: Upper Respiratory Infection Stated Complaint: C/O sore throat/swollen glands History of Present Illness HPI Narrative: 30 y/o female presented for c/o sore throat. Onset 3 days. Says she saw a blister in the back of the throat today. Pt also endorses pain to the left axilla lymph nodes, and 'skin pain.' Denies n/v/d/f/c. Related Data Home Medications ?Medication ?Instructions ?Recorded ?Confirmed ?Last Taken ?Type bupropion HCl 300 mg 24 hr tablet, 300 mg PO DAILY 07/05/20 03/16/25 02/22/25 History extended release lamotrigine 100 mg tablet 100 mg PO DAILY 02/22/23 03/16/25 1 Day Ago History ~12/18/23 lurasidone 20 mg tablet 40 mg PO DAILY 06/24/23 03/16/25 1 Day Ago History ~12/18/23 tirzepatide (weight loss) 5 mg/0.5 5 mg subcut WEEKLY 01/07/25 03/16/25 02/08/25 History mL subcutaneous pen injector (Zepbound) sertraline 100 mg tablet 200 mg PO HS 02/07/25 03/16/25 Unknown History norethindrone (contraceptive) 0.35 mg 03/16/25 Unknown History mg tablet (Loreto) Allergies Allergy/AdvReac Type Severity Reaction Status Date / Time vancomycin Allergy Intermediate Redness of Verified 03/16/25 13:54 Skin erythromycin base Allergy Mild hives Verified 03/16/25 13:54 Review of Systems Review of Systems: CONSTITUTIONAL: Denies body aches, fever, chills, or sweats. EYES: Denies visual changes, redness, or discharge. ENT: reports sore throat Denies rhinorrhea, congestion, or otalgia. CARDIOVASCULAR: Denies chest pain, palpitations, or edema. RESPIRATORY: Denies dyspnea. GASTROINTESTINAL: Denies abdominal pain, nausea, vomiting, or diarrhea. SKIN: Denies rash NEUROLOGIC: Denies headache PMFSH Past Medical History Medical History Depression Sunil-Danlos and osteogenesis imperfecta syndrome hypermoble Chronic kidney disease stage 2 Asthma OCD (obsessive compulsive disorder) Anxiety with depression Surgical History Surgical History Hx laparoscopic cholecystectomy 02/22/2025 Laparoscopic cholecystectomy Delivery by section (12/27/23) primary c/s Arrest of Dilation and Non-Reassuring Status H/O eye surgery (~1997) History of gynecological procedure (02/05/15) mirena iud insertion History of gynecological procedure (01/09/20) mirena iud removal (unable to removed done in OR on 01/24/2020 [employer] teeth removed Hx of tonsillectomy (~08/2012) Family History Family History Grandparent Heart disease paternal grandfather Hypertension paternal grandfather Diabetes mellitus Paternal Grandfather Other Family history of allergic disorder Family history of cardiovascular disease Social History Social History Smoking status: Never smoker Second hand tobacco smoke exposure: No Alcohol intake: never Substance use: never Substance use type: does not use Do You Feel Safe in your Home?: Yes Lack of Transportation: No Lack of Food: Never True Current Housing: I Have Housing Concerned About Future Housing: No Difficulty Paying Gas/Electric Bills: No Difficulty Paying for Meds: No Currently Unemployed: No Education: Master's Degree or Higher Difficulty w/ Childcare or Family Care: No Living arrangements: with family Additional living arrangements comments: 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 EYES: conjunctivae clear ENT: Mucous membranes moist. TMs pearly croft with normal light reflex bilaterally; no tragal tenderness. Oropharynx erythematous without lesions. Tonsils not enlarged and without exudate. No drooling, no hoarseness, no trismus, uvula midline. No tripod positioning, hot potato voice, or soft palate swelling. NECK: Supple. No lymphadenopathy CHEST: Clear to auscultation, breath sounds equal. HEART: Regular rate and rhythm. SKIN: Warm, dry, no rash. NEURO: Alert and oriented x3. Course Course Emergency Course: Patient is aware of diagnosis, understands and agrees to treatment plan. An ticipatory guidance given. Patient agrees to follow-up as directed and is aware of reasons to seek care at the emergency department. Portions of this record may have been created with voice recognition software Level of Care: Express Care Visit Vital Signs Vital signs: Vital Signs Temperature 98.6 F 03/16/25 14:04 Pulse Rate 74 03/16/25 14:04 Respiratory Rate 18 03/16/25 14:04 Blood Pressure 90/53 L 03/16/25 14:04 Pulse Oximetry 100 03/16/25 14:04 Oxygen Delivery Room Air 03/16/25 14:04 Temperature 98.6 F 03/16/25 14:04 Pulse Rate 74 03/16/25 14:04 Respiratory Rate 18 03/16/25 14:04 Blood Pressure 90/53 L 03/16/25 14:04 Pulse Oximetry 100 03/16/25 14:04 Oxygen Delivery Room Air 03/16/25 14:04 MDM - URI/Sore Throat MDM Narrative Medical decision making narrative: neg strep result reviewed with pt. Will culture. Advised f/u with pcp regarding 'lymph node pain.' Advise supportive treatments. Patient is appropriate for outpatient treatment and follow-up. Differential Diagnosis Differential diagnosis: Likely upper respiratory infection, viral infection and pharyngitis Lab Data Lab results narrative: 30 y/o female presented for c/o sore throat, onset 3 days. Says she noted a blister in throat this morning. Pt also reports pain and swelling to the lymph nodes under both arms, and 'skin pain.' Denies cough, sob, wheezing, n/v/d/f/c. Labs: Lab Results 03/16/25 Range/Units 14:18 POC Grp A Strep Screen Negative (Negative) Discharge Plan Discharge Clinical Impression: Viral infection Patient Disposition: Home Condition: Stable Instructions: Antibiotic Form, Pharyngitis (ED) Additional Instructions: Rapid strep swab was negative today You will be notified in a few days if the culture comes back positive for strep, and appropriate antibiotics will be called in at that time. if symptoms are due to a viral illness, it is not treated with antibiotics. Viral symptoms can be present for up to 10-14 days. Recommendations: Tylenol every 8 hours as needed for pain/fever Soft foods, cool liquids, warm tea. Gargle with warm saltwater twice a day. Chloraseptic spray and throat lozenges. Rest and stay hydrated. --Follow up with your PCP --Go to the ER immediately if you cannot swallow your saliva, trouble breathing/wheezing, throat swelling, pain is persistent and severe Patient Language: Georgian Prescriptions: No Action bupropion HCl 300 mg tablet extended release 24 hr 300 mg PO DAILY lamotrigine 100 mg tablet 100 mg PO DAILY lurasidone 20 mg tablet 40 mg PO DAILY norethindrone (contraceptive) [Loreto] 0.35 mg tablet Zepbound 5 mg/0.5 mL pen injector 5 mg subcut WEEKLY Patient Comments: Mondays for weight loss sertraline 100 mg tablet 200 mg PO HS Follow-up/Referrals: Hyacinth,Alfredo Reina MD [Primary Care Provider] -
[2025-03-16 14:20] LABS: EDSTREPNEGPOS1 Negative (Negative)
== END 2025-03-16 14:24 | disposition home or self-care (01) ==
PROVIDERS: Emergency Provider Nurse Practitioner Family; PCP Family Medicine
DX: B34.9 Viral infection, unspecified (principal); N18.2 Chronic kidney disease, stage 2 (mild); Q79.60 Ehlers-Danlos syndrome, unspecified; Q78.0 Osteogenesis imperfecta; J45.909 Unspecified asthma, uncomplicated; F41.8 Other specified anxiety disorders
CPT/HCPCS: 87081; 87880; 99213; G0463

== ENCOUNTER 2025-04-09 18:36 | Emergency (ER) | payer OTHER, SELFPAY ==
--- NOTE | ~2025-04-09 | XR_ITS ---
XR hand RT min 3V 04/09/2025 18:54 INDICATION: Right hand pain. Dog bite. PROCEDURE: 3 views right hand COMPARISON: No prior studies for comparison. FINDINGS: There is an age-indeterminate avulsion fracture volar plate proximal aspect of the third middle phalanx. Correlate for point tenderness.. The soft tissues appear within normal limits. No foreign bodies are identified. IMPRESSION: 1: Age-indeterminate avulsion fracture volar plate proximal aspect of the third middle phalanx. Reviewed, dictated and finalized at location O.
--- OUTSIDE RECORDS SUMMARY | 2025-04-09 18:38 | XMS_ITS | Encounter Summary ---
Author Organization [facility] Address [address] [place] [address] Care Team Providers Care Flat Optical Element Maker Name Role Phone Alfredo Claros MD Primary Care Provider Encounter Details Date Type Department Care Team (Late st Contact Info) Description 10/21/2022 Suniva Message Enc [facility] Medical Group Family Medicine [address], [address] [place] [phone] [facility] Provider Prescription pickup Social History Tobacco Use Types Packs/Day Years Used Date Smoking Tobacco: Never Smokeless Tobacco: Never Alcohol Use Standard Drinks/Week Comments Not Currently 0 (1 standard drink = 0.6 oz pur e alcohol) Comments No Sex and Gender Information Value Date Recorded Sex Assigned at Female 11/26/2024 8:38 AM CDT 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
--- OUTSIDE RECORDS SUMMARY | 2025-04-09 18:38 | XMS_ITS | Clinical Summary ---
Author Organization [facility] Address [address] [place] [address] Care Team Providers Care School Health Aide Name Role Phone Alfredo Claros MD Primary [...] tablet daily. 5 Active Lidocaine HCl (LIDOCAINE 1.5%/NIFEDIPINE 0.3% COMPOUNDED OINT)Indication s:Anal fissure APPLY EXTERNALLY 2 TIMES A DAY AND NEEDED AFTER BOWEL MOVEMENT 3 oz 6 5 Active Nitroglycerin 0.4 % OintmentIndicat ions:Anal fissure Place 1 inch rectally 2 (two) times daily as needed. 30 g 3 5 Active tirzepatide (ZEPBOUND) 5 MG/0.5ML injectionIndica tions:Weight Loss Inject 5 mg into the skin once a week. 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) 02/14/2024 Mastitis 02/09/2024 Supervision of high risk pre gnancy in third trimester ([facility]) 12/07/2023 High serum creatinine 11/17/2023 COVID-19 virus [...] specific interest in kidney disease in at [facility]; however, any nephrology evaluation [...] easily managed by the pediatricians, and no building custodial supervisor effects have ever been demonstrated. We discussed [...] Encounters Date Type Department Care Team Description 03/16/2025 Scan [facility] INFO SRVCS Scanned, [facility] 03/07/2025 Scan [facility] Scanned, [facility] 02/22/2025 Scan [facility] Scanned, [facility] Procedure (SCAN) 02/07/2025 Scan [facility] INFO [facility]VCS Scanned, [facility] 01/29/[address] [facility] Medical Group Family Medicine [address], [address] [place] [address] Alfredo Claros MD General Surgeon 01/29/2025 Results Follow-Up [facility] Gastroenterology Specialty Clinic [address] [phone] Fabrizio Cam MD [place] HEPATOBILIARY SCAN W/GB EJECTION FRACTION 01/28/2025 7:44 AM CDT - 01/28/2025 11:59 PM CDT Hospital Encounter [facility] Nuclear Medicine [address] [place] [address] Fabrizio Cam MD Discharge Disposition: Home or Self Care (Routine Discharge) 01/28/2025 Travel 01/18/2025 2:00 PM CDT Office Visit [facility] Gastroenterology Specialty Clinic [place] [address] [place] [address] Alfredo Claros MD Kim, Peter S, MD New Patient (Rectal sx) 01/18/2025 Travel 01/17/2025 11:35 AM CDT - 01/17/2025 11:59 PM CDT Hospital Encounter [facility] Ultrasound [address] [place] [address] Alfredo Claros MD Discharge Disposition: Home or Self Care (Routine Discharge) 01/17/2025 Results Follow-Up [facility] Family Medicine - [place] [address], [address] [place] [address] Alfredo Claros MD US ABD LIMITED 01/17/2025 Travel 01/10/2025 Orders Only [facility] Family Medicine - [place] [address], [address] [place] [phone] Alfredo Claros MD 01/09/2025 MyChart Message Enc [facility] Family Medicine - [place] [address], [address] [place] [phone] Alfredo Claros MD Abdominal pain 01/08/2025 Scan [employer] HEALTH INFO SRVCS Scanned, [facility] 01/07/2025 8:32 AM CDT - 01/07/2025 11:59 PM CDT Hospital Encounter [facility] Laboratory [address] [place] [address] Annia Perkins APNP Discharge Disposition: Home or Self Care (Routine Discharge) 01/07/2025 8:30 AM CDT - 01/07/2025 8:31 AM CDT Hospital Encounter [facility] Laboratory [address] [place] [address] Alfredo Claros MD Discharge Disposition: Home or Self Care (Routine Discharge) 01/07/2025 Orders Only [facility] Laboratory [address] [place] [address] Annia Perkins APNP 01/07/2025 Travel from Last 3 Months Immunizations Immunization [...] from your doctor or pharmacy? Never 02/09/2024 [facility] Utilities Answer Date Recorded In the past 12 months has th e [employer], gas, oil, or water [employer] threatened to shut off services in your [...] often do you attend chur ch or oriental orthodox services? Never 02/09/2024 Do you belong to any clubs o r organizations such as restoration groups, unions, fraternal or athletic groups, or [...] Recorded Patient Health Questionnaire-2 Score 0 01/18/2025 [facility] - Occupational [...] time in the past 12 m [facility], were you homeless or living in a mcfp (including now)? 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 [address] EXAMINATION: HEPATOBILIARY SCINTIGRAPHY (WITH GALLBLADDER EJECTION FRACTION) [...] Procedure Note Ariela Jones MD - 01/28/2025 [facility] [address] [place] [phone] EXAMINATION: HEPATOBILIARY SCINTIGRAPHY (WITH GALLBLADDER EJECTIONFRACTION) DATE [...] 1:28 PM Narrative 01/17/2025 1:35 PM CDT [facility] [address] [place] [address] EXAMINATION: Limited Abdomen Ultrasound: RUQ EXAM DATE/TIME: [...] Procedure Note Merrill Maria MD - 01/17/2025 [facility] [address] [facility] [place] [address] EXAMINATION: Limited Abdomen Ultrasound: RUQ EXAM DATE/TIME: [...] COLOR (U) YELLOW 01/07/2025 9:40 AM CDT [facility] TRANSPARENCY CLEAR 01/07/2025 9:40 AM CDT [facility] SPECIFIC GRAVITY (U) >1.030(H) 1.000 - 1.030 01/07/2025 9:40 AM CDT [facility] U PH 5.5 5.0 - 9.0 01/07/2025 9:40 AM CDT [facility] LEUKOCYTES (U) NEGATIVE NEGATIVE 01/07/2025 9:40 AM CDT [facility] NITRITES NEGATIVE NEGATIVE 01/07/2025 9:40 AM T [facility] PROTEIN RANDOM (U) TRACE(A) NEGATIVE 01/07/2025 9:40 AM CDT [facility] GLUCOSE (U) NEGATIVE NEGATIVE 01/07/2025 9:40 AM T [facility] KETONES MG/DL (U) NEGATIVE NEGATIVE 01/07/2025 9:40 AM CDT [facility] BILIRUBIN (U) 1+(A) NEGATIVE 01/07/2025 9:40 AM CDT [facility] BLOOD (U) 3+(A) NEGATIVE 01/07/2025 9:40 AM CDT [facility] URINE SPECIMEN OBTAINED BY CLEAN CATCH PROCEDURE / Unknown 01/07/2025 8:51 AM CDT us Annia Perkins APNP URINE ORDERABLES Final Result Performing Organization Address City/[facility]/ZIP Co de Phone Number [facility] [address] [place] [address], [place] [phone] * URINALYSIS MICRO ONLY (01/07/2025 8:51 AM CDT) WBC/HPF NONE SEEN 0 - 5 /HPF 01/07/2025 9:40 AM CDT [facility] RBC/HPF 5-10 0 - 5 /HPF 01/07/2025 9:40 AM CDT [facility] EPI/HPF MODERATE /HPF 01/07/2025 9:40 AM CDT [facility] 01/07/2025 8:51 AM CDT us Annia Perkins APNP URINE ORDERABLES Final Result [facility] [address] [place] [address], [place] [phone] * (ABNORMAL) MICROALBUMIN CREATININE RATIO (MICROALBUMIN/ALBUMIN) (01/07/2025 8:51 AM CDT) CREATININE (U) 290.7(H) 28 - 217 MG/DL 01/07/2025 9:32 AM CDT [facility] MICROALBUMIN (U) 1.3 <2.0 mg/dL 01/07/2025 9:32 AM CDT [facility] ALBUMIN/CREAT RATIO 4.5 <30.0 MG/G 01/07/2025 9:32 AM CDT [facility] URINE SPECIMEN / Unknown 01/07/2025 8:51 AM CDT Annia Perkins APMAGAN URINE ORDERABLES Final Result [facility] [address] [place] [address], [place] [phone] * (ABNORMAL) RENAL FUNCTION PANEL (01/07/2025 8:36 AM CDT) GLUCOSE 88 70 - 99 MG/DL 01/07/2025 9:23 AM T [facility] BUN 18 7 - 18 MG/DL 01/07/2025 9:23 AM T [facility] CREATININE S/P/B 1.23(H) 0.55 - 1.02 MG/DL 01/07/2025 9:23 AM T [facility] SODIUM S/P/B 138 136 - 145 MMOL/L 01/07/2025 9:23 AM T [facility] POTASSIUM S/P/B 4.1 3.5 - 5.1 MMOL/L 01/07/2025 9:23 AM CDT [facility] CHLORIDE S/P/B 104 100 - 108 MMOL/L 01/07/2025 9:23 AM T [facility] CO2 22.1 21 - 32 MMOL/L 01/07/2025 9:23 AM CDT [facility] CALCIUM S/P/B 9.1 8.5 - 10.1 MG/DL 01/07/2025 9:23 AM CDT [facility] ALBUMIN S/P/B 3.8 3.4 - 5.0 G/DL 01/07/2025 9:23 AM CDT [facility] PHOSPHORUS 3.7 2.5 - 4.9 MG/DL 01/07/2025 9:23 AM CDT [facility] ANION GAP 11.9 5 - 15 MMOL/L 01/07/2025 9:23 AM CDT [facility] BUN CREATININE RATIO 14.6 6 - 26 01/07/2025 9:23 AM T [facility] GFR ESTIMATE 61(L) >90 ML/MIN/1.7 3 M2 01/07/2025 9:23 AM CDT [facility] Comment: NOTE: eGFR is not calculated for patients <18 years of age. This is an estimated GFR calculation using the new CKD EPI creatinine equation without race and so does not require a correction factor for race. This estimated GFR should not be used for calculating drug doses. 01/07/2025 8:36 AM CDT [facility] Final Result [facility] [address] [place] [id number], [place] [phone] * (ABNORMAL) CBC W/DIFF AUTOMATED (01/07/2025 8:36 AM CDT) WBC 8.57 4.4 - 11.0 x10'3/uL 01/07/2025 8:51 AM CDT [facility] RBC 5.12(H) 4.50 - 5.10 x10'6/uL 01/07/2025 8:51 AM CDT [facility] HGB 14.6 12.3 - 15.3 G/DL 01/07/2025 8:51 AM CDT [facility] HCT 42.2 35.9 - 44.6 % 01/07/2025 8:51 AM CDT [facility] MCV 82.4 80.0 - 96.0 FL 01/07/2025 8:51 AM CDT [facility] MCH 28.5 25.3 - 30.9 PG 01/07/2025 8:51 AM CDT [facility] MCHC 34.6(H) 31.0 - 34.1 G/DL 01/07/2025 8:51 AM CDT [facility] RDW 13.7 12.4 - 15.1 % 01/07/2025 8:51 AM T [facility] PLT 342 151 - 353 x10'3/uL 01/07/2025 8:51 AM T [facility] MPV 9.6 9.6 - 12.0 FL 01/07/2025 8:51 AM T [facility] RBC MORPHOLOGY NORMAL 01/07/2025 8:51 AM T [facility] PLT MORPH. NORMAL 01/07/2025 8:51 AM T [facility] WBC MORPHOLOGY NORMAL 01/07/2025 8:51 AM T [facility] LYMPHOCYTES % 20.9 15.8 - 45.0 % 01/07/2025 8:51 AM T [facility] NEUTROPHILS % 64.5 42.1 - 71.9 % 01/07/2025 8:51 AM CDT [facility] MONOCYTES % 6.4 5.7 - 12.5 % 01/07/2025 8:51 AM CDT [facility] EOSINOPHILS 7.4(H) 0.0 - 5.6 % 01/07/2025 8:51 AM CDT [facility] BASOPHILS 0.4 0.0 - 1.3 % 01/07/2025 8:51 AM CDT [facility] ABS. NEUTROPHILS 5.54 1.40 - 6.00 x10'3/uL 01/07/2025 8:51 AM CDT [facility] IMMATURE GRANS % 0.4 0.0 - 0.5 % 01/07/2025 8:51 AM CDT [facility] ABS. LYMPHOCYTES 1.79 0.80 - 4.70 x10'3/uL 01/07/2025 8:51 AM CDT [facility] 01/07/2025 8:36 AM CDT [facility] Final Result Performing Organization Address [facility] de Phone Number [facility] [address] [place] [address], [place] [phone] * LIPASE (01/07/2025 8:36 AM CDT) LIPASE 41 16 - 77 UNITS/L 01/07/2025 9:13 AM CDT [facility] 01/07/2025 8:36 AM CDT us Alfredo Claros MD LABORATORY Final R esult Performing Organization Address [facility] Co de Phone Number [facility] [address] [place] [address], [place] [phone] * HEP C SCANNED ORDERS (11/30/2023) us [facility] Scanned SCANNING Final Resu lt Performing Organization Address [facility] Co de Phone Number [facility] ONBASE from Last 3 Months or Most Recently Relevant to Health Maintenance Insurance [employer] Advance Directives * Full Code (Latest Code Status on File) Date Activated Date Inactivated Comments 02/09/2024 6:50 PM 02/11/2024 1:21 PM Care Teams School Health Aide Relationship Specialty Start Date End Date Alfredo Claros MD [address] [place] [address] PCP - General FAMILY PRACTICE 11/30/21
--- OUTSIDE RECORDS SUMMARY | 2025-04-09 18:38 | XMS_ITS | Encounter Summary ---
Author Organization [facility] Address [address] [place] [address] Care Team Providers Care Warp Tier Name Role Phone Alfredo Claros MD Primary Care Provider Encounter Details Date Type Department Care Team (Late st Contact Info) Description 03/01/2022 MyChart Message Enc [facility] Group Family Medicine - [place] [address] [place] [phone] Alfredo Claros MD [address] [place], [place] [phone] Swollen lymph nodes/fatigue/ general unwell feeling Social History Tobacco Use Types Packs/Day Years Used Date Smoking Tobacco: Never Smokeless Tobacco: Never Alcohol Use Standard Drinks/Week Comments Not Currently 0 (1 standard drink = 0.6 oz pur e alcohol) Comments No Sex and Gender Information Value Date Recorded Sex Assigned at Female 11/26/2024 8:38 AM CDT Legal Sex Female 1:29 PM DAY HABILITATION SPECIALIST Gender Identity Female 03/03/2022 6:04 AM CDT [...] documented as of this encounter Care Teams Warp Tier Relationship Specialty Start Date End Date Alfredo Claros MD [address] [place] [address] PCP - General FAMILY PRACTICE 11/30/21 documented as of this encounter
--- OUTSIDE RECORDS SUMMARY | 2025-04-09 18:38 | XMS_ITS | Clinical Summary ---
Author Organization [facility] Address [address] [facility] [place] [address] Care Team Providers Care Defence Intelligence Analyst Name Role Phone Alfredo Claros MD Primary Care Provider Source Comments [facility] and Associated Physician Practices is amultiple site organization consisting of ambulatory clinics and hospital sitesin [place], [place], [place] and [place]. This disclosure is being madepursuant to the Care Everywhere program and may not contain all information available regarding this patient. Last updated 18.[facility] Allergies Active Allergy Reactions Criticality Noted Date [...] Date Supervision of high risk in [facility] 12/07/2023 Obesity 10/05/2023 Sunil-Danlos syndrome, sarah gn [...] and heating? Not hard at all 12/07/2023 [facility] - [...] Reactive Non Reactive 12/07/2023 9:40 PM CDT [facility] HBsAg Non Reactive Non Reactive 12/07/2023 9:40 PM CDT [facility] HBc Antibody IgM Non Reactive Non Reactive 12/07/2023 9:40 PM CDT [facility] HCV Antibody Screen Non Reactive Non Reactive 12/07/2023 9:40 PM CDT [facility] Blood BLOOD SPECIMEN / Unknown Venipuncture / Unknown 12/07/2023 8:49 PM CDT 12/07/2023 8:54 PM CDT Narrative [facility] - 12/07/2023 9:40 PM CDT Non Reactive - Antibodies to Hepatitis C virus (HCV) were not detected, result does not exclude early acute HCV infection. us Amanda Crawford MD LAB - CHEMISTRY ORDERABLES Ange maza Result [facility] [address] [place], [place] [id number] from Last 3 Months or Most Recently Relevant to Health Maintenance [facility] INSURANCE Member Subscriber Plan / Payer (Ef fective for All Dates) Name:Radhika Beck Member ID:Not on file Relation to Subscriber:Not on file Name:RADHIKA BECK Subscriber ID:Not on file (Home) Address: [address] [place] [address] Payer ID:Not on file Group ID:Not on file Type:Self Pay Address: [place], [place] * Guarantor: RADHIKA BECK Account Type Relation to Patient Date of Phone Billing Address Personal/Family [address] [place] [address] CIGNA SELF PAY NO INSURANCE Member Subscriber Plan / Payer (Ef fective for All Dates) Name:Radhika Beck Member ID:Not on file Relation to Subscriber:Not on file Name:RADHIKA BECK Subscriber ID:Not on file Address: [address] [place] [address] Payer ID:Not on file Group ID:Not on file Type:Self Pay Address: [place], [place] * Guarantor: RADHIKA BECK Account Type Relation to Patient Date of Phone Billing Address Personal/Family [address] [place] [address] CIGNA SELF PAY NO INSURANCE Member Subscriber Plan / Payer (Ef fective for All Dates) Name:Radhika Beck N Member ID:Not on file Relation to Subscriber:Not on file Name:RADHIKA BECK Subscriber ID:Not on file Address: [address] [place] [address] Payer ID:Not on file Group ID:Not on file Type:Self Pay Address: [place], [place] * Guarantor: RADHIKA BECK Account Type Relation to Patient Date of Phone Billing Address Personal/Family [address] [place] [address] CIGNA SELF PAY NO INSURANCE Member Subscriber Plan / Payer (Ef fective for All Dates) Name:Radhika Beck Member ID:Not on file Relation to Subscriber:Not on file Name:RADHIKA BECK Subscriber ID:Not on file Address: [address] [place] [address] Payer ID:Not on file Group ID:Not on file Type:Self Pay Address: [place], [place] * Guarantor: RADHIKA BECK Account Type Relation to Patient Date of Phone Billing Address Personal/Family [address] [place] [address] Advance Directives * Full Code (Latest Code Status on File) Date Activated Date Inactivated Comments 12/07/2023 8:47 PM 12/08/2023 3:11 PM Care Teams Defence Intelligence Analyst Relationship Specialty Start Date End Date Alfredo Claros MD [address] [place], [place] [phone] PCP - General Family Medicine 12/28/21
--- OUTSIDE RECORDS SUMMARY | 2025-04-09 18:38 | XMS_ITS | Clinical Summary ---
Author Organization [facility] C[facility]n jennings Address [address] [place] [phone] Phone Care Team Providers Care Ball Truing Machine Operator Name Role Phone Unavailable Primary Care [...] Description 01/08/2025 12:40 PM CDT Office Visit [facility] [address], [address] [place] [address] Annia Perkins NP Chronic kidney disease stage [...] st Contact Info) Description 07/09/2025 3:40 PM CONCRETE VIBRATOR OPERATOR Office Visit [facility] [address], [address] [place], [place] [phone] Annia Perkins NP [address] [address] Health Maintenance Due Date Last Done Comments Pneumococcal PPSV23 Highest Risk Adult (1 of 3 - PCV13) 2014 Influenza Vaccine (#1) 2025 0, 07/26/2019, 06/13/2018, Additional history exists Insurance [facility]
--- OUTSIDE RECORDS SUMMARY | 2025-04-09 18:38 | XMS_ITS | Encounter Summary ---
Author Organization [facility] Address [address] [place] [address] Care Team Providers Care Glass Washer And Carrier Name Role Phone Alfredo Claros MD Primary Care Provider Reason for Visit * Reason Onset Date Comments Problem 12/14/2021 Encounter Details Date Type Department Care Team (Late st Contact Info) Description 12/14/2021 MyChart Message Enc [facility] Family Medicine - [place] [address] [place] [address] Alfredo Claros MD [address] [place], [place] [phone] Covid results Social History Tobacco Use Types Packs/Day Years Used Date Smoking Tobacco: Never Smokeless Tobacco: Never Alcohol Use Standard Drinks/Week Comments Not Currently 0 (1 standard drink = 0.6 oz pur e alcohol) Comments No Sex and Gender Information Value Date Recorded Sex Assigned at Female 11/26/2024 8:38 AM CDT 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
--- OUTSIDE RECORDS SUMMARY | 2025-04-09 18:38 | XMS_ITS | Clinical Summary ---
Author Organization [facility] Address [address] [place] [address] Care Team Providers Care Button Cutting Machine Operator Name Role Phone Alrfedo Claros MD Primary Care Provider [phone] Allergies Active Allergy Reactions Criticality Noted Date [...] 50 mcg/actuation nasal spray,suspension Active influenza quadrivalent [id number] (Fluzone Quad , PF,) 60 mcg (15 [...] specific interest in kidney disease in at [facility]; however, any nephrology evaluation would be [...] of at least 30 minutes 5x/week, and nutrition/binder operator options. Anxiety and depression 04/05/2023 Overview (04/06/2023): [...] easily managed by the pediatricians, and no intermodal customer service effects have ever been demonstrated. We discussed [...] , as well as referral to a window shade ring sewer and pulmonary function testing. Abdominal pain 02/22/2022 [...] on file Legal Sex Female 7:17 PM SAMPLE MAKER HAND Gender Identity Not on file Sexual Orientation [...] Visit/Exam 18-64 2013 Covid-19 Vaccine ( season) 2025 08/21/2021, 10/18/2020, 09/19/2020 Influenza Vaccine (#1) 2025 , 06/17/2020, 07/26/2019, Additional history exists DTaP/Tdap/Td Vaccine (8 - Td or Tdap) 03/26/2026 03/26/2016, 03/05/2005, 10/16/1999, Additional history exists Hepatitis B Screening Completed 01/23/1996 , 1995, 1995, Additional history exists HPV Vaccines Completed 01/05/2008, 07/09, 05/26/2007 Pneumococcal vaccine <65 Aged Out No longer eligible based on patient's age to complete this topic Insurance [facility] H[facility]PPO Address: [address] [address] [place] [address] [facility] H[facility]/PPO Address: [address] [place] [address] [facility] H[facility]/PPO Address: [address] [place] [address] CIGNA ALLEGIANCE Care Teams Button Cutting Machine Operator Relationship Specialty Start Date End Date Alfredo Claros MD [address] [address] PCP - General Family Medicine 03/01/22
--- OUTSIDE RECORDS SUMMARY | 2025-04-09 18:38 | XMS_ITS | Encounter Summary ---
Author Organization [facility] Address [address] [place] [address] Care Team Providers Care Certified Adaptive Physical Educator Name Role Phone Alfredo Claros MD Primary Care Provider Encounter Details Date Type Department Care Team (Late st Contact Info) Description 05/05/2022 Joinnus Message Enc [facility] Family Medicine [address], [address] [place] [phone] [employer], [facility] Provider lab results Social History Tobacco Use Types Packs/Day Years Used Date Smoking Tobacco: Never Smokeless Tobacco: Never Alcohol Use Standard Drinks/Week Comments Not Currently 0 (1 standard drink = 0.6 oz pur e alcohol) Comments No Sex and Gender Information Value Date Recorded Sex Assigned at Female 11/26/2024 8:38 AM CDT Legal Sex Female 1:29 PM CREAM DUMPER Gender Identity Female 03/03/2022 6:04 AM CDT [...] documented as of this encounter Care Teams Certified Adaptive Physical Educator Relationship Specialty Start Date End Date Alfredo Claros MD [address] [phone] PCP - General FAMILY PRACTICE 11/30/21 documented as of this encounter
--- OUTSIDE RECORDS SUMMARY | 2025-04-09 18:38 | XMS_ITS | Encounter Summary ---
Author Organization [facility] Address [address] [place] [address] Care Team Providers Care Cross Tie Tram Loader Name Role Phone Alfredo Claros MD Primary Care Provider Encounter Details Date Type Department Care Team (Late st Contact Info) Description 01/09/2025 MyCUrban Matrixt Message Enc [facility] Family Medicine - [place] [address] [facility] [facility] [place] [address] Alfredo Claros MD [address] [place], [place] [phone] Abdominal pain Social History Tobacco Use Types [...] from your doctor or pharmacy? Never 02/09/2024 [facility] Utilities Answer Date Recorded In [...] often do you attend chur ch or methodist services? Never 02/09/2024 Do you belong to any clubs o r organizations such as hindu groups, unions, fraternal or athletic groups, or [...] Recorded Patient Health Questionnaire-2 Score 0 11/26/2024 [facility] - Occupational [...] any time in the past 12 m [facility], were you homeless or living in a retirement (including now)? 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
[2025-04-09 18:45] VITALS: BP 111/90; PULSE 84; RESP 18; TEMP 36.2; O2SAT 100
--- NOTE | 2025-04-09 18:54 | ED.ANIMALBIT ---
HPI - Animal Bite General Chief Complaint: Animal Bite Stated Complaint: dog bite Time Seen by Provider: 04/09/25 18:54 Source: patient and RN notes reviewed Mode of arrival: ambulatory Limitations: no limitations History of Present Illness HPI narrative: 30-year-old female presents Express Care complaining of dog bite to right hand. Patient said injury occurred approximately 1 hour ago. Patient said the recently rescued a husky that she believes gets care at home in bed her in the right hand. Patient's tetanus is up-to-date. Patient reports pain swelling to proximal part of her right hand. Patient says the dogs rabies are up-to-date. Patient denies any other injuries, numbness, tingling. Related Data Home Medications ?Medication ?Instructions ?Recorded ?Confirmed ?Last Taken ?Type bupropion HCl 300 mg 24 hr tablet, 300 mg PO DAILY 07/05/20 04/09/25 02/22/25 History extended release lamotrigine 100 mg tablet 100 mg PO DAILY 02/22/23 04/09/25 1 Day Ago History ~12/18/23 lurasidone 20 mg tablet 40 mg PO DAILY 06/24/23 03/31/25 1 Day Ago History ~12/18/23 tirzepatide (weight loss) 5 mg/0.5 5 mg subcut WEEKLY 01/07/25 04/09/25 02/08/25 History mL subcutaneous pen injector (Zepbound) sertraline 100 mg tablet 200 mg PO HS 02/07/25 04/09/25 Unknown History lorazepam 0.5 mg tablet mg 04/09/25 Unknown History lurasidone 60 mg tablet mg 04/09/25 Unknown History norethindrone (contraceptive) 0.35 mg 04/09/25 Unknown History mg tablet (Loreto) Allergies Allergy/AdvReac Type Severity Reaction Status Date / Time vancomycin Allergy Intermediate Redness of Verified 04/09/25 18:42 Skin erythromycin base Allergy Mild hives Verified 04/09/25 18:42 Review of Systems Review of Systems: CONSTITUTIONAL: Denies fever, chills, or sweats. EYES: Denies visual changes, redness, or discharge. ENT: Denies rhinorrhea, congestion, sore throat, or otalgia. CARDIOVASCULAR: Denies chest pain, palpitations, or edema. RESPIRATORY: Denies cough or dyspnea. GASTROINTESTINAL: Denies abdominal pain, nausea, vomiting, or diarrhea. GENITOURINARY: Denies dysuria or hematuria. SKIN: Denies rash or itching. Positive for dog bite. MUSCULOSKELETAL: Denies back pain, joint pain, or myalgia. NEUROLOGIC: Denies headache, numbness, or weakness. PSYCHIATRIC: Denies anxiety or depression. All other systems reviewed are negative, except as documented in HPI. [facility] Past Medical History Medical History Depression Sunil-Danlos and osteogenesis imperfecta syndrome hypermoble Chronic kidney disease stage 2 Asthma OCD (obsessive compulsive disorder) Anxiety with depression Surgical History Surgical History Hx laparoscopic cholecystectomy 02/22/2025 Laparoscopic cholecystectomy Delivery by section (12/27/23) primary c/s Arrest of Dilation and Non-Reassuring Status H/O eye surgery (~1997) History of gynecological procedure (02/05/15) mirena iud insertion History of gynecological procedure (01/09/20) mirena iud removal (unable to removed done in OR on 01/24/2020 [place] teeth removed Hx of tonsillectomy (~08/2012) Family History Family History Grandparent Heart disease paternal grandfather Hypertension paternal grandfather Diabetes mellitus Paternal Grandfather Other Family history of allergic disorder Family history of cardiovascular disease Social History Social History Smoking status: Never smoker Second hand tobacco smoke exposure: No Alcohol intake: never Substance use: never Substance use type: does not use Do You Feel Safe in your Home?: Yes Lack of Transportation: No Lack of Food: Never True Current Housing: I Have Housing Concerned About Future Housing: No Difficulty Paying Gas/Electric Bills: No Difficulty Paying for Meds: No Currently Unemployed: No Education: Master's Degree or Higher Difficulty w/ Childcare or Family Care: No Living arrangements: with family Additional living arrangements comments: 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 There is no relevant family history pertinent to the patient complaint. Exam Narrative: GENERAL: This is a well-nourished, well-developed adult, in no apparent distress. They are non ill-appearing, nontoxic appearing. HEAD: normocephalic, atraumatic. EYES: Sclera clear/white. Conjunctiva normal. Vision is grossly intact. Extraocular movements intact EARS: External ears normal, Hearing grossly intact. NOSE: External nose normal THROAT: Mucous membranes moist, NECK: Neck supple, CARDIOVASCULAR: Regular rate and rhythm RESPIRATORY: Respiratory rate normal, respiratory effort nonlabored, no respiratory distress SKIN: Right hand 2 puncture wounds present to anterior lateral proximal palm and 1 puncture wound present to the posterior lateral distal dorsal surface of the hand. Mild swelling. My of his deformity, bruising, or redness. Normal range of motion. Right radial pulse 2 +and palpable. Patient is able to wiggle her fingers. Radial and ulnar nerve distribution intact. Capillary refill less than 2 seconds. Normal sensation. Mild tenderness to palpation in the puncture wounds. Neurovascular status intact distal injury. Right middle finger nontender, no bony tenderness no obvious deformity, injury, bruising, redness, swelling. Normal range of motion. NEURO: awake, alert, and oriented to person, place and time. There were no obvious focal neurologic abnormalities. EXTREMITIES: No joint tenderness, effusion, or edema noted. Course Course Emergency Course: Portions of this record may have been created with voice recognition software Level of Care: Express Care Visit Vital Signs Vital signs: Vital Signs Temperature 97.2 F L 04/09/25 18:45 Pulse Rate 84 04/09/25 18:45 Respiratory Rate 18 04/09/25 18:45 Blood Pressure 111/90 04/09/25 18:45 Pulse Oximetry 100 04/09/25 18:45 Oxygen Delivery Room Air 04/09/25 18:45 Temperature 97.2 F L 04/09/25 18:45 Pulse Rate 84 04/09/25 18:45 Respiratory Rate 18 04/09/25 18:45 Blood Pressure 111/90 04/09/25 18:45 Pulse Oximetry 100 04/09/25 18:45 Oxygen Delivery Room Air 04/09/25 18:45 Reviewed MDM - Animal Bite MDM Narrative Medical decision making narrative: X-ray right hand no evidence of acute fractures. However there is an age in determinate avulsion fracture of the volar plate of the proximal aspect of the 3rd middle phalanx. The dog did not bite the patient on the finger. No injuries to the fingers. Patient is having no bony tenderness or pain to this area. Likely an old fracture advised patient to follow-up with PCP for further evaluation. Neurovascular status intact right hand. Since she was bit by a dog will prophylactically cover for infection with Augmentin. Puncture wounds were cleansed by nursing staff, bacitrain and band aids applied over wounds. Discussed physical exam findings. Advised supportive measures and signs/symptoms to go to the ER. Pt is appropriate for outpt treatment and f/u. Differential Diagnosis Differential diagnosis: Likely dog bite and other (Fracture, crush injury, contusion) Imaging Data Radiologist's impression: ITS Impressions Hand X-Ray 04/09/25 18:55 IMPRESSION: 1: Age-indeterminate avulsion fracture volar plate proximal aspect of the third middle phalanx. Critical Care Time Critical Care Time Critical Care Time: No Discharge Plan Discharge Clinical Impression: Dog bite Qualifiers: Encounter type: initial encounter Qualified Code(s): W54.0XXA - Bitten by dog, initial encounter Patient Disposition: Home Condition: Stable Instructions: Antibiotic Form, Animal Bite (ED) Additional Instructions: The x-ray of your hand is negative for any fractures there is an incidental finding of an old avulsion fracture to the middle bone of your middle finger. Please follow-up with your PCP about these findings. Wash the wound daily with mild soap and water. Do not soak or scrub the wound. Get the wound dry and covered. You may apply a antibiotic ointment the wound daily recommend using bacitracin. Avoid dirty water to the wound has healed completely. Take the Augmentin as directed and complete the course completely. Follow-up with PCP in 3-5 days. He developed redness, swelling, pain, fevers, drainage, or any serious concerns please go to the ER immediately. Patient Language: Trinidadian Prescriptions: New amoxicillin-pot clavulanate 875-125 mg tablet 1 tablet PO Q12H 5 Days Qty: 10 0RF No Action bupropion HCl 300 mg tablet extended release 24 hr 300 mg PO DAILY lamotrigine 100 mg tablet 100 mg PO DAILY lurasidone 20 mg tablet 40 mg PO DAILY lorazepam 0.5 mg tablet norethindrone (contraceptive) [Loreto] 0.35 mg tablet lurasidone 60 mg tablet Zepbound 5 mg/0.5 mL pen injector 5 mg subcut WEEKLY Patient Comments: Mondays for weight loss sertraline 100 mg tablet 200 mg PO HS Follow-up/Referrals: Ignacio Conti MD [Physician, Plastic Surgery] Hyacinth,Alfredo Reina MD [Primary Care Provider, Unknown] Time of Disposition: 19:07
== END 2025-04-09 19:10 | disposition home or self-care (01) ==
PROVIDERS: PCP Family Medicine
DX: S61.431A Puncture wound without foreign body of right hand, initial encounter (principal); W54.0XXA Bitten by dog, initial encounter; J45.909 Unspecified asthma, uncomplicated; Q79.60 Ehlers-Danlos syndrome, unspecified; Q78.0 Osteogenesis imperfecta; N18.2 Chronic kidney disease, stage 2 (mild); F41.8 Other specified anxiety disorders
CPT/HCPCS: 73130; 99213; G0463